=== PATIENT | female | born 1945 | race Caucasian/White ===

== ENCOUNTER 2016-07-03 19:41 | Emergency (ER) | payer MEDICARE, OTHER ==
[2016-07-03] MEDS ORDERED: LIDOCAINE/EPINEPHR/TETRACAINE 5 ML BOTTLE TOPICAL ONE (20:02)
--- NOTE | 2016-07-03 20:05 | ED ---
General Adult HPI - General Chief complaint: Skin/Abscess/Foreign Body Stated complaint: Eyelid lac/ pt on coumadin Time Seen by Provider: 07/03/16 19:52 Source: patient, RN notes reviewed Mode of arrival: ambulatory Limitations: no limitations - History of Present Illness Initial comments: Is a 70-year-old female who presents with bleeding to the left eyelid after scratching a scab on the eyelid. Patient states the bleeding has been going on for about one hour. Patient denies hitting her head. Patient denies any other sources of bleeding: Denies hematochezia, hematemesis, rectal bleeding, headache , epistaxis. Patient states she had a Coumadin level checked on 06/27/2016 and it was 1.3. Patient denies any visual changes. Patient denies any recent fever , chills, shortness breath, chest pain, abdominal pain, nausea/vomiting/diarrhea , back pain, numbness, tingling, hematuria, headache, or any other complaints. - Related Data Home Medications Medication Instructions Recorded Confirmed ALPRAZolam [Xanax] 0.5 mg PO QID 11/15/14 07/03/16 Aspirin 81 mg PO DAILY 11/15/14 07/03/16 Estrogens, Conjugated [Premarin] 0.9 mg PO DAILY 11/15/14 07/03/16 Fluticasone/Salmeterol [Advair 1 puff INHALATION RT-BID 11/15/14 07/03/16 500-50 Diskus] Hydrocodone/Acetaminophen [[place] 1 tab PO TID 11/15/14 07/03/16 10-325] Latanoprost Ophth [Xalatan 0.005%] 1 drops BOTH EYES HS 11/15/14 07/03/16 Montelukast [Singulair] 10 mg PO HS 11/15/14 07/03/16 Omeprazole [PriLOSEC] 20 mg PO AC-BRKFST 11/15/14 07/03/16 Quinapril HCl [Accupril] 5 mg PO DAILY 11/15/14 07/03/16 buPROPion XL [Wellbutrin XL] 150 mg PO DAILY 11/15/14 07/03/16 lamoTRIgine [LaMICtal] 200 mg PO BID 11/15/14 07/03/16 Butalb/Acetaminophen/Caffeine 1 tab PO QID PRN 11/16/14 07/03/16 [Fioricet 50-325-40] Lovastatin [Mevacor] 20 mg PO HS 11/16/14 07/03/16 Vilazodone Hydrochloride [Viibryd] 40 mg PO DAILY 11/16/14 07/03/16 buPROPion HCL [Wellbutrin XL] 300 mg PO DAILY 11/16/14 07/03/16 Metoprolol Tartrate [Lopressor] 25 mg PO BID 10/01/15 07/03/16 Verapamil [Isoptin] 40 mg PO DAILY 10/01/15 07/03/16 Warfarin [Coumadin] 5 mg PO TUSA 10/01/15 07/03/16 Warfarin [Coumadin] 7.5 mg PO SUMOWETHFR 10/01/15 07/03/16 Previous Rx's Medication Instructions Recorded Levothyroxine Sodium [Synthroid] 137 mcg PO DAILY@0630 #30 tab 11/22/14 Lidocaine Viscous [Xylocaine 5 ml PO QID #100 ml 02/11/16 Viscous 2%] Allergies Allergy/AdvReac Type Severity Reaction Status Date / Time No Known Allergies Allergy Verified 01/11/16 15:19 Review of Systems ROS Statement: Those systems with pertinent positive or pertinent negative responses have been documented in the HPI. ROS Other: All systems not noted in ROS Statement are negative. Past Medical History Past Medical History: Atrial Fibrillation, Asthma, COPD, GERD/Reflux, Hypertension, Mitral Valve Prolapse (MVP), Osteoarthritis (OA), Pneumonia, Rheumatoid Arthritis (RA), Thyroid Disorder Additional Past Medical History / Comment(s): Bipolar disorder, anxiety depressive disorder History of Any Multi-Drug Resistant Organisms: None Reported Past Surgical History: Adenoidectomy, Hysterectomy, Tonsillectomy Past Anesthesia/Blood Transfusion Reactions: No Reported Reaction Past Psychological History: No Psychological Hx Reported, Anxiety, Depression Smoking Status: Former smoker Past Alcohol Use History: None Reported Past Drug Use History: None Reported - Past Family History Mother Family Medical History: Vascular Disorder Father Family Medical History: CVA/TIA Brother(s) Family Medical History: Thyroid Disorder General Exam - General Exam Comments Initial Comments: General: The patient is awake and alert, in no distress, and does not appear acutely ill. Eye: There is an approximately 2 mm abrasion to the lateral aspect of the left upper eyelid. There is some oozing of blood from this area. Pupils are equal, round and reactive to light, extra-ocular movements are intact. No nystagmus. There is normal conjunctiva bilaterally. No signs of icterus. Ears: TMs pink and pearly with intact cone light bilaterally. Normal external ear canals. Nose: Nasal turbinates pink and moist. No epistaxis. Mouth and throat: There are moist mucous membranes and no oral lesions. Neck: The neck is supple, there is no tenderness or JVD. Cardiovascular: There is a irregularly irregular rhythm consistent with patient 's chronic A. fib. No murmur, rub or gallop is appreciated. Respiratory: Lungs are clear to auscultation, respirations are non-labored, breath sounds are equal. No wheezes, stridor, rales, or rhonchi. Gastrointestinal: Soft, non-distended, non-tender abdomen without masses or organomegaly noted. There is no rebound or guarding present. Bowel sounds are unremarkable. Musculoskeletal: Normal ROM, no tenderness. Strength 5/5. Sensation intact. Radial Pulses equal bilaterally 2+. Neurological: A&O x 3. CN II-XII intact, There are no obvious motor or sensory deficits. Coordination appears grossly intact. Speech is normal. Skin: There is an approximately 2 mm abrasion to the lateral aspect of the left upper eyelid with some oozing of blood from this area. Skin is warm and dry and no rashes or lesions are noted. Psychiatric: Cooperative, appropriate mood & affect, normal judgment. Limitations: no limitations Course Vital Signs 07/03/16 07/03/16 19:51 20:55 Temperature 97.6 F 97.7 F Pulse Rate 84 17 L Respiratory 17 82 H Rate Blood Pressure 146/91 140/88 O2 Sat by Pulse 96 97 Oximetry Medical Decision Making - Medical Decision Making This is a 70-year-old female presents with bleeding from the left upper eyelid after scratching a scab today. Patient states the bleeding has been going on for about one hour. On physical exam: there is an approximately 2 mm abrasion to the lateral aspect of the left upper eyelid. There is some oozing of blood to this area. Pupils are equal, round and reactive to light, extra-ocular movements are intact. No nystagmus. There is normal conjunctiva bilaterally. No signs of icterus. Wound was cleansed with normal saline. Wound is very superficial and no foreign body is noted. LET was applied to the left upper eyelid and compression was held to the left upper eyelid. After approximately 15 minutes with LET solution applied to the abrasion the bleeding was stopped. PT/INR PTT were checked and patient's INR is 2.6. I discussed results with patient. I discussed steady pressure to the area for 20-30 minutes with a cold wet washcloth if the area starts to bleed again. At time of discharge patient had no active bleeding. Discussed that patient should follow up with PCP in one to 2 days or return to the [facility] for any worsening symptoms or for any further concerns. Patient was receptive to this plan and patient will be discharged home. - Lab Data Lab Results 07/03/16 Range/Units 20:00 PT 25.0 H (9.0-12.0) sec INR 2.6 (<1.1) APTT 29.3 (22.0-30.0) sec Disposition Clinical Impression: Abrasion, Bleeding on Coumadin Disposition: HOME SELF-CARE Condition: Good Instructions: Abrasion (ED) Additional Instructions: If bleeding reoccurs please apply steady pressure to the area for at least 30 minutes. Please use medication as discussed. Please follow-up with family doctor in the next 2 days of symptoms have not improved. Please return to emergency room if the symptoms increase or worsen or for any other concerns. Referrals: Raudel Garza MD [Primary Care Provider] - 1-2 days Time of Disposition: 20:45
[2016-07-03 20:18] LABS: INR 2.6 (<1.1); Partial Thromboplastin Time 29.3 sec (22.0-30.0)
[2016-07-03 20:56] VITALS: BP 140/88; PULSE 17; RESP 82; TEMP 97.7
== END 2016-07-03 20:55 | disposition home or self-care (01) ==
LOC: EC 19:41
DX: S00.212A Abrasion of left eyelid and periocular area, initial encounter (principal); X58.XXXA Exposure to other specified factors, initial encounter; K21.9 Gastro-esophageal reflux disease without esophagitis; I34.1 Nonrheumatic mitral (valve) prolapse; E07.9 Disorder of thyroid, unspecified; J45.909 Unspecified asthma, uncomplicated; J44.9 Chronic obstructive pulmonary disease, unspecified; I48.91 Unspecified atrial fibrillation; F41.8 Other specified anxiety disorders; M19.90 Unspecified osteoarthritis, unspecified site; Z79.899 Other long term (current) drug therapy; Z79.82 Long term (current) use of aspirin; Z79.51 Long term (current) use of inhaled steroids; Z79.891 Long term (current) use of opiate analgesic; Z79.01 Long term (current) use of anticoagulants
CPT/HCPCS: 36415; 85610; 85730; 99283

== ENCOUNTER 2016-07-09 22:51 | Emergency (ER) | payer MEDICARE, OTHER ==
[2016-07-10] MEDS ORDERED: GLUCAGON 1 MG/ML VIAL IVP STA (00:12)
[2016-07-10] MEDS ORDERED: DIAZEPAM 5 MG TAB PO STA (00:13)
[2016-07-10] MEDS ORDERED: SODIUM CHLORIDE 0.9% 1,000 ML IV SCH (00:15)
--- NOTE | 2016-07-10 00:18 | ED ---
ENT HPI - General Chief complaint: ENT Stated complaint: ENT/Dizziness Time Seen by Provider: 07/10/16 00:00 Source: patient, EMS Mode of arrival: EMS - History of Present Illness Initial comments: She took her Singulair around 9:30 PM last night, she feels it is stuck in the in the throat she has no trouble breathing, after that she was able to drink about 2.5 glasses of water trying to flush it down water went down but she has a feeling that there is something stuck in the right side of the throat she is not drooling and is no distress but she is quite anxious and no difficulty breathing at all. He denies any headaches no chest pain or shortness of breath no abdominal pain no frequency urgency dysuria - Related Data Home Medications Medication Instructions Recorded Confirmed ALPRAZolam [Xanax] 0.5 mg PO QID 11/15/14 07/03/16 Aspirin 81 mg PO DAILY 11/15/14 07/03/16 Estrogens, Conjugated [Premarin] 0.9 mg PO DAILY 11/15/14 07/03/16 Fluticasone/Salmeterol [Advair 1 puff INHALATION RT-BID 11/15/14 07/03/16 500-50 Diskus] Hydrocodone/Acetaminophen [[place] 1 tab PO TID 11/15/14 07/03/16 10-325] Latanoprost Ophth [Xalatan 0.005%] 1 drops BOTH EYES HS 11/15/14 07/03/16 Montelukast [Singulair] 10 mg PO HS 11/15/14 07/03/16 Omeprazole [PriLOSEC] 20 mg PO AC-BRKFST 11/15/14 07/03/16 Quinapril HCl [Accupril] 5 mg PO DAILY 11/15/14 07/03/16 buPROPion XL [Wellbutrin XL] 150 mg PO DAILY 11/15/14 07/03/16 lamoTRIgine [LaMICtal] 200 mg PO BID 11/15/14 07/03/16 Butalb/Acetaminophen/Caffeine 1 tab PO QID PRN 11/16/14 07/03/16 [Fioricet 50-325-40] Lovastatin [Mevacor] 20 mg PO HS 11/16/14 07/03/16 Vilazodone Hydrochloride [Viibryd] 40 mg PO DAILY 11/16/14 07/03/16 buPROPion HCL [Wellbutrin XL] 300 mg PO DAILY 11/16/14 07/03/16 Metoprolol Tartrate [Lopressor] 25 mg PO BID 10/01/15 07/03/16 Verapamil [Isoptin] 40 mg PO DAILY 10/01/15 07/03/16 Warfarin [Coumadin] 5 mg PO TUSA 10/01/15 07/03/16 Warfarin [Coumadin] 7.5 mg PO SUMOWETHFR 10/01/15 07/03/16 Previous Rx's Medication Instructions Recorded Levothyroxine Sodium [Synthroid] 137 mcg PO DAILY@0630 #30 tab 11/22/14 Lidocaine Viscous [Xylocaine 5 ml PO QID #100 ml 02/11/16 Viscous 2%] Allergies Allergy/AdvReac Type Severity Reaction Status Date / Time No Known Allergies Allergy Verified 07/09/16 23:16 Review of Systems ROS Statement: Those systems with pertinent positive or pertinent negative responses have been documented in the HPI. ROS Other: All systems not noted in ROS Statement are negative. Past Medical History Past Medical History: Atrial Fibrillation, Asthma, COPD, GERD/Reflux, Hypertension, Mitral Valve Prolapse (MVP), Osteoarthritis (OA), Pneumonia, Rheumatoid Arthritis (RA), Thyroid Disorder Additional Past Medical History / Comment(s): Bipolar disorder, anxiety depressive disorder History of Any Multi-Drug Resistant Organisms: None Reported Past Surgical History: Adenoidectomy, Hysterectomy, Tonsillectomy Past Anesthesia/Blood Transfusion Reactions: No Reported Reaction Past Psychological History: No Psychological Hx Reported, Anxiety, Bipolar, Depression Smoking Status: Former smoker Past Alcohol Use History: None Reported Past Drug Use History: None Reported - Past Family History Mother Family Medical History: Vascular Disorder Father Family Medical History: CVA/TIA Brother(s) Family Medical History: Thyroid Disorder General Exam - General Exam Comments Initial Comments: General: The patient is awake and alert, in no distress, and does not appear acutely ill. He is anxious Skin: Skin is warm and dry and no rashes or lesions are noted. Eye: Pupils are equal, round and reactive to light, extra-ocular movements are intact; there is normal conjunctiva bilaterally. Ears, nose, mouth and throat: There are moist mucous membranes and no oral lesions. No foreign object noticed in the oropharynx Neck: The neck is supple, there is no tenderness or JVD. Cardiovascular: There is a regular rate and rhythm. No murmur, rub or gallop is appreciated. Respiratory: To auscultation bilateral, no wheezing no rhonchi no distress respiratory baldwin noticed Gastrointestinal: Soft, non-distended, non-tender abdomen without masses or organomegaly noted. There is no rebound or guarding present. Bowel sounds are unremarkable. Back: There is no tenderness to palpation in the midline. There is no obvious deformity. Musculoskeletal: Normal ROM, no tenderness, There is no pedal edema. There is no calf tenderness or swelling. No cords were appreciated. Neurological: CN II-XII intact, Cranial nerves III through XII are intact. There are no obvious motor or sensory deficits. Coordination appears grossly intact. Speech is normal. Psychiatric: Cooperative, appropriate mood & affect, normal judgment. Course Vital Signs 07/09/16 07/10/16 07/10/16 23:08 00:37 01:46 Temperature 98 F 98.1 F 97.3 F L Pulse Rate 87 91 83 Respiratory 18 16 16 Rate Blood Pressure 174/112 168/87 131/67 O2 Sat by Pulse 95 96 95 Oximetry 07/10/16 02:42 Temperature 97.4 F L Pulse Rate 63 Respiratory 16 Rate Blood Pressure 128/63 O2 Sat by Pulse 98 Oximetry An x-ray was reviewed, it's negative and around 2:30 she felt that she passed the Pain she wants home and recommend that she goes for a EGD home per her convenience in the near future normal recommend Dr. Cano/Brayan for the Disposition Clinical Impression: Foreign body in esophagus Disposition: HOME SELF-CARE Instructions: Soft Tissue Foreign Body (ED) Referrals: Raudel Garza MD [Primary Care Provider] - 1-2 days Gordy Rivera MD [STAFF PHYSICIAN] - 1-2 days
[2016-07-10 00:38] VITALS: RESP 16
--- NOTE | 2016-07-10 01:09 | XR ---
EXAMINATION TYPE: XR soft tissue neck DATE OF EXAM: 07/10/2016 1:04 AM COMPARISON: NONE HISTORY: Pill stuck in the throat TECHNIQUE: 2 views FINDINGS: Epiglottis is normal. Subglottic trachea appears normal. There is no sign of radiopaque for eign body. There is moderate spondylosis in the lower cervical spine at C5-6 C6-7. IMPRESSION: No acute abnormality of the cervical soft tissues. No sign of a foreign body.
[2016-07-10 02:44] VITALS: BP 128/63; PULSE 63; TEMP 97.4
== END 2016-07-10 02:56 | disposition home or self-care (01) ==
LOC: EC 22:51
DX: T18.108A Unspecified foreign body in esophagus causing other injury, initial encounter (principal); X58.XXXA Exposure to other specified factors, initial encounter; J44.9 Chronic obstructive pulmonary disease, unspecified; J45.909 Unspecified asthma, uncomplicated; M19.90 Unspecified osteoarthritis, unspecified site; K21.9 Gastro-esophageal reflux disease without esophagitis; I48.91 Unspecified atrial fibrillation; I34.1 Nonrheumatic mitral (valve) prolapse; E07.9 Disorder of thyroid, unspecified; I10 Essential (primary) hypertension; M06.9 Rheumatoid arthritis, unspecified; F31.9 Bipolar disorder, unspecified; F41.9 Anxiety disorder, unspecified; Z79.82 Long term (current) use of aspirin; Z79.01 Long term (current) use of anticoagulants; Z79.51 Long term (current) use of inhaled steroids; Z79.899 Other long term (current) drug therapy; Z87.01 Personal history of pneumonia (recurrent); Z87.891 Personal history of nicotine dependence
CPT/HCPCS: 99283; 96374; 96361 ×2; 70360; J1610

== ENCOUNTER 2016-10-05 21:33 | Emergency (ER) | payer MEDICARE, OTHER ==
[2016-10-05] MEDS ORDERED: METOCLOPRAMIDE 5 MG/ML 2 ML VIAL IVP STA (22:53)
[2016-10-05] MEDS ORDERED: diphenhydrAMINE 50 MG/ML 1 ML VIAL IVP STA (22:53)
[2016-10-05] MEDS ORDERED: GLUCAGON 1 MG/ML VIAL IVP STA (22:54)
--- NOTE | 2016-10-05 22:59 | ED ---
ENT HPI - General Chief complaint: ENT Stated complaint: Pill stuck in throat Time Seen by Provider: 10/05/16 22:34 Source: patient, RN notes reviewed Mode of arrival: ambulatory Limitations: no limitations - History of Present Illness Initial comments: Patient is a 71-year-old female presents to the emergency room for evaluation of foreign body sensation in throat. Patient states that she had a migraine earlier today and went to take her Fioricet by mouth and it got stuck in her throat on the right side. Patient states she's had this sensation before. Patient states she has tried drinking water, tea and bread and the pill will not go down her throat. Patient denies trouble swallowing. Patient denies pain in her throat. Patient denies chest pain or shortness of breath. Patient denies headache or dizziness. - Related Data Home Medications Medication Instructions Recorded Confirmed ALPRAZolam [Xanax] 0.5 mg PO QID 11/15/14 07/03/16 Aspirin 81 mg PO DAILY 11/15/14 07/03/16 Estrogens, Conjugated [Premarin] 0.9 mg PO DAILY 11/15/14 07/03/16 Fluticasone/Salmeterol [Advair 1 puff INHALATION RT-BID 11/15/14 07/03/16 500-50 Diskus] Hydrocodone/Acetaminophen [[place] 1 tab PO TID 11/15/14 07/03/16 10-325] Latanoprost Ophth [Xalatan 0.005%] 1 drops BOTH EYES HS 11/15/14 07/03/16 Montelukast [Singulair] 10 mg PO HS 11/15/14 07/03/16 Omeprazole [PriLOSEC] 20 mg PO AC-BRKFST 11/15/14 07/03/16 Quinapril HCl [Accupril] 5 mg PO DAILY 11/15/14 07/03/16 buPROPion XL [Wellbutrin XL] 150 mg PO DAILY 11/15/14 07/03/16 lamoTRIgine [LaMICtal] 200 mg PO BID 11/15/14 07/03/16 Butalb/Acetaminophen/Caffeine 1 tab PO QID PRN 11/16/14 07/03/16 [Fioricet 50-325-40] Lovastatin [Mevacor] 20 mg PO HS 11/16/14 07/03/16 Vilazodone Hydrochloride [Viibryd] 40 mg PO DAILY 11/16/14 07/03/16 buPROPion HCL [Wellbutrin XL] 300 mg PO DAILY 11/16/14 07/03/16 Metoprolol Tartrate [Lopressor] 25 mg PO BID 10/01/15 07/03/16 Verapamil [Isoptin] 40 mg PO DAILY 10/01/15 07/03/16 Warfarin [Coumadin] 5 mg PO TUSA 10/01/15 07/03/16 Warfarin [Coumadin] 7.5 mg PO SUMOWETHFR 10/01/15 07/03/16 Previous Rx's Medication Instructions Recorded Levothyroxine Sodium [Synthroid] 137 mcg PO DAILY@0630 #30 tab 11/22/14 Lidocaine Viscous [Xylocaine 5 ml PO QID #100 ml 02/11/16 Viscous 2%] Allergies Allergy/AdvReac Type Severity Reaction Status Date / Time No Known Allergies Allergy Verified 10/05/16 21:55 Review of Systems ROS Statement: Those systems with pertinent positive or pertinent negative responses have been documented in the HPI. ROS Other: All systems not noted in ROS Statement are negative. Past Medical History Past Medical History: Atrial Fibrillation, Asthma, COPD, GERD/Reflux, Hypertension, Mitral Valve Prolapse (MVP), Osteoarthritis (OA), Pneumonia, Rheumatoid Arthritis (RA), Thyroid Disorder Additional Past Medical History / Comment(s): Bipolar disorder, anxiety depressive disorder History of Any Multi-Drug Resistant Organisms: None Reported Past Surgical History: Adenoidectomy, Hysterectomy, Tonsillectomy Past Anesthesia/Blood Transfusion Reactions: No Reported Reaction Past Psychological History: No Psychological Hx Reported, Anxiety, Bipolar, Depression Smoking Status: Former smoker Past Alcohol Use History: None Reported Past Drug Use History: None Reported - Past Family History Mother Family Medical History: Vascular Disorder Father Family Medical History: CVA/TIA Brother(s) Family Medical History: Thyroid Disorder General Exam - General Exam Comments Initial Comments: Sitting in exam room in no acute distress. Limitations: no limitations General appearance: alert, in no apparent distress Head exam: Present: atraumatic, normocephalic, normal inspection Eye exam: Present: normal appearance ENT exam: Present: normal exam, normal oropharynx (No foreign bodies noted) Neck exam: Present: normal inspection Respiratory exam: Present: normal lung sounds bilaterally. Absent: respiratory distress Cardiovascular Exam: Present: regular rate, normal rhythm, normal heart sounds Extremities exam: Present: normal inspection Back exam: Present: normal inspection Neurological exam: Present: alert, oriented X3, CN II-XII intact, normal gait Psychiatric exam: Present: normal affect, normal mood Skin exam: Present: warm, dry, intact, normal color. Absent: rash Course Vital Signs 10/05/16 10/06/16 21:51 00:56 Temperature 97.7 F 97.3 F L Pulse Rate 76 68 Respiratory 20 18 Rate Blood Pressure 139/87 151/83 O2 Sat by Pulse 96 99 Oximetry Medical Decision Making - Medical Decision Making Patient is a 71-year-old female presents to the emergency room for evaluation of foreign body sensation in throat. Soft tissue x-ray shows no findings. Patient states having slight relief after medications. Discussed with patient the sensation could be from the pill scratching the side of her throat. Advised patient to follow-up with her primary care provider for reevaluation on Friday. Advised patient to return for worsening symptoms or difficulty swallowing. Patient able to swallow liquids. Patient is in no distress. Patient can be discharged. Case discussed with Dr. Donohue. - Radiology Data Radiology results: report reviewed, image reviewed Disposition Clinical Impression: Globus pharyngeus Disposition: HOME SELF-CARE Condition: Good Instructions: Esophageal Foreign Body (ED) Additional Instructions: Please follow up with primary care provider in 1-2 days. If any new symptom arises or symptoms worsen, return to ER as soon as possible. Referrals: Raudel Garza MD [Primary Care Provider] - 1-2 days Time of Disposition: 00:23
--- NOTE | 2016-10-05 23:02 | XR ---
EXAMINATION TYPE: XR soft tissue neck DATE OF EXAM: 10/05/2016 10:57 PM COMPARISON: Soft tissue neck x-ray July 10, 2016. HISTORY: Choking injury with pain. TECHNIQUE: 2 views of soft tissue neck are obtained. FINDINGS: There is no suspicious prevertebral soft tissue swelling on lateral view. Nasopharyngeal an d oropharyngeal airway are patent. Region of epiglottis and vallecula appears within normal limits. N o suspicious narrowing of subglottic airway is seen. There is persistent grade 1 retrolisthesis of C5 on C6. There is persistent moderate to severe spurri ng and disc space narrowing C5-C6 level and moderate to severe spurring with moderate disc space narr owing C6-C7 level. IMPRESSION: Airway patency maintained.
[2016-10-05] MEDS ORDERED: LIDOCAINE VISCOUS 2% 15 ML CUP MUCOUS MEM ONE (23:41)
[2016-10-06] MEDS ORDERED: LORazepam 2 MG/ML SYRINGE IV STA (00:26)
[2016-10-06 00:58] VITALS: BP 151/83; PULSE 68; RESP 18; TEMP 97.3
== END 2016-10-06 00:56 | disposition home or self-care (01) ==
LOC: EC 21:33
DX: F45.8 Other somatoform disorders (principal); J45.909 Unspecified asthma, uncomplicated; J44.9 Chronic obstructive pulmonary disease, unspecified; K21.9 Gastro-esophageal reflux disease without esophagitis; I10 Essential (primary) hypertension; M19.90 Unspecified osteoarthritis, unspecified site; M06.9 Rheumatoid arthritis, unspecified; I48.91 Unspecified atrial fibrillation; E07.9 Disorder of thyroid, unspecified; F31.9 Bipolar disorder, unspecified; F41.9 Anxiety disorder, unspecified; F32.9 Major depressive disorder, single episode, unspecified; Z87.891 Personal history of nicotine dependence; Z87.01 Personal history of pneumonia (recurrent); Z79.51 Long term (current) use of inhaled steroids; Z79.899 Other long term (current) drug therapy; Z79.01 Long term (current) use of anticoagulants; Z79.82 Long term (current) use of aspirin; Z90.89 Acquired absence of other organs
CPT/HCPCS: 70360; 99283; 96374; 96375 ×3; J2060; J1200; J1610; J2765

== ENCOUNTER 2016-12-09 03:29 | Emergency (ER) | payer MEDICARE, OTHER ==
[2016-12-09] MEDS ORDERED: DIAZEPAM 5 MG/ML 2 ML SYRINGE IM ONE (03:33)
[2016-12-09 03:34] VITALS: BP 154/91; PULSE 93; RESP 16; TEMP 97.9
--- NOTE | 2016-12-09 03:37 | ED ---
General Adult HPI - General Stated complaint: possible pill in throat Time Seen by Provider: 12/09/16 03:30 Source: RN notes reviewed - History of Present Illness Initial comments: This is a 71-year-old female presents to the emergency room stating that she swallowed a Lamictal pill hours ago she feels as though still might be stuck in her throat. Patient states she is able to swallow liquids and food without problem. Patient states she just feels a sensation in the right side of her throat that feels like the pill. Patient states it has happened multiple times in the past. Patient states she is also very anxious. Patient denies any difficulty breathing or shortness of breath. Patient denies any chest pain or palpitations. Patient denies any fever or chills. Patient denies any abdominal pain. - Related Data Home Medications Medication Instructions Recorded Confirmed ALPRAZolam [Xanax] 0.5 mg PO QID 11/15/14 07/03/16 Aspirin 81 mg PO DAILY 11/15/14 07/03/16 Estrogens, Conjugated [Premarin] 0.9 mg PO DAILY 11/15/14 07/03/16 Fluticasone/Salmeterol [Advair 1 puff INHALATION RT-BID 11/15/14 07/03/16 500-50 Diskus] Hydrocodone/Acetaminophen [[place] 1 tab PO TID 11/15/14 07/03/16 10-325] Latanoprost Ophth [Xalatan 0.005%] 1 drops BOTH EYES HS 11/15/14 07/03/16 Montelukast [Singulair] 10 mg PO HS 11/15/14 07/03/16 Omeprazole [PriLOSEC] 20 mg PO AC-BRKFST 11/15/14 07/03/16 Quinapril HCl [Accupril] 5 mg PO DAILY 11/15/14 07/03/16 buPROPion XL [Wellbutrin XL] 150 mg PO DAILY 11/15/14 07/03/16 lamoTRIgine [LaMICtal] 200 mg PO BID 11/15/14 07/03/16 Butalb/Acetaminophen/Caffeine 1 tab PO QID PRN 11/16/14 07/03/16 [Fioricet 50-325-40] Lovastatin [Mevacor] 20 mg PO HS 11/16/14 07/03/16 Vilazodone HCl [Viibryd] 40 mg PO DAILY 11/16/14 07/03/16 buPROPion HCL [Wellbutrin XL] 300 mg PO DAILY 11/16/14 07/03/16 Metoprolol Tartrate [Lopressor] 25 mg PO BID 10/01/15 07/03/16 Verapamil [Isoptin] 40 mg PO DAILY 10/01/15 07/03/16 Warfarin [Coumadin] 5 mg PO TUSA 10/01/15 07/03/16 Warfarin [Coumadin] 7.5 mg PO SUMOWETHFR 10/01/15 07/03/16 Previous Rx's Medication Instructions Recorded Levothyroxine Sodium [Synthroid] 137 mcg PO DAILY@0630 #30 tab 11/22/14 Lidocaine Viscous [Xylocaine 5 ml PO QID #100 ml 02/11/16 Viscous 2%] Allergies Allergy/AdvReac Type Severity Reaction Status Date / Time No Known Allergies Allergy Verified 12/09/16 03:31 Review of Systems ROS Statement: Those systems with pertinent positive or pertinent negative responses have been documented in the HPI. ROS Other: All systems not noted in ROS Statement are negative. Past Medical History Past Medical History: Atrial Fibrillation, Asthma, COPD, GERD/Reflux, Hypertension, Mitral Valve Prolapse (MVP), Osteoarthritis (OA), Pneumonia, Rheumatoid Arthritis (RA), Thyroid Disorder Additional Past Medical History / Comment(s): Bipolar disorder, anxiety depressive disorder History of Any Multi-Drug Resistant Organisms: None Reported Past Surgical History: Adenoidectomy, Hysterectomy, Tonsillectomy Past Anesthesia/Blood Transfusion Reactions: No Reported Reaction Past Psychological History: No Psychological Hx Reported, Anxiety, Bipolar, Depression Smoking Status: Former smoker Past Alcohol Use History: None Reported Past Drug Use History: None Reported - Past Family History Mother Family Medical History: Vascular Disorder Father Family Medical History: CVA/TIA Brother(s) Family Medical History: Thyroid Disorder General Exam - General Exam Comments Initial Comments: GENERAL: Patient is well-developed and well-nourished. Patient is nontoxic and well- hydrated and is in no acute distress. ENT: Neck is soft and supple. No significant lymphadenopathy is noted. Oropharynx is clear. Moist mucous membranes. Neck has full range of motion without eliciting any pain. EYES: The sclera were anicteric and conjunctiva were pink and moist. Extraocular movements were intact and pupils were equal round and reactive to light. Eyelids were unremarkable. PULMONARY: Unlabored respirations. Good breath sounds bilaterally. No audible rales rhonchi or wheezing was noted. CARDIOVASCULAR: There is a regular rate and rhythm without any murmurs gallops or rubs. ABDOMEN: Soft and nontender with normal bowel sounds. No palpable organomegaly was noted. There is no palpable pulsatile mass. SKIN: Skin is clear with no lesions or rashes and otherwise unremarkable. NEUROLOGIC: Patient is alert and oriented x3. Cranial nerves II through XII are grossly intact. Motor and sensory are also intact. Normal speech, volume and content. Symmetrical smile. MUSCULOSKELETAL: Normal extremities with adequate strength and full range of motion. LYMPHATICS: No significant lymphadenopathy is noted PSYCHIATRIC: Patient is moderately anxious Medical Decision Making - Medical Decision Making Patient has no difficulty swallowing. I looked on the patient's throat was unable to see any pill. Disposition Clinical Impression: Globus hystericus, Anxiety Disposition: HOME SELF-CARE Condition: Good Instructions: Esophageal Foreign Body (ED) Referrals: Raudel Garza MD [Primary Care Provider] - 1-2 days Time of Disposition: 03:37
== END 2016-12-09 03:49 | disposition home or self-care (01) ==
LOC: EC 03:29
DX: F45.8 Other somatoform disorders (principal); F41.9 Anxiety disorder, unspecified; I48.91 Unspecified atrial fibrillation; J44.9 Chronic obstructive pulmonary disease, unspecified; K21.9 Gastro-esophageal reflux disease without esophagitis; I10 Essential (primary) hypertension; M19.90 Unspecified osteoarthritis, unspecified site; M06.9 Rheumatoid arthritis, unspecified; E07.9 Disorder of thyroid, unspecified; F31.9 Bipolar disorder, unspecified; Z87.891 Personal history of nicotine dependence; Z79.82 Long term (current) use of aspirin; Z79.51 Long term (current) use of inhaled steroids; Z79.3 Long term (current) use of hormonal contraceptives; Z79.01 Long term (current) use of anticoagulants; Z79.899 Other long term (current) drug therapy; Z98.890 Other specified postprocedural states
CPT/HCPCS: 99283; 96372; J3360

== ENCOUNTER 2017-09-08 19:36 | Emergency (ER) | payer MEDICARE, OTHER ==
[2017-09-08] MEDS ORDERED: HYDROcodone/APAP 10-325MG 1 EACH TAB PO ONE (21:20)
[2017-09-08 21:38] VITALS: TEMP 98.5
--- NOTE | 2017-09-08 21:43 | XR ---
EXAMINATION TYPE: XR chest 2V DATE OF EXAM: 09/08/2017 COMPARISON: NONE HISTORY: Pain TECHNIQUE: Frontal and lateral views of the chest are obtained. FINDINGS: The heart is enlarged. There is no heart failure. Costophrenic angles are clear. Thoracic aorta is atheromatous. Bony thorax is intact. IMPRESSION: Cardiomegaly. Minimal scarring or subsegmental atelectasis in the left midlung. No trujillo e compared to old exam.
--- NOTE | 2017-09-08 21:44 | XR ---
EXAMINATION TYPE: XR ribs RT DATE OF EXAM: 09/08/2017 COMPARISON: NONE HISTORY: Pain TECHNIQUE: 4 views FINDINGS: There is evidence of nondisplaced fractures of the anterior right 8 7/6 ribs. There is no p leural effusion or pneumothorax. There is osteopenia. IMPRESSION: Multiple nondisplaced anterior right rib fractures.
--- NOTE | 2017-09-08 22:33 | ED ---
Fall HPI - General Chief Complaint: Fall Stated Complaint: fall/ rib pain Time Seen by Provider: 09/08/17 21:01 Source: patient Mode of arrival: ambulatory - History of Present Illness Initial Comments: 72 years old female fell yesterday in the bathroom she landed on the edge of the tub she is complaining about pain in the right rib cage it hurts to touch it hurts to move it hurts to take a deep breath. No head injury no neck injury no loss of consciousness review of system is unremarkable otherwise him a no fever no chills no cough no sputum associated symptoms history of atrial fibrillation she is on aliquis him a no head injury no loss of consciousness no neck injury - Related Data Home Medications Medication Instructions Recorded Confirmed Hydrocodone/Acetaminophen [[place] 1 tab PO BID PRN 11/15/14 09/08/17 10-325] Latanoprost Ophth [Xalatan 0.005%] 1 drops BOTH EYES HS 11/15/14 09/08/17 Montelukast [Singulair] 10 mg PO HS 11/15/14 09/08/17 Omeprazole [PriLOSEC] 20 mg PO AC-BRKFST 11/15/14 09/08/17 Quinapril HCl [Accupril] 5 mg PO DAILY 11/15/14 09/08/17 buPROPion XL [Wellbutrin XL] 300 mg PO BID 11/15/14 09/08/17 lamoTRIgine [LaMICtal] 200 mg PO BID 11/15/14 09/08/17 Lovastatin [Mevacor] 20 mg PO HS 11/16/14 09/08/17 Apixaban [Eliquis] 5 mg PO BID 05/26/17 09/08/17 Levothyroxine Sodium [Synthroid] 75 mcg PO DAILY 05/26/17 09/08/17 Metoprolol Succinate (ER) [Toprol 100 mg PO DAILY 05/26/17 09/08/17 Xl] ALPRAZolam [Xanax] 0.25 mg PO Q12H 09/08/17 09/08/17 Meclizine HCl 12.5 mg PO BID 09/08/17 09/08/17 Vilazodone HCl [Viibryd] 40 mg PO DAILY 09/08/17 09/08/17 Previous Rx's Medication Instructions Recorded HYDROmorphone [Dilaudid] 1 mg PO Q8HR PRN #12 tab 09/08/17 Allergies Allergy/AdvReac Type Severity Reaction Status Date / Time No Known Allergies Allergy Verified 09/08/17 21:18 Review of Systems ROS Statement: Those systems with pertinent positive or pertinent negative responses have been documented in the HPI. ROS Other: All systems not noted in ROS Statement are negative. Past Medical History Past Medical History: Atrial Fibrillation, Asthma, COPD, GERD/Reflux, Hypertension, Mitral Valve Prolapse (MVP), Osteoarthritis (OA), Pneumonia, Rheumatoid Arthritis (RA), Thyroid Disorder Additional Past Medical History / Comment(s): Bipolar disorder, anxiety depressive disorder, lumbar ddd,"bulging discs", chronic back/neck pain, diverticultis, migraines, glaucoma History of Any Multi-Drug Resistant Organisms: None Reported Past Surgical History: Adenoidectomy, Hysterectomy, Tonsillectomy Past Anesthesia/Blood Transfusion Reactions: No Reported Reaction Past Psychological History: Anxiety, Bipolar, Depression Smoking Status: Former smoker Past Alcohol Use History: None Reported Past Drug Use History: None Reported - Past Family History Mother Family Medical History: Vascular Disorder Father Family Medical History: CVA/TIA Brother(s) Family Medical History: Thyroid Disorder General Exam - General Exam Comments Initial Comments: General: The patient is awake and alert, in mild distress, and does not appear acutely ill. Skin: Skin is warm and dry and no rashes or lesions are noted. Eye: Pupils are equal, round and reactive to light, extra-ocular movements are intact; there is normal conjunctiva bilaterally. Ears, nose, mouth and throat: There are moist mucous membranes and no oral lesions. Neck: The neck is supple, there is no tenderness or JVD. Cardiovascular: There is A. fib, tender to palpate over the chest wall over the 6,7,8 rib area Respiratory: To auscultation bilateral, no wheezing no rhonchi no distress respiratory baldwin noticed Gastrointestinal: Soft, non-distended, non-tender abdomen without masses or organomegaly noted. There is no rebound or guarding present. Bowel sounds are unremarkable. Back: There is no tenderness to palpation in the midline. There is no obvious deformity. Musculoskeletal: Normal ROM, no tenderness, There is no pedal edema. There is no calf tenderness or swelling. No cords were appreciated. Neurological: CN II-XII intact, Cranial nerves III through XII are intact. There are no obvious motor or sensory deficits. Coordination appears grossly intact. Speech is normal. Psychiatric: Cooperative, appropriate mood & affect, normal judgment. Limitations: no limitations Course Vital Signs 09/08/17 09/08/17 20:18 21:33 Temperature 98.1 F 98.5 F Pulse Rate 74 75 Respiratory 18 95 H Rate Blood Pressure 145/77 151/88 O2 Sat by Pulse 96 96 Oximetry Chest x-ray was reviewed, it rules out any pneumothorax or hemothorax and does confirm multiple rib fractures 678 Disposition Clinical Impression: Multiple rib fractures Disposition: HOME SELF-CARE Condition: Good Instructions: Fall Prevention for Older Adults (ED) Prescriptions: HYDROmorphone [Dilaudid] 1 mg PO Q8HR PRN #12 tab PRN Reason: Pain Referrals: Raudel Garza MD [Primary Care Provider] - 1-2 days
[2017-09-08 22:45] VITALS: RESP 18
[2017-09-08 22:51] VITALS: BP 165/83; PULSE 78
== END 2017-09-08 22:51 | disposition home or self-care (01) ==
LOC: EC 19:36
DX: S22.41XA Multiple fractures of ribs, right side, initial encounter for closed fracture (principal); K21.9 Gastro-esophageal reflux disease without esophagitis; I48.91 Unspecified atrial fibrillation; I10 Essential (primary) hypertension; F31.9 Bipolar disorder, unspecified; H40.9 Unspecified glaucoma; F41.9 Anxiety disorder, unspecified; J44.9 Chronic obstructive pulmonary disease, unspecified; E07.9 Disorder of thyroid, unspecified; Z87.891 Personal history of nicotine dependence; Z79.01 Long term (current) use of anticoagulants; Z79.899 Other long term (current) drug therapy; Z87.01 Personal history of pneumonia (recurrent); W18.2XXA Fall in (into) shower or empty bathtub, initial encounter; Y92.002 Bathroom of unspecified non-institutional (private) residence as the place of occurrence of the external cause
CPT/HCPCS: 71046; 99283

== ENCOUNTER → 2018-05-05 | Outpatient (CLI) | payer MEDICARE, OTHER ==
--- NOTE | 2018-05-06 08:06 | MM ---
Reason for exam: clinical finding. Last mammogram was performed 2 years and 9 months ago. History: Patient is postmenopausal. Family history of premenopausal breast cancer in maternal cousin at age 38 and breast cancer in maternal aunt at age 62. Benign left US cyst aspiration of the left breast, December 02, 2005. Benign cyst aspiration of the left breast, November 12, 2001. Excisional biopsy of the left breast. Benign excisional biopsy of the left breast. Taking estrogen for 15 years 7 months beginning at age 50. Taking progesterone for 15 years 7 months beginning at age 50. Indicated problem(s): pain in both breasts. Physical Findings: Nurse did not find any significant physical abnormalities on exam. MG 3D Diag Mammo W/Cad AMPARO Bilateral CC and MLO view(s) were taken. Prior study comparison: August 09, 2015, bilateral MG 3d screening mammo w/cad. January 24, 2015, right breast MG diagnostic mammo RT w CAD. The breast tissue is heterogeneously dense. This may lower the sensitivity of mammography. Finding: There is a probably typically benign equal density (isodense), lobulated mass in the anterior position of the left breast. New finding since August 09, 2015. These results were verbally communicated with the patient and result sheet given to the patient on 05/05/18. ASSESSMENT: Incomplete: need additional imaging evaluation, BI-RAD 0 RECOMMENDATION: Ultrasound of the left breast.
--- NOTE | 2018-05-06 08:07 | USB ---
Reason for exam: additional evaluation requested from abnormal screening. History: Patient is postmenopausal. Family history of premenopausal breast cancer in maternal cousin at age 38 and breast cancer in maternal aunt at age 62. Benign left US cyst aspiration of the left breast, December 02, 2005. Benign cyst aspiration of the left breast, November 12, 2001. Excisional biopsy of the left breast. Benign excisional biopsy of the left breast. Taking estrogen for 15 years 7 months beginning at age 50. Taking progesterone for 15 years 7 months beginning at age 50. US Breast Limited LT Left limited breast ultrasound including focal area of concern, retroareolar and axilla demonstrates a 0.8 x 0.7 x 1.0cm hypoechoic lesion at 5 o'clock. These results were verbally communicated with the patient and result sheet given to the patient on 05/05/18. ASSESSMENT: Suspicious, BI-RAD 4 RECOMMENDATION: Ultrasound core biopsy of the left breast. Called Dr. Garza with mammographic findings and has scheduled an appointment for the patient for 05/12/18 at 3:[address] Clay. PRELIMINARY REPORT CALLED AND FAXED TO DR. CLAY ON 05/06/18.
== END | disposition home or self-care (01) ==
LOC: RADMAMWWP 13:39
PROVIDERS: ATTEND Family Medicine
DX: N64.4 Mastodynia (principal); R92.8 Other abnormal and inconclusive findings on diagnostic imaging of breast
CPT/HCPCS: 77066; 76642; G0279; 77062

== ENCOUNTER → 2018-05-27 | Day surgery (SDC) | payer MEDICARE, OTHER ==
[2018-05-27 13:54] VITALS: RESP 15; TEMP 98; BMI 25.2
--- NOTE | 2018-05-27 14:49 | USB ---
EXAMINATION TYPE: US biopsy breast VAD LT, MG diagnostic mammo LT wo CAD DATE OF EXAM: 05/27/2018 CLINICAL HISTORY: R92.8 Abnormal mammogram. TECHNIQUE: Ultrasound guided core biopsy of left 5:00 breast. COMPARISON: NONE FINDINGS: The procedure of ultrasound guided core biopsy was explained to the patient. Benefits, alternatives, and risks were discussed. An informed consent was then obtained. The patient was placed in supine positioning for imaging and for the procedure. The overlying skin was prepped and draped in usual sterile fashion. Lidocaine buffered with bicarbonate was used as anesthetic into the skin and subcutaneous tissue up to area of concern in the left 5:00 breast. A yifan was made with surgical scalpel. Under ultrasound guidance, a 12-gauge vacuum assisted biopsy gun device was used to obtain 4 core samples. Following this, a biopsy clip was left in lesion. Clip placement mammogram demonstrates appropriate deployment of clip marker. The patient tolerated the procedure well without any immediate complication. The patient was kept in the radiology department for short stay after the procedure and then discharged home in stable condition. IMPRESSION: Successful, uncomplicated ultrasound guided core biopsy of area of concern in the left 5:00 breast, full pathology results to follow. 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 Recommendation Surgical consult of the left breast. GRISELDA
[2018-05-27 15:19] VITALS: BP 130/68; PULSE 80
== END ==
LOC: RADUSWWP 13:11
PROVIDERS: ATTEND Surgery
DX: D24.2 Benign neoplasm of left breast (principal); N60.42 Mammary duct ectasia of left breast; R92.8 Other abnormal and inconclusive findings on diagnostic imaging of breast
CPT/HCPCS: 88305; 77065; 19083; A4648; J2001

== ENCOUNTER 2018-06-28 21:37 | Inpatient (IN) | payer MEDICARE, OTHER ==
--- NOTE | 2018-06-28 22:30 | ED ---
Abdominal Pain HPI - General Chief Complaint: Abdominal Pain Stated Complaint: ABD PAIN Time Seen by Provider: 06/28/18 21:42 Source: patient, EMS Mode of arrival: EMS Limitations: no limitations - History of Present Illness Initial Comments: Patient is a 72-year-old female with history of diverticulitis who presents to the emergency department today for evaluation of nearly 1 week of abdominal pain. Patient reports her pain began on [place]. Pain was initially left lower quadrant but is now diffuse throughout her abdomen. Pain is associated with nausea and decreased appetite. Patient also reports she's had no bowel movement for approximately 4 days duration. Patient reports her most recent bout of diverticulitis was approximately 8 months ago at which time she had abdominal pain and profuse diarrhea. Patient reports she believes that this bout of diverticulitis was likely precipitated by eating corn on [place]. Patient reports she intermittently has foul-smelling urine but no dysuria, hematuria or urinary frequency. She denies any fevers, chills, chest pain or shortness of breath. - Related Data Home Medications Medication Instructions Recorded Confirmed Hydrocodone/Acetaminophen [[place] 1 tab PO BID PRN 11/15/14 06/28/18 10-325] Latanoprost Ophth [Xalatan 0.005%] 1 drops BOTH EYES HS 11/15/14 06/28/18 Montelukast [Singulair] 10 mg PO HS 11/15/14 06/28/18 Lovastatin [Mevacor] 20 mg PO HS 11/16/14 06/28/18 Apixaban [Eliquis] 5 mg PO BID 05/26/17 06/28/18 Meclizine HCl 12.5 mg PO DAILY PRN 09/08/17 06/28/18 Vilazodone HCl [Viibryd] 40 mg PO DAILY 09/08/17 06/28/18 Ergocalciferol (Vitamin D2) 50,000 unit PO SA 05/15/18 06/28/18 [Vitamin D2] Estrogens, Conjugated [Premarin] 0.3 mg PO DAILY 05/15/18 06/28/18 ALPRAZolam [Xanax] 0.25 mg PO Q12HR 06/28/18 06/28/18 Albuterol Sulfate [Proair Hfa] 2 puff INHALATION RT-Q8H 06/28/18 06/28/18 Butalb/Acetaminophen/Caffeine 1 cap PO QID 06/28/18 06/28/18 [Fioricet 50-300-40 mg Capsule] Levothyroxine Sodium [Synthroid] 125 mcg PO DAILY 06/28/18 06/28/18 Lisinopril [Prinivil] 5 mg PO DAILY 06/28/18 06/28/18 Metoprolol Tartrate [Lopressor] 50 mg PO BID 06/28/18 06/28/18 buPROPion HCL [Wellbutrin XL] 300 mg PO DAILY 06/28/18 06/28/18 Allergies Allergy/AdvReac Type Severity Reaction Status Date / Time No Known Allergies Allergy Verified 06/28/18 22:13 Review of Systems ROS Statement: Those systems with pertinent positive or pertinent negative responses have been documented in the HPI. ROS Other: All systems not noted in ROS Statement are negative. Past Medical History Past Medical History: Atrial Fibrillation, Asthma, COPD, GERD/Reflux, Hypertension, Mitral Valve Prolapse (MVP), Osteoarthritis (OA), Pneumonia, Rheumatoid Arthritis (RA), Thyroid Disorder Additional Past Medical History / Comment(s): anxiety depressive disorder, lumbar ddd,"bulging discs", chronic back/neck pain, diverticultis, migraines, glaucoma History of Any Multi-Drug Resistant Organisms: None Reported Past Surgical History: Adenoidectomy, Hysterectomy, Tonsillectomy Past Anesthesia/Blood Transfusion Reactions: No Reported Reaction Past Psychological History: Anxiety, Bipolar, Depression Smoking Status: Current every day smoker Past Alcohol Use History: None Reported Past Drug Use History: None Reported - Past Family History Mother Family Medical History: Vascular Disorder Father Family Medical History: CVA/TIA Brother(s) Family Medical History: Thyroid Disorder General Exam - General Exam Comments Initial Comments: Physical Exam GENERAL: Patient is well-developed and well-nourished. Patient is nontoxic and well- hydrated and is in no distress. HENT: Normocephalic, Atraumatic. EYES: PERRL, EOMI PULMONARY: Unlabored respirations. No audible rales rhonchi or wheezing was noted. CARDIOVASCULAR: There is a regular rate and rhythm without any murmurs gallops or rubs. ABDOMEN: Soft and nontender with normal bowel sounds. SKIN: Skin is clear with no lesions or rashes and otherwise unremarkable. : Deferred NEUROLOGIC: Patient is alert and oriented x3. Moving all extremities spontaneously MUSCULOSKELETAL: Normal extremities with adequate strength and full range of motion. No lower extremity swelling or edema. No calf tenderness. PSYCHIATRIC: Normal psychiatric evaluation. Limitations: no limitations Limitations: no limitations Course Vital Signs 06/28/18 06/28/18 06/29/18 21:46 23:27 00:56 Temperature 98.2 F Pulse Rate 72 68 106 H Respiratory 18 18 18 Rate Blood Pressure 164/86 134/89 147/80 O2 Sat by Pulse 98 100 100 Oximetry 06/29/18 02:32 Temperature 98.7 F Pulse Rate 69 Respiratory 18 Rate Blood Pressure 137/77 O2 Sat by Pulse 97 Oximetry Medical Decision Making - Medical Decision Making She was seen and evaluated, history is obtained from the patient review of medical record Labs and imaging were ordered Labs revealed mild leukocytosis Computed tomography scan confirms diverticulitis without abscess or perforation. Options were discussed with the patient including discharge home with oral antibiotics and pain medication versus admission to the hospital, considering the patient's advanced age I do feel she would benefit from admission patient is agreeable to this. Patient care was discussed with her primary care physician Dr. Garza who accepts the admission for uncomplicated diverticulitis and an elderly female. - Lab Data Result diagrams: 06/28/18 22:40 06/28/18 23:15 Lab Results 06/28/18 06/28/18 06/28/18 Range/Units 22:22 22:40 23:15 WBC 11.6 H (3.8-10.6) k/uL RBC 4.60 (3.80-5.40) m/uL Hgb 14.7 (11.4-16.0) gm/dL Hct 45.3 (34.0-46.0) % MCV 98.3 (80.0-100.0) fL MCH 32.0 (25.0-35.0) pg MCHC 32.5 (31.0-37.0) g/dL RDW 12.8 (11.5-15.5) % Plt Count 180 (150-450) k/uL Neutrophils % 76 % Lymphocytes % 12 % Monocytes % 9 % Eosinophils % 2 % Basophils % 0 % Neutrophils # 8.7 H (1.3-7.7) k/uL Lymphocytes # 1.4 (1.0-4.8) k/uL Monocytes # 1.0 (0-1.0) k/uL Eosinophils # 0.2 (0-0.7) k/uL Basophils # 0.0 (0-0.2) k/uL Sodium 138 (137-145) mmol/L Potassium 4.4 (3.5-5.1) mmol/L Chloride 104 (98-107) mmol/L Carbon Dioxide 27 (22-30) mmol/L Anion Gap 7 mmol/L BUN 21 H (7-17) mg/dL Creatinine 0.82 (0.52-1.04) mg/dL Est GFR (CKD-EPI)AfAm 83 (>60 ml/min/1.73 sqM) Est GFR (CKD-EPI)NonAf 72 (>60 ml/min/1.73 sqM) Glucose 99 (74-99) mg/dL Calcium 10.0 (8.4-10.2) mg/dL Total Bilirubin 0.6 (0.2-1.3) mg/dL AST 20 (14-36) U/L ALT 19 (9-52) U/L Alkaline Phosphatase 111 (38-126) U/L Total Protein 6.8 (6.3-8.2) g/dL Albumin 3.7 (3.5-5.0) g/dL Amylase 48 (30-110) U/L Lipase 94 (23-300) U/L Urine Color Yellow Urine Appearance Cloudy H (Clear) Urine pH 6.5 (5.0-8.0) Ur Specific [place] 1.020 (1.001-1.035) Urine Protein Trace H (Negative) Urine Glucose (UA) Negative (Negative) Urine Ketones 1+ H (Negative) Urine Blood Negative (Negative) Urine Nitrite Negative (Negative) Urine Bilirubin Negative (Negative) Urine Urobilinogen 2.0 (<2.0) mg/dL Ur Leukocyte Esterase Negative (Negative) Urine RBC 4 (0-5) /hpf Urine WBC 1 (0-5) /hpf Ur Squamous Epith Cells 12 H (0-4) /hpf Amorphous Sediment Rare H (None) /hpf Urine Bacteria Rare H (None) /hpf Urine Mucus Occasional H (None) /hpf Disposition Clinical Impression: Diverticulitis Disposition: ADMITTED IP TO THIS HOSP Referrals: Raudel Garza MD [Primary Care Provider] - 1-2 days
[2018-06-28 22:47] LABS: Amorphous Sediment,Urine Rare /hpf; Appearance,Urine Cloudy (Clear); Bacteria,Urine Rare /hpf; Bilirubin,Urine Negative (Negative); Blood,Urine Negative (Negative); Color,Urine Yellow; Glucose,Urine (UA) Negative (Negative); Ketones,Urine 1+ (Negative); Leukocyte Esterase,Urine Negative (Negative); Mucus,Urine Occasional /hpf; Nitrite,Urine Negative (Negative); PH, Urine 6.5 (5.0-8.0); Protein,Urine Trace (Negative); RBC,Urine 4 /hpf (0-5); Squamous Epithelial Cell,Urine 12 /hpf (0-4); WBC,Urine 1 /hpf (0-5)
[2018-06-28 23:00] LABS: Basophils % (A) 0 %; Eosinophils # (A) 0.2 k/uL (0-0.7); Eosinophils % (A) 2 %; HCT 45.3 % (34.0-46.0); HGB 14.7 gm/dL (11.4-16.0); Lymphocytes # (A) 1.4 k/uL (1.0-4.8); Lymphocytes % (A) 12 %; MCHC 32.5 g/dL (31.0-37.0); MCV 98.3 fL (80.0-100.0); Mean Platelet Volume 7.9; Monocytes % (A) 9 %; Neutrophils # (A) 8.7 k/uL (1.3-7.7); Neutrophils % (A) 76 %; Platelet Count 180 k/uL (150-450); RDW 12.8 % (11.5-15.5); WBC 11.6 k/uL (3.8-10.6)
[2018-06-28] MEDS ORDERED: MORPHINE SULFATE 4 MG/ML SYRINGE IVP STA (23:19)
[2018-06-28 23:52] LABS: Albumin 3.7 g/dL (3.5-5.0); Potassium 4.4 mmol/L (3.5-5.1); Total Bilirubin 0.6 mg/dL (0.2-1.3); Total Protein 6.8 g/dL (6.3-8.2)
--- NOTE | 2018-06-29 01:46 | CT ---
EXAMINATION TYPE: CT abdomen pelvis w con DATE OF EXAM: 06/29/2018 COMPARISON: 07/22/2014 HISTORY: Abdominal pain CT DLP: 489.8 mGycm Automated exposure control for dose reduction was used. TECHNIQUE: Helical acquisition of images was performed from the lung bases through the pelvis. CONTRAST: Performed without Oral Contrast and with IV Contrast, patient injected with 100 mL of Isovue 300. FINDINGS: Heart is enlarged. Lung bases are clear of consolidation. There is no pleural effusion. There is no p ericardial effusion. Liver spleen pancreas gallbladder appear within normal limits. Gallbladder is top normal in size. Bile ducts are not dilated. There is probably small hiatal hernia. There is no adrenal mass. The kidn eys have normal size and contour. There is no hydronephrosis. There is normal contrast opacification of the kidneys. There is no retroperitoneal adenopathy. Ureters are not dilated. There is some fluid in the pelvis. There is wall thickening and mild fat stranding around the sigmoid colon. There are sigmoid diverticula. Bladder distends smoothly. There is no inguinal hernia. There is no evidence of free air. Appendix is not seen. There is no sign of appendicitis. There is no evide nce of free air. There is no evidence of bowel obstruction. Lumbar vertebra have disc space narrowing with spur formation. There is no compression fracture. Bony pelvis is intact. IMPRESSION: CARDIOMEGALY. INFLAMMATORY CHANGES IN THE PELVIS WITH FLUID AND FAT STRANDING CONSISTENT WITH DIVERTICULITIS OR COL ITIS. THIS IS A CHANGE COMPARED TO OLD EXAM. NO ABSCESS SEEN.
[2018-06-29] MEDS ORDERED: NALOXONE 0.4 MG/ML 1 ML VIAL IV PRN (02:01)
[2018-06-29] MEDS ORDERED: ONDANSETRON 4 MG/2 ML VIAL IVP PRN (02:01)
[2018-06-29] MEDS ORDERED: metroNIDAZOLE-NS PMX 500 MG in SALINE 1 100ML.BAG IVPB ONE (02:30)
[2018-06-29] MEDS: MORPHINE SULFATE 4 MG/ML SYRINGE IV PRN ×3 (02:36→11:45)
[2018-06-29] MEDS: SODIUM CHLORIDE 0.9% 1,000 ML IV SCH ×2 (02:37→18:10)
[2018-06-29] MEDS ORDERED: ALBUTEROL NEBULIZED 2.5 MG/3 ML INHALATION SCH (08:00)
[2018-06-29] MEDS: ALBUTEROL NEBULIZED 2.5 MG/3 ML INHALATION SCH ×3 (08:04→20:29)
[2018-06-29] MEDS: LEVOTHYROXINE 125 MCG TAB PO SCH (08:27)
[2018-06-29] MEDS: ALPRAZolam 0.25 MG TAB PO SCH ×2 (10:22→20:04)
[2018-06-29] MEDS: APIXABAN 5 MG TAB PO SCH ×2 (10:22→20:04)
[2018-06-29] MEDS: METOPROLOL TARTRATE 50 MG TAB PO SCH ×2 (10:22→20:04)
[2018-06-29] MEDS: buPROPion XL 300 MG TAB.ER.24H PO SCH (10:22)
[2018-06-29] MEDS: LISINOPRIL 5 MG TAB PO SCH (10:22)
[2018-06-29 13:42] VITALS: BMI 24.7
--- NOTE | 2018-06-29 16:20 | P.GSCN ---
History of Present Illness Consult date: 06/29/18 History of present illness: CHIEF COMPLAINT: Diverticulitis HISTORY OF PRESENT ILLNESS: The patient is a 72-year-old female with known history of diverticulitis. She reports eating corn on [place] now 1 week ago where she was in bed with moderate to severe abdominal pain of the left lower quadrant for almost one week. She does a strong family history of diverticulitis in her brother. No reports of colon cancer or polyps to her knowledge. Last colonoscopy was in 2007 now 10 years ago. She had a CT of the abdomen and pelvis confirming colitis of the sigmoid colon. As result she has been admitted. Since admission, her abdominal pain has improved. PAST MEDICAL HISTORY: Please see list PAST SURGICAL HISTORY: Please see list MEDICATIONS: Please see list ALLERGIES: Denies. SOCIAL HISTORY: No illicit drug use or recent tobacco use FAMILY HISTORY: Pertinent for colitis including diverticular disease in her brother. REVIEW OF ORGAN SYSTEMS: CONSTITUTIONAL: No reports of fevers or chills. HEENT: Denies any troubles with the vision or hearing. ENDOCRINE: Has hypothyroidism. No diabetes. RESPIRATORY: No recent pneumonias. Has asthma including COPD CARDIOVASCULAR: History of atrial fibrillation. Has mitral valve prolapse. GI: History of diverticulitis. Last colonoscopy 2007, 10 years ago. MUSCULOSKELETAL: Has occasional joint pain including back pain. Has rheumatoid arthritis NEURO: No seizure disorders. Has migraines. No recent stroke. PSYCH: No suicidal ideation. Has depression. HEMATOLOGIC: No personal or family history of DVTs or pulmonary emboli. She is on chronic blood thinners. SKIN: No recent DVTs. She is on blood thinners. PHYSICAL EXAM: VITAL SIGNS: Reviewed GENERAL: Well-developed pleasant male in no acute distress. HEENT: No scleral icterus. Extraocular movements grossly intact. Moist buccal mucosa. NECK: Supple without lymphadenopathy. CHEST: Unlabored respirations. Equal bilateral excursions. CARDIOVASCULAR: Irregular rate and rhythm. Distal 2+ pulses. ABDOMEN: Soft, nondistended. No peritonitis. Minimal left lower quadrant pain. MUSCULOSKELETAL: No clubbing, cyanosis, or edema. NEURO : No focal or lateralizing signs. Cranial nerves II-12 within normal limits. PSYCH: Alert and oriented to person, place and time. SKIN: Well perfused. Good skin turgor. ASSESSMENT: 1. Sigmoid diverticulitis PLAN: 1. She is responding to IV antibiotics. No surgical intervention at this time. 2. She will need outpatient colonoscopy as she is 10 years from the last colonoscopy. 3. Low residue diet in the interim. Recommend discharge on liquid diet. 4. Also recommend dietary education regarding diverticulosis and diverticulitis Past Medical History Past Medical History: Atrial Fibrillation, Asthma, COPD, GERD/Reflux, Hypertension, Mitral Valve Prolapse (MVP), Osteoarthritis (OA), Pneumonia, Rheumatoid Arthritis (RA), Thyroid Disorder Additional Past Medical History / Comment(s): depressive disorder, lumbar ddd, "bulging discs", chronic back/neck pain, diverticultis, migraines, glaucoma History of Any Multi-Drug Resistant Organisms: None Reported Past Surgical History: Adenoidectomy, Hysterectomy, Tonsillectomy Past Anesthesia/Blood Transfusion Reactions: No Reported Reaction Past Psychological History: Depression Additional Psychological History / Comment(s): . Smoking Status: Former smoker Past Alcohol Use History: None Reported Additional Past Alcohol Use History / Comment(s): started smoking at age 17 and quit smoking cigarettes 2006. started smoking the e-cig until 2014. Past Drug Use History: None Reported - Past Family History Mother Family Medical History: Vascular Disorder Father Family Medical History: CVA/TIA Brother(s) Family Medical History: Thyroid Disorder Medications and Allergies Home Medications Medication Instructions Recorded Confirmed Type Hydrocodone/Acetaminophen [[place] 1 tab PO BID PRN 11/15/14 06/28/18 History 10-325] Latanoprost Ophth [Xalatan 0.005%] 1 drops BOTH EYES HS 11/15/14 06/28/18 History Montelukast [Singulair] 10 mg PO HS 11/15/14 06/28/18 History Lovastatin [Mevacor] 20 mg PO HS 11/16/14 06/28/18 History Apixaban [Eliquis] 5 mg PO BID 05/26/17 06/28/18 History Meclizine HCl 12.5 mg PO DAILY PRN 09/08/17 06/28/18 History Vilazodone HCl [Viibryd] 40 mg PO DAILY 09/08/17 06/28/18 History Ergocalciferol (Vitamin D2) 50,000 unit PO SA 05/15/18 06/28/18 History [Vitamin D2] Estrogens, Conjugated [Premarin] 0.3 mg PO DAILY 05/15/18 06/28/18 History ALPRAZolam [Xanax] 0.25 mg PO Q12HR 06/28/18 06/28/18 History Albuterol Sulfate [Proair Hfa] 2 puff INHALATION RT-Q8H 06/28/18 06/28/18 History Butalb/Acetaminophen/Caffeine 1 cap PO QID 06/28/18 06/28/18 History [Fioricet 50-300-40 mg Capsule] Levothyroxine Sodium [Synthroid] 125 mcg PO DAILY 06/28/18 06/28/18 History Lisinopril [Prinivil] 5 mg PO DAILY 06/28/18 06/28/18 History Metoprolol Tartrate [Lopressor] 50 mg PO BID 06/28/18 06/28/18 History buPROPion HCL [Wellbutrin XL] 300 mg PO DAILY 06/28/18 06/28/18 History Allergies Allergy/AdvReac Type Severity Reaction Status Date / Time No Known Allergies Allergy Verified 06/28/18 22:13 Surgical - Exam Vital Signs Temp Pulse Resp BP Pulse Ox 98.2 F 72 18 164/86 98 06/28/18 21:46 06/28/18 21:46 06/28/18 21:46 06/28/18 21:46 06/28/18 21:46 Results - Labs 06/28/18 22:40 06/28/18 23:15 Abnormal Lab Results - Last 24 Hours (Table) 06/28/18 06/28/18 06/28/18 Range/Units 22:22 22:40 23:15 WBC 11.6 H (3.8-10.6) k/uL Neutrophils # 8.7 H (1.3-7.7) k/uL BUN 21 H (7-17) mg/dL Urine Appearance Cloudy H (Clear) Urine Protein Trace H (Negative) Urine Ketones 1+ H (Negative) Ur Squamous Epith Cells 12 H (0-4) /hpf Amorphous Sediment Rare H (None) /hpf Urine Bacteria Rare H (None) /hpf Urine Mucus Occasional H (None) /hpf Diabetes panel 06/28/18 Range/Units 23:15 Sodium 138 (137-145) mmol/L Potassium 4.4 (3.5-5.1) mmol/L Chloride 104 (98-107) mmol/L Carbon Dioxide 27 (22-30) mmol/L BUN 21 H (7-17) mg/dL Creatinine 0.82 (0.52-1.04) mg/dL Glucose 99 (74-99) mg/dL Calcium 10.0 (8.4-10.2) mg/dL AST 20 (14-36) U/L ALT 19 (9-52) U/L Alkaline Phosphatase 111 (38-126) U/L Total Protein 6.8 (6.3-8.2) g/dL Albumin 3.7 (3.5-5.0) g/dL Calcium panel 06/28/18 Range/Units 23:15 Calcium 10.0 (8.4-10.2) mg/dL Albumin 3.7 (3.5-5.0) g/dL Pituitary panel 06/28/18 Range/Units 23:15 Sodium 138 (137-145) mmol/L Potassium 4.4 (3.5-5.1) mmol/L Chloride 104 (98-107) mmol/L Carbon Dioxide 27 (22-30) mmol/L BUN 21 H (7-17) mg/dL Creatinine 0.82 (0.52-1.04) mg/dL Glucose 99 (74-99) mg/dL Calcium 10.0 (8.4-10.2) mg/dL Adrenal panel 06/28/18 Range/Units 23:15 Sodium 138 (137-145) mmol/L Potassium 4.4 (3.5-5.1) mmol/L Chloride 104 (98-107) mmol/L Carbon Dioxide 27 (22-30) mmol/L BUN 21 H (7-17) mg/dL Creatinine 0.82 (0.52-1.04) mg/dL Glucose 99 (74-99) mg/dL Calcium 10.0 (8.4-10.2) mg/dL Total Bilirubin 0.6 (0.2-1.3) mg/dL AST 20 (14-36) U/L ALT 19 (9-52) U/L Alkaline Phosphatase 111 (38-126) U/L Total Protein 6.8 (6.3-8.2) g/dL Albumin 3.7 (3.5-5.0) g/dL - Imaging CT scan - abdomen: report reviewed (No perforation or free air. Inflammation of the sigmoid colon noted with diverticulosis), image reviewed CT scan - pelvis: report reviewed, image reviewed Assessment and Plan (1) Left lower quadrant pain Current Visit: Yes Status: Acute Code(s): R10.32 - LEFT LOWER QUADRANT PAIN SNOMED Code(s): 982726173 (2) Sigmoid diverticulitis Current Visit: Yes Status: Acute Code(s): K57.32 - DVTRCLI OF LG INT W/O PERFORATION OR ABSCESS W/O BLEEDING SNOMED Code(s): 483249649 (3) Diverticulitis Current Visit: Yes Status: Acute Code(s): K57.92 - DVTRCLI OF INTEST, PART UNSP, W/O PERF OR ABSCESS W/O BLEED SNOMED Code(s): 672878706 (4) COPD (chronic obstructive pulmonary disease) Current Visit: No Status: Acute Code(s): J44.9 - CHRONIC OBSTRUCTIVE PULMONARY DISEASE, UNSPECIFIED SNOMED Code(s): 96732416
[2018-06-29] MEDS ORDERED: BUTALB/APAP/CAFF 50-325-40MG TAB PO PRN ×2 (16:42→16:43)
--- NOTE | 2018-06-29 17:16 | HP ---
HISTORY AND PHYSICAL CHIEF COMPLAINT: A 72-year-old white female, history of diverticulitis, presents to the emergency room with 1 week of abdominal pain. The pain began [place] in the left lower quadrant. Mild diffuse down in her lower abdomen. No bowel movement for 4 days duration. History of diverticulitis 8 months ago. States she had which caused this. Denies any dysuria, frequency, urgency, hesitancy, fevers or chills. MEDICATIONS: Latanoprost, [place], singular, Mevacor, Eliquis, meclizine, Viibryd, vitamin D, Premarin, Xanax, ProAir HFA, Fioricet p.r.n., Synthroid, Prinivil, Lopressor, Wellbutrin XL. ALLERGIES: Negative. REVIEW OF SYSTEMS: Fourteen point review of systems negative except for HPI. FAMILY HISTORY: Mother with vascular disorder. Father with CVA/TIA. Brother with thyroid disorder. PHYSICAL EXAM: Thin cachectic. Cardiovascular S1-S2. LUNGS: Clear. GI: Tenderness to palpation inferior umbilicus down to the pelvic area, diffuse across abdomen, increased bowel sounds. Mild guarding. No rebound. Negative Bird's sounds. Psych: Fair mood and affect. NEUROLOGIC: Alert and orient times three. Temp 98, pulse is 69 to 102, blood pressure 140s to 160/80 to 89. Labs reviewed. Urine is negative. ASSESSMENT: 1. Acute abdominal pain, diverticulitis. 2. History of hypertension. 3. Hypothyroidism. 4. Dementia. 5. Prior cerebrovascular accident. 6. Paroxysmal atrial fibrillation. Continue current treatment. Follow up in next 24-48 hours. MMODL / IJN: [id number] /
[2018-06-29 17:43] LABS: T4, Free (Free Thyroxine) 2.65 ng/dL (0.78-2.19)
[2018-06-29] MEDS: HYDROcodone/APAP 10-325MG 1 EACH TAB PO PRN (20:04)
[2018-06-29] MEDS ORDERED: LATANOPROST 0.005% OPHTH DROPS 2.5 ML BTL BOTH EYES SCH (21:00)
[2018-06-29] MEDS ORDERED: MONTELUKAST 10 MG TAB PO SCH (21:00)
[2018-06-29] MEDS ORDERED: ATORVASTATIN 10 MG TAB PO SCH (21:00)
[2018-06-30] MEDS: SODIUM CHLORIDE 0.9% 1,000 ML IV SCH (01:54)
[2018-06-30] MEDS: LEVOTHYROXINE 125 MCG TAB PO SCH (06:07)
[2018-06-30] MEDS: LISINOPRIL 5 MG TAB PO SCH (08:28)
[2018-06-30] MEDS: ALPRAZolam 0.25 MG TAB PO SCH (08:28)
[2018-06-30] MEDS: APIXABAN 5 MG TAB PO SCH (08:28)
[2018-06-30] MEDS: METOPROLOL TARTRATE 50 MG TAB PO SCH (08:28)
[2018-06-30] MEDS: buPROPion XL 300 MG TAB.ER.24H PO SCH (08:35)
[2018-06-30] MEDS: ALBUTEROL NEBULIZED 2.5 MG/3 ML INHALATION SCH ×2 (08:49→15:51)
[2018-06-30] MEDS: HYDROcodone/APAP 10-325MG 1 EACH TAB PO PRN (09:40)
[2018-06-30] MEDS ORDERED: ESTROGENS, CONJUGATED 0.3 MG TAB PO SCH (09:45)
[2018-06-30 10:22] LABS: Basophils % (A) 0 %; Eosinophils # (A) 0.2 k/uL (0-0.7); Eosinophils % (A) 2 %; HCT 38.6 % (34.0-46.0); HGB 12.4 gm/dL (11.4-16.0); Lymphocytes # (A) 1.9 k/uL (1.0-4.8); Lymphocytes % (A) 25 %; MCHC 32.2 g/dL (31.0-37.0); MCV 99.5 fL (80.0-100.0); Mean Platelet Volume 8.7; Monocytes # (A) 0.6 k/uL (0-1.0); Monocytes % (A) 8 %; Neutrophils # (A) 4.8 k/uL (1.3-7.7); Neutrophils % (A) 63 %; Platelet Count 149 k/uL (150-450); RBC 3.88 m/uL (3.80-5.40); RDW 12.8 % (11.5-15.5); WBC 7.6 k/uL (3.8-10.6)
[2018-06-30 10:49] LABS: ALT 17 U/L (9-52); AST 18 U/L (14-36); Albumin 3.2 g/dL (3.5-5.0); Alkaline Phosphatase 85 U/L (38-126); Anion Gap 7 mmol/L; Blood Urea Nitrogen 13 mg/dL (7-17); Calcium 9.6 mg/dL (8.4-10.2); Carbon Dioxide 26 mmol/L (22-30); Chloride 105 mmol/L (98-107); Glucose 91 mg/dL (74-99); Potassium 4.2 mmol/L (3.5-5.1); Sodium 138 mmol/L (137-145); Total Bilirubin 0.5 mg/dL (0.2-1.3); Total Protein 6.1 g/dL (6.3-8.2)
--- NOTE | 2018-06-30 12:05 | P.PN ---
Subjective Progress Note Date: 06/30/18 CHIEF COMPLAINT: Diverticulitis HISTORY OF PRESENT ILLNESS: The patient is a 72-year-old female admitted for diverticulitis. Since admission, her abdominal pain has moderately improved. She is tolerating soft diet. No fevers or chills. PHYSICAL EXAM: VITAL SIGNS: Reviewed GENERAL: Well-developed pleasant male in no acute distress. HEENT: No scleral icterus. Extraocular movements grossly intact. Moist buccal mucosa. NECK: Supple without lymphadenopathy. CHEST: Unlabored respirations. Equal bilateral excursions. CARDIOVASCULAR: Irregular rate and rhythm. Distal 2+ pulses. ABDOMEN: Soft, nondistended. No peritonitis. Minimal left lower quadrant pain. MUSCULOSKELETAL: No clubbing, cyanosis, or edema. NEURO : No focal or lateralizing signs. Cranial nerves II-12 within normal limits. PSYCH: Alert and oriented to person, place and time. SKIN: Well perfused. Good skin turgor. ASSESSMENT: 1. Sigmoid diverticulitis PLAN: 1. Her WBC is normal and she is tolerating diet. 2. May dischrage home from a surgical standpoint 3. Follow-up as outpatient as she will need a colonoscopy 4. Low fiber diet for another 5 days advised. Objective - Vital Signs Vital signs: Vital Signs Temp 98.3 F 06/30/18 05:00 Pulse 84 06/30/18 09:05 Resp 16 06/30/18 05:00 BP 126/64 06/30/18 05:00 Pulse Ox 97 06/30/18 05:00 Intake & Output 06/29/18 06/30/18 06/30/18 18:59 06:59 18:59 Intake Total 1730 Balance 1730 Weight 61.235 kg Intake: Intake, IV Titration 650 Amount Sodium Chloride 0.9% 1, 600 000 ml @ 75 mls/hr IV . [id number] VICTOR MANUEL Rx#:[id number] cefTRIAXone 1,000 mg In 50 Sodium Chloride 0.9% 50 ml @ 100 mls/hr IVPB Q24H VICTOR MANUEL Rx#:[id number] Oral 1080 Other: Voiding Method Toilet Toilet Toilet # Voids 0 1 - Labs CBC & Chem 7: 06/30/18 09:15 06/30/18 09:15 Labs: Abnormal Lab Results - Last 24 Hours (Table) 06/28/18 06/30/18 06/30/18 Range/Units 23:15 09:15 09:15 Plt Count 149 L (150-450) k/uL Total Protein 6.1 L (6.3-8.2) g/dL Albumin 3.2 L (3.5-5.0) g/dL TSH <0.015 L (0.465-4.680) mIU/L Free T4 2.65 H (0.78-2.19) ng/dL Microbiology - Last 24 Hours (Table) 06/28/18 22:40 Blood Culture - Preliminary Blood No Growth after 24 hours Assessment and Plan (1) Left lower quadrant pain Current Visit: Yes Status: Acute Code(s): R10.32 - LEFT LOWER QUADRANT PAIN SNOMED Code(s): 451528039 (2) Sigmoid diverticulitis Current Visit: Yes Status: Acute Code(s): K57.32 - DVTRCLI OF LG INT W/O PERFORATION OR ABSCESS W/O BLEEDING SNOMED Code(s): 092738515 (3) Diverticulitis Current Visit: Yes Status: Acute Code(s): K57.92 - DVTRCLI OF INTEST, PART UNSP, W/O PERF OR ABSCESS W/O BLEED SNOMED Code(s): 201593416 (4) COPD (chronic obstructive pulmonary disease) Current Visit: No Status: Acute Code(s): J44.9 - CHRONIC OBSTRUCTIVE PULMONARY DISEASE, UNSPECIFIED SNOMED Code(s): 93978402
[2018-06-30 13:35] VITALS: BP 130/77; PULSE 91; RESP 20; TEMP 97.9
== END 2018-06-30 17:00 | disposition home or self-care (01) | DRG 392 ==
LOC: EC 21:37 → 4SSUR 06-29 02:01 → 3NMEDONC 06-29 12:02
PROVIDERS: ADMIT Family Medicine; ATTEND Family Medicine
DX: K57.32 Diverticulitis of large intestine without perforation or abscess without bleeding (principal); R64 Cachexia; I48.0 Paroxysmal atrial fibrillation; F03.90 Unspecified dementia, unspecified severity, without behavioral disturbance, psychotic disturbance, mood disturbance, and anxiety; E03.9 Hypothyroidism, unspecified; G43.909 Migraine, unspecified, not intractable, without status migrainosus; F31.9 Bipolar disorder, unspecified; J44.9 Chronic obstructive pulmonary disease, unspecified; I34.1 Nonrheumatic mitral (valve) prolapse; M06.9 Rheumatoid arthritis, unspecified; I10 Essential (primary) hypertension; F41.9 Anxiety disorder, unspecified; M19.90 Unspecified osteoarthritis, unspecified site; K21.9 Gastro-esophageal reflux disease without esophagitis; M51.36 Other intervertebral disc degeneration, lumbar region; M54.2 Cervicalgia; F17.290 Nicotine dependence, other tobacco product, uncomplicated; H40.9 Unspecified glaucoma; Z68.24 Body mass index [BMI] 24.0-24.9, adult; Z79.01 Long term (current) use of anticoagulants; Z79.890 Hormone replacement therapy; Z79.899 Other long term (current) drug therapy; Z90.710 Acquired absence of both cervix and uterus; Z87.01 Personal history of pneumonia (recurrent); Z86.73 Personal history of transient ischemic attack (TIA), and cerebral infarction without residual deficits; Z82.49 Family history of ischemic heart disease and other diseases of the circulatory system; Z82.3 Family history of stroke; Z83.49 Family history of other endocrine, nutritional and metabolic diseases
CPT/HCPCS: 36415; 74177; 80053; 81001; 82150; 83690; 84439; 84443; 85025; 87040; 94640; 96365; 96366; 96367; 96375; 96376; 99285

== ENCOUNTER 2018-10-14 23:22 | Emergency (ER) | payer MEDICARE, OTHER ==
[2018-10-14 23:47] VITALS: BP 137/74; PULSE 86; RESP 18; TEMP 98.2
--- NOTE | 2018-10-15 00:05 | ED ---
ENT HPI - General Chief complaint: ENT Stated complaint: Dental Pain Time Seen by Provider: 10/14/18 23:51 Source: patient, RN notes reviewed Mode of arrival: ambulatory Limitations: no limitations - History of Present Illness Initial comments: 73-year-old female sent emergency Department concerns of possible infection or abnormal parents after tooth extraction. Patient states she had a tooth extracted and right upper posterior aspect today at [facility]. Patient states that she had some pain earlier though she took [place] prior arrival with his toe. Patient states the bleeding stopped earlier today she feels they may be infected already. - Related Data Home Medications Medication Instructions Recorded Confirmed Hydrocodone/Acetaminophen [[place] 1 tab PO BID PRN 11/15/14 06/28/18 10-325] Latanoprost Ophth [Xalatan 0.005%] 1 drops BOTH EYES HS 11/15/14 06/28/18 Montelukast [Singulair] 10 mg PO HS 11/15/14 06/28/18 Lovastatin [Mevacor] 20 mg PO HS 11/16/14 06/28/18 Apixaban [Eliquis] 5 mg PO BID 05/26/17 06/28/18 Meclizine HCl 12.5 mg PO DAILY PRN 09/08/17 06/28/18 Vilazodone HCl [Viibryd] 40 mg PO DAILY 09/08/17 06/28/18 Ergocalciferol (Vitamin D2) 50,000 unit PO SA 05/15/18 06/28/18 [Vitamin D2] Estrogens, Conjugated [Premarin] 0.3 mg PO DAILY 05/15/18 06/28/18 ALPRAZolam [Xanax] 0.25 mg PO Q12HR 06/28/18 06/28/18 Albuterol Sulfate [Proair Hfa] 2 puff INHALATION RT-Q8H 06/28/18 06/28/18 Butalb/Acetaminophen/Caffeine 1 cap PO QID 06/28/18 06/28/18 [Fioricet 50-300-40 mg Capsule] Levothyroxine Sodium [Synthroid] 125 mcg PO DAILY 06/28/18 06/28/18 Lisinopril [Prinivil] 5 mg PO DAILY 06/28/18 06/28/18 Metoprolol Tartrate [Lopressor] 50 mg PO BID 06/28/18 06/28/18 buPROPion HCL [Wellbutrin XL] 300 mg PO DAILY 06/28/18 06/28/18 Allergies Allergy/AdvReac Type Severity Reaction Status Date / Time No Known Allergies Allergy Verified 10/14/18 23:47 Review of Systems ROS Statement: Those systems with pertinent positive or pertinent negative responses have been documented in the HPI. ROS Other: All systems not noted in ROS Statement are negative. Past Medical History Past Medical History: Atrial Fibrillation, Asthma, COPD, GERD/Reflux, Hypertension, Mitral Valve Prolapse (MVP), Osteoarthritis (OA), Pneumonia, Rheumatoid Arthritis (RA), Thyroid Disorder Additional Past Medical History / Comment(s): depressive disorder, lumbar ddd,"bulging discs", chronic back/neck pain, diverticultis, migraines, glaucoma History of Any Multi-Drug Resistant Organisms: None Reported Past Surgical History: Adenoidectomy, Hysterectomy, Tonsillectomy Past Anesthesia/Blood Transfusion Reactions: No Reported Reaction Past Psychological History: Depression Smoking Status: Former smoker Past Alcohol Use History: None Reported Past Drug Use History: None Reported - Past Family History Mother Family Medical History: Vascular Disorder Father Family Medical History: CVA/TIA Brother(s) Family Medical History: Thyroid Disorder General Exam Limitations: no limitations General appearance: alert, in no apparent distress Head exam: Present: atraumatic, normocephalic, normal inspection Eye exam: Present: normal appearance, PERRL, EOMI. Absent: scleral icterus, conjunctival injection, periorbital swelling ENT exam: Present: mucous membranes moist. Absent: normal exam, normal oropharynx (Right upper gumline there is mild swelling, no active bleeding there are sutures in place over recent dental extraction.) Neck exam: Present: normal inspection. Absent: tenderness, meningismus, lymphadenopathy Respiratory exam: Present: normal lung sounds bilaterally. Absent: respiratory distress, wheezes, rales, rhonchi, stridor Cardiovascular Exam: Present: regular rate, normal rhythm, normal heart sounds. Absent: systolic murmur, diastolic murmur, rubs, gallop, clicks Course Vital Signs 10/14/18 23:44 Temperature 98.2 F Pulse Rate 86 Respiratory 18 Rate Blood Pressure 137/74 O2 Sat by Pulse 95 Oximetry Medical Decision Making - Medical Decision Making 73-year-old female presented for recheck abdominal extraction. There is no active bleeding, site shows evidence of clotted blood, mild swelling no active bleeding no other concerns for infection. Disposition Clinical Impression: History of tooth extraction, S/P tooth extraction Disposition: HOME SELF-CARE Condition: Stable Instructions (If sedation given, give patient instructions): Tooth Extraction (DC) Additional Instructions: Please return to the Emergency Department if symptoms worsen or any other concerns. Is patient prescribed a controlled substance at d/c from ED?: No Referrals: Raudel Garza MD [Primary Care Provider] - 1-2 days Time of Disposition: 00:05
== END 2018-10-15 00:08 | disposition home or self-care (01) ==
LOC: EC 23:22
DX: K08.409 Partial loss of teeth, unspecified cause, unspecified class (principal); I48.91 Unspecified atrial fibrillation; J44.9 Chronic obstructive pulmonary disease, unspecified; K21.9 Gastro-esophageal reflux disease without esophagitis; I10 Essential (primary) hypertension; E07.9 Disorder of thyroid, unspecified; H40.9 Unspecified glaucoma; F32.9 Major depressive disorder, single episode, unspecified; Z87.891 Personal history of nicotine dependence; Z87.19 Personal history of other diseases of the digestive system; Z90.710 Acquired absence of both cervix and uterus; Z86.79 Personal history of other diseases of the circulatory system; Z79.01 Long term (current) use of anticoagulants; Z79.890 Hormone replacement therapy; Z79.899 Other long term (current) drug therapy
CPT/HCPCS: 99282

== ENCOUNTER 2019-02-19 20:47 | Inpatient (IN) | payer MEDICARE, OTHER ==
--- NOTE | 2019-02-19 21:46 | XR ---
EXAMINATION TYPE: XR femur RT DATE OF EXAM: 02/19/2019 COMPARISON: NONE HISTORY: Hip pain TECHNIQUE: 5 views FINDINGS: There is impacted subcapital fracture right femur. There is no dislocation. Acetabulum is i ntact. Knee joint is intact. IMPRESSION: Acute impacted subcapital fracture right femur.
--- NOTE | 2019-02-19 21:47 | XR ---
EXAMINATION TYPE: XR pelvis AP view DATE OF EXAM: 02/19/2019 COMPARISON: NONE HISTORY: Hip pain TECHNIQUE: Single view FINDINGS: Pelvic ring is intact. There is acute subcapital fracture right femur with impaction. There is no dislocation. Sacroiliac joints are intact. IMPRESSION: Acute subcapital fracture right femur.
--- NOTE | 2019-02-19 21:48 | XR ---
EXAMINATION TYPE: XR chest 1V DATE OF EXAM: 02/19/2019 COMPARISON: 09/08/2017 HISTORY: Fall. Hip fracture TECHNIQUE: Single frontal view of the chest is obtained. FINDINGS: Heart is slightly enlarged. There is no heart failure. Lungs are clear of consolidation. T here is no pleural effusion. IMPRESSION: Mild cardiomegaly. No active cardiopulmonary disease. No change.
--- NOTE | 2019-02-19 21:57 | ED ---
Lower Extremity Injury HPI - General Chief Complaint: Extremity Injury, Lower Stated Complaint: Groin Pain Time Seen by Provider: 02/19/19 21:12 Source: patient, EMS, RN notes reviewed Mode of arrival: EMS Limitations: physical limitation - History of Present Illness Initial Comments: This a 73-year-old female presents emergency Department with chief complaint of trip and fall. Patient states she missed a step and fell onto concrete surface. Denies any head injury denies any neck, chest or back pain. Patient complains of right groin and hip pain. She does take Eliquis. This was a witnessed fall and they also stated that she did not strike her head. Patient denies any complaints of abdominal pain no prior hip fractures. Patient was given pain meds by EMS she does not require any other meds at this time. - Related Data Home Medications Medication Instructions Recorded Confirmed Hydrocodone/Acetaminophen [[place] 1 tab PO BID PRN 11/15/14 02/19/19 10-325] Latanoprost Ophth [Xalatan 0.005%] 1 drop BOTH EYES HS 11/15/14 02/19/19 Montelukast [Singulair] 10 mg PO HS 11/15/14 02/19/19 Lovastatin [Mevacor] 20 mg PO HS 11/16/14 02/19/19 Apixaban [Eliquis] 5 mg PO BID 05/26/17 02/19/19 Meclizine HCl 12.5 mg PO Q8H PRN 09/08/17 02/19/19 Vilazodone HCl [Viibryd] 40 mg PO DAILY 09/08/17 02/19/19 Ergocalciferol (Vitamin D2) 50,000 unit PO SA 05/15/18 02/19/19 [Vitamin D2] Estrogens, Conjugated [Premarin] 0.3 mg PO DAILY 05/15/18 02/19/19 Albuterol Sulfate [Proair Hfa] 2 puff INHALATION RT-QID PRN 06/28/18 02/19/19 Lisinopril [Prinivil] 5 mg PO DAILY 06/28/18 02/19/19 Butalb/APAP/Caff 50-325-40Mg 1 tab PO QID PRN 02/19/19 02/19/19 [Fioricet 50-325-40] Levothyroxine Sodium [Synthroid] 112 mcg PO DAILY 02/19/19 02/19/19 buPROPion XL [Wellbutrin Xl] 150 mg PO HS 02/19/19 02/19/19 lamoTRIgine [LaMICtal] 100 mg PO BID 02/19/19 02/19/19 Allergies Allergy/AdvReac Type Severity Reaction Status Date / Time No Known Allergies Allergy Verified 02/19/19 21:33 Review of Systems ROS Statement: Those systems with pertinent positive or pertinent negative responses have been documented in the HPI. ROS Other: All systems not noted in ROS Statement are negative. Past Medical History Past Medical History: Atrial Fibrillation, Asthma, COPD, GERD/Reflux, Hypertension, Mitral Valve Prolapse (MVP), Osteoarthritis (OA), Pneumonia, Rheumatoid Arthritis (RA), Thyroid Disorder Additional Past Medical History / Comment(s): depressive disorder, lumbar ddd,"bulging discs", chronic back/neck pain, diverticultis, migraines, glaucoma History of Any Multi-Drug Resistant Organisms: None Reported Past Surgical History: Adenoidectomy, Hysterectomy, Tonsillectomy Past Anesthesia/Blood Transfusion Reactions: No Reported Reaction Past Psychological History: Depression Smoking Status: Former smoker Past Alcohol Use History: None Reported Past Drug Use History: None Reported - Past Family History Mother Family Medical History: Vascular Disorder Father Family Medical History: CVA/TIA Brother(s) Family Medical History: Thyroid Disorder General Exam Limitations: physical limitation General appearance: alert, in no apparent distress Head exam: Present: atraumatic, normocephalic, normal inspection Eye exam: Present: normal appearance, PERRL, EOMI. Absent: scleral icterus, conjunctival injection, periorbital swelling ENT exam: Present: normal exam, mucous membranes moist Neck exam: Present: normal inspection, full ROM. Absent: tenderness, menin gismus, lymphadenopathy Respiratory exam: Present: normal lung sounds bilaterally. Absent: respiratory distress, wheezes, rales, rhonchi, stridor Cardiovascular Exam: Present: regular rate, normal rhythm, normal heart sounds. Absent: systolic murmur, diastolic murmur, rubs, gallop, clicks GI/Abdominal exam: Present: soft, normal bowel sounds. Absent: distended, tenderness, guarding, rebound, rigid Extremities exam: Present: other (Right hip there is pain with range of motion and very limited range of motion neurovascular intact there is mild mid femur tenderness there is no obvious shortening or rotation) Back exam: Present: full ROM. Absent: tenderness Neurological exam: Present: alert, oriented X3, CN II-XII intact, reflexes normal. Absent: motor sensory deficit Skin exam: Present: warm, dry, intact, normal color. Absent: rash Course Vital Signs 02/19/19 20:51 Temperature 98.3 F Pulse Rate 56 L Respiratory 18 Rate Blood Pressure 156/96 O2 Sat by Pulse 98 Oximetry Medical Decision Making - Medical Decision Making 73-year-old female presented for a fall, right hip pain. Patient has so Fracture. Patient will be admitted for surgical clearance and surgery. Disposition Clinical Impression: Fall, Closed right hip fracture Disposition: ADMITTED IP TO THIS HOSP Condition: Fair Referrals: Raudel Garza MD [Primary Care Provider] - 1-2 days
[2019-02-19] MEDS ORDERED: HYDROcodone/APAP 5-325MG 1 EACH TAB PO PRN (21:58)
[2019-02-19] MEDS ORDERED: ONDANSETRON 4 MG/2 ML VIAL IVP PRN (21:58)
[2019-02-19] MEDS ORDERED: NALOXONE 0.4 MG/ML 1 ML VIAL IV PRN (21:58)
[2019-02-19] MEDS ORDERED: oxyCODONE-APAP 5-325MG 1 EACH TAB PO PRN (21:58)
[2019-02-19] MEDS ORDERED: MORPHINE SULFATE 4 MG/ML SYRINGE IVP STA (22:04)
[2019-02-19 22:56] LABS: Basophils % (A) 0 %; Eosinophils % (A) 0 %; HCT 38.5 % (34.0-46.0); HGB 12.6 gm/dL (11.4-16.0); Lymphocytes # (A) 0.9 k/uL (1.0-4.8); Lymphocytes % (A) 10 %; MCH 31.9 pg (25.0-35.0); MCHC 32.9 g/dL (31.0-37.0); MCV 97.2 fL (80.0-100.0); Mean Platelet Volume 9.1; Monocytes # (A) 0.5 k/uL (0-1.0); Monocytes % (A) 6 %; Neutrophils # (A) 7.3 k/uL (1.3-7.7); Neutrophils % (A) 82 %; Platelet Count 138 k/uL (150-450); RBC 3.96 m/uL (3.80-5.40); RDW 14.2 % (11.5-15.5); WBC 8.9 k/uL (3.8-10.6)
[2019-02-19 22:57] LABS: Appearance,Urine Clear (Clear); Bilirubin,Urine Negative (Negative); Blood,Urine Negative (Negative); Color,Urine Yellow; Glucose,Urine (UA) Negative (Negative); Ketones,Urine 1+ (Negative); Leukocyte Esterase,Urine Negative (Negative); Nitrite,Urine Negative (Negative); PH, Urine 6.5 (5.0-8.0); Protein,Urine Negative (Negative); Specific Gravity,Urine 1.018 (1.001-1.035); Urobilinogen,Urine <2.0 mg/dL (<2.0)
--- NOTE | 2019-02-19 22:59 | CT ---
EXAM: CT Right Lower Extremity Without Intravenous Contrast, Hip CLINICAL HISTORY: ITS.REASON CT Reason: Pain TECHNIQUE: Axial computed tomography images of the right hip without intravenous contrast. CTDI is 11.87 mGy and DLP is 444.3 mGy-cm. This CT exam was performed using one or more of the following dose reduction techniques: automated exposure control, adjustment of the mA and/or kV according to patient size, and/or use of iterative reconstruction technique. COMPARISON: No relevant prior studies available. FINDINGS: Bones/joints: There is a subcapital fracture of the right femoral neck. Mild impaction. No dislocation. Soft tissues: Mild subcutaneous contusion to the right upper lateral thigh/buttock. Fecal retention. IMPRESSION: Subcapital right femoral neck fracture.
[2019-02-19 23:05] LABS: Partial Thromboplastin Time 24.8 sec (22.0-30.0)
[2019-02-19 23:07] LABS: Albumin 3.8 g/dL (3.5-5.0); Calcium 9.5 mg/dL (8.4-10.2); Potassium 4.5 mmol/L (3.5-5.1); Total Bilirubin 0.9 mg/dL (0.2-1.3); Total Protein 6.7 g/dL (6.3-8.2)
[2019-02-20] MEDS: HYDROmorphone 1 MG/ML 1 ML SYRINGE IVP PRN ×3 (01:48→08:56)
--- NOTE | 2019-02-20 10:04 | P.HPOR ---
History of Present Illness H&P Date: 02/20/19 The patient is a very pleasant 73-year-old female with multiple medical problems including COPD, atrial fibrillation, history of prior fragility fractures, and currently taking Eliquis who presents with an isolated injury to her right hip. According to the patient yesterday she was coming down a set of stairs when she missed the last step and fell onto her right side. She was immediately painful but was actually able to get up and ambulate several steps on her own and with assistance. She was brought to the emergency department where x-rays showed a valgus impacted femoral neck fracture on the right. She was admitted under my care. This morning she is complaining of isolated pain in her right hip and groin. She again relates that she was able to walk after her injury. She denies pre-existing hip pain. She lives alone and is a community ambulator without assistance at baseline. Past Medical History Past Medical History: Atrial Fibrillation, Asthma, COPD, GERD/Reflux, Hypertension, Mitral Valve Prolapse (MVP), Osteoarthritis (OA), Pneumonia, Rheumatoid Arthritis (RA), Thyroid Disorder Additional Past Medical History / Comment(s): depressive disorder, lumbar ddd,"bulging discs", chronic back/neck pain, diverticultis, migraines, glaucoma History of Any Multi-Drug Resistant Organisms: None Reported Past Surgical History: Adenoidectomy, Hysterectomy, Tonsillectomy Past Anesthesia/Blood Transfusion Reactions: No Reported Reaction Past Psychological History: Depression Additional Psychological History / Comment(s): . Smoking Status: Former smoker Past Alcohol Use History: None Reported Additional Past Alcohol Use History / Comment(s): started smoking at age 17 and quit smoking cigarettes 2006. started smoking the e-cig until 2014. Past Drug Use History: None Reported - Past Family History Mother Family Medical History: Vascular Disorder Father Family Medical History: CVA/TIA Brother(s) Family Medical History: Thyroid Disorder Medications and Allergies Home Medications Medication Instructions Recorded Confirmed Type Hydrocodone/Acetaminophen [[place] 1 tab PO BID PRN 11/15/14 02/19/19 History 10-325] Latanoprost Ophth [Xalatan 0.005%] 1 drop BOTH EYES HS 11/15/14 02/19/19 History Montelukast [Singulair] 10 mg PO HS 11/15/14 02/19/19 History Lovastatin [Mevacor] 20 mg PO HS 11/16/14 02/19/19 History Apixaban [Eliquis] 5 mg PO BID 05/26/17 02/19/19 History Meclizine HCl 12.5 mg PO Q8H PRN 09/08/17 02/19/19 History Vilazodone HCl [Viibryd] 40 mg PO DAILY 09/08/17 02/19/19 History Ergocalciferol (Vitamin D2) 50,000 unit PO SA 05/15/18 02/19/19 History [Vitamin D2] Estrogens, Conjugated [Premarin] 0.3 mg PO DAILY 05/15/18 02/19/19 History Albuterol Sulfate [Proair Hfa] 2 puff INHALATION RT-QID PRN 06/28/18 02/19/19 History Lisinopril [Prinivil] 5 mg PO DAILY 06/28/18 02/19/19 History Butalb/APAP/Caff 50-325-40Mg 1 tab PO QID PRN 02/19/19 02/19/19 History [Fioricet 50-325-40] Levothyroxine Sodium [Synthroid] 112 mcg PO DAILY 02/19/19 02/19/19 History buPROPion XL [Wellbutrin Xl] 150 mg PO HS 02/19/19 02/19/19 History lamoTRIgine [LaMICtal] 100 mg PO BID 02/19/19 02/19/19 History Allergies Allergy/AdvReac Type Severity Reaction Status Date / Time No Known Allergies Allergy Verified 02/19/19 21:33 Physical Examination On exam the patient is resting comfortably in her bed and is alert and easily able to answer questions. Her head is normocephalic and atraumatic. She demonstrates nonlabored breathing with symmetric chest expansion. She has no cervical or thoracic spine tenderness. Her abdomen is soft and nonobese. She has no obvious deformities of the upper or left lower extremities. A focused examination of the right lower extremity was conducted. On inspection there is minimal deformity of the right leg. There is ecchymosis and a small hematoma over the lateral aspect of the greater trochanter. She has point tenderness directly over the greater trochanter and pain with any attempts of range of motion of the hip. The thigh and calf are soft. She is nontender over the knee, calf, ankle, or foot. Motor and sensory function are intact. Results X-rays of the hip and pelvis as well as a computed tomography scan of the right hip were reviewed. The patient has a valgus impacted femoral neck fracture with minimal displacement seen on the computed tomography scan. - Labs Labs: Abnormal Lab Results - Last 24 Hours (Table) 02/19/19 02/19/19 02/19/19 Range/Units 21:05 21:05 22:13 Plt Count 138 L (150-450) k/uL Lymphocytes # 0.9 L (1.0-4.8) k/uL Sodium 136 L (137-145) mmol/L BUN 18 H (7-17) mg/dL Urine Ketones 1+ H (Negative) H & H 02/19/19 Range/Units 21:05 Hgb 12.6 (11.4-16.0) gm/dL Hct 38.5 (34.0-46.0) % Coagulation 02/19/19 Range/Units 21:05 INR 1.0 (<1.2) Result Diagrams: 02/19/19 21:05 02/19/19 21:05 Assessment and Plan (1) Closed right hip fracture Current Visit: Yes Status: Acute Code(s): S72.001A - FRACTURE OF UNSP PART OF NECK OF RIGHT FEMUR, INIT SNOMED Code(s): 018142746 Plan: The patient's x-rays show a valgus impacted femoral neck fracture and the computed tomography scan shows minimal displacement. The patient states that she was able to walk after her injury both on her own and then with assistance. I had a long discussion with the patient on treatment options including in situ screw fixation versus arthroplasty. We discussed the potential risks and complications of both as well as the limitations, recovery, and weightbearing restrictions following surgery. Given the fact the patient was able to ambulate independently following her fall and that there is no displacement on the computed tomography scan my recommendation would be to perform in situ screw fixation. We discussed the risks of this including collapse and avascular necrosis and that she may ultimately require arthroplasty. We also discussed the patient's relatively young age. After our discussion on both treatment options the patient agrees and would like to go forward with in situ screw fixation acknowledging the risk for collapse and displacement ultimately requiring arthroplasty. Due to the fact that she is on Eliquis internal medicine has recommended waiting until tomorrow for surgery. In the interim she is to remain strictly nonweightbearing on the right side and is on complete bedrest. We will plan on surgery tomorrow morning. Time with Patient: Greater than 30
[2019-02-20] MEDS ORDERED: MECLIZINE 12.5 MG TAB PO PRN (10:05)
[2019-02-20] MEDS ORDERED: ALBUTEROL NEBULIZED 2.5 MG/3 ML INHALATION PRN (10:05)
[2019-02-20] MEDS: NON-FORMULARY DRUG (Vilazodone Hcl [Viibryd] 40 MG) PO SCH (11:27)
[2019-02-20] MEDS: LEVOTHYROXINE 112 MCG TAB PO SCH (11:32)
[2019-02-20] MEDS: LISINOPRIL 5 MG TAB PO SCH (11:34)
[2019-02-20] MEDS: lamoTRIgine 100 MG TAB PO SCH ×2 (11:34→20:08)
[2019-02-20] MEDS: HYDROcodone/APAP 10-325MG 1 EACH TAB PO PRN (15:29)
[2019-02-20] MEDS: LATANOPROST 0.005% OPHTH DROPS 2.5 ML BTL BOTH EYES SCH (20:07)
[2019-02-20] MEDS: HEPARIN SODIUM,PORCINE 5,000 UNIT/ML 1 ML VIAL SQ SCH (20:07)
[2019-02-20] MEDS: ATORVASTATIN 10 MG TAB PO SCH (20:08)
[2019-02-20] MEDS: buPROPion XL 150 MG TAB.ER.24H PO SCH (20:08)
[2019-02-20] MEDS: MONTELUKAST 10 MG TAB PO SCH (20:08)
--- NOTE | 2019-02-20 21:10 | CONS ---
CONSULTATION 73-year-old white female admitted to the hospital due to right hip fracture. Apparently, she fell at home. Unsure how she fell, but she is unable to move her right leg. She says she might have missed a step. Brought to emergency room showed a valgus impacted femoral neck fracture on the right side and was admitted for surgery. She is on Eliquis less than 24 hours ago. We told surgery to hold off on surgery until at least tomorrow. PAST MEDICAL HISTORY: Atrial fibrillation, asthma, COPD, GERD, hypertension, mitral valve prolapse, osteoarthritis, rheumatoid arthritis, hypothyroidism, depression, lumbar disc disease and hypothyroidism. PAST SURGICAL HISTORY: Appendectomy, hysterectomy, adenoidectomy, tonsillectomy. SOCIAL HISTORY: She quit smoking, uses E-cigarettes for the last 3 years. PAST FAMILY MEDICAL HISTORY: Mother with some kind of vascular disorder. Father CVA/TIA. Brother with hypothyroidism. HOME MEDICINES: [place] b.i.d., Xalatan eye drops daily, Singulair 10 mg daily, Mevacor 20 daily, Eliquis 5 mg b.i.d., meclizine 12.5 q.8 hours, Viibryd 40 mg daily, Vitamin D 74515 units once a week, Estrogen 0.3 mg daily. Albuterol updraft q.i.d. LABS: Reviewed. X-ray and CT scans reviewed. PHYSICAL EXAM: Vital signs reviewed. NEUROLOGIC: Alert and oriented x3. Cranial nerves are intact. LUNGS: Clear. Cardiovascular irregular rhythm. Pulse is around 80 to 90. Integument shows ecchymosis, hematoma on the lateral aspect of the right greater trochanter. Minimal movement of the leg causes severe pain. Labs were reviewed. Hemoglobin 12.6. ASSESSMENT AND PLAN: 1. Closed right hip fracture secondary to fall. 2. Multiple medical conditions. 3. Eliquis will be withheld. 4. For atrial fibrillation, she will get subcu heparin until surgery is over and then go back on Eliquis after surgery. 5. Continue her home medications at this point. She is on IV Dilaudid and oral [place] for pain. Thank you for this consultation Dr. Stallings. Will follow along with you. MMODL / IJN: [id number] /
[2019-02-21] MEDS: HYDROmorphone 1 MG/ML 1 ML SYRINGE IVP PRN ×4 (02:03→22:59)
[2019-02-21] MEDS: LEVOTHYROXINE 112 MCG TAB PO SCH (05:44)
[2019-02-21] MEDS: NON-FORMULARY DRUG (Vilazodone Hcl [Viibryd] 40 MG) PO SCH (07:50)
[2019-02-21] MEDS: HEPARIN SODIUM,PORCINE 5,000 UNIT/ML 1 ML VIAL SQ SCH ×2 (07:50→19:56)
[2019-02-21] MEDS ORDERED: fentaNYL (PF) 50 MCG/ML 2 ML AMP ONE (08:03)
[2019-02-21] MEDS ORDERED: PROPOFOL 10 MG/ML 20 ML VIAL IV ONE (08:03)
[2019-02-21] MEDS ORDERED: SUCCINYLCHOLINE CHLORIDE 100 MG/5 ML SYR IV ONE (08:03)
[2019-02-21] MEDS ORDERED: MIDAZOLAM 2 MG/2 ML VIAL ONE (08:03)
[2019-02-21] MEDS ORDERED: PHENYLEPHRINE-0.9% NACL SYG 1 MG/10 ML SYRINGE ONE (08:03)
[2019-02-21] MEDS ORDERED: LACTATED RINGERS 1,000 ML IV ONE ×2 (08:05→09:26)
[2019-02-21] MEDS ORDERED: ceFAZolin 1,000 MG in SODIUM CHLORIDE 0.9% 1,000 ML IRRIGATION ONE (08:45)
[2019-02-21] MEDS ORDERED: BUPIVACAINE (PF) 0.5% 30 ML VIAL SQ ONE (09:29)
--- NOTE | 2019-02-21 09:32 | P.OP ---
Date of Procedure: 02/21/19 Preoperative Diagnosis: 1. Right valgus impacted femoral neck fracture, stable 2. COPD 3. Atrial fibrillation Postoperative Diagnosis: Same Procedure(s) Performed: In situ screw fixation of right valgus impacted femoral neck fracture Anesthesia: [place] Surgeon: Jeremias Stallings Acid Condenser #1: Ja Uribe Estimated Blood Loss (ml): 10 IV fluids (ml): 1,000 Pathology: none sent Condition: stable Disposition: PACU Indications for Procedure: The patient is a very pleasant 73-year-old female with several medical problems including COPD and atrial fibrillation who sustained a low-energy fall this past Friday night. She missed a step and fell onto her right side. Immediately following her fall she was able to get up and ambulate first on her own and then with assistance. She was brought to the emergency department where x-rays and a computed tomography scan showed an impacted and minimally displaced femoral neck fracture. I met with the patient to discuss treatment options. Due to the fact that there is minimal to no displacement on her computed tomography scan, the fracture appeared impacted, and she was able to ambulate following her fall I recommended in situ screw fixation. We discussed the potential risks and complications of this including but not limited to risk of anesthesia, superficial infection, deep infection, delayed wound healing, nonunion of the fracture site, malunion of the fracture site, collapse of the femoral head, avascular necrosis, intraoperative fracture, postoperative fracture, postoperative subtrochanteric femur fracture, DVT, PE, other medical complications, risk of needing further surgery including arthroplasty, and possibly loss of life or limb. The patient acknowledges that while these are the most common complications other less common complications are possible. She provided her consent to go forward with surgery. Description of Procedure: The patient's then verified preoperative holding and the correct right leg was marked my initials. All of her questions were answered. She was brought back to the operating room. A general anesthetic and preoperative antibiotics were given while she was still on the gurney. She was then transferred onto the fracture table. A perineal post was placed. The right leg was secured to the boot and the left leg was flexed at the hip and knee and secured to a well leg neri. The torso was moved to the left and secured with foam and tape. A timeout was performed identifying the correct patient, operative extremity, and procedure. Fluoroscopy came in to verify that the fracture was still impacted and not displaced. The hip was brought through range of motion and appeared stable. The right leg was then prepped and draped in the standard sterile fashion. A 3 cm incision was then marked out starting at the lesser trochanter and extending proximally. Skin incision was made with a scalpel through the superficial layers and electrocautery was used to split the IT band. A guidepin was then placed centered on the lateral aspect of the distal femur just above the lesser trochanter. It was driven into the inferior head and its position was verified using fluoroscopy. 2 superior pins were then placed. They were measured and 5 mm was subtracted and appropriately length partially cannulated screws were then placed starting with the inferior screw and then proceeding to the superior screws. The screws had excellent purchase. The guide pins were removed and final fluoroscopic images were taken. The threads appeared to THE fracture site that did not violate the femoral head. An AP and lateral view was obtained and saved. Fluoroscopy then went live to verify that the screws were completely within the femoral head and did not violate the joint surface. The wound was then thoroughly irrigated and closed with layers using 0 Vicryl for the IT band, 2-0 Vicryl for the superficial subcu, and adamaris for the skin. Local anesthetic was injected around the incision. A sterile dressing consisting of Adaptic, 4 x 4, and medium Tegaderm was applied. The patient was then carefully taken out of the fracture table, transferred to a gurney, and brought to recovery having tolerated the procedure well. Ja Uribe PA-C was required as a skilled neurosurgical physician assistant for patient positioning, surgical retraction, placement of hardware, closure of wound, and application of dressing. Plan: The patient is to be toe-touch weightbearing on the right leg for 6 weeks. She'll receive 2 doses of postoperative antibiotics. Appreciate internal medicine's assistance with perioperative medical management. I will defer to internal medicine regarding DVT prophylaxis as she is already on Eliquis for atrial fibrillation. Anticipate discharge to rehab or subacute nursing facility.
[2019-02-21] MEDS ORDERED: HYDROcodone/APAP 5-325MG 1 EACH TAB PO PRN (09:42)
--- NOTE | 2019-02-21 09:42 | FL ---
EXAMINATION TYPE: FL guidance operating room, XR Hip Complete RT DATE OF EXAM: 02/21/2019 CLINICAL HISTORY: Right hip fracture. TECHNIQUE: Fluoroscopy. Interoperative complete views right hip. COMPARISON: CT right hip 2 days ago. FINDINGS: Fluoroscopic guidance was provided during open reduction internal fixation procedure perfo rmed by Dr. Stallings. A total of 1.49 minutes of fluoroscopic time was utilized during the procedure and 4 spot intraoperative images are acquired. Intraoperative images obtained show placement of 3 large intertrochanteric screws through subcapital fracture right proximal femur. Alignment is satisfactory on the intraoperative images obtained. IMPRESSION: As Above.
[2019-02-21] MEDS ORDERED: HYDROmorphone 1 MG/ML 1 ML SYRINGE IVP ONE ×4 (09:50→10:07)
[2019-02-21] MEDS: lamoTRIgine 100 MG TAB PO SCH ×2 (11:48→19:54)
[2019-02-21] MEDS: LACTATED RINGERS 1,000 ML IV SCH (11:48)
[2019-02-21] MEDS: LISINOPRIL 5 MG TAB PO SCH (11:48)
[2019-02-21 11:59] LABS: Basophils % (A) 0 %; Eosinophils # (A) 0.2 k/uL (0-0.7); Eosinophils % (A) 3 %; HCT 37.3 % (34.0-46.0); HGB 12.3 gm/dL (11.4-16.0); Lymphocytes % (A) 15 %; MCV 97.1 fL (80.0-100.0); Mean Platelet Volume 8.6; Monocytes # (A) 0.4 k/uL (0-1.0); Monocytes % (A) 6 %; Neutrophils # (A) 4.6 k/uL (1.3-7.7); Neutrophils % (A) 74 %; Platelet Count 118 k/uL (150-450); RBC 3.85 m/uL (3.80-5.40); WBC 6.3 k/uL (3.8-10.6)
[2019-02-21] MEDS: CHOLECALCIFEROL 1,000 UNIT TAB PO SCH (12:40)
[2019-02-21] MEDS: HYDROcodone/APAP 10-325MG 1 EACH TAB PO PRN (15:03)
[2019-02-21] MEDS: CALCIUM CARBONATE 500 MG CHEWABLE PO SCH ×2 (15:03→19:53)
[2019-02-21] MEDS: buPROPion XL 150 MG TAB.ER.24H PO SCH (19:53)
[2019-02-21] MEDS: MONTELUKAST 10 MG TAB PO SCH (19:55)
[2019-02-21] MEDS: ATORVASTATIN 10 MG TAB PO SCH (19:55)
[2019-02-21] MEDS: SENNOSIDES-DOCUSATE SODIUM 1 EACH TAB PO SCH (19:55)
[2019-02-21] MEDS: LATANOPROST 0.005% OPHTH DROPS 2.5 ML BTL BOTH EYES SCH (19:56)
--- NOTE | 2019-02-22 00:12 | PN ---
PROGRESS NOTE DATE OF SERVICE: February 21, 2019. She does not have any shortness of breath or chest pain. She has had a right hip fracture. On physical examination: Blood pressure is 108/73, respiratory rate of 18, pulse rate of 70, temperature 97.4, O2 saturation on room air is 92%. HEENT is unremarkable. Chest is clear. Cardiovascular system is S1, S2. Abdomen is soft. There is no edema. There is surgical evidence of recent right hip surgery. IMPRESSION: At this time is: 1. Right hip fracture. 2. Chronic obstructive pulmonary disease. 3. Atrial fibrillation. 4. Asthma. 5. Mitral valve prolapse. 6. Rheumatoid arthritis. Continue bronchodilators, encourage incentive spirometry. Continue heparin subcu until she is stable in the postsurgical period at which time she may switch back to Eliquis. Continue montelukast and antihypertensive medications. The prognosis is fair. MMODL / IJN: [id number] /
[2019-02-22] MEDS: LEVOTHYROXINE 112 MCG TAB PO SCH (05:41)
[2019-02-22] MEDS: HYDROmorphone 1 MG/ML 1 ML SYRINGE IVP PRN ×5 (06:56→21:33)
[2019-02-22] MEDS: LACTATED RINGERS 1,000 ML IV SCH (08:30)
[2019-02-22] MEDS: lamoTRIgine 100 MG TAB PO SCH ×2 (08:33→21:30)
[2019-02-22] MEDS: APIXABAN 5 MG TAB PO SCH ×2 (08:33→21:30)
[2019-02-22] MEDS: CALCIUM CARBONATE 500 MG CHEWABLE PO SCH ×3 (08:33→21:31)
[2019-02-22] MEDS: NON-FORMULARY DRUG (Vilazodone Hcl [Viibryd] 40 MG) PO SCH (08:33)
[2019-02-22] MEDS: LISINOPRIL 5 MG TAB PO SCH (08:33)
[2019-02-22] MEDS: METOPROLOL TARTRATE 50 MG TAB PO SCH (09:57)
[2019-02-22] MEDS: CHOLECALCIFEROL 1,000 UNIT TAB PO SCH (12:32)
--- NOTE | 2019-02-22 12:38 | CDI ---
Documentation Clarification Form Date: 02/22/2019 12:28:00 PM From: Rachel Pringle RN, CCDS Admit Date: 02/19/2019 10:39:00 PM Patient Name: Swathi Floyd Visit Number: [id number] ATTENTION: The Clinical Documentation Specialists (CDI) and [facility] Coding Staff appreciate your assistance in clarifying documentation. Please respond to the clarification below the line at the bottom and electronically sign. The CDI & [facility] Coding staff will review the response and follow-up if needed. Please note: Queries are made part of the Legal Health Record. If you have any questions, please contact the author of this message via ITS. Dr. Raudel Garza Atrial Fibrillation is documented in the PMH in the H&P, Consults, and progress notes. History/Risk Factors: Atrial Fibrillation, Asthma, COPD, GERD, HTN, MVP, Pneumonia, RA Clinical Indicators: EKG/telemetry: Atrial Fib Treatment: Po Lopressor 100 mg PO QD Po Eliquis In your professional opinion, can you please clarify the type of Atrial Fibrillation, if known? Chronic/Permanent Paroxysmal Persistent Other, please specify Unable to determine (Last Revision: September 2017) MTDD
--- NOTE | 2019-02-22 14:42 | P.PN ---
Subjective Progress Note Date: 02/22/19 This patient is a 72 year old female with a past medical history of atrial fibrillation currently on Eliquis, COPD, GERD, and asthma Who presented to [facility] ER on 02/19/19 after sustaining a ground-level fall. X-rays in the emergency department revealed a right valgus impacted femoral neck fracture. She was admitted under the care of Dr. Stallings for surgical intervention and treatment. Patient underwent a right in situ screw fixation of right valgus impacted femoral neck fracture on 02/21/[address] Stallings. Today is post-operative day #1. Patient states she has been requiring IV diluadid every 3 hours for adequate pain control. Patient states her hip becomes painful with any movement. She has not yet been up with physical therapy yet this morning. She has not had a bowel movement post-operatively, she denies abdominal pain. She denies any new complaints today. Patient denies chest pain, shortness of breath, nausea, vomiting, fevers, chills, numbness or tingling of the right lower extremity. Vital signs stable. Objective - Vital Signs Vital signs: Vital Signs Temp 98.8 F 02/22/19 04:40 Pulse 110 H 02/22/19 08:44 Resp 20 02/22/19 08:44 BP 147/78 02/22/19 04:40 Pulse Ox 95 02/22/19 04:40 Intake & Output 02/21/19 02/22/19 02/22/19 18:59 06:59 18:59 Intake Total 1401 400 200 Output Total 310 700 Balance 1091 -300 200 Intake: IV 1101 Oral 300 400 200 Output: Urine 300 700 Estimated Blood Loss 10 Other: Voiding Method Diaper Diaper - Exam On examination, the patient is lying in bed in no apparent distress. She is alert and oriented 3. Her breathing appears non-labored. On inspection of the right hip, there is a surgical dressing in place which appears clean, dry, intact. There is no drainage through dressing. Ecchymosis of the posterior hip. Motor and sensory function are intact of the right lower extremity. Patient has full range of motion of the right ankle and foot. The right lower extremity is warm and well perfused, dorsalis pedis pulse palpable. Soft and nontender bilaterally. Lower extremity compression cuffs in place. - Labs CBC & Chem 7: 02/21/19 11:15 02/19/19 21:05 Assessment and Plan Assessment: Right valgus impacted femoral neck fracture status-post in situ screw fixation on 02/21/19. Postoperative day #1. Plan: - Toe-touch weight bearing on the upper extremity. Up with assistance, up with a walker. - Physical therapy for gait and balance training. - 2 doses of postoperative antibiotics complete. - Continue pain management. Decrease use of IV Dilaudid as tolerated. - DVT prophylaxis per internal medicine. - Anticipate discharge to rehab facility within next 1-2 days, pending medical clearance. Patient discussed with Dr. Stallings.
[2019-02-22] MEDS ORDERED: IPRATROPIUM-ALBUTEROL 3 ML NEB INHALATION PRN (17:29)
--- NOTE | 2019-02-22 17:34 | P.PN ---
Subjective Progress Note Date: 02/22/19 Principal diagnosis: This is a 73-year-old female admitted with right hip fracture status post fall, status post in situ screw fixation for right valgus impacted femoral neck fractu re ,chronic atrial fibrillation and multiple other medical issues. Receiving Dilaudid for pain, states controlled at rest. Evaluated by physical therapy with subacute rehab recommended at discharge. Vital signs stable, maintaining O2 sats in the 90s on room air. Passing flatus, no bowel movement. Afebrile, normal WBC. Consuming approximately 75% of meals except declined breakfast this morning. Denies nausea or vomiting. No diarrhea. Denies abdominal pain. Denies lightheadedness dizziness or focal deficits. Denies chest pain, palpitations or shortness of breath. Objective - Vital Signs Vital signs: Vital Signs Temp 98.8 F 02/22/19 04:40 Pulse 110 H 02/22/19 08:44 Resp 20 02/22/19 08:44 BP 147/78 02/22/19 04:40 Pulse Ox 95 02/22/19 04:40 Intake & Output 02/21/19 02/22/19 02/22/19 18:59 06:59 18:59 Intake Total 1401 400 Output Total 310 700 Balance 1091 -300 Intake: IV 1101 Oral 300 400 Output: Urine 300 700 Estimated Blood Loss 10 Other: Voiding Method Diaper Diaper - Exam PHYSICAL EXAM: VITAL SIGNS: As above GENERAL: Sitting up in bed, no acute distress HEENT: Conjunctivae normal. eyes normal. Oral mucosa moist NECK: No JVD. No thyroid enlargement. No LNs CARDIOVASCULAR: S1, S2 regular. Systolic murmur RESPIRATION: Breath sounds diminished in the bases. No rhonchi or crackles. No b ronchial breathing. ABDOMEN: Soft, nontender . No guarding. no masses palpable.Bowel sounds heard. LEGS: Right hip ecchymosis, dressing clean dry and intact, positive DP pulse. PSYCHIATRY: Alert and oriented X3, mood and affect normal. NERVOUS SYSTEM: Cranial N 2-12 grossly normal. Moves all 4 limbs. Diffuse weakness No focal deficits. Strength and sensation grossly intact. - Labs CBC & Chem 7: 02/21/19 11:15 02/19/19 21:05 Labs: Abnormal Lab Results - Last 24 Hours (Table) 02/21/19 Range/Units 11:15 Plt Count 118 L (150-450) k/uL Assessment and Plan Assessment: Status post fall, right hip fracture. -Chronic atrial fibrillation, possibly paroxysmal -COPD, stable -Gastroesophageal reflux disease -Hypertension -Mitral valve prolapse -Osteoarthritis -Rheumatoid arthritis -Hypothyroidism -Depression -Former nicotine dependence Plan: Continue on current medication regime ,monitoring and symptomatic treatment. Anticoagulated on Eliquis. Pain management as per surgery. Aggressive pulmonary toileting with incentive spirometer reinforced. Scheduled and prn nebulized bronchodilators as well as LABA added to med regime. PT/OT. Discharge planning in progress for subacute rehab as per orthopedic surgery. Further recommendations to follow. The impression and plan of care has been dictated as directed. : I performed a history and examination of this patient, discussed the same with the dictator. I agree with the dictator's note ,documented as a scribe. Any additional findings or plans will be noted.
[2019-02-22] MEDS: MONTELUKAST 10 MG TAB PO SCH (21:30)
[2019-02-22] MEDS: ATORVASTATIN 10 MG TAB PO SCH (21:30)
[2019-02-22] MEDS: buPROPion XL 150 MG TAB.ER.24H PO SCH (21:31)
[2019-02-22] MEDS: SENNOSIDES-DOCUSATE SODIUM 1 EACH TAB PO SCH (21:31)
[2019-02-22] MEDS: SYMBICORT 160-4.5 MCG INHALER INHALATION SCH (21:43)
[2019-02-22] MEDS: IPRATROPIUM-ALBUTEROL 3 ML NEB INHALATION SCH (21:43)
[2019-02-22] MEDS: LATANOPROST 0.005% OPHTH DROPS 2.5 ML BTL BOTH EYES SCH (22:45)
[2019-02-23] MEDS: HYDROmorphone 1 MG/ML 1 ML SYRINGE IVP PRN (05:23)
[2019-02-23] MEDS: LEVOTHYROXINE 112 MCG TAB PO SCH (06:21)
[2019-02-23] MEDS: SYMBICORT 160-4.5 MCG INHALER INHALATION SCH (07:38)
[2019-02-23] MEDS: IPRATROPIUM-ALBUTEROL 3 ML NEB INHALATION SCH ×3 (07:38→15:51)
[2019-02-23] MEDS: METOPROLOL TARTRATE 50 MG TAB PO SCH (08:28)
[2019-02-23] MEDS: LISINOPRIL 5 MG TAB PO SCH (08:28)
[2019-02-23] MEDS: APIXABAN 5 MG TAB PO SCH (08:28)
[2019-02-23] MEDS: CALCIUM CARBONATE 500 MG CHEWABLE PO SCH ×3 (08:28→15:19)
[2019-02-23] MEDS: CHOLECALCIFEROL 1,000 UNIT TAB PO SCH (08:28)
[2019-02-23] MEDS: lamoTRIgine 100 MG TAB PO SCH (08:28)
[2019-02-23] MEDS: NON-FORMULARY DRUG (Vilazodone Hcl [Viibryd] 40 MG) PO SCH (08:29)
[2019-02-23] MEDS: HYDROcodone/APAP 10-325MG 1 EACH TAB PO PRN (09:31)
[2019-02-23 11:21] LABS: Basophils % (A) 1 %; Eosinophils # (A) 0.2 k/uL (0-0.7); Eosinophils % (A) 3 %; HCT 38.4 % (34.0-46.0); HGB 12.6 gm/dL (11.4-16.0); Lymphocytes # (A) 1.2 k/uL (1.0-4.8); Lymphocytes % (A) 17 %; MCH 31.9 pg (25.0-35.0); MCHC 32.9 g/dL (31.0-37.0); MCV 97.2 fL (80.0-100.0); Mean Platelet Volume 8.2; Monocytes # (A) 0.6 k/uL (0-1.0); Monocytes % (A) 9 %; Neutrophils # (A) 4.7 k/uL (1.3-7.7); Neutrophils % (A) 68 %; Platelet Count 157 k/uL (150-450); RBC 3.95 m/uL (3.80-5.40); RDW 12.8 % (11.5-15.5); WBC 6.9 k/uL (3.8-10.6)
[2019-02-23 13:20] VITALS: BP 144/90; PULSE 80; RESP 16; TEMP 97.5
--- NOTE | 2019-02-23 15:46 | P.PN ---
Subjective Progress Note Date: 02/23/19 Principal diagnosis: This is a 73-year-old female admitted with right hip fracture status post fall, status post in situ screw fixation for right valgus impacted femoral neck fractu re ,chronic atrial fibrillation and multiple other medical issues. Receiving Dilaudid for pain, states controlled at rest. Evaluated by physical therapy with subacute rehab recommended at discharge. Vital signs stable, maintaining O2 sats in the 90s on room air. Passing flatus, no bowel movement. Afebrile, normal WBC. Consuming approximately 75% of meals except declined breakfast this morning. Denies nausea or vomiting. No diarrhea. Denies abdominal pain. Denies lightheadedness dizziness or focal deficits. Denies chest pain, palpitations or shortness of breath. 02/23/19 no overnight events. Vital signs stable. Pain better controlled. Afebrile, normal WBC. Good diet intake with no nausea, no diarrhea, denies abdominal pain. Denies bowel movement, passing flatus. Denies chest pain, palpitations or shortness of breath. Anticoagulated on Eliquis. Objective - Vital Signs Vital signs: Vital Signs Temp 97.8 F 02/23/19 05:45 Pulse 88 02/23/19 11:25 Resp 20 02/23/19 05:45 BP 151/80 02/23/19 05:45 Pulse Ox 92 L 02/23/19 07:42 Intake & Output 02/22/19 02/23/19 02/23/19 18:59 06:59 18:59 Intake Total 740 500 Output Total 850 500 Balance -110 0 Intake: Oral 740 500 Output: Urine 850 500 Other: Voiding Method Diaper Bedside Commode # Voids 5 - Exam PHYSICAL EXAM: VITAL SIGNS: As above GENERAL: Sitting up in bed, no acute distress HEENT: Conjunctivae normal. eyes normal. Oral mucosa moist NECK: No JVD. No thyroid enlargement. No LNs CARDIOVASCULAR: S1, S2 regular. Systolic murmur RESPIRATION: Breath sounds diminished in the bases. No rhonchi or crackles. ABDOMEN: Soft, nontender . No guarding. no masses palpable.Bowel sounds heard. LEGS: Right hip ecchymosis, dressing clean dry and intact, positive DP pulse. PSYCHIATRY: Alert and oriented X3, mood and affect normal. NERVOUS SYSTEM: Cranial N 2-12 grossly normal. Moves all 4 limbs. Diffuse weakness No focal deficits. Strength and sensation grossly intact. - Labs CBC & Chem 7: 02/23/19 10:42 02/19/19 21:05 Assessment and Plan Assessment: -Status post fall, right hip fracture. -Chronic atrial fibrillation, possibly paroxysmal -COPD, stable -Gastroesophageal reflux disease -Hypertension -Mitral valve prolapse -Osteoarthritis -Rheumatoid arthritis -Hypothyroidism -Depression -Former nicotine dependence Plan: Continue on current medication regime ,monitoring and symptomatic treatment. Discharge planning in progress by orthopedic surgery for subacute rehab today. Pain management as per surgery. Anticoagulation with Eliquis. Co ntinue with aggressive pulmonary toileting with incentive spirometer. Follow with PCP in 1 week after discharge from subacute rehab. The impression and plan of care has been dictated as directed. : I performed a history and examination of this patient, discussed the same with the dictator. I agree with the dictator's note ,documented as a scribe. Any additional findings or plans will be noted.
--- NOTE | 2019-02-23 15:48 | P.DS ---
Providers Date of admission: 02/19/19 22:39 Expected date of discharge: 02/23/19 Attending physician: Jeremias Stallings Consults: 02/19/19 21:58 Consult Physician Stat Consulting Provider: Raudel Garza Reason/Comments: Medical management, surgical clearance Do you want consulting provider notified?: Yes Primary care physician: [facility] Course: This is an 73-year-old female who presented on 02/19/19 after falling and sustaining injury to the right hip. On exam and x-ray in the emergency department she was found to have a right valgus impacted femoral neck fracture. The pt is admitted under the care of Dr. Stallings for surgical intervention and care. Patient underwent a right in situ screw fixation of the right valgus impacted femoral neck fracture on 02/21/19. The procedure is performed without complication or sequelae. The patient is doing well postoperatively. Vital signs are stable on postop day #3. There are no new complaints or concerns. Today's postoperative day #2. The patient is examined bedside with Dr. Stallings. Patient states her pain is currently well-controlled on oral pain medication. She was up with physical therapy yesterday. She has not yet had a bowel movement post-operatively, she denies abdominal pain. She has been passing gas. She denies any additional complaints today. She states she would like to be discharged to [facility] today. She denies chest pain, shortness of breath, nausea, vomiting, numbness or tingling of the right lower extremity. Vital signs stable. On examination, the patient is lying in bed in no apparent distress. She is alert and orientated x3. On inspection of the right hip, there is a clean, dry, intact surgical dressing in place. No drainage through dressing. Ecchymosis of posterior hip. Motor and sensory function intact of right lower extremity. Patient has full ROM of the right ankle and foot. The right lower extremity is warm and well-perfused. Calves are soft and nontender to palpation bilaterally. The patient is discharged to inpatient rehab pending medical clearance today. Please refer to the med rec for accurate list of medications. Patient Condition at Discharge: Fair Plan - Discharge Summary New Discharge Prescriptions: No Action Montelukast [Singulair] 10 mg PO HS Latanoprost Ophth [Xalatan 0.005%] 1 drop BOTH EYES HS Hydrocodone/Acetaminophen [[place] 10-325] 1 tab PO BID PRN PRN Reason: Pain Lovastatin [Mevacor] 20 mg PO HS Apixaban [Eliquis] 5 mg PO BID Vilazodone HCl [Viibryd] 40 mg PO DAILY Meclizine HCl 12.5 mg PO Q8H PRN PRN Reason: Vertigo Estrogens, Conjugated [Premarin] 0.3 mg PO DAILY Ergocalciferol (Vitamin D2) [Vitamin D2] 50,000 unit PO SA Lisinopril [Prinivil] 5 mg PO DAILY Albuterol Sulfate [Proair Hfa] 2 puff INHALATION RT-QID PRN PRN Reason: Shortness Of Breath lamoTRIgine [LaMICtal] 100 mg PO BID Butalb/APAP/Caff 50-325-40Mg [Fioricet 50-325-40] 1 tab PO QID PRN PRN Reason: Shortness Of Breath buPROPion XL [Wellbutrin Xl] 150 mg PO HS Levothyroxine Sodium [Synthroid] 112 mcg PO DAILY Metoprolol Tartrate [Lopressor] 100 mg PO DAILY Estrogens, Conjugated [Premarin] 0.3 mg PO DAILY Discharge Medication List Hydrocodone/Acetaminophen [[place] 10-325] 1 tab PO BID PRN 11/15/14 [History] Latanoprost Ophth [Xalatan 0.005%] 1 drop BOTH EYES HS 11/15/14 [History] Montelukast [Singulair] 10 mg PO HS 11/15/14 [History] Lovastatin [Mevacor] 20 mg PO HS 11/16/14 [History] Apixaban [Eliquis] 5 mg PO BID 05/26/17 [History] Meclizine HCl 12.5 mg PO Q8H PRN 09/08/17 [History] Vilazodone HCl [Viibryd] 40 mg PO DAILY 09/08/17 [History] Ergocalciferol (Vitamin D2) [Vitamin D2] 50,000 unit PO SA 05/15/18 [History] Estrogens, Conjugated [Premarin] 0.3 mg PO DAILY 05/15/18 [History] Albuterol Sulfate [Proair Hfa] 2 puff INHALATION RT-QID PRN 06/28/18 [History] Lisinopril [Prinivil] 5 mg PO DAILY 06/28/18 [History] Butalb/APAP/Caff 50-325-40Mg [Fioricet 50-325-40] 1 tab PO QID PRN 02/19/19 [History] Levothyroxine Sodium [Synthroid] 112 mcg PO DAILY 02/19/19 [History] buPROPion XL [Wellbutrin Xl] 150 mg PO HS 02/19/19 [History] lamoTRIgine [LaMICtal] 100 mg PO BID 02/19/19 [History] Estrogens, Conjugated [Premarin] 0.3 mg PO DAILY 02/22/19 [History] Metoprolol Tartrate [Lopressor] 100 mg PO DAILY 02/22/19 [History] Follow up Appointment(s)/Referral(s): [facility]Care [NON-STAFF] - 1-2 Days Raudel Garza MD [Primary Care Provider] - 02/25/19 11:15 am Jeremias Stallings MD [Medical Doctor] - 2 Weeks Activity/Diet/Wound Care/Special Instructions: -Toe-touch weightbearing on your operative leg. You may remove your surgical dressing 2 days after your surgery. After removing your dressing, you can shower and get the incisions wet. After showering, pat dry with a clean towel and keep incision covered with gauze or a bandage. Do not soak incision - no baths, hot tubs, or swimming. -Use crutches or a walker to ambulate after surgery. -Elevate and ice operative leg to help reduce swelling and control pain. -Take pain medications as prescribed. Take Colace as a stool softener. Anticoagulation per the internal medicine team. -Follow-up appointment with Dr. Stallings in the office in 2 weeks. -Call the office with any questions or concerns, Discharge Disposition: TRANSFER TO SNF/ECF
== END 2019-02-23 17:09 | DRG 482 ==
LOC: EC 20:47 → 4MS4W 22:39
PROVIDERS: ADMIT Orthopaedic Surgery; ATTEND Orthopaedic Surgery
PROC: 0QH604Z Insertion of Internal Fixation Device into Right Upper Femur, Open Approach (ICD-10-PCS; principal; 2019-02-21 07:15)
DX: S72.011A Unspecified intracapsular fracture of right femur, initial encounter for closed fracture (principal); W10.9XXA Fall (on) (from) unspecified stairs and steps, initial encounter; Y92.009 Unspecified place in unspecified non-institutional (private) residence as the place of occurrence of the external cause; E03.9 Hypothyroidism, unspecified; F32.9 Major depressive disorder, single episode, unspecified; H40.9 Unspecified glaucoma; I10 Essential (primary) hypertension; I34.1 Nonrheumatic mitral (valve) prolapse; I48.2 Chronic atrial fibrillation; J44.9 Chronic obstructive pulmonary disease, unspecified; K21.9 Gastro-esophageal reflux disease without esophagitis; M06.9 Rheumatoid arthritis, unspecified; M19.90 Unspecified osteoarthritis, unspecified site; Z79.01 Long term (current) use of anticoagulants; Z79.890 Hormone replacement therapy; Z79.899 Other long term (current) drug therapy; F17.290 Nicotine dependence, other tobacco product, uncomplicated; Z90.710 Acquired absence of both cervix and uterus; Z87.01 Personal history of pneumonia (recurrent); Z82.3 Family history of stroke; Z82.49 Family history of ischemic heart disease and other diseases of the circulatory system; M51.36 Other intervertebral disc degeneration, lumbar region
CPT/HCPCS: 36415; 71045; 72170; 73502; 80053; 81003; 82306; 85025; 85610; 85730; 86850; 86900; 86901; 93005; 94640; 94760; 96374; 99285

== ENCOUNTER 2019-10-27 10:31 | Emergency (ER) | payer MEDICARE, OTHER ==
[2019-10-27 10:42] VITALS: BP 164/84; PULSE 82; TEMP 98.2
--- NOTE | 2019-10-27 10:57 | ED ---
Psych HPI - General Chief Complaint: Psychiatric Symptoms Stated Complaint: lightheaded/mental health Time Seen by Provider: 10/27/19 10:31 Source: patient, EMS, RN notes reviewed, old records reviewed Mode of arrival: EMS - History of Present Illness Initial Comments: This is a 74-year-old female who was brought in by EMS after complaining that he believes some he was trying to poison her. She states that she was smelling some motor coming from she believes the upstairs apartment where she lives. She believes someone was trying to poison her. She complains some nausea and dizziness she did go outside and did call EMS. She complains some sweats difficulty breathing. This is resolved at this time. She was noted per paramedics to have a heart rate of 110 does have a history of A. fib. No complaints or modifying factors this time. Patient denies any drugs or alcohol. No suicidal thoughts or ideation MD Complaint: other - Related Data Home Medications Medication Instructions Recorded Confirmed Hydrocodone/Acetaminophen [[place] 1 tab PO TID PRN 11/15/14 10/27/19 10-325] Latanoprost Ophth [Xalatan 0.005%] 1 drop BOTH EYES HS 11/15/14 10/27/19 Montelukast [Singulair] 10 mg PO HS 11/15/14 10/27/19 Lovastatin [Mevacor] 20 mg PO HS 11/16/14 10/27/19 Apixaban [Eliquis] 5 mg PO BID 05/26/17 10/27/19 Meclizine HCl 12.5 mg PO Q8H PRN 09/08/17 10/27/19 Vilazodone HCl [Viibryd] 40 mg PO DAILY 09/08/17 10/27/19 Ergocalciferol (Vitamin D2) 50,000 unit PO Q7D 05/15/18 10/27/19 [Vitamin D2] Lisinopril [Prinivil] 5 mg PO DAILY 06/28/18 10/27/19 buPROPion XL [Wellbutrin XL] 150 mg PO HS 02/19/19 10/27/19 lamoTRIgine [LaMICtal] 100 mg PO BID 02/19/19 10/27/19 Estrogens, Conjugated [Premarin] 0.3 mg PO DAILY 02/22/19 10/27/19 Metoprolol Tartrate [Lopressor] 100 mg PO DAILY 02/22/19 10/27/19 Levothyroxine Sodium [Synthroid] 88 mcg PO DAILY 10/27/19 10/27/19 Loperamide [Imodium] 2 mg PO TID PRN 10/27/19 10/27/19 Allergies Allergy/AdvReac Type Severity Reaction Status Date / Time No Known Allergies Allergy Verified 10/27/19 13:00 Review of Systems ROS Statement: Those systems with pertinent positive or pertinent negative responses have been documented in the HPI. ROS Other: All systems not noted in ROS Statement are negative. Past Medical History Past Medical History: Atrial Fibrillation, Asthma, COPD, GERD/Reflux, Hypertension, Mitral Valve Prolapse (MVP), Osteoarthritis (OA), Pneumonia, Rheumatoid Arthritis (RA), Thyroid Disorder Additional Past Medical History / Comment(s): depressive disorder, lumbar ddd,"bulging discs", chronic back/neck pain, diverticultis, migraines, glaucoma History of Any Multi-Drug Resistant Organisms: None Reported Past Surgical History: Adenoidectomy, Hysterectomy, Tonsillectomy Past Anesthesia/Blood Transfusion Reactions: No Reported Reaction Past Psychological History: Depression Smoking Status: Former smoker Past Alcohol Use History: None Reported Past Drug Use History: None Reported - Past Family History Mother Family Medical History: Vascular Disorder Father Family Medical History: CVA/TIA Brother(s) Family Medical History: Thyroid Disorder General Exam - General Exam Comments Initial Comments: This is a well-developed asthenic appearing female who is awake alert oriented 3 General appearance: alert, in no apparent distress Head exam: Present: atraumatic, normocephalic, normal inspection Eye exam: Present: normal appearance, PERRL, EOMI. Absent: scleral icterus, conjunctival injection, periorbital swelling ENT exam: Present: mucous membranes dry Neck exam: Present: normal inspection. Absent: tenderness, meningismus, lymphadenopathy Respiratory exam: Present: normal lung sounds bilaterally. Absent: respiratory distress, wheezes, rales, rhonchi, stridor Cardiovascular Exam: Present: regular rate, normal rhythm, normal heart sounds. Absent: systolic murmur, diastolic murmur, rubs, gallop, clicks GI/Abdominal exam: Present: soft, normal bowel sounds. Absent: distended, tenderness, guarding, rebound, rigid Extremities exam: Present: normal inspection, full ROM, normal capillary refill. Absent: tenderness, pedal edema, joint swelling, calf tenderness Back exam: Present: normal inspection Neurological exam: Present: alert, oriented X3, CN II-XII intact Psychiatric exam: Present: other (She does demonstrate some paranoid features) Skin exam: Present: warm, dry, intact, normal color. Absent: rash Course Vital Signs 10/27/19 10:38 Temperature 98.2 F Pulse Rate 82 Respiratory 16 Rate Blood Pressure 164/84 O2 Sat by Pulse 97 Oximetry Medical Decision Making - Medical Decision Making The patient rested comfortably in emergency department throughout the day. She was evaluated by psychiatric service she'll be discharged home on palpation follow-up will be performed. Patient family are in agreement with that. Patient does have some evidence of mild dehydration. Apparently family does believe that the patient does have some validity to her claims. - Lab Data Result diagrams: 10/27/19 10:47 10/27/19 10:47 Lab Results 10/27/19 10/27/19 10/27/19 Range/Units 10:47 10:47 10:47 WBC 5.4 (3.8-10.6) k/uL RBC 3.86 (3.80-5.40) m/uL Hgb 13.0 (11.4-16.0) gm/dL Hct 39.7 (34.0-46.0) % MCV 102.8 H (80.0-100.0) fL MCH 33.7 (25.0-35.0) pg MCHC 32.7 (31.0-37.0) g/dL RDW 13.7 (11.5-15.5) % Plt Count 186 (150-450) k/uL Neutrophils % 56 % Lymphocytes % 29 % Monocytes % 8 % Eosinophils % 3 % Basophils % 1 % Neutrophils # 3.0 (1.3-7.7) k/uL Lymphocytes # 1.6 (1.0-4.8) k/uL Monocytes # 0.5 (0-1.0) k/uL Eosinophils # 0.2 (0-0.7) k/uL Basophils # 0.0 (0-0.2) k/uL Macrocytosis Slight Sodium 137 (137-145) mmol/L Potassium 4.3 (3.5-5.1) mmol/L Chloride 102 (98-107) mmol/L Carbon Dioxide 28 (22-30) mmol/L Anion Gap 7 mmol/L BUN 18 H (7-17) mg/dL Creatinine 1.22 H (0.52-1.04) mg/dL Est GFR (CKD-EPI)AfAm 51 (>60 ml/min/1.73 sqM) Est GFR (CKD-EPI)NonAf 44 (>60 ml/min/1.73 sqM) Glucose 107 H (74-99) mg/dL Calcium 9.7 (8.4-10.2) mg/dL Magnesium 2.1 (1.6-2.3) mg/dL Total Bilirubin 0.7 (0.2-1.3) mg/dL AST 27 (14-36) U/L ALT 12 (4-34) U/L Alkaline Phosphatase 95 (38-126) U/L Creatine Kinase 40 (30-135) U/L Total Protein 7.1 (6.3-8.2) g/dL Albumin 4.2 (3.5-5.0) g/dL Urine Color Yellow Urine Appearance Cloudy H (Clear) Urine pH 7.0 (5.0-8.0) Ur Specific [place] 1.017 (1.001-1.035) Urine Protein 1+ H (Negative) Urine Glucose (UA) Negative (Negative) Urine Ketones Negative (Negative) Urine Blood Negative (Negative) Urine Nitrite Negative (Negative) Urine Bilirubin Negative (Negative) Urine Urobilinogen <2.0 (<2.0) mg/dL Ur Leukocyte Esterase Negative (Negative) Urine RBC 2 (0-5) /hpf Urine WBC 3 (0-5) /hpf Ur Squamous Epith Cells 4 (0-4) /hpf Urine Bacteria Rare H (None) /hpf Hyaline Casts 98 H (0-2) /lpf Urine Mucus Few H (None) /hpf Urine Opiates Screen Detected H (NotDetected) Ur Oxycodone Screen Not Detected (NotDetected) Urine Methadone Screen Not Detected (NotDetected) Ur Propoxyphene Screen Not Detected (NotDetected) Ur Barbiturates Screen Not Detected (NotDetected) U Tricyclic Antidepress Not Detected (NotDetected) Ur Phencyclidine Scrn Not Detected (NotDetected) Ur Amphetamines Screen Not Detected (NotDetected) U Methamphetamines Scrn Not Detected (NotDetected) U Benzodiazepines Scrn Not Detected (NotDetected) Urine Cocaine Screen Not Detected (NotDetected) U Marijuana (THC) Screen Not Detected (NotDetected) Disposition Clinical Impression: Dehydration, Paranoia Disposition: HOME SELF-CARE Condition: Good Instructions (If sedation given, give patient instructions): Dehydration (ED), Paranoid Personality Disorder (ED) Is patient prescribed a controlled substance at d/c from ED?: No Referrals: Raudel Garza MD [Primary Care Provider] - 1-2 days
[2019-10-27 10:59] LABS: Basophils % (A) 1 %; Eosinophils # (A) 0.2 k/uL (0-0.7); Eosinophils % (A) 3 %; HCT 39.7 % (34.0-46.0); Lymphocytes # (A) 1.6 k/uL (1.0-4.8); Lymphocytes % (A) 29 %; MCH 33.7 pg (25.0-35.0); MCHC 32.7 g/dL (31.0-37.0); MCV 102.8 fL (80.0-100.0); Macrocytosis Slight; Mean Platelet Volume 8.6; Monocytes # (A) 0.5 k/uL (0-1.0); Monocytes % (A) 8 %; Neutrophils % (A) 56 %; Platelet Count 186 k/uL (150-450); RBC 3.86 m/uL (3.80-5.40); RDW 13.7 % (11.5-15.5); WBC 5.4 k/uL (3.8-10.6)
[2019-10-27 11:06] LABS: Albumin 4.2 g/dL (3.5-5.0); Calcium 9.7 mg/dL (8.4-10.2); Magnesium 2.1 mg/dL (1.6-2.3); Potassium 4.3 mmol/L (3.5-5.1); Total Bilirubin 0.7 mg/dL (0.2-1.3); Total Protein 7.1 g/dL (6.3-8.2)
[2019-10-27 11:22] LABS: Appearance,Urine Cloudy (Clear); Bacteria,Urine Rare /hpf; Bilirubin,Urine Negative (Negative); Blood,Urine Negative (Negative); Color,Urine Yellow; Glucose,Urine (UA) Negative (Negative); Hyaline Casts,Urine 98 /lpf (0-2); Ketones,Urine Negative (Negative); Leukocyte Esterase,Urine Negative (Negative); Mucus,Urine Few /hpf; Nitrite,Urine Negative (Negative); Protein,Urine 1+ (Negative); RBC,Urine 2 /hpf (0-5); Specific Gravity,Urine 1.017 (1.001-1.035); Squamous Epithelial Cell,Urine 4 /hpf (0-4); Urobilinogen,Urine <2.0 mg/dL (<2.0); WBC,Urine 3 /hpf (0-5)
[2019-10-27 11:33] LABS: Amphetamine Screen,Urine Not Detected (NotDetected); Barbiturate Screen,Urine Not Detected (NotDetected); Benzodiazepines Screen,Urine Not Detected (NotDetected); Cocaine Screen,Urine Not Detected (NotDetected); Methadone Screen, Urine Not Detected (NotDetected); Opiate Screen,Urine Detected (NotDetected); Oxycodone Screen, Urine Not Detected (NotDetected); Phencyclidine Screen,Urine Not Detected (NotDetected); Tricyclic Antidepressant,Urine Not Detected (NotDetected); Urn Cannabinoid Scrn Not Detected (NotDetected)
[2019-10-27] MEDS ORDERED: ATORVASTATIN 20 MG TAB PO STA (15:11)
[2019-10-27] MEDS ORDERED: METOPROLOL TARTRATE 50 MG TAB PO SCH (15:15)
[2019-10-27] MEDS ORDERED: LISINOPRIL 5 MG TAB PO SCH (15:15)
[2019-10-27] MEDS ORDERED: HYDROcodone/APAP 10-325MG 1 EACH TAB PO PRN (16:00)
[2019-10-27 16:12] VITALS: RESP 18
[2019-10-27] MEDS ORDERED: APIXABAN 5 MG TAB PO SCH (21:00)
[2019-10-27] MEDS ORDERED: lamoTRIgine 100 MG TAB PO SCH (21:00)
[2019-10-27] MEDS ORDERED: buPROPion XL 300 MG TAB.ER.24H PO SCH (21:00)
[2019-10-27] MEDS ORDERED: MONTELUKAST 10 MG TAB PO SCH (21:00)
[2019-10-28] MEDS ORDERED: LEVOTHYROXINE 88 MCG TAB PO SCH (06:30)
== END 2019-10-27 16:11 | disposition home or self-care (01) ==
LOC: EC 10:31
DX: E86.0 Dehydration (principal); F22 Delusional disorders; I48.91 Unspecified atrial fibrillation; J44.9 Chronic obstructive pulmonary disease, unspecified; I10 Essential (primary) hypertension; F32.9 Major depressive disorder, single episode, unspecified; M06.9 Rheumatoid arthritis, unspecified; Z79.01 Long term (current) use of anticoagulants; Z79.890 Hormone replacement therapy; Z79.899 Other long term (current) drug therapy; Z87.891 Personal history of nicotine dependence
CPT/HCPCS: 36415; 80053; 80306; 81001; 82075; 82550; 83735; 85025; 99285

== ENCOUNTER 2019-12-28 09:49 | Emergency (ER) | payer MEDICARE, OTHER ==
[2019-12-28 10:02] VITALS: TEMP 97.8
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
[2019-12-28 10:53] LABS: Basophils % (A) 1 %; Eosinophils # (A) 0.2 k/uL (0-0.7); Eosinophils % (A) 5 %; HCT 35.6 % (34.0-46.0); HGB 11.3 gm/dL (11.4-16.0); Lymphocytes # (A) 1.2 k/uL (1.0-4.8); Lymphocytes % (A) 29 %; MCH 32.7 pg (25.0-35.0); MCHC 31.7 g/dL (31.0-37.0); MCV 103.1 fL (80.0-100.0); Macrocytosis Slight; Mean Platelet Volume 8.1; Monocytes # (A) 0.3 k/uL (0-1.0); Monocytes % (A) 8 %; Neutrophils # (A) 2.3 k/uL (1.3-7.7); Neutrophils % (A) 54 %; Platelet Count 161 k/uL (150-450); RBC 3.45 m/uL (3.80-5.40); RDW 13.3 % (11.5-15.5); WBC 4.2 k/uL (3.8-10.6)
[2019-12-28 11:03] LABS: Calcium 9.7 mg/dL (8.4-10.2); Magnesium 2.1 mg/dL (1.6-2.3); Potassium 4.8 mmol/L (3.5-5.1)
[2019-12-28 11:21] VITALS: RESP 20
--- NOTE | 2019-12-28 11:23 | CT ---
EXAMINATION TYPE: CT brain wo con DATE OF EXAM: 12/28/2019 COMPARISON: 05/26/2017 HISTORY: Head pain/leg swelling CT DLP: 1009.[address] of the brain was performed. The ventricles, basal cisterns and sulci overlying the cerebral convexities demonstrate mild enlargem ent. There is no evidence for intracranial hemorrhage or sulcal effacement. There is decreased attenuation about the periventricular white matter and deep white matter of both c erebral hemispheres, compatible with chronic small vessel ischemia. Differential diagnosis does inclu de demyelination. No mass effects are seen.No midline shift. Osseous calvarium is intact. If symptoms persist consider MRI. IMPRESSION: 1. Age related atrophic and chronic small vessel ischemic change without acute intracranial process s een at this time.
[2019-12-28 11:57] LABS: Partial Thromboplastin Time 26.5 sec (22.0-30.0); Prothrombin Time 10.7 sec (9.0-12.0)
--- NOTE | 2019-12-28 11:58 | US ---
EXAMINATION TYPE: US venous doppler duplex LE RT DATE OF EXAM: 12/28/2019 10:30 AM COMPARISON: NONE CLINICAL HISTORY: lower leg swelling. Pain and swelling SIDE PERFORMED: Right TECHNIQUE: The lower extremity deep venous system is examined utilizing real time linear array sonog marck with graded compression, doppler sonography and color-flow sonography. VESSELS IMAGED: External Iliac Vein (EIV) Common Femoral Vein Deep Femoral Vein Greater Saphenous Vein * Femoral Vein Popliteal Vein Small Saphenous Vein * Proximal Calf Veins (* superficial vessels) Right Leg: Negative for DVT IMPRESSION: No evidence for DVT.
[2019-12-28] MEDS ORDERED: FUROSEMIDE 10 MG/ML 4 ML VIAL IV STA (12:10)
--- NOTE | 2019-12-28 12:28 | XR ---
EXAMINATION TYPE: XR chest 1V portable DATE OF EXAM: 12/28/2019 Comparison: 02/19/2019 Clinical History: 74-year-old female shortness of breath, dyspnea Findings: Heart mildly enlarged. Mild diffuse interstitial prominence. Hyperinflation. No consolidation or pleu ral effusion. Impression: Hyperinflation. Suspect underlying COPD. There is also cardiomegaly and mild interstitial prominence. Correlate to exclude mild pulmonary vascular congestion.
[2019-12-28] MEDS ORDERED: FUROSEMIDE 40 MG TAB PO STA (12:34)
[2019-12-28 12:48] VITALS: BP 143/85; PULSE 63
== END 2019-12-28 12:51 | disposition home or self-care (01) ==
LOC: EC 09:49
DX: R06.00 Dyspnea, unspecified (principal); M79.89 Other specified soft tissue disorders; I10 Essential (primary) hypertension; E07.9 Disorder of thyroid, unspecified; H40.9 Unspecified glaucoma; J44.9 Chronic obstructive pulmonary disease, unspecified; I48.91 Unspecified atrial fibrillation; I51.7 Cardiomegaly; R79.89 Other specified abnormal findings of blood chemistry; F32.9 Major depressive disorder, single episode, unspecified; Z79.890 Hormone replacement therapy; Z79.01 Long term (current) use of anticoagulants; Z79.899 Other long term (current) drug therapy; Z87.891 Personal history of nicotine dependence
CPT/HCPCS: 36415; 70450; 71045; 80048; 83605; 83735; 83880; 84484; 85025; 85610; 85730; 86850; 86900; 86901; 93005; 99285

== ENCOUNTER 2019-12-29 04:14 | Observation (INO) | payer MEDICARE, OTHER ==
--- NOTE | 2019-12-29 04:26 | ED ---
Chest Pain HPI - General Chief Complaint: Chest Pain Stated Complaint: Heart palpitations Time Seen by Provider: 12/29/19 04:22 Source: patient, EMS Mode of arrival: EMS Limitations: language barrier - Related Data Home Medications Medication Instructions Recorded Confirmed Hydrocodone/Acetaminophen [[place] 1 tab PO TID PRN 11/15/14 10/27/19 10-325] Latanoprost Ophth [Xalatan 0.005%] 1 drop BOTH EYES HS 11/15/14 10/27/19 Montelukast [Singulair] 10 mg PO HS 11/15/14 10/27/19 Lovastatin [Mevacor] 20 mg PO HS 11/16/14 10/27/19 Apixaban [Eliquis] 5 mg PO BID 05/26/17 10/27/19 Meclizine HCl 12.5 mg PO Q8H PRN 09/08/17 10/27/19 Vilazodone HCl [Viibryd] 40 mg PO DAILY 09/08/17 10/27/19 Ergocalciferol (Vitamin D2) 50,000 unit PO Q7D 05/15/18 10/27/19 [Vitamin D2] Lisinopril [Prinivil] 5 mg PO DAILY 06/28/18 10/27/19 buPROPion XL [Wellbutrin XL] 150 mg PO HS 02/19/19 10/27/19 lamoTRIgine [LaMICtal] 100 mg PO BID 02/19/19 10/27/19 Estrogens, Conjugated [Premarin] 0.3 mg PO DAILY 02/22/19 10/27/19 Metoprolol Tartrate [Lopressor] 100 mg PO DAILY 02/22/19 10/27/19 Levothyroxine Sodium [Synthroid] 88 mcg PO DAILY 10/27/19 10/27/19 Loperamide [Imodium] 2 mg PO TID PRN 10/27/19 10/27/19 Previous Rx's Medication Instructions Recorded Furosemide [Lasix] 20 mg PO DAILY 3 Days #3 tablet 12/28/19 Allergies Allergy/AdvReac Type Severity Reaction Status Date / Time No Known Allergies Allergy Verified 12/28/19 10:01 Review of Systems ROS Statement: Those systems with pertinent positive or pertinent negative responses have been documented in the HPI. ROS Other: All systems not noted in ROS Statement are negative. EKG Findings - EKG Comments: EKG Findings:: EKG shows A. fib rate of 66 QRS 86 QTc 434 Past Medical History Past Medical History: Atrial Fibrillation, Asthma, COPD, GERD/Reflux, Hypertension, Mitral Valve Prolapse (MVP), Osteoarthritis (OA), Pneumonia, Rheumatoid Arthritis (RA), Thyroid Disorder Additional Past Medical History / Comment(s): depressive disorder, lumbar ddd,"bulging discs", chronic back/neck pain, diverticultis, migraines, glaucoma History of Any Multi-Drug Resistant Organisms: None Reported Past Surgical History: Adenoidectomy, Hysterectomy, Tonsillectomy Past Anesthesia/Blood Transfusion Reactions: No Reported Reaction Past Psychological History: Depression Smoking Status: Former smoker Past Alcohol Use History: None Reported Past Drug Use History: None Reported - Past Family History Mother Family Medical History: Vascular Disorder Father Family Medical History: CVA/TIA Brother(s) Family Medical History: Thyroid Disorder General Exam Limitations: language barrier Course Vital Signs 12/29/19 12/29/19 04:17 04:20 Temperature 97.9 F Pulse Rate 67 Pulse Rate [ 68 Surgical Attendant ] Respiratory 16 Rate Blood Pressure 130/78 O2 Sat by Pulse 97 Oximetry Disposition Clinical Impression: Chest pain, COPD (chronic obstructive pulmonary disease), Atrial flutter, Afib, Atrial fibrillation with RVR Disposition: ADMITTED IP TO THIS HOSP Condition: Fair Is patient prescribed a controlled substance at d/c from ED?: No Referrals: Raudel Garza MD [Primary Care Provider] - 1-2 days
--- NOTE | 2019-12-29 05:08 | XR ---
EXAMINATION TYPE: XR chest 2V DATE OF EXAM: 12/29/2019 COMPARISON: 12/28/2019 HISTORY: Chest pain TECHNIQUE: FINDINGS: There is no heart failure nor confluent pneumonic infiltrate. Costophrenic angles are clear . Thoracic aorta is atheromatous. Bony thorax is intact. IMPRESSION: No active cardiopulmonary disease. Borderline cardiomegaly. Pulmonary vascularity is impr vashti compared to exam yesterday.
[2019-12-29 05:33] LABS: Albumin 3.6 g/dL (3.5-5.0); Calcium 9.5 mg/dL (8.4-10.2); Magnesium 2.1 mg/dL (1.6-2.3); Total Bilirubin 0.3 mg/dL (0.2-1.3); Total Protein 6.6 g/dL (6.3-8.2)
[2019-12-29 05:34] LABS: Basophils % (A) 1 %; Eosinophils # (A) 0.2 k/uL (0-0.7); Eosinophils % (A) 5 %; HCT 35.3 % (34.0-46.0); HGB 11.7 gm/dL (11.4-16.0); Lymphocytes # (A) 1.4 k/uL (1.0-4.8); Lymphocytes % (A) 41 %; MCH 34.1 pg (25.0-35.0); MCHC 33.1 g/dL (31.0-37.0); MCV 103.2 fL (80.0-100.0); Macrocytosis Slight; Mean Platelet Volume 7.9; Monocytes # (A) 0.4 k/uL (0-1.0); Monocytes % (A) 11 %; Neutrophils # (A) 1.3 k/uL (1.3-7.7); Neutrophils % (A) 38 %; Platelet Count 180 k/uL (150-450); RBC 3.42 m/uL (3.80-5.40); RDW 13.4 % (11.5-15.5); WBC 3.4 k/uL (3.8-10.6)
[2019-12-29] MEDS ORDERED: KETOROLAC 30 MG/ML 1 ML VIAL IVP STA (05:36)
[2019-12-29] MEDS ORDERED: IPRATROPIUM-ALBUTEROL 3 ML NEB INHALATION STA (05:36)
[2019-12-29] MEDS ORDERED: DEXAMETHASONE SOD PHOSPHATE 10 MG/ML 1 ML VIAL IV STA (05:36)
[2019-12-29 05:37] LABS: D-Dimer <0.17 mg/L FEU (<0.60); Partial Thromboplastin Time 23.7 sec (22.0-30.0); Prothrombin Time 10.2 sec (9.0-12.0)
[2019-12-29] MEDS ORDERED: NITROGLYCERIN SL TABS 0.4 MG TAB SUBLINGUAL PRN (05:46)
[2019-12-29] MEDS: methylPREDNISolone SOD SUCCI 125 MG/2 ML VIAL IV SCH ×4 (06:09→23:58)
[2019-12-29] MEDS ORDERED: MECLIZINE 12.5 MG TAB PO PRN (06:53)
[2019-12-29] MEDS ORDERED: FUROSEMIDE 20 MG TAB PO SCH (09:00)
[2019-12-29] MEDS ORDERED: METOPROLOL TARTRATE 50 MG TAB PO SCH (09:00)
[2019-12-29] MEDS: VILAZODONE HCL 40 MG PO SCH (09:01)
[2019-12-29] MEDS: LISINOPRIL 5 MG TAB PO SCH (09:08)
[2019-12-29] MEDS: APIXABAN 5 MG TAB PO SCH ×2 (09:08→21:21)
[2019-12-29] MEDS: LEVOTHYROXINE 88 MCG TAB PO SCH (09:08)
[2019-12-29] MEDS: METOPROLOL TARTRATE 25 MG TAB PO SCH ×2 (09:09→21:21)
[2019-12-29] MEDS: lamoTRIgine 100 MG TAB PO SCH ×2 (09:09→21:21)
[2019-12-29] MEDS: HYDROcodone/APAP 10-325MG 1 EACH TAB PO PRN ×2 (09:09→17:13)
[2019-12-29] MEDS ORDERED: FUROSEMIDE 40 MG TAB PO SCH (10:00)
[2019-12-29] MEDS ORDERED: FUROSEMIDE 20 MG TAB PO ONE (10:15)
--- NOTE | 2019-12-29 10:17 | P.CRDCN ---
History of Present Illness History of present illness: HISTORY OF PRESENTING ILLNESS This is a pleasant 74-year-old female past medical history significant for atrial fibrillation, COPD, hypertension, gastroesophageal reflux disease, h ypothyroidism and former nicotine dependence. She denies prior history of coronary artery disease. She used to follow in the office with Dr. Healy however has not followed in the previous 5 years. We have been asked to see in consultation for chest pain. She presented to the hospital with symptoms of shortness of breath, lower extremity edema, palpitations and intermittent episodes of chest discomfort. She states her shortness of breath is worse at night and when she is talking on the phone. It is not related at all to activity or exertion. It has been going on for the previous one month. She states for the previous 3-4 days her lower extremities have been swelling. She has been taking all of her medications as prescribed however she has been eating more potato chips. There is some concern regarding a possible meth lab in the apartment upstairs from her and she is concerned that this is affecting her breathing. Her chest discomfort is very vague. She is unable to verbalize how it feels just that it is there. It is not related to activity or exertion. It is not related to breathing. She also feels intermittent palpitations at times. She seems to be somewhat of a poor historian. DIAGNOSTICS EKG reveals atrial fibrillation heart rate of 66 with poor R-wave progression. Chest xray negative for an acute cardiopulmonary process with borderline cardiomegaly. No heart failure or infiltrate. Laboratory reviewed, WBC 3.4, hemoglobin 11.7, platelets 180, d-dimer less than 0.17, sodium 137, potassium 4.0, creatinine 1.01, magnesium 2.1, cardiac enzymes negative 2 and NT proBNP 3380. Current cardiac medications include Eliquis 5 mg twice a day, lisinopril 5 mg daily, lovastatin 20 mg at bedtime and Lopressor 100 mg daily. Most recent echocardiogram obtained in 2017 revealed preserved LV systolic function with ejection fraction 50-55%, mildly dilated left atrium, mild mitral regurgitation, moderate tricuspid regurgitation and mild pulmonary hypertension with an RVSP of 45 mmHg. REVIEW OF SYSTEMS At the time of my exam: CONSTITUTIONAL: Denies fever or chills. CARDIOVASCULAR: Complains of PND, palpitations and shortness of breath. Denies chest pain or orthopnea. RESPIRATORY: Denies cough. GASTROINTESTINAL: Denies abdominal pain, diarrhea, constipation, nausea or vomiting. MUSCULOSKELETAL: Denies myalgias. NEUROLOGIC: Denies numbness, tingling or weakness. ENDOCRINE: Denies fatigue, weight change, polydipsia or polyurina. GENITOURINARY: Denies burning, hematuria or urgency with micturation. HEMATOLOGIC: Denies history of anemia or bleeding. PHYSICAL EXAMINATION Blood pressure 136/68 heart rate 59 afebrile and maintaining oxygen saturation on room air. CONSTITUTIONAL: No apparent distress. HEENT: Head is normocephalic. Pupils are equal, round. Sclerae anicteric. Mucous membranes of the mouth are moist. No JVD. No carotid bruit. CHEST EXAMINATION: Lungs are clear to auscultation. No chest wall tenderness is noted on palpation or with deep breathing. HEART EXAMINATION: Irregular rate and rhythm. S1, S2 heard. Systolic ejection murmur at the left sternal border, no gallops or rub. ABDOMEN: Soft, nontender. Positive bowel sounds. EXTREMITIES: 2+ peripheral pulses, trace non-pitting bilateral lower extremity edema around the ankles and no calf tenderness. NEUROLOGIC EXAMINATION: Patient is awake, alert and oriented x3. ASSESSMENT Shortness of breath, PND and palpitations. Chronic persistent atrial fibrillation on usp anti-coagulation with controlled ventricular rates Pulmonary hypertension COPD Hypertension Hypothyroidism Former nicotine dependence PLAN Clinically at this time she appears quite comfortable with no evidence to suggest significant fluid overload. Initiate on PO lasix 40 mg daily. Obtain 2D echocardiogram and doppler study to assess cardiac structure and function. Continue to obtain serial cardiac enzymes to rule out an acute event. Further recommendations to follow based on clinical course. Thank you kindly for this consultation. Nurse Practitioner note has been reviewed, I agree with a documented findings and plan of care. Patient was seen and examined. Past Medical History Past Medical History: Atrial Fibrillation, Asthma, COPD, GERD/Reflux, Hypertension, Mitral Valve Prolapse (MVP), Osteoarthritis (OA), Pneumonia, Rheumatoid Arthritis (RA), Thyroid Disorder Additional Past Medical History / Comment(s): depressive disorder, lumbar ddd,"bulging discs", chronic back/neck pain, diverticultis, migraines, glaucoma History of Any Multi-Drug Resistant Organisms: None Reported Past Surgical History: Adenoidectomy, Hysterectomy, Tonsillectomy Past Anesthesia/Blood Transfusion Reactions: No Reported Reaction Past Psychological History: Depression Smoking Status: Former smoker Past Alcohol Use History: None Reported Past Drug Use History: None Reported - Past Family History Mother Family Medical History: Vascular Disorder Father Family Medical History: CVA/TIA Brother(s) Family Medical History: Thyroid Disorder Medications and Allergies Home Medications Medication Instructions Recorded Confirmed Type Hydrocodone/Acetaminophen [[place] 1 tab PO TID PRN 11/15/14 12/29/19 History 10-325] Latanoprost Ophth [Xalatan 0.005%] 1 drop BOTH EYES HS 11/15/14 12/29/19 History Montelukast [Singulair] 10 mg PO HS 11/15/14 12/29/19 History Lovastatin [Mevacor] 20 mg PO HS 11/16/14 12/29/19 History Apixaban [Eliquis] 5 mg PO BID 05/26/17 12/29/19 History Meclizine HCl 12.5 mg PO Q8H PRN 09/08/17 12/29/19 History Vilazodone HCl [Viibryd] 40 mg PO DAILY 09/08/17 12/29/19 History Ergocalciferol (Vitamin D2) 50,000 unit PO SA 05/15/18 12/29/19 History [Vitamin D2] Lisinopril [Prinivil] 5 mg PO DAILY 06/28/18 12/29/19 History buPROPion XL [Wellbutrin XL] 150 mg PO QAM 02/19/19 12/29/19 History lamoTRIgine [LaMICtal] 100 mg PO BID 02/19/19 12/29/19 History Estrogens, Conjugated [Premarin] 0.3 mg PO DAILY 02/22/19 12/29/19 History Metoprolol Tartrate [Lopressor] 100 mg PO DAILY 02/22/19 12/29/19 History Levothyroxine Sodium [Synthroid] 88 mcg PO DAILY 10/27/19 12/29/19 History Loperamide [Imodium] 2 mg PO TID PRN 10/27/19 12/29/19 History Albuterol Sulfate [Ventolin HFA] 2 puff INHALATION RT-QID PRN 12/29/19 12/29/19 History Allergies Allergy/AdvReac Type Severity Reaction Status Date / Time No Known Allergies Allergy Verified 07/01/20 07:56 Physical Exam Vitals: Vital Signs Temp Pulse Pulse Resp BP BP Pulse Ox 12/29/19 06:57 97.3 F L 16 136/68 94 L 12/29/19 05:57 59 L 12/29/19 05:53 56 L 12/29/19 04:20 68 12/29/19 04:17 97.9 F 67 16 130/78 97 Intake and Output 12/28/19 12/29/19 12/29/19 22:59 06:59 14:59 Other: Weight 45.359 kg Results 12/29/19 05:11 12/29/19 05:11 Cardiac Enzymes 12/29/19 12/29/19 Range/Units 05:11 05:11 AST 25 (14-36) U/L Troponin I <0.012 (0.000-0.034) ng/mL Coagulation 12/29/19 Range/Units 05:11 PT 10.2 (9.0-12.0) sec APTT 23.7 (22.0-30.0) sec CBC 12/29/19 Range/Units 05:11 WBC 3.4 L (3.8-10.6) k/uL RBC 3.42 L (3.80-5.40) m/uL Hgb 11.7 (11.4-16.0) gm/dL Hct 35.3 (34.0-46.0) % Plt Count 180 (150-450) k/uL Comprehensive Metabolic Panel 12/29/19 Range/Units 05:11 Sodium 137 (137-145) mmol/L Potassium 4.0 (3.5-5.1) mmol/L Chloride 102 (98-107) mmol/L Carbon Dioxide 31 H (22-30) mmol/L BUN 22 H (7-17) mg/dL Creatinine 1.01 (0.52-1.04) mg/dL Glucose 85 (74-99) mg/dL Calcium 9.5 (8.4-10.2) mg/dL AST 25 (14-36) U/L ALT 11 (4-34) U/L Alkaline Phosphatase 95 (38-126) U/L Total Protein 6.6 (6.3-8.2) g/dL Albumin 3.6 (3.5-5.0) g/dL Current Medications Generic Name Dose Route Start Last Admin Trade Name Freq PRN Reason Stop Dose Admin Hydrocodone Bitart/Acetaminophen 1 each 12/29/19 06:53 [place] 10 PO TID PRN Pain Albuterol/Ipratropium 3 ml 12/29/19 05:46 Duoneb 0.5 Mg-3 Mg/3 Ml Soln INHALATION RT-Q4H PRN Shortness Of Breath Or Wheezing Apixaban 5 mg 12/29/19 09:00 Eliquis PO BID [facility] Atorvastatin Calcium 10 mg 12/29/19 21:00 Lipitor PO HS [facility] Bupropion HCl 150 mg 12/29/19 21:00 Wellbutrin Xl PO HS [facility] Ergocalciferol 50,000 unit 01/02/20 12:00 Vitamin D2 PO Q7D [facility] Estrogens Conjugated 0.3 mg 12/29/19 09:00 Premarin PO DAILY [facility] Furosemide 20 mg 12/29/19 09:00 Lasix PO DAILY [facility] Lamotrigine 100 mg 12/29/19 09:00 Lamictal PO BID [facility] Latanoprost 1 drops 12/29/19 21:00 Xalatan 0.005% BOTH EYES HS [facility] Levothyroxine Sodium 88 mcg 12/29/19 07:30 Synthroid PO 0630 [facility] Lisinopril 5 mg 12/29/19 09:00 Zestril PO DAILY [facility] Meclizine HCl 12.5 mg 12/29/19 06:53 Antivert PO Q8H PRN Vertigo Methylprednisolone Sodium Succinate 60 mg 12/29/19 06:00 12/29/19 06:09 Solu-Medrol IV Not Given Q6HR [facility] Metoprolol Tartrate 25 mg 12/29/19 09:00 Lopressor PO BID [facility] Montelukast Sodium 10 mg 12/29/19 21:00 Singulair PO HS [facility] Morphine Sulfate 4 mg 12/29/19 05:46 Morphine Sulfate (Inj) IV Q4HR PRN Chest Pain Nitroglycerin 0.4 mg 12/29/19 05:46 Nitrostat SUBLINGUAL Q5M PRN Chest Pain Patient's Own Med ( 40 mg 12/29/19 09:00 Vilazodone Hcl [ PO Viibryd] 40 Mg) DAILY [facility] Intake and Output 12/28/19 12/29/19 12/29/19 22:59 06:59 14:59 Other: Weight 45.359 kg 12/29/19 05:11 12/29/19 05:11
[2019-12-29] MEDS: ESTROGENS, CONJUGATED 0.3 MG TAB PO SCH (10:19)
[2019-12-29 11:47] VITALS: BMI 18.3
[2019-12-29] MEDS: IPRATROPIUM-ALBUTEROL 3 ML NEB INHALATION PRN ×2 (11:56→21:16)
[2019-12-29] MEDS: MORPHINE SULFATE 4 MG/ML SYRINGE IV PRN ×2 (13:23→21:34)
--- NOTE | 2019-12-29 13:57 | ECHOF ---
Referral Reason:chf MEASUREMENTS -------- HEIGHT: 157.5 cm WEIGHT: 45.4 kg BP: 130/78 RVIDd: 3.6 cm (< 3.3) IVSd: 1.3 cm (0.6 - 1.1) LVIDd: 4.4 cm (3.9 - 5.3) LVPWd: 1.2 cm (0.6 - 1.1) IVSs: 1.6 cm LVIDs: 2.6 cm LVPWs: 1.7 cm LA Diam: 3.8 cm (2.7 - 3.8) LAESV Index (A-L): 44.56 ml/m Ao Diam: 3.5 cm (2.0 - 3.7) AV Cusp: 2.0 cm (1.5 - 2.6) MV EXCURSION: 23.080 mm (> 18.000) MV EF SLOPE: 183 mm/s (70 - 150) EPSS: 0.7 cm AR PHT: 511 ms RAP: 15.00 mmHg RVSP: 47.78 mmHg FINDINGS -------- This was a technically adequate study. The left ventricular size is normal. There is mild concentric left ventricular hypertrophy. Overa ll left ventricular systolic function is mild-moderately impaired with, an EF between 40 - 45 %. The right ventricle is mildly enlarged. LA is severely dilated >40 ml/m2 The right atrium is mildly enlarged. Interatrial and interventricular septum intact. There is mild aortic valve sclerosis. There is mild aortic regurgitation. Moderate mitral regurgitation is present. Moderate tricuspid regurgitation present. There is moderate pulmonary hypertension. The right won tricular systolic pressure, as measured by Doppler, is 47.78mmHg. Trace/mild (physiologic) pulmonic regurgitation. The aortic root size is normal. The inferior vena cava is dilated with poor inspiratory collapse which is consistent with estimated r ight atrial pressure of 15 mmHg. There is no pericardial effusion. CONCLUSIONS -------- 1. This was a technically adequate study. 2. The left ventricular size is normal. 3. There is mild concentric left ventricular hypertrophy. 4. Overall left ventricular systolic function is mild-moderately impaired with, an EF between 40 - 45 %. 5. The right ventricle is mildly enlarged. 6. LA is severely dilated >40 ml/m2 7. The right atrium is mildly enlarged. 8. Interatrial and interventricular septum intact. 9. There is mild aortic valve sclerosis. 10. There is mild aortic regurgitation. 11. Moderate mitral regurgitation is present. 12. Moderate tricuspid regurgitation present. 13. There is moderate pulmonary hypertension. 14. The right ventricular systolic pressure, as measured by Doppler, is 47.78mmHg. 15. Trace/mild (physiologic) pulmonic regurgitation. 16. The aortic root size is normal. 17. The inferior vena cava is dilated with poor inspiratory collapse which is consistent with estimat ed right atrial pressure of 15 mmHg. 18. There is no pericardial effusion. SUPER[employer]OR [employer]: Rhonda Parker RDCS
[2019-12-29] MEDS ORDERED: buPROPion XL 150 MG TAB.ER.24H PO SCH (21:00)
[2019-12-29] MEDS ORDERED: LATANOPROST 0.005% OPHTH DROPS 2.5 ML BTL BOTH EYES SCH (21:00)
[2019-12-29] MEDS ORDERED: ATORVASTATIN 10 MG TAB PO SCH (21:00)
[2019-12-29] MEDS ORDERED: MONTELUKAST 10 MG TAB PO SCH (21:00)
[2019-12-29 23:46] LABS: Glucose,Whole Blood 188 mg/dL (75-99)
[2019-12-30 04:17] LABS: Cholesterol 138 mg/dL (<200); HDL Cholesterol 78 mg/dL (40-60); LDL Cholesterol,Calculated 39 mg/dL (0-99); Triglycerides 104 mg/dL (<150)
[2019-12-30] MEDS: HYDROcodone/APAP 10-325MG 1 EACH TAB PO PRN (04:39)
[2019-12-30] MEDS: IPRATROPIUM-ALBUTEROL 3 ML NEB INHALATION PRN ×2 (05:36→11:57)
[2019-12-30 06:20] LABS: Glucose,Whole Blood 128 mg/dL (75-99)
[2019-12-30] MEDS: LEVOTHYROXINE 88 MCG TAB PO SCH (06:54)
[2019-12-30] MEDS: methylPREDNISolone SOD SUCCI 125 MG/2 ML VIAL IV SCH ×2 (06:54→12:19)
[2019-12-30] MEDS: INSULIN ASPART (NovoLOG) 100 UNIT/ML VIAL SQ SCH ×2 (07:54→13:10)
[2019-12-30 08:40] VITALS: TEMP 98.1
[2019-12-30] MEDS: lamoTRIgine 100 MG TAB PO SCH (08:44)
[2019-12-30] MEDS: METOPROLOL TARTRATE 25 MG TAB PO SCH (08:44)
[2019-12-30] MEDS: APIXABAN 5 MG TAB PO SCH (08:44)
[2019-12-30] MEDS: ESTROGENS, CONJUGATED 0.3 MG TAB PO SCH (08:44)
[2019-12-30] MEDS: LISINOPRIL 5 MG TAB PO SCH (08:44)
[2019-12-30] MEDS ORDERED: ASPIRIN 325 MG TAB PO SCH (09:00)
[2019-12-30] MEDS ORDERED: FUROSEMIDE 40 MG TAB PO SCH (09:00)
--- NOTE | 2019-12-30 09:15 | CT ---
EXAMINATION TYPE: CT chest wo con DATE OF EXAM: 12/30/2019 COMPARISON: 11/15/2014 HISTORY: Patient poor historian. CT DLP: 215.[address] of the chest was performed with lung and mediastinal window settings submitted. The la ck of contrast limits evaluation of the vascular, mediastinal and parenchymal structures including th e upper abdomen. LUNGS: Lingular parenchymal scarring is unchanged. Mild upper lobe emphysematous change. The lungs ar e otherwise clear and free of infiltrate. No atelectasis. No pulmonary nodule or mass is detected. No pleural effusion. No CT evidence of interstitial lung disease. MEDIASTINUM/KVNG: Thoracic aorta is of normal caliber with limited evaluation given lack of contrast . Global cardiomegaly noted. No evidence for mediastinal mass. No lymph nodes greater than 1cm. UPPER ABDOMEN: No significant abnormality is seen. OTHER: No significant other abnormality. IMPRESSION: 1. Chronic parenchymal scarring in the region of the lingula. Hyperinflation compatible with COPD wi th scattered emphysematous change. 2. Cardiomegaly.
--- NOTE | 2019-12-30 11:42 | P.PN ---
Subjective HISTORY OF PRESENTING ILLNESS This is a pleasant 74-year-old female past medical history significant for atrial fibrillation, COPD, hypertension, gastroesophageal reflux disease, hypothyroidism and former nicotine dependence. She denies prior history of coronary artery disease. She used to follow in the office with Dr. Healy however has not followed in the previous 5 years. She is seen and examined laying flat resting comfortably in bed in no acute distress. She denies chest pain, shortness of breath, dizziness or palpitations. Echocardiogram obtained reveals impaired LV systolic function with ejection fraction 40-45%, severely dilated left atrium, moderate mitral regurgitation, moderate tricuspid regurgitation and moderate pulmonary hypertension with an RVSP of 47 mmHg. Laboratory data reviewed, cardiac enzymes negative 3. Blood pressure 116/66 heart rate 75 afebrile maintaining oxygen saturation on room air. Telemetry tracings reveal persistent atrial fibrillation. Currently maintained on Eliquis 5 mg twice a day, atorvastatin 10 mg at bedtime, Lasix 40 mg by mouth daily, lisinopril 5 mg daily and metoprolol 25 mg twice a day. PHYSICAL EXAMINATION CONSTITUTIONAL: No apparent distress. HEENT: Head is normocephalic. Pupils are equal, round. Sclerae anicteric. Mucous membranes of the mouth are moist. No JVD. No carotid bruit. CHEST EXAMINATION: Lungs are clear to auscultation. No chest wall tenderness is noted on palpation or with deep breathing. HEART EXAMINATION: Irregular rate and rhythm. S1, S2 heard. Systolic ejection murmur at the left sternal border, no gallops or rub. EXTREMITIES: 2+ peripheral pulses, trace non-pitting bilateral lower extremity edema around the ankles and no calf tenderness. ASSESSMENT Shortness of breath, PND and palpitations. Chronic persistent atrial fibrillation on group home anti-coagulation with controlled ventricular rates Pulmonary hypertension COPD Hypertension Hypothyroidism Former nicotine dependence PLAN Initiate Aldactone 25 mg daily secondary to cardiomyopathy. Lengthy discussion with the patient regarding further cardiac testing to include cardiac catheterization. At this time she would prefer a conservative medical approach. We will continue with beta marie, ALEX inhibitor and diuretics at this time. Increase activity and assess for symptoms of angina. If she remains asymptomatic she may be discharged home to follow-up with Dr. Garcias in the office in one to 2 weeks for further evaluation of cardiomyopathy. Nurse Practitioner note has been reviewed, I agree with a documented findings and plan of care. Patient was seen and examined. Objective - Vital Signs Vital signs: Vital Signs Temp 98.1 F 12/30/19 08:00 Pulse 75 12/30/19 08:00 Resp 12 12/30/19 04:30 BP 116/66 12/30/19 08:00 Pulse Ox 94 L 12/30/19 08:00 Intake & Output 12/29/19 12/30/19 12/30/19 18:59 06:59 18:59 Intake Total 545 590 Balance 545 590 Weight 45.359 kg Intake: Oral 545 590 Other: Voiding Method Toilet Toilet Toilet # Voids 1 - Labs CBC & Chem 7: 12/29/19 05:11 12/29/19 05:11 Labs: Abnormal Lab Results - Last 24 Hours (Table) 12/29/19 12/29/19 12/30/19 Range/Units 05:11 23:42 06:19 POC Glucose (mg/dL) 188 H 128 H (75-99) mg/dL HDL Cholesterol 78 H (40-60) mg/dL
[2019-12-30] MEDS ORDERED: SPIRONOLACTONE 25 MG TAB PO SCH (11:45)
[2019-12-30] MEDS: VILAZODONE HCL 40 MG PO SCH (12:15)
[2019-12-30] MEDS: MORPHINE SULFATE 4 MG/ML SYRINGE IV PRN (12:19)
--- NOTE | 2019-12-30 12:52 | P.DS ---
Providers Date of admission: 12/29/19 05:46 Expected date of discharge: 12/30/19 Attending physician: Raudel Garza Consults: 12/29/19 05:46 Consult Physician Urgent Consulting Provider: Paulino Sylvester Consult Reason/Comments: cp Do you want consulting provider notified?: Yes Primary care physician: Raudel Garza [facility] Course: Final Diagnoses: Chest pain Cardiomyopathy, worsening EF down to 40-45%, possibly related to A. fib, patient declined cardiac catheterization. Paroxysmal nocturnal dyspnea COPD Chronic persistent atrial fibrillation, controlled ventricular rate Moderate mitral regurgitation Moderate tricuspid regurgitation Moderate pulmonary hypertension Hypertension Former nicotine dependence Hypothyroidism Hospital course:This is a 74-year-old female admitted with multiple medical issues including chest pain, shortness of breath more night accompanied by cough, occasional palpitations and multiple other medical issues. Echo reported mild to moderate impaired LV function, EF 40-45%, moderate mitral regurgitation, moderate tricuspid regurgitation, moderate pulmonary hypertension Chest CT reported unchanged chronic parenchymal while scarring of the region the lingula, hyperinflation compatible with COPD. scattered emphysematous change. No evidence of interstitial lung disease, no pulmonary nodule or mass detected. Evaluated by cardiology, regarding cardiac catheterization. Patient declined at this time, requesting conservative treatment. Cleared by cardiology for discharge. Patient is being discharged home today in a stable condition with guarded prognosis. The impression and plan of care has been dictated as directed. : I performed a history and examination of this patient, discussed the same with the dictator. I agree with the dictator's note ,documented as a scribe. Any additional findings or plans will be noted. Patient Condition at Discharge: Stable Plan - Discharge Summary Discharge Rx Participant: No New Discharge Prescriptions: New Spironolactone [Aldactone] 25 mg PO DAILY #90 tab Furosemide [Lasix] 40 mg PO DAILY #90 tab Metoprolol Tartrate [Lopressor] 25 mg PO BID #180 tab predniSONE 10 mg PO DIRECTED #30 tab Continue Montelukast [Singulair] 10 mg PO HS Latanoprost Ophth [Xalatan 0.005%] 1 drop BOTH EYES HS Hydrocodone/Acetaminophen [[place] 10-325] 1 tab PO TID PRN PRN Reason: Pain Lovastatin [Mevacor] 20 mg PO HS Apixaban [Eliquis] 5 mg PO BID Vilazodone HCl [Viibryd] 40 mg PO [facility]ILY [facility] PO Q8H PRN PRN Reason: Vertigo Ergocalciferol (Vitamin D2) [Vitamin D2] 50,000 unit PO SA Lisinopril [Prinivil] 5 mg PO DAILY lamoTRIgine [LaMICtal] 100 mg PO BID buPROPion XL [Wellbutrin XL] 150 mg PO QAM Estrogens, Conjugated [Premarin] 0.3 mg PO DAILY Levothyroxine Sodium [Synthroid] 88 mcg PO DAILY Loperamide [Imodium] 2 mg PO TID PRN PRN Reason: Diarrhea Albuterol Sulfate [Ventolin HFA] 2 puff INHALATION RT-QID PRN PRN Reason: Shortness Of Breath Discontinued Metoprolol Tartrate [Lopressor] 100 mg PO DAILY Discharge Medication List Hydrocodone/Acetaminophen [[place] 10-325] 1 tab PO TID PRN 11/15/14 [History] Latanoprost Ophth [Xalatan 0.005%] 1 drop BOTH EYES HS 11/15/14 [History] Montelukast [Singulair] 10 mg PO HS 11/15/14 [History] Lovastatin [Mevacor] 20 mg PO HS 11/16/14 [History] Apixaban [Eliquis] 5 mg PO BID 05/26/17 [History] Meclizine HCl 12.5 mg PO Q8H PRN 09/08/17 [History] Vilazodone HCl [Viibryd] 40 mg PO DAILY 09/08/17 [History] Ergocalciferol (Vitamin D2) [Vitamin D2] 50,000 unit PO SA 05/15/18 [History] Lisinopril [Prinivil] 5 mg PO DAILY 06/28/18 [History] buPROPion XL [Wellbutrin XL] 150 mg PO QAM 02/19/19 [History] lamoTRIgine [LaMICtal] 100 mg PO BID 02/19/19 [History] Estrogens, Conjugated [Premarin] 0.3 mg PO DAILY 02/22/19 [History] Levothyroxine Sodium [Synthroid] 88 mcg PO DAILY 10/27/19 [History] Loperamide [Imodium] 2 mg PO TID PRN 10/27/19 [History] Albuterol Sulfate [Ventolin HFA] 2 puff INHALATION RT-QID PRN 12/29/19 [History] Furosemide [Lasix] 40 mg PO DAILY #90 tab 12/30/19 [Rx] Metoprolol Tartrate [Lopressor] 25 mg PO BID #180 tab 12/30/19 [Rx] Spironolactone [Aldactone] 25 mg PO DAILY #90 tab 12/30/19 [Rx] predniSONE 10 mg PO DIRECTED #30 tab 12/30/19 [Rx] Follow up Appointment(s)/Referral(s): Marques Garcias MD [STAFF PHYSICIAN] - 2 Weeks Raudel Garza MD [Primary Care Provider] - 1 Week
[2019-12-30 13:30] VITALS: BP 120/63; PULSE 74; RESP 18
[2020-01-02] MEDS ORDERED: ERGOCALCIFEROL 50,000 UNIT CAP PO SCH (12:00)
== END 2019-12-30 15:54 | disposition home or self-care (01) ==
LOC: EC 04:14 → 1SOBS 05:46
PROVIDERS: ADMIT Family Medicine; ATTEND Family Medicine
DX: R07.89 Other chest pain (principal); I42.9 Cardiomyopathy, unspecified; J44.9 Chronic obstructive pulmonary disease, unspecified; I48.19 Other persistent atrial fibrillation; I08.1 Rheumatic disorders of both mitral and tricuspid valves; I11.9 Hypertensive heart disease without heart failure; I27.20 Pulmonary hypertension, unspecified; E03.9 Hypothyroidism, unspecified; Z20.828 Contact with and (suspected) exposure to other viral communicable diseases; K21.9 Gastro-esophageal reflux disease without esophagitis; M06.9 Rheumatoid arthritis, unspecified; M19.90 Unspecified osteoarthritis, unspecified site; M51.36 Other intervertebral disc degeneration, lumbar region; H40.9 Unspecified glaucoma; G89.29 Other chronic pain; M54.2 Cervicalgia; M54.9 Dorsalgia, unspecified; K57.90 Diverticulosis of intestine, part unspecified, without perforation or abscess without bleeding; G43.909 Migraine, unspecified, not intractable, without status migrainosus; F32.9 Major depressive disorder, single episode, unspecified; Z79.01 Long term (current) use of anticoagulants; Z79.890 Hormone replacement therapy; Z79.899 Other long term (current) drug therapy; Z79.891 Long term (current) use of opiate analgesic; Z90.710 Acquired absence of both cervix and uterus; Z87.891 Personal history of nicotine dependence; Z87.01 Personal history of pneumonia (recurrent); Z83.49 Family history of other endocrine, nutritional and metabolic diseases; Z82.49 Family history of ischemic heart disease and other diseases of the circulatory system; Z82.3 Family history of stroke
CPT/HCPCS: 96375 ×2; 96376 ×2; 96374; 99285; 36415; 94640 ×4; 93005; 93306; 85379; 83880; 80061; 80053; 84443; 83690; 83735; 84484; 85025; 85610; 85730; 71046; 71250; G0378 ×2; U0003; J2270 ×2; J1100; J2930 ×2; J1885

== ENCOUNTER 2020-02-26 04:55 | Emergency (ER) | payer MEDICARE, OTHER ==
--- NOTE | 2020-02-26 05:01 | ED ---
Psych HPI <Morro Gallardo - Last Filed: 02/26/20 11:15> - General Source: RN notes reviewed, old records reviewed Limitations: altered mental status - History of Present Illness MD Complaint: altered mental status -: unknown Associated Psychiatric Symptoms: auditory hallucinations, visual hallucinations, delusions Quality: getting worse Improves With: none Worsens With: none Associated Symptoms: confusion Treatments Prior to Arrival: placed on mental health hold <Kalen Brooks - Last Filed: 02/26/20 23:21> - General Stated Complaint: Mental Health Time Seen by Provider: 02/26/20 04:57 - History of Present Illness Initial Comments: This is a 74-year-old female DF she presents today for evaluation regards to altered mental status. Patient going to some increased stress in life difficulty dealing with roommates living situation currently. May have had some delusions or hallucinations no drugs or alcohol use, no history of similar complaint. Patient denies homicidal or suicidal thoughts (Kalen Brooks) - Related Data Home Medications Medication Instructions Recorded Confirmed Hydrocodone/Acetaminophen [[place] 1 tab PO TID PRN 11/15/14 12/29/19 10-325] Latanoprost Ophth [Xalatan 0.005%] 1 drop BOTH EYES HS 11/15/14 12/29/19 Montelukast [Singulair] 10 mg PO HS 11/15/14 12/29/19 Lovastatin [Mevacor] 20 mg PO HS 11/16/14 12/29/19 Apixaban [Eliquis] 5 mg PO BID 05/26/17 12/29/19 Meclizine HCl 12.5 mg PO Q8H PRN 09/08/17 12/29/19 Vilazodone HCl [Viibryd] 40 mg PO DAILY 09/08/17 12/29/19 Ergocalciferol (Vitamin D2) 50,000 unit PO SA 05/15/18 12/29/19 [Vitamin D2] lisinopriL [Prinivil] 5 mg PO DAILY 06/28/18 12/29/19 buPROPion XL [Wellbutrin XL] 150 mg PO QAM 02/19/19 12/29/19 lamoTRIgine [LaMICtal] 100 mg PO BID 02/19/19 12/29/19 Estrogens, Conjugated [Premarin] 0.3 mg PO DAILY 02/22/19 12/29/19 Levothyroxine Sodium [Synthroid] 88 mcg PO DAILY 10/27/19 12/29/19 Loperamide [Imodium] 2 mg PO TID PRN 10/27/19 12/29/19 Albuterol Sulfate [Ventolin HFA] 2 puff INHALATION RT-QID PRN 12/29/19 12/29/19 Previous Rx's Medication Instructions Recorded Furosemide [Lasix] 40 mg PO DAILY #90 tab 12/30/19 Metoprolol Tartrate [Lopressor] 25 mg PO BID #180 tab 12/30/19 Spironolactone [Aldactone] 25 mg PO DAILY #90 tab 12/30/19 predniSONE 10 mg PO DIRECTED #30 tab 12/30/19 Allergies Allergy/AdvReac Type Severity Reaction Status Date / Time No Known Allergies Allergy Verified 12/29/19 07:56 Review of Systems ROS Other: All systems not noted in ROS Statement are negative. <Morro Gallardo - Last Filed: 02/26/20 11:15> ROS Other: All systems not noted in ROS Statement are negative. <Kalen Brooks - Last Filed: 02/26/20 23:21> ROS Statement: Those systems with pertinent positive or pertinent negative responses have been documented in the HPI. Past Medical History Past Medical History: Atrial Fibrillation, Asthma, COPD, GERD/Reflux, Hypertension, Mitral Valve Prolapse (MVP), Osteoarthritis (OA), Pneumonia, Rheumatoid Arthritis (RA), Thyroid Disorder Additional Past Medical History / Comment(s): depressive disorder, lumbar ddd,"bulging discs", chronic back/neck pain, diverticultis, migraines, glaucoma History of Any Multi-Drug Resistant Organisms: None Reported Past Surgical History: Adenoidectomy, Hysterectomy, Tonsillectomy Past Anesthesia/Blood Transfusion Reactions: No Reported Reaction Past Psychological History: Depression Past Alcohol Use History: None Reported Past Drug Use History: None Reported - Past Family History Mother Family Medical History: Vascular Disorder Father Family Medical History: CVA/TIA Brother(s) Family Medical History: Thyroid Disorder <Kalen Brooks - Last Filed: 02/26/20 23:21> General Exam General appearance: alert, in no apparent distress Head exam: Present: atraumatic, normocephalic, normal inspection Eye exam: Present: normal appearance, PERRL, EOMI. Absent: scleral icterus, conjunctival injection, periorbital swelling ENT exam: Present: normal exam, mucous membranes moist Neck exam: Present: normal inspection. Absent: tenderness, meningismus, lymphadenopathy Respiratory exam: Present: normal lung sounds bilaterally. Absent: respiratory distress, wheezes, rales, rhonchi, stridor Cardiovascular Exam: Present: regular rate, normal rhythm, normal heart sounds. Absent: systolic murmur, diastolic murmur, rubs, gallop, clicks GI/Abdominal exam: Present: soft, normal bowel sounds. Absent: distended, tenderness, guarding, rebound, rigid Extremities exam: Present: normal inspection, full ROM, normal capillary refill. Absent: tenderness, pedal edema, joint swelling, calf tenderness Back exam: Present: normal inspection Neurological exam: Present: alert, oriented X3, CN II-XII intact Psychiatric exam: Present: normal affect, normal mood Skin exam: Present: warm, dry, intact, normal color. Absent: rash <Kalen Brooks - Last Filed: 02/26/20 23:21> Course <Kalen Brooks - Last Filed: 02/26/20 23:21> Vital Signs 02/26/20 02/26/20 02/26/20 04:57 07:42 11:22 Temperature 98 F Pulse Rate 74 89 71 Respiratory 16 16 18 Rate Blood Pressure 146/94 123/89 113/79 O2 Sat by Pulse 96 99 98 Oximetry - Reevaluation(s) Reevaluation #1: Patient made medically clear for psychiatric evaluation Seen and evaluated by psychiatry (Kalen Brooks) Medical Decision Making - Lab Data Result diagrams: 02/26/20 05:08 02/26/20 05:08 <Morro Gallardo - Last Filed: 02/26/20 11:15> - Lab Data Result diagrams: 02/26/20 05:08 02/26/20 05:08 <Kalen Brooks - Last Filed: 02/26/20 23:21> - Medical Decision Making The patient was endorsed to me at our shift change pending EPS evaluation and safety plan. This has not been accomplished. (Morro Gallardo) 74 female DF for psychiatric evaluation patient is safe for discharge home (Kalen Brooks) - Lab Data Lab Results 02/26/20 02/26/20 02/26/20 Range/Units 05:08 05:08 05:08 WBC 6.0 (3.8-10.6) k/uL RBC 3.83 (3.80-5.40) m/uL Hgb 12.5 (11.4-16.0) gm/dL Hct 39.2 (34.0-46.0) % MCV 102.3 H (80.0-100.0) fL MCH 32.8 (25.0-35.0) pg MCHC 32.0 (31.0-37.0) g/dL RDW 12.4 (11.5-15.5) % Plt Count 189 (150-450) k/uL Neutrophils % 51 % Lymphocytes % 34 % Monocytes % 8 % Eosinophils % 4 % Basophils % 1 % Neutrophils # 3.0 (1.3-7.7) k/uL Lymphocytes # 2.0 (1.0-4.8) k/uL Monocytes # 0.5 (0-1.0) k/uL Eosinophils # 0.2 (0-0.7) k/uL Basophils # 0.0 (0-0.2) k/uL Sodium 137 (137-145) mmol/L Potassium 5.3 H (3.5-5.1) mmol/L Chloride 106 (98-107) mmol/L Carbon Dioxide 27 (22-30) mmol/L Anion Gap 4 mmol/L BUN 60 H (7-17) mg/dL Creatinine 1.90 H (0.52-1.04) mg/dL Est GFR (CKD-EPI)AfAm 30 (>60 ml/min/1.73 sqM) Est GFR (CKD-EPI)NonAf 26 (>60 ml/min/1.73 sqM) Glucose 97 (74-99) mg/dL Calcium 9.3 (8.4-10.2) mg/dL Urine Color Yellow Urine Appearance Cloudy H (Clear) Urine pH 5.5 (5.0-8.0) Ur Specific [place] 1.019 (1.001-1.035) Urine Protein Trace H (Negative) Urine Glucose (UA) Negative (Negative) Urine Ketones Negative (Negative) Urine Blood Negative (Negative) Urine Nitrite Negative (Negative) Urine Bilirubin Negative (Negative) Urine Urobilinogen <2.0 (<2.0) mg/dL Ur Leukocyte Esterase Negative (Negative) Urine RBC 1 (0-5) /hpf Urine WBC 2 (0-5) /hpf Ur Squamous Epith Cells 15 H (0-4) /hpf Hyaline Casts 37 H (0-2) /lpf Urine Mucus Rare H (None) /hpf Salicylates <1.0 mg/dL Urine Opiates Screen Detected H (NotDetected) Ur Oxycodone Screen Not Detected (NotDetected) Urine Methadone Screen Not Detected (NotDetected) Ur Propoxyphene Screen Not Detected (NotDetected) Acetaminophen <10.0 ug/mL Ur Barbiturates Screen Not Detected (NotDetected) U Tricyclic Antidepress Not Detected (NotDetected) Ur Phencyclidine Scrn Not Detected (NotDetected) Ur Amphetamines Screen Not Detected (NotDetected) U Methamphetamines Scrn Not Detected (NotDetected) U Benzodiazepines Scrn Not Detected (NotDetected) Urine Cocaine Screen Not Detected (NotDetected) U Marijuana (THC) Screen Not Detected (NotDetected) Serum Alcohol <10 mg/dL Disposition Is patient prescribed a controlled substance at d/c from ED?: No <Morro Gallardo - Last Filed: 02/26/20 11:15> Is patient prescribed a controlled substance at d/c from ED?: No <Kalen Brooks - Last Filed: 02/26/20 23:21> Clinical Impression: Adjustment reaction of adult life Disposition: HOME SELF-CARE Condition: Good Instructions (If sedation given, give patient instructions): Mood Disorders (ED) Referrals: Raudel Garza MD [Primary Care Provider] - 1-2 days
[2020-02-26 05:02] VITALS: TEMP 98
[2020-02-26 05:19] LABS: Basophils % (A) 1 %; Eosinophils # (A) 0.2 k/uL (0-0.7); Eosinophils % (A) 4 %; HCT 39.2 % (34.0-46.0); HGB 12.5 gm/dL (11.4-16.0); Lymphocytes % (A) 34 %; MCH 32.8 pg (25.0-35.0); MCV 102.3 fL (80.0-100.0); Mean Platelet Volume 8.2; Monocytes # (A) 0.5 k/uL (0-1.0); Monocytes % (A) 8 %; Neutrophils % (A) 51 %; Platelet Count 189 k/uL (150-450); RBC 3.83 m/uL (3.80-5.40); RDW 12.4 % (11.5-15.5)
[2020-02-26 05:24] LABS: Appearance,Urine Cloudy (Clear); Bilirubin,Urine Negative (Negative); Blood,Urine Negative (Negative); Color,Urine Yellow; Glucose,Urine (UA) Negative (Negative); Hyaline Casts,Urine 37 /lpf (0-2); Ketones,Urine Negative (Negative); Leukocyte Esterase,Urine Negative (Negative); Mucus,Urine Rare /hpf; Nitrite,Urine Negative (Negative); PH, Urine 5.5 (5.0-8.0); Protein,Urine Trace (Negative); RBC,Urine 1 /hpf (0-5); Specific Gravity,Urine 1.019 (1.001-1.035); Squamous Epithelial Cell,Urine 15 /hpf (0-4); Urobilinogen,Urine <2.0 mg/dL (<2.0); WBC,Urine 2 /hpf (0-5)
[2020-02-26 05:31] LABS: Acetaminophen <10.0 ug/mL; African American GFR (CKD) 30 (>60 ml/min/1.73 sqM); Alcohol <10 mg/dL; Anion Gap 4 mmol/L; Blood Urea Nitrogen 60 mg/dL (7-17); Calcium 9.3 mg/dL (8.4-10.2); Carbon Dioxide 27 mmol/L (22-30); Chloride 106 mmol/L (98-107); Glucose 97 mg/dL (74-99); Non-African American GFR(CKD) 26 (>60 ml/min/1.73 sqM); Potassium 5.3 mmol/L (3.5-5.1); Salicylate <1.0 mg/dL; Sodium 137 mmol/L (137-145)
[2020-02-26 05:32] LABS: Amphetamine Screen,Urine Not Detected (NotDetected); Barbiturate Screen,Urine Not Detected (NotDetected); Benzodiazepines Screen,Urine Not Detected (NotDetected); Cocaine Screen,Urine Not Detected (NotDetected); Methadone Screen, Urine Not Detected (NotDetected); Opiate Screen,Urine Detected (NotDetected); Oxycodone Screen, Urine Not Detected (NotDetected); Phencyclidine Screen,Urine Not Detected (NotDetected); Tricyclic Antidepressant,Urine Not Detected (NotDetected); Urn Cannabinoid Scrn Not Detected (NotDetected)
[2020-02-26 11:24] VITALS: BP 113/79; PULSE 71; RESP 18
== END 2020-02-26 11:22 | disposition home or self-care (01) ==
LOC: EC 04:55
DX: F43.20 Adjustment disorder, unspecified (principal); J44.9 Chronic obstructive pulmonary disease, unspecified; I10 Essential (primary) hypertension; H40.9 Unspecified glaucoma; F32.9 Major depressive disorder, single episode, unspecified; M06.9 Rheumatoid arthritis, unspecified; Z79.01 Long term (current) use of anticoagulants; Z79.899 Other long term (current) drug therapy; Z79.890 Hormone replacement therapy
CPT/HCPCS: 36415; 80048; 85025; 81001; 80306; 83520; 99285; G0480 ×2; 80320; 80329

== ENCOUNTER 2020-02-26 23:39 | Observation (INO) | payer MEDICARE, OTHER ==
[2020-02-26] MEDS ORDERED: SODIUM CHLORIDE 0.9% 1,000 ML IV STA (23:53)
[2020-02-26] MEDS ORDERED: SODIUM CHLORIDE 0.9% 500 ML 500 ML IV STA (23:53)
--- NOTE | 2020-02-27 00:10 | ED ---
Arrhythmia/Palpitations HPI - General Chief Complaint: Arrhythmia/Palpitations Stated Complaint: Heart racing Time Seen by Provider: 02/26/20 23:51 Source: patient, RN notes reviewed, old records reviewed Mode of arrival: ambulatory Limitations: no limitations, altered mental status - History of Present Illness Initial Comments: This is a 74-year-old female DF for evaluation she comes to ER today for evaluation of palpitations and arrhythmia with history of atrial fibrillation very anxious nervous negative delusional symptoms, sooner ER earlier in the day for psychiatric illness and paranoia. Patient was discharged home. States she got home and strange things continued to happen. This made her very anxious, left-sided palpitations uneasiness restlessness and some shortness of breath. MD Complaint: rapid heart beat, "heart racing", palpitations -: hour(s) Context: occurred during rest Arrhythmia History: atrial fibrillation Associated Symptoms: denies other symptoms - Related Data Home Medications Medication Instructions Recorded Confirmed Hydrocodone/Acetaminophen [[place] 1 tab PO TID PRN 11/15/14 12/29/19 10-325] Latanoprost Ophth [Xalatan 0.005%] 1 drop BOTH EYES HS 11/15/14 12/29/19 Montelukast [Singulair] 10 mg PO HS 11/15/14 12/29/19 Lovastatin [Mevacor] 20 mg PO HS 11/16/14 12/29/19 Apixaban [Eliquis] 5 mg PO BID 05/26/17 12/29/19 Meclizine HCl 12.5 mg PO Q8H PRN 09/08/17 12/29/19 Vilazodone HCl [Viibryd] 40 mg PO DAILY 09/08/17 12/29/19 Ergocalciferol (Vitamin D2) 50,000 unit PO SA 05/15/18 12/29/19 [Vitamin D2] lisinopriL [Prinivil] 5 mg PO DAILY 06/28/18 12/29/19 buPROPion XL [Wellbutrin XL] 150 mg PO QAM 02/19/19 12/29/19 lamoTRIgine [LaMICtal] 100 mg PO BID 02/19/19 12/29/19 Estrogens, Conjugated [Premarin] 0.3 mg PO DAILY 02/22/19 12/29/19 Levothyroxine Sodium [Synthroid] 88 mcg PO DAILY 10/27/19 12/29/19 Loperamide [Imodium] 2 mg PO TID PRN 10/27/19 12/29/19 Albuterol Sulfate [Ventolin HFA] 2 puff INHALATION RT-QID PRN 12/29/19 12/29/19 Previous Rx's Medication Instructions Recorded Furosemide [Lasix] 40 mg PO DAILY #90 tab 12/30/19 Metoprolol Tartrate [Lopressor] 25 mg PO BID #180 tab 12/30/19 Spironolactone [Aldactone] 25 mg PO DAILY #90 tab 12/30/19 predniSONE 10 mg PO DIRECTED #30 tab 12/30/19 Allergies Allergy/AdvReac Type Severity Reaction Status Date / Time No Known Allergies Allergy Verified 02/26/20 23:46 Review of Systems ROS Statement: Those systems with pertinent positive or pertinent negative responses have been documented in the HPI. ROS Other: All systems not noted in ROS Statement are negative. Past Medical History Past Medical History: Atrial Fibrillation, Asthma, COPD, GERD/Reflux, Hyper tension, Mitral Valve Prolapse (MVP), Osteoarthritis (OA), Pneumonia, Rheumatoid Arthritis (RA), Thyroid Disorder Additional Past Medical History / Comment(s): depressive disorder, lumbar ddd,"bulging discs", chronic back/neck pain, diverticultis, migraines, glaucoma, History of Any Multi-Drug Resistant Organisms: None Reported Past Surgical History: Adenoidectomy, Hysterectomy, Tonsillectomy Additional Past Surgical History / Comment(s): right hip, Past Anesthesia/Blood Transfusion Reactions: No Reported Reaction Past Psychological History: Depression Smoking Status: Former smoker, Never smoker Past Alcohol Use History: None Reported Past Drug Use History: None Reported - Past Family History Mother Family Medical History: Vascular Disorder Father Family Medical History: CVA/TIA Brother(s) Family Medical History: Thyroid Disorder General Exam Limitations: no limitations General appearance: alert, in no apparent distress, anxious Head exam: Present: atraumatic, normocephalic, normal inspection Eye exam: Present: normal appearance, PERRL, EOMI. Absent: scleral icterus, conjunctival injection, periorbital swelling ENT exam: Present: normal exam, mucous membranes moist Neck exam: Present: normal inspection. Absent: tenderness, meningismus, lymphadenopathy Respiratory exam: Present: normal lung sounds bilaterally. Absent: respiratory distress, wheezes, rales, rhonchi, stridor Cardiovascular Exam: Present: regular rate, normal rhythm, normal heart sounds. Absent: systolic murmur, diastolic murmur, rubs, gallop, clicks GI/Abdominal exam: Present: soft, normal bowel sounds. Absent: distended, tenderness, guarding, rebound, rigid Extremities exam: Present: normal inspection, full ROM, normal capillary refill. Absent: tenderness, pedal edema, joint swelling, calf tenderness Back exam: Present: normal inspection Neurological exam: Present: alert, oriented X3, CN II-XII intact Psychiatric exam: Present: normal affect, normal mood Skin exam: Present: warm, dry, intact, normal color. Absent: rash Course Vital Signs 02/26/20 23:43 Temperature 97.6 F Pulse Rate 98 Respiratory 16 Rate Blood Pressure 140/83 O2 Sat by Pulse 99 Oximetry - Reevaluation(s) Reevaluation #1: 02/27/20 01:39 Medical record is reviewed 02/27/20 01:39 ER visit from earlier today is reviewed Reevaluation #2: 02/27/20 01:39 Patient informed of findings, questions answered - Consultations Consultation #1: Spoke with Dr. Garza will admit the patient, we'll obtain psychiatric evaluation EKG Findings - EKG Comments: EKG Findings:: EKG shows A. fib 68 QRS 88 QTc 429 Medical Decision Making - Medical Decision Making 74 female DEL with history of a fibrillation coming a palpitations left-sided chest pain shortness of breath and anxiety. Patient will be admitted for further evaluation management - Lab Data Result diagrams: 02/27/20 00:51 02/27/20 00:51 Lab Results 02/27/20 02/27/20 02/27/20 Range/Units 00:51 00:51 00:51 WBC 5.5 (3.8-10.6) k/uL RBC 3.86 (3.80-5.40) m/uL Hgb 12.6 (11.4-16.0) gm/dL Hct 39.2 (34.0-46.0) % MCV 101.4 H (80.0-100.0) fL MCH 32.6 (25.0-35.0) pg MCHC 32.1 (31.0-37.0) g/dL RDW 12.5 (11.5-15.5) % Plt Count 182 (150-450) k/uL Neutrophils % 58 % Lymphocytes % 28 % Monocytes % 7 % Eosinophils % 3 % Basophils % 1 % Neutrophils # 3.2 (1.3-7.7) k/uL Lymphocytes # 1.5 (1.0-4.8) k/uL Monocytes # 0.4 (0-1.0) k/uL Eosinophils # 0.2 (0-0.7) k/uL Basophils # 0.1 (0-0.2) k/uL PT 9.9 (9.0-12.0) sec INR 0.9 (<1.2) APTT 23.5 (22.0-30.0) sec Sodium (137-145) mmol/L Potassium (3.5-5.1) mmol/L Chloride (98-107) mmol/L Carbon Dioxide (22-30) mmol/L Anion Gap mmol/L BUN (7-17) mg/dL Creatinine (0.52-1.04) mg/dL Est GFR (CKD-EPI)AfAm (>60 ml/min/1.73 sqM) Est GFR (CKD-EPI)NonAf (>60 ml/min/1.73 sqM) Glucose (74-99) mg/dL Plasma Lactic Acid Robert (0.7-2.0) mmol/L Calcium (8.4-10.2) mg/dL Phosphorus (2.5-4.5) mg/dL Magnesium (1.6-2.3) mg/dL Total Bilirubin (0.2-1.3) mg/dL AST (14-36) U/L ALT (4-34) U/L Alkaline Phosphatase (38-126) U/L Creatine Kinase (30-135) U/L Troponin I (0.000-0.034) ng/mL Total Protein (6.3-8.2) g/dL Albumin (3.5-5.0) g/dL Urine Color Colorless Urine Appearance Clear (Clear) Urine pH 6.5 (5.0-8.0) Ur Specific [place] 1.005 (1.001-1.035) Urine Protein Negative (Negative) Urine Glucose (UA) Negative (Negative) Urine Ketones Negative (Negative) Urine Blood Negative (Negative) Urine Nitrite Negative (Negative) Urine Bilirubin Negative (Negative) Urine Urobilinogen <2.0 (<2.0) mg/dL Ur Leukocyte Esterase Negative (Negative) 02/27/20 02/27/20 02/27/20 Range/Units 00:51 00:51 00:51 WBC (3.8-10.6) k/uL RBC (3.80-5.40) m/uL Hgb (11.4-16.0) gm/dL Hct (34.0-46.0) % MCV (80.0-100.0) fL MCH (25.0-35.0) pg MCHC (31.0-37.0) g/dL RDW (11.5-15.5) % Plt Count (150-450) k/uL Neutrophils % % Lymphocytes % % Monocytes % % Eosinophils % % Basophils % % Neutrophils # (1.3-7.7) k/uL Lymphocytes # (1.0-4.8) k/uL Monocytes # (0-1.0) k/uL Eosinophils # (0-0.7) k/uL Basophils # (0-0.2) k/uL PT (9.0-12.0) sec INR (<1.2) APTT (22.0-30.0) sec Sodium 138 (137-145) mmol/L Potassium 4.6 (3.5-5.1) mmol/L Chloride 102 (98-107) mmol/L Carbon Dioxide 28 (22-30) mmol/L Anion Gap 8 mmol/L BUN 41 H (7-17) mg/dL Creatinine 1.52 H (0.52-1.04) mg/dL Est GFR (CKD-EPI)AfAm 39 (>60 ml/min/1.73 sqM) Est GFR (CKD-EPI)NonAf 34 (>60 ml/min/1.73 sqM) Glucose 93 (74-99) mg/dL Plasma Lactic Acid Robert 0.9 (0.7-2.0) mmol/L Calcium 9.7 (8.4-10.2) mg/dL Phosphorus 3.4 (2.5-4.5) mg/dL Magnesium 2.1 (1.6-2.3) mg/dL Total Bilirubin 0.4 (0.2-1.3) mg/dL AST 25 (14-36) U/L ALT 11 (4-34) U/L Alkaline Phosphatase 76 (38-126) U/L Creatine Kinase 44 (30-135) U/L Troponin I <0.012 (0.000-0.034) ng/mL Total Protein 6.8 (6.3-8.2) g/dL Albumin 4.0 (3.5-5.0) g/dL Urine Color Urine Appearance (Clear) Urine pH (5.0-8.0) Ur Specific [place] (1.001-1.035) Urine Protein (Negative) Urine Glucose (UA) (Negative) Urine Ketones (Negative) Urine Blood (Negative) Urine Nitrite (Negative) Urine Bilirubin (Negative) Urine Urobilinogen (<2.0) mg/dL Ur Leukocyte Esterase (Negative) Disposition Clinical Impression: Dizziness, Afib, Adjustment reaction of adult life, Dehydration, Weakness Disposition: ADMITTED IP TO THIS [facility] Condition: Good Is patient prescribed a controlled substance at d/c from ED?: No Referrals: Raudel Garza MD [Primary Care Provider] - 1-2 days
[2020-02-27 01:02] LABS: Basophils # (A) 0.1 k/uL (0-0.2); Basophils % (A) 1 %; Eosinophils # (A) 0.2 k/uL (0-0.7); Eosinophils % (A) 3 %; HCT 39.2 % (34.0-46.0); HGB 12.6 gm/dL (11.4-16.0); Lymphocytes # (A) 1.5 k/uL (1.0-4.8); Lymphocytes % (A) 28 %; MCH 32.6 pg (25.0-35.0); MCHC 32.1 g/dL (31.0-37.0); MCV 101.4 fL (80.0-100.0); Mean Platelet Volume 8.5; Monocytes # (A) 0.4 k/uL (0-1.0); Monocytes % (A) 7 %; Neutrophils # (A) 3.2 k/uL (1.3-7.7); Neutrophils % (A) 58 %; Platelet Count 182 k/uL (150-450); RBC 3.86 m/uL (3.80-5.40); RDW 12.5 % (11.5-15.5); WBC 5.5 k/uL (3.8-10.6)
[2020-02-27 01:13] LABS: INR 0.9 (<1.2); Partial Thromboplastin Time 23.5 sec (22.0-30.0); Prothrombin Time 9.9 sec (9.0-12.0)
[2020-02-27 01:14] LABS: Calcium 9.7 mg/dL (8.4-10.2); Magnesium 2.1 mg/dL (1.6-2.3); Phosphorus 3.4 mg/dL (2.5-4.5); Potassium 4.6 mmol/L (3.5-5.1); Total Bilirubin 0.4 mg/dL (0.2-1.3); Total Protein 6.8 g/dL (6.3-8.2)
[2020-02-27 01:27] LABS: Appearance,Urine Clear (Clear); Bilirubin,Urine Negative (Negative); Blood,Urine Negative (Negative); Color,Urine Colorless; Glucose,Urine (UA) Negative (Negative); Ketones,Urine Negative (Negative); Leukocyte Esterase,Urine Negative (Negative); Nitrite,Urine Negative (Negative); PH, Urine 6.5 (5.0-8.0); Protein,Urine Negative (Negative); Specific Gravity,Urine 1.005 (1.001-1.035); Urobilinogen,Urine <2.0 mg/dL (<2.0)
[2020-02-27] MEDS ORDERED: BUTALB/APAP/CAFF 50-325-40MG TAB PO PRN (13:06)
[2020-02-27] MEDS ORDERED: MECLIZINE 12.5 MG TAB PO PRN (13:06)
[2020-02-27] MEDS ORDERED: SUMAtriptan succinate 25 MG TAB PO PRN (13:06)
[2020-02-27] MEDS ORDERED: LOPERAMIDE 2 MG CAP PO PRN (13:06)
[2020-02-27 13:38] VITALS: BMI 19.5
[2020-02-27] MEDS: HYDROcodone/APAP 10-325MG 1 EACH TAB PO PRN ×2 (15:09→21:46)
[2020-02-27] MEDS: ALBUTEROL NEBULIZED 2.5 MG/3 ML INHALATION PRN ×2 (15:29→21:29)
--- NOTE | 2020-02-27 16:14 | P.CN ---
Psychiatric Consult - . Consult date: 02/27/20 Consult:: Reason for consultation: Delusions Identifying data: Patient is a 74-year-old female who currently lives by herself, has a psychiatric history of depression as per her report. The patient was seen while she was at medical floor. Chief complaint and history of present illness: The patient was admitted to hospital because of arrhythmia. As per nursing staff, the patient has been delusional that she was talking about seeing agirl and people taping her and recording her. Patient presents to nursing with paranoid ideation. Patient reports has history of depression but never been diagnosed with bipolar disorder and she has been connected with outpatient psychiatrist who lifted and he recently. Patient was talking about seeing a girl at her backyard but she is not quite sure if she is real or not. She denies feeling followed by others, taped, or recorded. She presents with some paranoid thoughts about her landlord that he put cameras around her building and she is not quite sure what is the purpose of this. Patient was very superficial and evasive in her history but she denies any severe depression, hopeless, or suicidal ideation. She denies any current or previous manic symptoms including times of elevated mood, grandiosity, absence need to sleep due to unusual increase in activities, or impulsive behavior. She denies any auditory hallucinations, and she denies any paranoid ideation or delusions. She denies any history of self-injurious behavior or suicidal attempts. Past psychiatric history: Denies any previous psychiatric hospitalizations, and reports one time tried to kill herself when she was 17-year-old. She is connected with outpatient psychiatrist who lifted area recently and she is currently maintained on medication Lamictal 100 mg twice daily, Wellbutrin XL 150 mg daily, and Viibryd 40 mg daily. Substance use history: Quit smoking and drinking alcohol years ago. Denies any use of marijuana or other illicit drugs. Family history of psychiatric illness: Denies any family history of mental illness, suicide, or addiction. Brief social history: The patient currently lives by herself, she reports increase of her grandson. Denies any history of childhood abuse, and reports normal development. Mental status examination; Appearance: The patient appears stated age, adequately groomed and dressed, no specific features. Gait/posture: The patient was laying in bed Attitude and behavior: engaged, cooperative, fair eye contact. Motor activity: Normal psychomotor activity Speech: Normal rate, tone. Mood: Anxious Affect: Constricted Thought form: goal-directed, linear, coherent. Thought content: Non-delusional, denies suicidal thoughts, denies homicidal thoughts, denies intentions or plans. Perception: Denies any auditory hallucinations but reported some visual halluc inations Attention: No impairment. Orientation: Patient patient was fully oriented to time place person and situation. Insight: Patient has fair insight about his psychiatric disorder. Judgment: Patient has fair judgment about his psychiatric treatment. Assessment: Unspecified psychosis. Major depressive disorder recurrent, moderate by history. Recommendations: Addressed and ensured patient's safety, patient is not actively suicidal, does not have any active plan or intent of suicide. Psychiatry team will continue follow-up with the patient. Please contact psychiatric team before discharging the patient. Medication management: Continue home psychiatric medications including Lamictal 100 mg twice a day for mood stabilization, Wellbutrin XL 150 mg for depression, and Viibryd 40 mg daily. Refer to outpatient psychiatric treatment including medication management and counseling after discharge. Discussed the treatment plan with the requesting physician/service. Brief supportive psychotherapy was provided to the patient. Thank you for permitting me to assist in this patient's treatment. Please call psychiatry department if you have any question or need further help with this case. 02/27/20 16:05
[2020-02-27] MEDS: METOPROLOL TARTRATE 25 MG TAB PO SCH (20:53)
[2020-02-27] MEDS: lamoTRIgine 100 MG TAB PO SCH (20:53)
[2020-02-27] MEDS: APIXABAN 5 MG TAB PO SCH (20:53)
[2020-02-27] MEDS ORDERED: ATORVASTATIN 10 MG TAB PO SCH (21:00)
[2020-02-27] MEDS ORDERED: MONTELUKAST 10 MG TAB PO SCH (21:00)
[2020-02-27] MEDS ORDERED: LATANOPROST 0.005% OPHTH DROPS 2.5 ML BTL BOTH EYES SCH (21:00)
--- NOTE | 2020-02-28 02:58 | HP ---
HISTORY AND PHYSICAL She came in with palpitations and arrhythmias, heart racing, history of atrial fibrillation, very anxious, nervous, delusional symptoms. She appears weak. She has possible paranoia. She is very anxious, left-sided palpitation, , restlessness, and some shortness of breath, history of atrial fibrillation. HOME MEDICINES: 1. [place] 10/325. 2. Xalatan. 3. Singulair 10 mg daily. 4. Mevacor 20 daily. 5. Eliquis 5 mg b.i.d. 6. Meclizine 12.5 q.8 hours. 7. Viibryd 40 mg daily. 8. Vitamin D2, 50,000 units weekly. 9. Prinivil 5 mg daily. 10.Wellbutrin XL 150 daily. 11.Lamictal 100 mg b.i.d. 12.Premarin 0.3 mg daily. 13.Synthroid 88 mcg daily. 14.Imodium 2 mg t.i.d. 15.Albuterol, Ventolin HFA 2 puffs q.i.d. ALLERGIES: No known drug allergies. REVIEW OF SYSTEMS: Fourteen-point review of systems weakness, fatigue, tired, very lethargic, sleepy, otherwise negative. PAST MEDICAL HISTORY: Atrial fibrillation, asthma, COPD, GERD, hypertension, mitral valve prolapse, osteoarthritis, pneumonia, rheumatoid arthritis, hypothyroidism, migraines, glaucoma, diverticulitis, degenerative disc disease, cervical lumbar, depression. SURGERIES: Adenoidectomy, tonsillectomy, hysterectomy. PAST PSYCH HISTORY: Depression. SOCIAL HISTORY: Never smoked. No alcohol or drugs. FAMILY MEDICAL HISTORY: Mother with vascular disorder. Father had CVA, TIA. Brother with hypothyroidism. PHYSICAL EXAMINATION: Vital signs stable. Afebrile. CARDIOVASCULAR: S1, S2. LUNGS: Clear. GI: Soft. HEMATOLOGY: Negative Homans. PSYCH: Fair mood and affect. NEUROLOGIC: Alert and orient x3. OPHTHALMOLOGICAL: Pupils equal, round, reactive to light and accommodation. NEUROLOGIC: Cranial nerves are intact. PSYCH: Fair mood and affect. She looks weak and disheveled. VITAL SIGNS: Temp 97.6, pulse 90 to 98, respiratory 16 to 18, blood pressure 140/83, O2 of 99% on room air. ASSESSMENT: 1. Atrial fibrillation with rapid ventricular response. 2. Chronic obstructive pulmonary disease exacerbation. 3. Altered mental status. 4. Dehydration. 5. Left-sided chest pain. Await for Cardiology recommendations. 6. Psych consult for severe depression and weakness. Please see further orders. MMODL / IJN: [id number] /
[2020-02-28] MEDS ORDERED: LEVOTHYROXINE 88 MCG TAB PO SCH (06:30)
[2020-02-28] MEDS: HYDROcodone/APAP 10-325MG 1 EACH TAB PO PRN ×2 (06:42→13:18)
[2020-02-28 07:43] VITALS: BP 113/67; PULSE 71; RESP 16; TEMP 98.3
[2020-02-28] MEDS: APIXABAN 5 MG TAB PO SCH (07:43)
[2020-02-28] MEDS: lamoTRIgine 100 MG TAB PO SCH (07:44)
[2020-02-28] MEDS: METOPROLOL TARTRATE 25 MG TAB PO SCH (07:44)
[2020-02-28] MEDS ORDERED: LORATADINE 10 MG TAB PO SCH (09:00)
[2020-02-28] MEDS ORDERED: buPROPion XL 150 MG TAB.ER.24H PO SCH (09:00)
[2020-02-28] MEDS ORDERED: FUROSEMIDE 40 MG TAB PO SCH (09:00)
[2020-02-28] MEDS ORDERED: ESTROGENS, CONJUGATED 0.3 MG TAB PO SCH (09:00)
[2020-02-28] MEDS ORDERED: SPIRONOLACTONE 25 MG TAB PO SCH (09:00)
[2020-02-28] MEDS ORDERED: lisinopriL 5 MG TAB PO SCH (09:00)
--- NOTE | 2020-02-28 11:54 | P.CRDCN ---
<Shannon Domingo - Last Filed: 02/28/20 11:40> History of Present Illness History of present illness: HISTORY OF PRESENTING ILLNESS This is a pleasant 74-year-old female past medical history significant for chronic persistent atrial fibrillation on long-term anticoagulation, COPD, hypothyroidism, former nicotine dependence quit 4 years ago, chronic systolic heart failure, dyslipidemia and hypertension. She does not follow regularly with a mud jack nozzleman since 2017, she was supposed to see Dr. Garcias last month but states she didn't have transportation. We have been asked to see in consultation for afib. She was brought to the hospital for hallucinations. She states she called the police because she heard and saw a group of women on her front lawn being loud and causing a disturbance. She also is complaining of feeling increasingly weak and tired with some intermittent dizziness and palpitatins. She denies chest pain, shortness of breath or orthopnea. Most recent echocardiogram obtained in December 2019 revealed impaired LV systolic function with ejection fraction 40-45%, mildly enlarged right ventricle, severely dilated left atrium, moderate mitral regurgitation and moderate tricuspid regurgitation. DIAGNOSTICS EKG reveals atrial fibrillation with poor R-wave progression heart rate of 68. Telemetry tracings unremarkable for significant wilfredo/tachy arrhythmia. Laboratory reviewed, CBC unremarkable, sodium 138, potassium 4.6, creatinine 1.52, cardiac enzymes negative 2 and TSH 3.03. Current cardiac medications include Eliquis 5 mg twice a day, Lasix 40 mg daily, lovastatin 20 mg at bedtime, Lopressor 25 mg twice a day, Aldactone 25 mg daily and lisinopril 5 mg daily. REVIEW OF SYSTEMS At the time of my exam: CONSTITUTIONAL: Denies fever or chills. CARDIOVASCULAR: Denies chest pain, shortness of breath, orthopnea, PND or palpitations. RESPIRATORY: Denies cough. GASTROINTESTINAL: Denies abdominal pain, diarrhea, constipation, nausea or vomiting. MUSCULOSKELETAL: Denies myalgias. NEUROLOGIC: Denies numbness, tingling or weakness. ENDOCRINE: Denies fatigue, weight change, polydipsia or polyurina. GENITOURINARY: Denies burning, hematuria or urgency with micturation. HEMATOLOGIC: Denies history of anemia or bleeding. PHYSICAL EXAMINATION Blood pressure 113/67 heart rate 71 afebrile and maintaining oxygen saturation on room air. CONSTITUTIONAL: No apparent distress. HEENT: Head is normocephalic. Pupils are equal, round. Sclerae anicteric. Mucous membranes of the mouth are moist. No JVD. No carotid bruit. CHEST EXAMINATION: Lungs are clear to auscultation. No chest wall tenderness is noted on palpation or with deep breathing. HEART EXAMINATION: Regular rate and rhythm. S1, S2 heard. Systolic ejection murmur at the left sternal border, no gallops or rub. ABDOMEN: Soft, nontender. Positive bowel sounds. EXTREMITIES: 2+ peripheral pulses, no lower extremity edema and no calf tenderness. NEUROLOGIC EXAMINATION: Patient is awake, alert and oriented x3. ASSESSMENT Chronic persistent atrial fibrillation on long-term anticoagulation Hallucinations Acute kidney injury Increased weakness and fatigue Chronic systolic heart failure, clinically euvolemic COPD Hypertension Dyslipidemia PLAN An acute coronary event has been ruled out. Given her renal function and weight of 48 kg recommend decreasing Eliquis to 2.5 mg twice a day. Continue to follow her kidney function as an outpatient and increase the dose back to 5 mg twice a day for kidney function improves. Discussed the case with case management and they have recommended counseling aging for transportation to and from physician appointments. Follow-up appointment with Dr. Garcias in the office in one to 2 weeks. At that time we will consider further outpatient event monitoring is warranted. Thank you kindly for this consultation. Nurse Practitioner note has been reviewed, I agree with a documented findings and plan of care. Patient was seen and examined. Past Medical History Past Medical History: Atrial Fibrillation, Asthma, COPD, GERD/Reflux, Hypertensi on, Mitral Valve Prolapse (MVP), Osteoarthritis (OA), Pneumonia, Rheumatoid Arthritis (RA), Thyroid Disorder Additional Past Medical History / Comment(s): depressive disorder, lumbar ddd,"bulging discs", chronic back/neck pain, diverticultis, migraines, glaucoma, History of Any Multi-Drug Resistant Organisms: None Reported Past Surgical History: Adenoidectomy, Hysterectomy, Tonsillectomy Additional Past Surgical History / Comment(s): right hip, Past Anesthesia/Blood Transfusion Reactions: No Reported Reaction Past Psychological History: Depression Additional Psychological History / Comment(s): . Smoking Status: Former smoker Past Alcohol Use History: None Reported Additional Past Alcohol Use History / Comment(s): started smoking at age 17 and quit smoking cigarettes 2006. started smoking the e-cig until 2014. Past Drug Use History: None Reported - Past Family History Mother Family Medical History: Vascular Disorder Father Family Medical History: CVA/TIA Brother(s) Family Medical History: Thyroid Disorder Medications and Allergies Home Medications Medication Instructions Recorded Confirmed Type Hydrocodone/Acetaminophen [[place] 1 tab PO TID PRN 11/15/14 02/27/20 History 10-325] Latanoprost Ophth [Xalatan 0.005%] 1 drop BOTH EYES HS 11/15/14 02/27/20 History Montelukast [Singulair] 10 mg PO HS 11/15/14 02/27/20 History Lovastatin [Mevacor] 20 mg PO HS 11/16/14 02/27/20 History Apixaban [Eliquis] 5 mg PO BID 05/26/17 02/27/20 History Meclizine HCl 12.5 mg PO Q8H PRN 09/08/17 02/27/20 History Vilazodone HCl [Viibryd] 40 mg PO DAILY 09/08/17 02/27/20 History Ergocalciferol (Vitamin D2) 50,000 unit PO SA 05/15/18 02/27/20 History [Vitamin D2] lisinopriL [Prinivil] 5 mg PO DAILY 06/28/18 02/27/20 History buPROPion XL [Wellbutrin XL] 150 mg PO QAM 02/19/19 02/27/20 History lamoTRIgine [LaMICtal] 100 mg PO BID 02/19/19 02/27/20 History Estrogens, Conjugated [Premarin] 0.3 mg PO DAILY 02/22/19 02/27/20 History Levothyroxine Sodium [Synthroid] 88 mcg PO DAILY 10/27/19 02/27/20 History Loperamide [Imodium] 2 mg PO TID PRN 10/27/19 02/27/20 History Albuterol Sulfate [Ventolin HFA] 2 puff INHALATION RT-QID PRN 12/29/19 02/27/20 History Furosemide [Lasix] 40 mg PO DAILY #90 tab 12/30/19 02/27/20 Rx Metoprolol Tartrate [Lopressor] 25 mg PO BID #180 tab 12/30/19 02/27/20 Rx Spironolactone [Aldactone] 25 mg PO DAILY #90 tab 12/30/19 02/27/20 Rx Butalb/APAP/Caff 50-325-40Mg 1 tab PO DAILY PRN 02/27/20 02/27/20 History [Fioricet 50-325-40] Loratadine [Claritin] 10 mg PO DAILY 02/27/20 02/27/20 History SUMAtriptan succinate [Imitrex] 25 mg PO DAILY PRN 02/27/20 02/27/20 History Allergies Allergy/AdvReac Type Severity Reaction Status Date / Time No Known Allergies Allergy Verified 02/27/20 09:27 Physical Exam Vitals: Vital Signs Temp Pulse Pulse Resp BP Pulse Ox 02/28/20 09:00 71 16 02/28/20 07:40 98.3 F 71 16 113/67 99 02/28/20 05:00 97.8 F 70 15 113/69 97 02/27/20 21:41 76 02/27/20 21:30 76 02/27/20 20:30 97.8 F 86 16 106/64 97 02/27/20 15:31 80 02/27/20 15:00 97.6 F 81 16 107/69 99 Intake and Output 02/27/20 02/28/20 02/28/20 22:59 06:59 14:59 Other: Voiding Method Toilet Toilet Toilet # Voids 1 1 1 Results 02/27/20 00:51 02/27/20 00:51 Cardiac Enzymes 02/28/20 Range/Units 09:44 Troponin I <0.012 (0.000-0.034) ng/mL Current Medications Generic Name Dose Route Start Last Admin Trade Name Freq PRN Reason Stop Dose Admin Acetaminophen/Butalbital/Caffeine 1 each 02/27/20 13:06 Fioricet 50-325-40 PO DAILY PRN Migraine Headache Hydrocodone Bitart/Acetaminophen 1 each 02/27/20 13:06 02/28/20 06:42 [place] 10 PO 1 each TID PRN Administration Pain Albuterol Sulfate 2.5 mg 02/27/20 13:06 02/27/20 21:29 Ventolin Nebulized INHALATION 2.5 mg RT-QID PRN Administration Shortness Of Breath Apixaban 2.5 mg 02/28/20 21:00 Eliquis PO BID [facility] Atorvastatin Calcium 10 mg 02/27/20 21:00 02/27/20 20:53 Lipitor PO 10 mg HS [facility] Administration Bupropion HCl 150 mg 02/28/20 09:00 02/28/20 07:44 Wellbutrin Xl PO 150 mg QAM [facility] Administration Ergocalciferol 50,000 unit 03/04/20 09:00 Vitamin D2 PO SA [facility] Estrogens Conjugated 0.3 mg 02/28/20 09:00 02/28/20 07:44 Premarin PO 0.3 mg DAILY [facility] Administration Furosemide 40 mg 02/28/20 09:00 02/28/20 07:43 Lasix PO 40 mg DAILY [facility] Administration Lamotrigine 100 mg 02/27/20 21:00 02/28/20 07:44 Lamictal PO 100 mg BID [facility] Administration Latanoprost 1 drops 02/27/20 21:00 02/27/20 20:54 Xalatan 0.005% BOTH EYES 1 drops HS [facility] Administration Levothyroxine Sodium 88 mcg 02/28/20 06:30 02/28/20 06:42 Synthroid PO 88 mcg DAILY@0630 [facility] Administration Lisinopril 5 mg 02/28/20 09:00 02/28/20 07:43 Zestril PO 5 mg DAILY [facility] Administration Loperamide HCl 2 mg 02/27/20 13:06 Imodium PO TID PRN Diarrhea Loratadine 10 mg 02/28/20 09:00 02/28/20 07:44 Claritin PO 10 mg DAILY [facility] Administration Meclizine HCl 12.5 mg 02/27/20 13:06 Antivert PO Q8H PRN Vertigo Metoprolol Tartrate 25 mg 02/27/20 21:00 02/28/20 07:44 Lopressor PO 25 mg BID [facility] Administration Montelukast Sodium 10 mg 02/27/20 21:00 02/27/20 20:53 Singulair PO 10 mg HS [facility] Administration Vilazodone Hcl [ 40 mg 02/28/20 09:00 02/28/20 07:47 Viibryd] 40 Mg PO Not Given DAILY [facility] Spironolactone 25 mg 02/28/20 09:00 02/28/20 07:43 Aldactone PO 25 mg DAILY [facility] Administration Sumatriptan Succinate 25 mg 02/27/20 13:06 Imitrex PO DAILY PRN Migraine Headache Intake and Output 02/27/20 02/28/20 02/28/20 22:59 06:59 14:59 Other: Voiding Method Toilet Toilet Toilet # Voids 1 1 1 02/27/20 00:51 02/27/20 00:51 <Jimi Isidro - Last Filed: 02/28/20 12:24> Physical Exam Vitals: Vital Signs Temp Pulse Pulse Resp BP Pulse Ox 02/28/20 09:00 71 16 02/28/20 07:40 98.3 F 71 16 113/67 99 02/28/20 05:00 97.8 F 70 15 113/69 97 02/27/20 21:41 76 02/27/20 21:30 76 02/27/20 20:30 97.8 F 86 16 106/64 97 02/27/20 15:31 80 02/27/20 15:00 97.6 F 81 16 107/69 99 Intake and Output 02/27/20 02/28/20 02/28/20 22:59 06:59 14:59 Other: Voiding Method Toilet Toilet Toilet # Voids 1 1 1 Results 02/27/20 00:51 02/27/20 00:51 Cardiac Enzymes 02/28/20 Range/Units 09:44 Troponin I <0.012 (0.000-0.034) ng/mL Current Medications Generic Name Dose Route Start Last Admin Trade Name Freq PRN Reason Stop Dose Admin Acetaminophen/Butalbital/Caffeine 1 each 02/27/20 13:06 Fioricet 50-325-40 PO DAILY PRN Migraine Headache Hydrocodone Bitart/Acetaminophen 1 each 02/27/20 13:06 02/28/20 06:42 [place] 10 PO 1 each TID PRN Administration Pain Albuterol Sulfate 2.5 mg 02/27/20 13:06 02/27/20 21:29 Ventolin Nebulized INHALATION 2.5 mg RT-QID PRN Administration Shortness Of Breath Apixaban 2.5 mg 02/28/20 21:00 Eliquis PO BID [facility] Atorvastatin Calcium 10 mg 02/27/20 21:00 02/27/20 20:53 Lipitor PO 10 mg HS [facility] Administration Bupropion HCl 150 mg 02/28/20 09:00 02/28/20 07:44 Wellbutrin Xl PO 150 mg QAM [facility] Administration Ergocalciferol 50,000 unit 03/04/20 09:00 Vitamin D2 PO SA [facility] Estrogens Conjugated 0.3 mg 02/28/20 09:00 02/28/20 07:44 Premarin PO 0.3 mg DAILY [facility] Administration Furosemide 40 mg 02/28/20 09:00 02/28/20 07:43 Lasix PO 40 mg DAILY [facility] Administration Lamotrigine 100 mg 02/27/20 21:00 02/28/20 07:44 Lamictal PO 100 mg BID [facility] Administration Latanoprost 1 drops 02/27/20 21:00 02/27/20 20:54 Xalatan 0.005% BOTH EYES 1 drops HS [facility] Administration Levothyroxine Sodium 88 mcg 02/28/20 06:30 02/28/20 06:42 Synthroid PO 88 mcg DAILY@0630 [facility] Administration Lisinopril 5 mg 02/28/20 09:00 02/28/20 07:43 Zestril PO 5 mg DAILY [facility] Administration Loperamide HCl 2 mg 02/27/20 13:06 Imodium PO TID PRN Diarrhea Loratadine 10 mg 02/28/20 09:00 02/28/20 07:44 Claritin PO 10 mg DAILY [facility] Administration Meclizine HCl 12.5 mg 02/27/20 13:06 Antivert PO Q8H PRN Vertigo Metoprolol Tartrate 25 mg 02/27/20 21:00 02/28/20 07:44 Lopressor PO 25 mg BID [facility] Administration Montelukast Sodium 10 mg 02/27/20 21:00 02/27/20 20:53 Singulair PO 10 mg HS [facility] Administration Vilazodone Hcl [ 40 mg 02/28/20 09:00 02/28/20 07:47 Viibryd] 40 Mg PO Not Given DAILY [facility] Spironolactone 25 mg 02/28/20 09:00 02/28/20 07:43 Aldactone PO 25 mg DAILY [facility] Administration Sumatriptan Succinate 25 mg 02/27/20 13:06 Imitrex PO DAILY PRN Migraine Headache Intake and Output 02/27/20 02/28/20 02/28/20 22:59 06:59 14:59 Other: Voiding Method Toilet Toilet Toilet # Voids 1 1 1 02/27/20 00:51 02/27/20 00:51
--- NOTE | 2020-02-28 13:14 | P.PN ---
Progress Note - Text Progress Note Date: 02/28/20 Psychiatric follow up note: I reviewed medical records and did interview patient Patient was sitting in bed eating her lunch ,very pleasant and cooperative Interval history: Patient stated that she has been on Vibryd ,Wellbutrin and Lamictal for couple of years but 6-7 weeks ago her outpatient psychiatrist added Abilify 2 mg as augmentation ,patient started to experience :confusion ,hands tremors and "Shaky feeling "over last couple of days",Abilify was recently d/c She denies any current suicidal or homicidal ideation , she denies any hallucination or delusional thinking ,denies any idea or reference Mental status exam: Patient was wearing street clothing,l cooperative ,speech is spontaneous and coherent ,stated mood "anxious"",affect is constricted denies any hallucination ,denies delusional thinking or idea of reference ,denies any suicidal or homicidal ideation, , insight and judgment are good ASSESSMENT: Major depression ,recurrent Anxiety disorder unspecified Plan :patient is not suicidal ,does not meet inpatient criteria ,has some grief reaction as her oupatient psychiatrist left practice ,please refer to outpatient counseling and for now continue current psychotropic meds
--- NOTE | 2020-02-28 13:23 | P.DS ---
Providers Date of admission: 02/27/20 01:29 Expected date of discharge: 02/28/20 Attending physician: Raudel Garza Consults: 02/27/20 01:29 Consult Physician Routine Consulting Provider: Jill Vargas Consult Reason/Comments: delusion Do you want consulting provider notified?: Already Contacted 02/27/20 21:50 Consult Physician Routine Consulting Provider: Marques Garcias Consult Reason/Comments: afib Do you want consulting provider notified?: Yes Primary care physician: [facility] Course: Final Diagnosis: Acute chest pain, coronary event ruled out as per cardiology Chronic persistent atrial fibrillation Acute renal failure Acute metabolic encephalopathy, Hallucinations, unspecified psychosis as per psychiatry Major depressive disorder, recurrent Anxiety disorder unspecified Increased generalized weakness with fatigue, secondary to all the above, improved Chronic systolic heart failure COPD, stable Dyslipidemia Hypertension Hospital course: This a 74-year-old female admitted with acute chest pain, atrial fibrillation, hallucinations, depression and multiple other medical issues. Evaluated by both psychiatry and cardiology. Eliquis dose decreased secondary to her renal function as per cardiology. Potential event monitor to be discussed at follow-up with cardiology. Psychiatry recommending patient to continue follow with mental health outpatient. Significant clinical improvement. Patient has been cleared by all consults for discharge. Patient is being discharged home in a stable condition with guarded prognosis. The impression and plan of care has been dictated as directed. : I performed a history and examination of this patient, discussed the same with the dictator. I agree with the dictator's note ,documented as a scribe. Any additional findings or plans will be noted. Patient Condition at Discharge: Stable Plan - Discharge Summary New Discharge Prescriptions: New Apixaban [Eliquis] 2.5 mg PO BID #60 tablet Continue Montelukast [Singulair] 10 mg PO HS Latanoprost Ophth [Xalatan 0.005%] 1 drop BOTH EYES HS Hydrocodone/Acetaminophen [[place] 10-325] 1 tab PO TID PRN PRN Reason: Pain Lovastatin [Mevacor] 20 mg PO HS Vilazodone HCl [Viibryd] 40 mg PO DAILY Meclizine HCl 12.5 mg PO Q8H PRN PRN Reason: Vertigo Ergocalciferol (Vitamin D2) [Vitamin D2] 50,000 unit PO SA lisinopriL [Prinivil] 5 mg PO DAILY lamoTRIgine [LaMICtal] 100 mg PO BID buPROPion XL [Wellbutrin XL] 150 mg PO QAM Estrogens, Conjugated [Premarin] 0.3 mg PO DAILY Levothyroxine Sodium [Synthroid] 88 mcg PO DAILY Loperamide [Imodium] 2 mg PO TID PRN PRN Reason: Diarrhea Albuterol Sulfate [Ventolin HFA] 2 puff INHALATION RT-QID PRN PRN Reason: Shortness Of Breath Spironolactone [Aldactone] 25 mg PO DAILY #90 tab Furosemide [Lasix] 40 mg PO DAILY #90 tab Metoprolol Tartrate [Lopressor] 25 mg PO BID #180 tab SUMAtriptan succinate [Imitrex] 25 mg PO DAILY PRN PRN Reason: Migraine Headache Butalb/APAP/Caff 50-325-40Mg [Fioricet 50-325-40] 1 tab PO DAILY PRN PRN Reason: Migraine Headache Loratadine [Claritin] 10 mg PO DAILY Discontinued Apixaban [Eliquis] 5 mg PO BID Discharge Medication List Hydrocodone/Acetaminophen [[place] 10-325] 1 tab PO TID PRN 11/15/14 [History] Latanoprost Ophth [Xalatan 0.005%] 1 drop BOTH EYES HS 11/15/14 [History] Montelukast [Singulair] 10 mg PO HS 11/15/14 [History] Lovastatin [Mevacor] 20 mg PO HS 11/16/14 [History] Meclizine HCl 12.5 mg PO Q8H PRN 09/08/17 [History] Vilazodone HCl [Viibryd] 40 mg PO DAILY 09/08/17 [History] Ergocalciferol (Vitamin D2) [Vitamin D2] 50,000 unit PO SA 05/15/18 [History] lisinopriL [Prinivil] 5 mg PO DAILY 06/28/18 [History] buPROPion XL [Wellbutrin XL] 150 mg PO QAM 02/19/19 [History] lamoTRIgine [LaMICtal] 100 mg PO BID 02/19/19 [History] Estrogens, Conjugated [Premarin] 0.3 mg PO DAILY 02/22/19 [History] Levothyroxine Sodium [Synthroid] 88 mcg PO DAILY 10/27/19 [History] Loperamide [Imodium] 2 mg PO TID PRN 10/27/19 [History] Albuterol Sulfate [Ventolin HFA] 2 puff INHALATION RT-QID PRN 12/29/19 [History] Furosemide [Lasix] 40 mg PO DAILY #90 tab 12/30/19 [Rx] Metoprolol Tartrate [Lopressor] 25 mg PO BID #180 tab 12/30/19 [Rx] Spironolactone [Aldactone] 25 mg PO DAILY #90 tab 12/30/19 [Rx] Butalb/APAP/Caff 50-325-40Mg [Fioricet 50-325-40] 1 tab PO DAILY PRN 02/27/20 [History] Loratadine [Claritin] 10 mg PO DAILY 02/27/20 [History] SUMAtriptan succinate [Imitrex] 25 mg PO DAILY PRN 02/27/20 [History] Apixaban [Eliquis] 2.5 mg PO BID #60 tablet 02/28/20 [Rx] Follow up Appointment(s)/Referral(s): [facility] [NON-STAFF] - 1 Week Marques Garcias MD [STAFF PHYSICIAN] - 2 Weeks Raudel Garza MD [Primary Care Provider] - [address] BEATRIZ Psychiatry [Other] - 1 Week Ambulatory/Diagnostic Orders: Complete Blood Count w/diff [LAB.AMB] Time Frame: 3 Days, Location: None Selected
[2020-02-28] MEDS ORDERED: APIXABAN 2.5 MG TABLET PO SCH (21:00)
[2020-03-04] MEDS ORDERED: ERGOCALCIFEROL 50,000 UNIT CAP PO SCH (09:00)
== END 2020-02-28 15:43 ==
LOC: EC 23:39 → 3NCARDOBS 02-27 01:29
PROVIDERS: ADMIT Family Medicine; ATTEND Family Medicine
DX: I48.19 Other persistent atrial fibrillation (principal); G93.41 Metabolic encephalopathy; E86.0 Dehydration; J44.1 Chronic obstructive pulmonary disease with (acute) exacerbation; F22 Delusional disorders; R53.1 Weakness; I08.1 Rheumatic disorders of both mitral and tricuspid valves; I11.0 Hypertensive heart disease with heart failure; I50.22 Chronic systolic (congestive) heart failure; E78.5 Hyperlipidemia, unspecified; K21.9 Gastro-esophageal reflux disease without esophagitis; F33.9 Major depressive disorder, recurrent, unspecified; F43.22 Adjustment disorder with anxiety; N17.9 Acute kidney failure, unspecified; Z87.891 Personal history of nicotine dependence; M19.90 Unspecified osteoarthritis, unspecified site; Z87.01 Personal history of pneumonia (recurrent); M06.9 Rheumatoid arthritis, unspecified; E03.9 Hypothyroidism, unspecified; G43.909 Migraine, unspecified, not intractable, without status migrainosus; H40.9 Unspecified glaucoma; Z87.19 Personal history of other diseases of the digestive system; M51.36 Other intervertebral disc degeneration, lumbar region; M50.30 Other cervical disc degeneration, unspecified cervical region; Z90.710 Acquired absence of both cervix and uterus; Z98.890 Other specified postprocedural states; Z82.49 Family history of ischemic heart disease and other diseases of the circulatory system; Z82.3 Family history of stroke; Z83.49 Family history of other endocrine, nutritional and metabolic diseases; Z79.890 Hormone replacement therapy; Z79.899 Other long term (current) drug therapy; Z79.01 Long term (current) use of anticoagulants
CPT/HCPCS: 99285; 36415; 94640 ×2; 93005; 80053; 82550; 83605; 83735; 84100; 84443; 84484 ×2; 85025; 85610; 85730; 81003; G0378 ×2

== ENCOUNTER → 2020-04-10 | Outpatient (CLI) | payer MEDICARE, OTHER ==
--- NOTE | 2020-04-10 19:16 | BD ---
EXAMINATION TYPE: Axial Bone Density DATE OF EXAM: 04/10/2020 COMPARISON: NONE CLINICAL HISTORY: Post menopausal screening Height: 62 IN Weight: 111 LBS FRAX RISK QUESTIONS: History of Fracture in Adulthood: YES RT HIP AGE 73 Secondary Osteoporosis: 3. Menopause before 45: PARTIAL HYST AGE 31 RISK FACTORS HISTORY OF: Hip Fracture (Right): YES When: AGE 73 Surgery to Hip(right): YES AGE 73 Family History of Osteoporosis: YES Active: YES Postmenopausal woman: TOTAL HYST AGE 31 Take estrogen and/or progesterone medications: YES How lon+ YEARS Lost more than 2 inches in height since high school: YES 3" MEDICATIONS: Thyroid Medications: YES Which medication: Levothyroxine How Lon + YEARS Additional Medications: VIT D, PREMARIN, LEVOTHYROXINE, BLOOD PRESSURE MEDS, CHOLESTEROL MEDS, PAIN M EDS, HEART MEDS, COPD MEDS, ANTI DEPRESSANT EXAM MEASUREMENTS: Bone mineral densitometry was performed using the [employer] System. Bone mineral density as measured about the Lumbar spine is: ----- L1-L4(G/cm2): 1.070 T Score Values are as follows: ----- L2: -0.5 ----- L3: -0.2 ----- L4: -1.6 ----- L1-L4: -0.9 Bone mineral density has: Decreased -6.1% since study of: 03/20/2012 Bone mineral density about the L hip (g/cm2): 0.678 T Score values are as follows: -----L Neck: -2.6 -----L Total: -2.6 Bone mineral density has: Decreased -14.4% since study of: 03/20/2012 IMPRESSION: Osteoporosis (T Score less than -2.5). There is increased fracture risk and therapy is usually indicated based on age. Re-Screen 1-2 years. NOTE: T-SCORE=SD OF THE YOUNG ADULT MEAN.
--- NOTE | 2020-04-11 14:13 | MM ---
Reason for exam: screening (asymptomatic). Last mammogram was performed 1 year and 10 months ago. History: Patient is postmenopausal and has history of high-risk lesion on a previous biopsy at age 72. Family history of premenopausal breast cancer in maternal cousin at age 38 and breast cancer in maternal aunt at age 62. High risk US biopsy breast VAD LT of the left breast, May 27, 2018. Benign left US cyst aspiration of the left breast, December 02, 2005. Benign cyst aspiration of the left breast, November 12, 2001. Excisional biopsy of the left breast. Benign excisional biopsy of the left breast. Taking estrogen for 15 years 7 months beginning at age 50. Taking progesterone for 15 years 7 months beginning at age 50. Physical Findings: A clinical breast exam by your physician is recommended on an annual basis and results should be correlated with mammographic findings. MG 3D Screening Mammo W/Cad Bilateral CC and MLO view(s) were taken. Prior study comparison: May 27, 2018, left breast MG diagnostic mammo LT wo CAD. May 05, 2018, bilateral MG 3d diag mammo w/cad AMPARO. The breast tissue is heterogeneously dense. This may lower the sensitivity of mammography. Stable benign calcifications. There is no discrete abnormality. No significant changes when compared with prior studies. ASSESSMENT: Benign, BI-RAD 2 RECOMMENDATION: Routine screening mammogram of both breasts in 1 year.
== END | disposition home or self-care (01) ==
LOC: RADMAMWWP 13:27
PROVIDERS: ATTEND Family Medicine
DX: Z12.31 Encounter for screening mammogram for malignant neoplasm of breast (principal); M81.0 Age-related osteoporosis without current pathological fracture; Z78.0 Asymptomatic menopausal state
CPT/HCPCS: 77063; 77067; 77080

== ENCOUNTER → 2020-06-12 | Outpatient (CLI) | payer MEDICARE, OTHER ==
--- NOTE | 2020-06-12 10:01 | CT ---
"EXAMINATION TYPE: CT neck chest without con DATE OF EXAM: 06/12/2020 COMPARISON: Prior chest CT December 30, [address] September 15, 2013 HISTORY: chronic chest and throat congestion, difficulty breathing CT DLP: 1151 mGycm. Automated Exposure Control for Dose Reduction was Utilized. TECHNIQUE: CT scan of the neck and thorax are performed without IV contrast. FINDINGS: Neck: Neck evaluation suboptimal due to lack of IV contrast which limits evaluation for mucosal lesio ns and subcentimeter adenopathy. Airway: Artifact from dental cavitary fillings noted. Airway grossly patent otherwise. Thyroid gland remains poorly visualized may be atrophic. Parotid/submandibular glands: No gross abnormality seen. Carotid/Vascular Structures: No significant calcified plaque at carotid bulb level. Osseous Structures: More prominent grade 1 retrolisthesis C5 on C6 with stable subtle grade 1 retroli sthesis of C6 on C7 . Severe disc space narrowing C5-C6 level with posterior spur causing significant spinal canal effacement and likely some mass effect on ventral surface cord sagittal image 57 not si gnificantly changed from 2014 study. Iogmvgjx-tk-duzuac disc space narrowing C6-C7 level redemonstrat ed. Other: No definitive new greater than 1 cm neck adenopathy. Chest: LUNGS: Mild to moderate underlying emphysematous change remains present. New lobulated 3.8 x 3.8 cm m ass axial image 28 x 6.2 cm craniocaudal dimension coronal image 46 worrisome for neoplasm in the sup erior medial aspect right lower lobe. There are smaller adjacent suspicious satellite nodules. There is mass effect on the right middle lobe bronchus and significant narrowing of the right lower lobe br onchus pass the bronchus intermedius. Lesion and/or obstructive atelectasis fills the right azygoesop hageal recess axial image 33. There is mild to moderate bibasilar linear scarring and/or atelectasis. Nonspecific patchy reticulati on and groundglass opacity anterior aspect right upper lobe axial image 17 and coronal image 27 over roughly 2.6 cm segment, possible early infiltrate. No pleural effusion or pneumothorax seen bilateral ly. MEDIASTINUM: Lack of IV contrast is noted to limit evaluation for mediastinal and especially hilar ad enopathy. There are no definitive greater than 1 cm hilar or mediastinal lymph nodes. No significan t pericardial effusion is seen. Persistent cardiomegaly. Persistent moderate coronary artery calcific ation and/or stents. Correlate clinically. Enlarged bilateral pulmonary arteries consistent with unde rlying pulmonary hypertension is redemonstrated. OTHER: Persistent heterogeneously dense fibroglandular tissue throughout bilateral breasts with left- sided calcifications. Underlying scoliosis in the spine greatest at lumbar levels. Multilevel spurrin g. No new adrenal masses. IMPRESSION: New superior central right lower lobe mass strongly suspicious for neoplasm. Pulmonology referral for Bronchoscopy evaluation and PET/CT follow-up advised. A Yellow level critical message alert has been initiated for Raudel Garza MD via the Normal 36 0 | Critical Results System on 06/12/2020 9:59 AM. This message alert has been sent to Raudel Garza MD via the preferences provided by the clinician for the receipt of Radiology Critical Findings. Md ssage ID [id number]."
== END | disposition home or self-care (01) ==
LOC: RADCTMAIN 06:30
PROVIDERS: ATTEND Family Medicine
DX: R91.8 Other nonspecific abnormal finding of lung field (principal); J44.9 Chronic obstructive pulmonary disease, unspecified
CPT/HCPCS: 70490; 71250

== ENCOUNTER → 2020-06-17 | Outpatient (CLI) | payer MEDICARE, OTHER ==
--- NOTE | 2020-06-21 16:54 | PE ---
Nuclear medicine PET/CT HISTORY: C 34.81, lung carcinoma, initial Patient received 11.4 mCi F-18 FDG intravenously and delayed scanning was performed from the skull ba se to the mid thighs. Localization and attenuation correction CT scan was performed. Correlation to CT 06/12/2020 Chest and neck: There is no supraclavicular or cervical adenopathy. No mediastinal, axillary adenopat hy. Mass is present at the right lower lobe with associated hypermetabolic uptake, SUV 2.4. In the ri ght upper lobe posteriorly at the apex there is a small focus of uptake, asymmetric soft tissue, axia l image #[id number], SUV 2.7. The abnormal density in the subpleural right upper lobe does not show any ass ociated uptake. There are coronary artery calcifications. There are emphysematous changes within the lungs. ABDOMEN: There is no adrenal mass, no retroperitoneal adenopathy or liver mass. No suspicious uptake. Uptake along the bowel is likely physiologic. Osseous structures: Degenerative changes are present in the lumbar spine, there is facet arthropathy and spinal curvature. Postop changes noted to the right hip. IMPRESSION: Hypermetabolic uptake corresponds to patient's known lung mass. Difficult to exclude some pleural seeding the posterior right upper lobe.
== END | disposition home or self-care (01) ==
LOC: RADPETMAIN 08:38
PROVIDERS: ATTEND Family Medicine
DX: C34.81 Malignant neoplasm of overlapping sites of right bronchus and lung (principal); R91.8 Other nonspecific abnormal finding of lung field
CPT/HCPCS: 78815; A9552

== ENCOUNTER 2020-06-21 11:00 | Day surgery (SDC) | payer MEDICARE, OTHER ==
[~2020-06-21 11:00] MED LIST: ALBUTEROL NEB (CONC) 2.5 MG/0.5 ML INHALATION ONE; DEXAMETHASONE SOD PHOSPHATE 4 MG/ML 1 ML VIAL IV ONE; HYDROmorphone 0.5 MG/0.5 ML SYRINGE IVP PRN; LACTATED RINGERS 1,000 ML IV SCH; LIDOCAINE 1% (10MG/ML) FOR IV START INTRADERMA PRN; LIDOCAINE 2% (PF) 20 MG/ML 5 ML VIAL INHALATION ONE; LIDOCAINE VISCOUS 300 MG/15 ML CUP MUCOUS MEM ONE; MIDAZOLAM 2 MG/2 ML VIAL IV PRN; ONDANSETRON 4 MG/2 ML VIAL IVP ONE; SODIUM CHLORIDE 0.9% 1,000 ML IV SCH
[2020-06-21] MEDS: ATROPINE SULFATE 0.4 MG/ML 1 ML VIAL IM ONE ×2 (12:10→12:15)
[2020-06-21] MEDS ORDERED: MIDAZOLAM 2 MG/2 ML VIAL IV ONE (12:53)
--- NOTE | 2020-06-21 13:17 | CT ---
EXAMINATION TYPE: CT Chest wo con Veran Protocol DATE OF EXAM: 06/21/2020 COMPARISON: PET/CT 06/17/2020 HISTORY: prebronch veran procedure, lung nodule CT DLP: 491 mGycm Automated exposure control for dose reduction was used. Helical imaging obtained through the chest fo r procedure planning purposes FINDINGS: Abnormal density in the right lower lobe is again seen, there is some areas of calcification present, minimal pleural fluid is present. There are emphysematous changes present within the lungs. Some kevin undglass opacity present in the subpleural location in the right upper lobe is indeterminate. Suspect some scarring in the left upper lobe, lingula region. There are coronary artery calcifications prese nt. Left atrial enlargement is present, heart is borderline enlarged. Prominence of the pulmonary art willard could be indicative of pulmonary artery hypertension. IMPRESSION: CT OBTAINED FOR PROCEDURE PLANNING PURPOSES. Additional findings above.
[2020-06-21] MEDS ORDERED: fentaNYL (PF) 50 MCG/ML 2 ML AMP ONE (14:06)
[2020-06-21] MEDS ORDERED: GLYCOPYRROLATE 0.2 MG/ML 2 ML VIAL ONE (14:06)
[2020-06-21] MEDS ORDERED: PROPOFOL 10 MG/ML 20 ML VIAL IV ONE (14:06)
[2020-06-21] MEDS ORDERED: NEOSTIGMINE 1 MG/ML 10 ML VIAL ONE (14:06)
[2020-06-21] MEDS ORDERED: SUCCINYLCHOLINE CHLORIDE 100 MG/5 ML SYR IV ONE (14:06)
[2020-06-21] MEDS ORDERED: KETAMINE 10 MG/ML 20 ML VIAL ONE (14:06)
[2020-06-21] MEDS ORDERED: ROCURONIUM 10 MG/ML (10 ML VIAL) IV ONE (14:06)
[2020-06-21] MEDS ORDERED: MIDAZOLAM 2 MG/2 ML VIAL ONE (14:06)
[2020-06-21] MEDS ORDERED: LIDOCAINE 1% INJ 10MG/ML (20 ML MDV) ONE (14:06)
[2020-06-21 15:10] VITALS: RESP 16; TEMP 96.8
--- NOTE | 2020-06-21 15:41 | XR ---
EXAMINATION TYPE: XR chest 1V portable DATE OF EXAM: 06/21/2020 COMPARISON: Prior chest x-ray 12/29/2019, CT 06/21/2020 HISTORY: Post bronchoscopy TECHNIQUE: Single frontal view of the chest is obtained. FINDINGS: Abnormal density at the right lung base is noted. There is no evident pneumothorax or siza ble effusion. Prominence of the right hilar region is noted. Heart is stable. IMPRESSION: No evident complication status post bronchoscopy
[2020-06-21 16:01] VITALS: BP 148/86; PULSE 74
--- NOTE | 2020-06-21 16:48 | PCN ---
PROCEDURE NOTE PULMONARY/CRITICAL CARE PROCEDURE NOTE: PROCEDURE: Navigational bronchoscopy. PREOPERATIVE DIAGNOSIS: Rule out lung cancer, right lower lobe. POSTOPERATIVE DIAGNOSIS: Rule out lung cancer, right lower lobe. OPERATORS: Dr. Weber, Dr. Mancera and Mark Crook. PROCEDURE DESCRIPTION: The patient's procedure was done in room #1 Endoscopy. There was informed consent and universal timeout. The procedure included navigational bronchoscopy, endobronchial and transbronchial biopsies, right lower lobe, needle biopsies, right lower lobe, and brushes and washes, right lower lobe. After the patient was adequately sedated and being fully anesthetized by the anesthesiologist, who provided general anesthesia, the bronchoscope was inserted through the bronchoscope adapter connected to the endotracheal tube. There was an obvious lesion noted in the entrance to the right lower lobe. There was nothing noted abnormally in the right middle lobe or in the right upper lobe. Likewise, left side was normal. Next, under direct visualization and using the Veran navigational scope, we did transbronchial needle aspirations of the lesion in the right lower lobe and followed that by doing transbronchial and endobronchial biopsies of the lesion in the right lower lobe. Subsequent to that we did brushes under direct visualization and washes of the right lower lobe lesion. Pictures were taken. The patient tolerated the procedure well. There was minimal bleeding. The samples will be sent to the laboratory for analysis. There was no immediate complication. The patient will be recovered. MMODL / IJN: [id number] /
== END 2020-06-21 16:20 | disposition home or self-care (01) ==
LOC: ORWHC2ENDO 11:00
PROVIDERS: ATTEND Internal Medicine Critical Care Medicine
DX: C34.31 Malignant neoplasm of lower lobe, right bronchus or lung (principal); J44.9 Chronic obstructive pulmonary disease, unspecified; I48.20 Chronic atrial fibrillation, unspecified; G47.33 Obstructive sleep apnea (adult) (pediatric); H40.9 Unspecified glaucoma; E03.9 Hypothyroidism, unspecified; M10.9 Gout, unspecified; F32.9 Major depressive disorder, single episode, unspecified; M19.90 Unspecified osteoarthritis, unspecified site; K21.9 Gastro-esophageal reflux disease without esophagitis; F17.200 Nicotine dependence, unspecified, uncomplicated; K02.9 Dental caries, unspecified; I10 Essential (primary) hypertension; E78.5 Hyperlipidemia, unspecified; I34.1 Nonrheumatic mitral (valve) prolapse; Z79.01 Long term (current) use of anticoagulants; Z79.899 Other long term (current) drug therapy; Z79.891 Long term (current) use of opiate analgesic; Z79.890 Hormone replacement therapy; Z98.890 Other specified postprocedural states; Z90.710 Acquired absence of both cervix and uterus; Z90.89 Acquired absence of other organs
CPT/HCPCS: 88104; 88108; 88305; 88173; 71045; 71250; 31628; 31625; 31623; 31627; J2250; J0461; J1100; J2710; J2405; J2001; J3010; J0330; J2704; 31624; 31629

== ENCOUNTER 2020-07-13 07:30 | Inpatient (IN) | payer MEDICARE, OTHER ==
[2020-07-27] MEDS ORDERED: DEXAMETHASONE SOD PHOSPHATE 4 MG/ML 1 ML VIAL IV ONE (06:03)
[2020-07-27] MEDS ORDERED: ONDANSETRON 4 MG/2 ML VIAL IVP ONE (06:03)
[2020-07-27] MEDS ORDERED: SCOPOLAMINE 1.5MG/72HR PATCH TRANSDERM ONE (06:03)
[2020-07-27] MEDS ORDERED: LIDOCAINE 1% (10MG/ML) FOR IV START INTRADERMA PRN (06:03)
[2020-07-27] MEDS ORDERED: LACTATED RINGERS 1,000 ML IV SCH (06:03)
[2020-07-27 06:49] LABS: Glucose,Whole Blood 78 mg/dL (75-99)
[2020-07-27] MEDS ORDERED: HYDROmorphone 0.5 MG/0.5 ML SYRINGE IVP PRN ×2 (07:00→13:51)
[2020-07-27] MEDS ORDERED: NEOSTIGMINE 1 MG/ML 10 ML VIAL ONE (07:33)
[2020-07-27] MEDS ORDERED: PHENYLEPHRINE 10 MG/ML VIAL ONE (07:33)
[2020-07-27] MEDS ORDERED: fentaNYL (PF) 50 MCG/ML 2 ML AMP ONE (07:33)
[2020-07-27] MEDS ORDERED: MIDAZOLAM 2 MG/2 ML VIAL ONE (07:33)
[2020-07-27] MEDS ORDERED: ROCURONIUM 10 MG/ML (10 ML VIAL) IV ONE (07:33)
[2020-07-27] MEDS ORDERED: GLYCOPYRROLATE 0.2 MG/ML 2 ML VIAL ONE (07:33)
[2020-07-27] MEDS ORDERED: PROPOFOL 10 MG/ML 20 ML VIAL IV ONE (07:33)
[2020-07-27] MEDS ORDERED: SUCCINYLCHOLINE CHLORIDE 100 MG/5 ML SYR IV ONE (07:33)
[2020-07-27] MEDS ORDERED: LIDOCAINE 1% INJ 10MG/ML (20 ML MDV) ONE (07:33)
[2020-07-27] MEDS ORDERED: LACTATED RINGERS 1,000 ML IV ONE (08:11)
[2020-07-27] MEDS ORDERED: MECLIZINE 12.5 MG TAB PO PRN (11:23)
[2020-07-27] MEDS ORDERED: LOPERAMIDE 2 MG CAP PO PRN (11:23)
[2020-07-27] MEDS ORDERED: fentaNYL (PF) 50 MCG/ML 2 ML AMP IVP ONE ×2 (11:42→11:56)
--- NOTE | 2020-07-27 11:45 | P.OP ---
Date of Procedure: 07/27/20 Preoperative Diagnosis: Non-small cell carcinoma involving the takeoff of the right lower lobe bronchus and distal bronchus intermedius Postoperative Diagnosis: Non-small cell lung cancer involving the right lower lobe orifice and extending into the proximal bronchus intermedius Procedure(s) Performed: Fiberoptic bronchoscopy, right thoracotomy, right lower and middle bilobectomy, mediastinal lymph node dissection, cryoablation of the intercostal nerves 3, 4, 5, 6 and 7. Implants: None Anesthesia: ELIZABETA Surgeon: Greg Worley Bean Picker #1: Chet Neves Estimated Blood Loss (ml): 20 IV fluids (ml): 500 Urine output (ml): 300 Pathology: other (Frozen section of bronchial margin returned negative for malignancy; permanent sections of right lower and middle lobectomy, lymph node stations R4, R 10, R8, level 7, R11, R12) Condition: stable Disposition: PACU Indications for Procedure: 75-year-old female presents with a central tumor in the orifice of the right lower lobe bronchus by bronchoscopy. Bronchoscopic biopsy was positive for non- small cell carcinoma. PET scan was negative for lymph node metastasis positive for uptake in the primary tumor. There was no evidence of distant metastasis. Patient was referred for lung resection by Dr. Weber. Was hoped to do a minimally invasive procedure but it was recognized that the centrality of the tumor and the involvement of the bronchus intermedius might require open thoracotomy. This was fully discussed with the patient preoperatively. Operative Findings: At fiberoptic bronchoscopy, tumor was noted in the orifice of the right lower lobe bronchus extending into the proximal bronchus intermedius. Due to this proximal extent of the tumor was felt that a minimally invasive approach was likely to fail and that we should proceed with a open thoracotomy. At thoracotomy there were no significant intrapleural adhesions. There were adhesions between the lobes. The fissures were partially complete. The tumor was approximately 3 cm in diameter and adherent to the bronchus intermedius in the region of the superior segment of the right lower lobe. There was fairly extensive anthracotic lymphadenopathy in both the mediastinum and in the hilum. There was fairly extensive inflammatory reaction around this lymphadenopathy making the dissection quite difficult. On removal of the bilobectomy specimen the proximal bronchial margin was shaved from the staple line and sent for frozen section. It returned negative for carcinoma. Description of Procedure: Patient was brought to the operating room, placed supine on the operating table, anesthetized and intubated with a double-lumen endotracheal tube. Tube was advanced into the left mainstem bronchus under bronchoscopic guidance. There were no endobronchial lesions noted on the left. Bronchoscopy through the right lumen of the double-lumen endotracheal tube revealed the tumor. It was extending fairly proximally and the bronchus intermedius to within less than a centimeter of the distal portion of the takeoff of the right upper lobe bronchus. Based on this it was felt there would be no way to do anything less than a bilobectomy and that a upper lobe sleeve might be required. In addition was felt that stapling the proximal bronchus intermedius would be quite challenging and was best approached with an open approach. The patient was turned in the left lateral decubitus position and appropriately positioned for thoracotomy. Right chest was sterilely prepped and draped. Posterior lateral thoracotomy incision was performed and the chest was entered in the fifth interspace. The lung was deflated and the chest was explored with the findings as noted above. Adhesions in the fissures were taken down with electrocautery. The inferior pulmonary ligament was taken down with electric cautery. Dissection was continued posteriorly and the R8 and level VII lymph nodes were resected. This dissection was quite challenging due to fairly dense fibrosis of the lymph node investing tissues. Then carried our dissection up onto the bronchus and identified the upper lobe bronchial takeoff. The interval between the upper lobe and the proximal bronchus intermedius was dissected. We now directed our attention anteriorly. The inferior pulmonary vein was encircled, ligated and divided with a Endo ASAF vascular stapler. Dissection was carried up onto the superior pulmonary vein. The middle lobe branch of the superior pulmonary vein was dissected out and ligated and divided with a Endo ASAF vascular stapler. Dissection was brought back posteriorly and we began tedious and careful dissection in the hilum. Posterior segmental artery and vein leading to the posterior segment of the right upper lobe were identified. We then were able to dissected around the proximal bronchus intermedius. This was ligated very proximally with a Endo ASAF medium thick stapler. We now continued our dissection onto the pulmonary artery and the pulmonary artery branches leading to the lower and middle lobes were identified. They were dissected out and doubly ligated with silk ties and divided. The fissure between the upper and lower lobe had been taken down using electrocautery. We now completed the fissure between the middle and upper lobe with 2 firings of Endo ASAF medium thick stapler. The bilobectomy specimen was now brought out on the field. The proximal margin of the staple bronchus intermedius we shaved off the staple line. This was sent to pathology for frozen section which returned negative. The bilobectomy specimen was placed on the back table. We examined the hilum and determined that all of the hilar lymph nodes and been resected. The R 10 lymph nodes were resected from the proximal mainstem bronchus. Dissection was then carried out in the paratracheal region and the R4 lymph nodes were resected. All lymph nodes were sent for permanent section. Cryoablation was performed on the intercostal nerves posteriorly at levels 3, 4, 5, 6 and 7 with the Endo ice cryoablation system. 28-Upper Sorbian chest tube was placed through separate stab incision and positioned posterior apically. The chest was irrigated with warm water and the lung inflated. No air leak was noted. Good hemostasis was noted. The chest tube was secured with 0 Ethibond suture and the ribs reapproximated with #1 Vicryl suture. Muscle layers were closed with 0 Vicryl in the subcutaneous tissue with 2-0 Vicryl. Subcuticular skin closure was performed with 3-0 Vicryl. Skin glue and dry sterile dressing were applied. Patient was turned supine and extubated and transferred to recovery room in stable condition. Bilobectomy specimen was examined on the back table and R 11 and are 12 lymph nodes were dissected out and sent as separate specimens.
[2020-07-27] MEDS: MORPHINE SULFATE 4 MG/ML SYRINGE IVP ONE ×2 (12:21→12:31)
[2020-07-27] MEDS ORDERED: ACETAMINOPHEN IV (For NPO) 1,000 MG/100 ML VIAL IVPB ONE (12:25)
--- NOTE | 2020-07-27 12:31 | XR ---
EXAMINATION TYPE: XR chest 1V portable DATE OF EXAM: 07/27/2020 Comparison: 06/21/2020 Clinical History: 75-year-old female post lobectomy. Findings: Apically directed right-sided chest tube. No sizable pneumothorax seen. Heart mildly enlarged. Some p atchy left basilar opacity is demonstrated. Some patchy right midlung opacity. Mild subcutaneous emph ysema along the right chest wall. Impression: 1. Right-sided chest tube. No appreciable pneumothorax. 2. Patchy opacity right midlung and left base could represent atelectasis. Follow-up to exclude early infiltrates.
[2020-07-27] MEDS ORDERED: MIDAZOLAM 2 MG/2 ML VIAL IVP ONE ×2 (12:40→13:00)
[2020-07-27 13:20] LABS: Glucose,Whole Blood 119 mg/dL (75-99)
[2020-07-27] MEDS ORDERED: HYDROcodone/APAP 10-325MG 1 EACH TAB PO PRN (13:36)
[2020-07-27] MEDS ORDERED: ONDANSETRON 4 MG/2 ML VIAL IVP PRN (13:36)
[2020-07-27] MEDS: DEXTROSE 5%-0.45% NACL 1,000 ML IV SCH (13:56)
[2020-07-27] MEDS ORDERED: NALOXONE 0.4 MG/ML 1 ML VIAL IV PRN (14:10)
--- NOTE | 2020-07-27 14:16 | P.CNPUL ---
History of Present Illness Consult date: 07/27/20 Requesting physician: Greg Worley Reason for consult: other (Status post bilobectomy, known history of COPD) Chief complaint: Status post bilobectomy, patient had squamous cell lung cancer. History of present illness: This is a 75-year-old female with known history of multiple medical problems including COPD, chronic atrial fibrillation,hypothyroidism, former nicotine dependence, quit 2 years ago, chronic systolic congestive heart failure, hypertension, dyslipidemia, patient was diagnosed recently by Dr. Weber as having squamous cell carcinoma involving the right middle lobe and right lower lobe. Patient had no evidence of metastatic disease based on the PET scan done on outpatient basis. She was referred to Dr. Worley, and today the patient underwent bilobectomy, her postoperative course has been uneventful, patient was extubated, she is now on 2 L nasal cannula, O2 saturations in the 90s. Patient is mostly complaining of pain at the surgical site. And at the side of the c hest tube insertion. Otherwise the patient has no shortness of breath, no cough, no wheezing. Considering the patient had bilobectomy and considering her underlying pulmonary history, we were asked to see her on consultation. Review of Systems CONSTITUTIONAL: Denies fever or chills. CARDIOVASCULAR: Denies chest pain, shortness of breath, orthopnea, PND or palpitations. RESPIRATORY: Denies cough. GASTROINTESTINAL: Denies abdominal pain, diarrhea, constipation, nausea or vomiting. MUSCULOSKELETAL: Denies myalgias. NEUROLOGIC: Denies numbness, tingling or weakness. ENDOCRINE: Denies fatigue, weight change, polydipsia or polyurina. GENITOURINARY: Denies burning, hematuria or urgency with micturation. HEMATOLOGIC: Denies history of anemia or bleeding. Psychiatric: No symptoms of active depression Past Medical History Past Medical History: Atrial Fibrillation, Asthma, COPD, Eye Disorder, GERD/Reflux, Hypertension, Mitral Valve Prolapse (MVP), Osteoarthritis (OA), Pneumonia, Rheumatoid Arthritis (RA), Thyroid Disorder Additional Past Medical History / Comment(s): lung CA, depressive disorder, lumbar ddd,"bulging discs", chronic back/neck pain, diverticulitis, migraines, macular degeneration ana eyes History of Any Multi-Drug Resistant Organisms: None Reported Past Surgical History: Adenoidectomy, Hysterectomy, Orthopedic Surgery, Tonsillectomy Additional Past Surgical History / Comment(s): ORIF right hip,bronchoscopy Past Anesthesia/Blood Transfusion Reactions: No Reported Reaction Additional Past Anesthesia/Blood Transfusion Reaction / Comment(s): no hx blood transfusion Past Psychological History: Depression Additional Psychological History / Comment(s): . Smoking Status: Former smoker Past Alcohol Use History: None Reported Additional Past Alcohol Use History / Comment(s): started smoking at age 17 and quit smoking cigarettes 2006. started smoking the e-cig until 2014-quit e cig 2016 approx Past Drug Use History: None Reported - Past Family History Mother Family Medical History: Vascular Disorder Father Family Medical History: CVA/TIA Brother(s) Family Medical History: Thyroid Disorder Medications and Allergies Home Medications Medication Instructions Recorded Confirmed Type Hydrocodone/Acetaminophen [[place] 1 tab PO TID PRN 11/15/14 07/24/20 History 10-325] Lovastatin [Mevacor] 20 mg PO HS 11/16/14 07/24/20 History Meclizine HCl 12.5 mg PO Q8H PRN 09/08/17 07/24/20 History Ergocalciferol (Vitamin D2) 50,000 unit PO SA 05/15/18 07/24/20 History [Vitamin D2] lisinopriL [Prinivil] 5 mg PO 1600 06/28/18 07/26/20 History buPROPion XL [Wellbutrin XL] 150 mg PO QAM 02/19/19 07/24/20 History lamoTRIgine [LaMICtal] 100 mg PO BID 02/19/19 07/24/20 History Estrogens, Conjugated [Premarin] 0.3 mg PO DAILY 02/22/19 07/24/20 History Levothyroxine Sodium [Synthroid] 88 mcg PO QAM 10/27/19 07/24/20 History Metoprolol Tartrate [Lopressor] 25 mg PO BID #180 tab 12/30/19 07/24/20 Rx Apixaban [Eliquis] 2.5 mg PO BID #60 tablet 02/28/20 07/24/20 Rx Vilazodone HCl [Viibryd] 40 mg PO 1600 06/20/20 07/24/20 History Budesonide/Glycopyr/Formoterol 1 puff INHALATION BID 07/24/20 07/24/20 History [Breztri Aerosphere Inhaler] Loperamide HCl [Loperamide] 2 mg PO DAILY PRN 07/24/20 07/24/20 History ARIPiprazole 2 mg PO QAM 07/26/20 07/26/20 History Allergies Allergy/AdvReac Type Severity Reaction Status Date / Time No Known Allergies Allergy Verified 07/24/20 15:52 Physical Exam Vitals: Vital Signs Temp Pulse Pulse Pulse Resp BP BP 07/27/20 14:00 70 17 07/27/20 13:45 64 16 130/79 07/27/20 13:30 97.9 F 67 19 134/72 07/27/20 13:19 79 22 07/27/20 13:00 74 20 07/27/20 12:45 70 18 07/27/20 12:30 62 20 07/27/20 12:15 61 22 07/27/20 12:00 64 14 07/27/20 11:45 64 20 07/27/20 11:29 96.9 F L 69 16 07/27/20 06:53 98.4 F 100 20 170/84 BP BP BP Pulse Ox 07/27/20 14:00 94 L 07/27/20 13:45 100 07/27/20 13:30 100 07/27/20 13:19 07/27/20 13:00 145/65 139/63 100 07/27/20 12:45 149/60 128/60 100 07/27/20 12:30 150/61 100 07/27/20 12:15 120/57 142/83 100 07/27/20 12:00 136/62 138/65 100 07/27/20 11:45 122/56 100 07/27/20 11:29 120/56 117/61 100 07/27/20 06:53 98 Intake and Output 07/26/20 07/27/20 07/27/20 22:59 06:59 14:59 Intake Total 700 800 Output Total 600 Balance 700 200 Intake: IV 700 800 Dextrose 5%-0.45% NaCl 1, 50 000 ml @ 50 mls/hr IV . Q20H [facility] Rx#:[id number] Output: Drainage 40 Right Lateral Chest 40 Urine 440 Estimated Blood Loss 120 Other: Weight 53 kg ABP, PAP, CO, CI - Last 8 Hours Arterial Blood Pressure 134/58 Arterial Blood Pressure 145/62 Arterial Blood Pressure 155/67 Physical Exam revealed a 75-year-old female in no form of respiratory distress, however seems to be experiencing significant amount of pain at the site of this chest tube insertion. Head: Atraumatic, normocephalic. HEENT:[Neck is supple.] [No neck masses.] [No thyromegaly.] [No JVD.] Chest: [Symmetrical chest expansion, diminished breath sound bilaterally, right- sided chest tube is noted. Cardiac Exam: [Normal S1 and S2, no S3 gallop, 2/6 systolic murmur at the left lower sternal border. Abdomen: [Soft, nontender, no megaly, no rebound, no guarding, normal bowel sounds.] Extremities: [No clubbing, no edema, no cyanosis.] Neurological Exam: [No focal neurologic deficit.] Alert and oriented 3. Psychiatric: Normal mood, affect and normal mental status examination. Skin: No rashes. Musculoskeletal: No deformities, no limitation in range of motion. Results - Laboratory Findings Abnormal lab findings: Abnormal Labs 07/27/20 13:19 POC Glucose (mg/dL) 119 H - Diagnostic Findings Chest x-ray: image reviewed (Right-sided chest tube is noted, no pneumothorax, no evidence of active disease) Assessment and Plan Assessment: Impression: Status post bilobectomy, postoperative day #0. Squamous cell carcinoma, diagnosed on 06/18/20. Chronic atrial fibrillation. Benign essential hypertension. History of mitral valve prolapse. History of rheumatoid arthritis. History of hypothyroidism. History of depression. History of glaucoma. Recommendation: Continue present supportive care measures. Incentive spirometry and early ambulation. Bronchodilators. Titrate oxygen down as tolerated maintaining O2 saturation above 90%. Pain control management. Discontinue unnecessary catheters and lines Resume home meds. GI prophylaxis. DVT prophylaxis. We'll continue to follow. Time with Patient: Greater than 30
[2020-07-27] MEDS ORDERED: HYDROmorphone PCA 10 MG/50 ML BAG IV PRN (14:30)
[2020-07-27] MEDS: lisinopriL 5 MG TAB PO SCH (16:53)
[2020-07-27] MEDS: HEPARIN SODIUM,PORCINE 5,000 UNIT/ML 1 ML VIAL SQ SCH ×2 (16:53→23:39)
[2020-07-27] MEDS: HYDROcodone/APAP 10-325MG 1 EACH TAB PO PRN ×2 (19:09→23:34)
[2020-07-27] MEDS: IPRATROPIUM-ALBUTEROL 3 ML NEB IH SCH ×2 (19:29→19:30)
[2020-07-27] MEDS: FORMOTEROL FUMARATE 20 MCG/2 ML NEBU INHALATION SCH (19:31)
[2020-07-27] MEDS: SENNOSIDES-DOCUSATE SODIUM 1 EACH TAB PO SCH (20:34)
[2020-07-27] MEDS: METOPROLOL TARTRATE 25 MG TAB PO SCH (20:51)
[2020-07-27] MEDS: lamoTRIgine 100 MG TAB PO SCH (20:51)
[2020-07-27] MEDS: ATORVASTATIN 10 MG TAB PO SCH (20:51)
[2020-07-28] MEDS: HYDROcodone/APAP 10-325MG 1 EACH TAB PO PRN ×2 (04:04→09:03)
[2020-07-28 04:24] LABS: Basophils % (A) 1 %; Eosinophils % (A) 0 %; HCT 34.4 % (34.0-46.0); HGB 11.1 gm/dL (11.4-16.0); Hypochromasia Slight; Lymphocytes # (A) 1.1 k/uL (1.0-4.8); Lymphocytes % (A) 13 %; MCH 32.6 pg (25.0-35.0); MCHC 32.2 g/dL (31.0-37.0); MCV 101.3 fL (80.0-100.0); Mean Platelet Volume 7.7; Monocytes # (A) 0.7 k/uL (0-1.0); Monocytes % (A) 8 %; Neutrophils # (A) 6.7 k/uL (1.3-7.7); Neutrophils % (A) 77 %; Platelet Count 195 k/uL (150-450); RDW 12.9 % (11.5-15.5); WBC 8.6 k/uL (3.8-10.6)
[2020-07-28 04:38] LABS: African American GFR (CKD) >90 (>60 ml/min/1.73 sqM); Anion Gap 4 mmol/L; Blood Urea Nitrogen 18 mg/dL (7-17); Calcium 8.6 mg/dL (8.4-10.2); Carbon Dioxide 27 mmol/L (22-30); Chloride 104 mmol/L (98-107); Glucose 110 mg/dL (74-99); Non-African American GFR(CKD) 85 (>60 ml/min/1.73 sqM); Potassium 4.6 mmol/L (3.5-5.1); Sodium 135 mmol/L (137-145)
[2020-07-28] MEDS: IPRATROPIUM-ALBUTEROL 3 ML NEB IH PRN (06:00)
[2020-07-28] MEDS: PANTOPRAZOLE 40 MG TABLET PO SCH (06:32)
[2020-07-28] MEDS: LEVOTHYROXINE 88 MCG TAB PO SCH (06:32)
[2020-07-28] MEDS: IPRATROPIUM-ALBUTEROL 3 ML NEB IH SCH ×4 (07:43→21:17)
[2020-07-28] MEDS: FORMOTEROL FUMARATE 20 MCG/2 ML NEBU INHALATION SCH ×3 (07:43→21:17)
[2020-07-28] MEDS: HEPARIN SODIUM,PORCINE 5,000 UNIT/ML 1 ML VIAL SQ SCH ×2 (09:01→16:31)
[2020-07-28] MEDS: KETOROLAC 15 MG/ML 1 ML VIAL IVP SCH ×3 (09:01→17:36)
[2020-07-28] MEDS: ASPIRIN 81 MG PO SCH (09:02)
[2020-07-28] MEDS: ARIPiprazole 2 MG TAB PO SCH (09:02)
[2020-07-28] MEDS: buPROPion XL 150 MG TAB.ER.24H PO SCH (09:02)
[2020-07-28] MEDS: METOPROLOL TARTRATE 25 MG TAB PO SCH ×2 (09:03→22:27)
[2020-07-28] MEDS: lamoTRIgine 100 MG TAB PO SCH ×2 (09:03→22:27)
[2020-07-28] MEDS: ESTROGENS, CONJUGATED 0.3 MG TAB PO SCH (09:03)
--- NOTE | 2020-07-28 09:14 | P.PN ---
Subjective Progress Note Date: 07/28/20 Principal diagnosis: Non-small cell lung cancer involving the right lower lobe orifice and extending into the proximal bronchus intermedius. Previous medical history of tobacco de pendence with cessation 5 years ago, COPD, hypertension, hyperlipidemia, chronic atrial fibrillation on Eliqu outpatient for anticoagulation, chronic systolic failure, hypothyroid, arthritis with chronic pain and narcotic dependence, depression. POD #1 fiberoptic bronchoscopy, right thoracotomy, right lower and middle bilobectomy, mediastinal lymph node dissection, cryoablation of the intercostal nerves 3, 4, 5, 6 and 7 The patient was assisted up to the recliner in the intensive care unit this morning. She does complain of pain at her surgical site mostly relieved with current medication regimen. Overnight she would cry out in pain and then drift right back to sleep per nursing. She does have Dilaudid [employer] as well as high- dose [place] which she takes at home. Right sided chest tube in place without any air leak present. Otherwise no new concerns. Objective - Vital Signs Vital signs: Vital Signs Temp 98.2 F 07/28/20 04:00 Pulse 92 07/28/20 07:00 Resp 12 07/28/20 07:00 BP 108/83 07/28/20 06:30 Pulse Ox 95 07/28/20 07:00 Intake & Output 07/27/20 07/28/20 07/28/20 18:59 06:59 18:59 Intake Total 1050 1020 50 Output Total 1065 700 25 Balance -15 320 25 Weight 60.1 kg Intake: IV 1050 650 50 Dextrose 5%-0.45% NaCl 1, 250 600 50 000 ml @ 50 mls/hr IV . Q20H [facility] Rx#:[id number] ceFAZolin 2 gm In Sodium 50 50 Chloride 0.9% 50 ml @ 100 mls/hr IVPB ONCE PRN Rx# :[id number] Oral 370 Output: Drainage 365 425 Right Lateral Chest 365 425 Urine 580 275 25 Estimated Blood Loss 120 Other: Voiding Method Indwelling Catheter Indwelling Catheter ABP, PAP, CO, CI - Last Documented Arterial Blood Pressure 113/54 - Constitutional General appearance: Present: cooperative, no acute distress, thin - Respiratory Details: Lungs sounds diminished bilaterally with expiratory wheezes present. Respirations even, nonlabored. Currently on 2 L nasal cannula with oxygen saturation 95%. Only able to achieve 500 mL on her incentive spirometry. Weak cough. Right-sided pleural chest tube present to continuous wall suction, 200 mL serous drainage overnight, 1000 mL since surgery, no air leak present. - Cardiovascular Details: S1, S2 present. Irregular rate and rhythm, atrial fibrillation on telemetry with heart rate in the 80s. Palpable peripheral pulses bilaterally. No edema present. No calf pain or tenderness noted. SCDs present. - Gastrointestinal Gastrointestinal Comment(s): Abdomen soft, nontender, nondistended. Hypoactive bowel sounds present 4 quadrants. Tolerating diet. - Genitourinary Genitourinary Comment(s): Muñoz present draining clear, yellow urine. - Integumentary Integumentary Comment(s): Skin is warm and dry with evidence of good perfusion. Right lateral wall thoracotomy incision well approximated and covered with dry intact dressing - Neurologic Neurologic: Present: CNII-XII intact - Musculoskeletal Musculoskeletal Comment(s): Patient walks hunched over which she states is normal for her Musculoskeletal: Present: strength equal bilaterally - Psychiatric Psychiatric: Present: A&O x's 3 - Allied health notes Allied health notes reviewed: nursing - Labs CBC & Chem 7: 07/28/20 04:00 07/28/20 04:00 Labs: Abnormal Lab Results - Last 24 Hours (Table) 07/27/20 07/28/20 07/28/20 Range/Units 13:19 04:00 04:00 RBC 3.40 L (3.80-5.40) m/uL Hgb 11.1 L (11.4-16.0) gm/dL MCV 101.3 H (80.0-100.0) fL Sodium 135 L (137-145) mmol/L BUN 18 H (7-17) mg/dL Glucose 110 H (74-99) mg/dL POC Glucose (mg/dL) 119 H (75-99) mg/dL - Imaging and Cardiology Chest x-ray: image reviewed Assessment and Plan Assessment: 1. Non-small cell lung cancer involving the right lower lobe orifice and extending into the proximal bronchus intermedius, status post fiberoptic bronchoscopy, right thoracotomy, right lower and middle bilobectomy with mediastinal lymph node dissection and cryoablation of intercostal nerves, surgical pathology pending 2. History of tobacco dependence with cessation 5 years ago 3. COPD 4. Hypertension 5. Hyperlipidemia, treated 6. Chronic atrial fibrillation on Eliquis outpatient for anticoagulation 7. Chronic systolic failure 8. Hypothyroid 9. Arthritis with chronic pain and narcotic dependence 10. Depression. Plan: 1. Will place right pleural chest tube to waterseal, monitor output 2. Daily chest x-rays 3. Pain control with current medication regimen. Dilaudid [employer]ATOR dose increased, Toradol added 4. Wean O2 as tolerated. Encourage incentive spirometry is 10 times every hour while awake. Bronchodilators per pulmonology 5. Low-dose aspirin added to patient's medication regimen. Will hold off on restarting Eliquis until chest tube is removed 6. Increase activity, ambulate as tolerated. PT/OT consulted 7. Discontinue arterial line, Muñoz catheter 8. If patient is eating may hep lock IV 9. Continue home medications 10. Pathology pending, await final results 11. May transfer out of ICU later today 12. More recommendations to follow Time with Patient: Greater than 30
--- NOTE | 2020-07-28 09:31 | CONS ---
CONSULTATION Status post bilobectomy for squamous cell lung cancer, bilobectomy, history of COPD, nicotine addiction, quit 2 years ago, systolic heart failure, hypertension, dyslipidemia. Has squamous cell lung cancer of the right middle lobe and right lower lobe with PET scan showed no metastases. She underwent bilobectomy. She is weaned off the vent. She is only at 2 L oxygen, sats are in the 90s. She is doing well. She is complaining of 10/10 pain on her on incisional area. Discussed with the nurse. Increase her [place] to q.4 hours if needed. REVIEW OF SYSTEMS: Fourteen-point review of systems negative except for mentioned in HPI. PAST MEDICAL HISTORY: Atrial fibrillation, systolic heart failure, GERD, COPD, asthma, mitral valve prolapse, osteoarthritis, rheumatoid arthritis, hypothyroidism, diverticulitis, migraines, macular degeneration, depression, lumbar disc disease, former smoker. No alcohol. FAMILY HISTORY: Mother with vascular disorder. Father with CVA, TIA. HOME MEDICATIONS: Prinivil 5 mg daily, vitamin D 50,000 units weekly, meclizine 12.5 q.8, Mevacor 20 at bedtime, [place] 10/325 t.i.d., Lamictal 100 mg b.i.d., Wellbutrin XL 150 q.a.m., Lopressor 25 b.i.d., Synthroid 88 mcg daily, estrogen 0.3 mg daily, aripiprazole 2 mg daily, loperamide 2 mg daily, Viibryd for 40 mg daily, Eliquis 2.5 b.i.d. ALLERGIES: No known drug allergies. PHYSICAL EXAMINATION: Temperature 97, pulse 60s to 70s, respiratory rate 18 to 20, blood pressure 120s to 130s over 60s. CARDIAC: S1, S2. INTEGUMENT: . CONSTITUTIONAL: Weak, fatigue, looks thin and cachectic. NEUROLOGIC: Cranial nerves intact. MUSCULOSKELETAL: She has 10/10 pain over the incision site. Chest x-ray, no pneumothorax. LUNGS: Appear to be clear. PSYCH: She appears fatigued, weak. NEUROLOGIC: Cranial nerves are intact. PSYCH: Fair mood and affect, anxious. ASSESSMENT: 1. Status post bilobectomy. 2. Chronic obstructive pulmonary disease. 3. Nicotine addiction. 4. Hypothyroidism. 5. Neuropathy. Resume her home medications. Wean off pain medications as tolerated. Continue to monitor oxygen progress. MMODL / IJN: [id number] /
[2020-07-28] MEDS: DEXTROSE 5%-0.45% NACL 1,000 ML IV SCH (09:46)
[2020-07-28] MEDS ORDERED: METOPROLOL TARTRATE 5 MG/5 ML VIAL IVP ONE (09:51)
[2020-07-28] MEDS: HALOPERIDOL LACTATE 5 MG/ML 1 ML VIAL IVP PRN ×2 (10:15→16:29)
[2020-07-28] MEDS: DEXMEDETOMIDINE/0.9% NACL(PMX) 400 MCG in EMPTY BAG 1 BAG IV SCH (10:16)
[2020-07-28] MEDS ORDERED: ALBUMIN HUMAN 5% 250 ML IVPB ONE (10:45)
[2020-07-28] MEDS ORDERED: ALBUMIN HUMAN 5% 250 ML in EMPTY BAG 1 BAG IVPB STA (10:48)
--- NOTE | 2020-07-28 10:57 | XR ---
EXAMINATION TYPE: XR chest 1V DATE OF EXAM: 07/28/2020 COMPARISON: 07/27/2020 HISTORY: Post lobectomy, chest tube TECHNIQUE: Single frontal view of the chest is obtained. FINDINGS: A chest tube remains in place, there is subcutaneous emphysema. Minimal apical pneumothora x present on the right. Patchy bibasilar density persists, the heart is enlarged. Aorta is dense. IMPRESSION: Postop findings, basilar atelectasis, difficult to exclude effusion and pneumonia, edema . Minimal right apical pneumothorax.
[2020-07-28] MEDS ORDERED: ALBUMIN HUMAN 5% 250 ML in EMPTY BAG 1 BAG IVPB ONE (11:09)
[2020-07-28] MEDS ORDERED: NOREPINEPHRINE 4 MG in SODIUM CHLORIDE 0.9% 250 ML IV SCH ×2 (11:45→18:45)
--- NOTE | 2020-07-28 13:34 | P.PN ---
Subjective Progress Note Date: 07/28/20 Principal diagnosis: Right lung cancer, status post bilobectomy postoperative day #1 This is a 75-year-old female with known history of multiple medical problems including COPD, chronic atrial fibrillation,hypothyroidism, former nicotine dependence, quit 2 years ago, chronic systolic congestive heart failure, hypertension, dyslipidemia, patient was diagnosed recently by Dr. Weber as having squamous cell carcinoma involving the right middle lobe and right lower lobe. Patient had no evidence of metastatic disease based on the PET scan done on outpatient basis. She was referred to Dr. Worley, and today the patient underwent bilobectomy, her postoperative course has been uneventful, patient was extubated, she is now on 2 L nasal cannula, O2 saturations in the 90s. Patient is mostly complaining of pain at the surgical site. And at the side of the chest tube insertion. Otherwise the patient has no shortness of breath, no cough, no wheezing. Considering the patient had bilobectomy and considering her underlying pulmonary history, we were asked to see her on consultation. Reevaluated today on 07/28/2020, patient is becoming more and more agitated, patient is getting to be paranoid, and refusing lots of medications. Trying to pull her IV out, keeps taking her oxygen off. Multiple staff members where calling the patient down and able to put her back in bed, in the meantime went ahead and recommended a dose of Haldol on the patient, and recommended that we start Precedex on this patient. Seems to be working so far. Patient does not seem to be in any respiratory distress. Her CBC is relatively normal left lites are normal renal profile is normal. Chest x-ray showed mostly postoperative findings and basilar atelectasis. Objective - Vital Signs Vital signs: Vital Signs Temp 98.1 F 07/28/20 12:00 Pulse 65 07/28/20 13:00 Resp 11 L 07/28/20 13:00 BP 101/69 07/28/20 13:00 Pulse Ox 99 07/28/20 13:00 Intake & Output 07/27/20 07/28/20 07/28/20 18:59 06:59 18:59 Intake Total 1050 1020 310.103 Output Total 1065 700 265 Balance -15 320 45.103 Weight 60.1 kg 60.1 kg Intake: IV 1050 650 300 Dextrose 5%-0.45% NaCl 1, 250 600 300 000 ml @ 50 mls/hr IV . Q20H [facility] Rx#:[id number] ceFAZolin 2 gm In Sodium 50 50 Chloride 0.9% 50 ml @ 100 mls/hr IVPB ONCE PRN Rx# :[id number] Intake, IV Titration 10.103 Amount Dexmedetomidine/0.9% NaCl 3.806 (Pmx) 400 mcg In Empty Bag 1 bag @ Titrate IV . Q0M [facility] Rx#:[id number] Norepinephrine 4 mg In 6.297 Sodium Chloride 0.9% 250 ml @ 0.05 MCG/KG/MIN 11. 449 mls/hr IV .[id number] [facility] Rx#:[id number] Oral 370 Output: Drainage 365 425 130 Right Lateral Chest 365 425 130 Urine 580 275 135 Estimated Blood Loss 120 Other: Voiding Method Indwelling Catheter Indwelling Catheter ABP, PAP, CO, CI - Last Documented Arterial Blood Pressure 124/60 - Exam Physical Exam revealed a 75-year-old female in no form of respiratory distress, extremely agitated and restless. But not in respiratory distress. Head: Atraumatic, normocephalic. HEENT:[Neck is supple.] [No neck masses.] [No thyromegaly.] [No JVD.] Chest: [Symmetrical chest expansion, diminished breath sound bilaterally, right- sided chest tube is noted. Cardiac Exam: [Normal S1 and S2, no S3 gallop, 2/6 systolic murmur at the left lower sternal border. Abdomen: [Soft, nontender, no megaly, no rebound, no guarding, normal bowel sounds.] Extremities: [No clubbing, no edema, no cyanosis.] Neurological Exam: Extreme agitation is noted, confused, restless, Psychiatric: Extremely agitated requiring significant number of people to calm her down and she received Haldol and placed on Precedex. Skin: No rashes. Musculoskeletal: No deformities, no limitation in range of motion. - Labs CBC & Chem 7: 07/28/20 04:00 07/28/20 04:00 Labs: Abnormal Lab Results - Last 24 Hours (Table) 07/28/20 07/28/20 Range/Units 04:00 04:00 RBC 3.40 L (3.80-5.40) m/uL Hgb 11.1 L (11.4-16.0) gm/dL MCV 101.3 H (80.0-100.0) fL Sodium 135 L (137-145) mmol/L BUN 18 H (7-17) mg/dL Glucose 110 H (74-99) mg/dL Assessment and Plan Assessment: Impression: Status post bilobectomy, postoperative day #1 Squamous cell carcinoma, diagnosed on 06/18/20. ICU psychosis and delirium requiring Haldol, and will start the patient on Pre cedex Chronic atrial fibrillation. Benign essential hypertension. History of mitral valve prolapse. History of rheumatoid arthritis. History of hypothyroidism. History of depression. History of glaucoma. Recommendation: Continue Precedex. Given 1 dose of Haldol 2 mg IV push 1 with significant improvement. Continue present supportive care measures. Incentive spirometry and early ambulation. Bronchodilators. Titrate oxygen down as tolerated maintaining O2 saturation above 90%. Pain control management. Discontinue unnecessary catheters and lines Resume home meds. GI prophylaxis. DVT prophylaxis. We'll continue to monitor the patient in the ICU. We'll continue to follow. Time with Patient: Less than 30
[2020-07-28] MEDS: lisinopriL 5 MG TAB PO SCH (15:59)
[2020-07-28] MEDS: SENNOSIDES-DOCUSATE SODIUM 1 EACH TAB PO SCH (22:20)
[2020-07-28] MEDS: ATORVASTATIN 10 MG TAB PO SCH (22:27)
--- NOTE | 2020-07-28 22:42 | PN ---
PROGRESS NOTE This is a 75-year-old white female. She had some trouble today with anxiety and possibly pulling out her lines. She has a history of hypothyroidism, chronic atrial fibrillation, nicotine addiction, status post bilobectomy. She is on 3 L oxygen. She was refusing all her medicines. She had paranoia. She was given 2 mg of Haldol. Precedex was given. She is sleeping comfortably currently at this time. Chest x-ray: Postoperative changes. Temperature 98.1, pulse 65, O2 99 on 3 L. Respiratory rate 12 to 16, blood pressure 101/69. Resting comfortably. Head is normocephalic, atraumatic. Cardiac: S1, S2. Neurologic: Resting comfortably. Psych is improved since Haldol and Precedex. Skin with no rashes. 1. Status post bilobectomy. 2. Squamous cell carcinoma. 3. ICU psychosis. 4. Delirium requiring Haldol. The patient is being given Precedex. 5. Chronic atrial fibrillation. 6. Hypertension. 7. Mitral valve prolapse. 8. Rheumatoid arthritis. 9. Hypothyroidism. 10.Depression. 11.Glaucoma. Haldol p.r.n. Precedex. Wean oxygen. chest tubes as needed. Resume home medications. Follow up. Prognosis guarded. MMODL / IJN: [id number] /
[2020-07-29] MEDS: KETOROLAC 15 MG/ML 1 ML VIAL IVP SCH ×5 (00:14→23:56)
[2020-07-29] MEDS: HEPARIN SODIUM,PORCINE 5,000 UNIT/ML 1 ML VIAL SQ SCH ×4 (00:16→23:56)
[2020-07-29] MEDS ORDERED: SODIUM CHLORIDE 0.9% 500 ML 500 ML IV ONE (00:34)
[2020-07-29] MEDS: DEXMEDETOMIDINE/0.9% NACL(PMX) 400 MCG in EMPTY BAG 1 BAG IV SCH (03:58)
[2020-07-29] MEDS: DEXTROSE 5%-0.45% NACL 1,000 ML IV SCH ×2 (03:58→23:58)
[2020-07-29] MEDS: LEVOTHYROXINE 88 MCG TAB PO SCH (06:19)
[2020-07-29] MEDS: PANTOPRAZOLE 40 MG TABLET PO SCH (06:19)
[2020-07-29] MEDS: ASPIRIN 81 MG PO SCH (08:03)
[2020-07-29] MEDS: ARIPiprazole 2 MG TAB PO SCH (08:03)
[2020-07-29] MEDS: buPROPion XL 150 MG TAB.ER.24H PO SCH (08:04)
[2020-07-29] MEDS: ERGOCALCIFEROL 1,250 MCG (50,000 IU) CAPSULE PO SCH (08:05)
[2020-07-29] MEDS: ESTROGENS, CONJUGATED 0.3 MG TAB PO SCH (08:05)
[2020-07-29] MEDS: lamoTRIgine 100 MG TAB PO SCH ×2 (08:05→21:21)
[2020-07-29] MEDS: METOPROLOL TARTRATE 25 MG TAB PO SCH ×2 (08:06→21:20)
[2020-07-29] MEDS: IPRATROPIUM-ALBUTEROL 3 ML NEB IH SCH ×4 (08:09→19:12)
[2020-07-29] MEDS: FORMOTEROL FUMARATE 20 MCG/2 ML NEBU INHALATION SCH ×2 (08:09→19:11)
--- NOTE | 2020-07-29 08:15 | XR ---
EXAMINATION TYPE: XR chest 1V portable DATE OF EXAM: 07/29/2020 COMPARISON: Chest x-ray 07/28/2020 HISTORY: Chest tube, postop TECHNIQUE: Single frontal view of the chest is obtained. FINDINGS: Right-sided chest tube remains in place, minimal right apical pneumothorax is present. The re may be some improvement in aeration at the left lung base. Persistent bibasilar density is noted. There are overlying cardiac leads. Cardiac mediastinal silhouette is stable. Aorta is dense. Patient is rotated. IMPRESSION: Essentially stable postoperative findings, basilar atelectasis, correlate to exclude pne [place]. Difficult to exclude small effusion.
[2020-07-29] MEDS: HYDROcodone/APAP 10-325MG 1 EACH TAB PO PRN ×3 (08:18→21:19)
[2020-07-29] MEDS: HALOPERIDOL LACTATE 5 MG/ML 1 ML VIAL IVP PRN ×2 (08:19→14:19)
--- NOTE | 2020-07-29 09:18 | P.PN ---
Subjective Progress Note Date: 07/29/20 Principal diagnosis: Non-small cell lung cancer involving the right lower lobe orifice and extending into the proximal bronchus intermedius. Previous medical history of tobacco de pendence with cessation 5 years ago, COPD, hypertension, hyperlipidemia, chronic atrial fibrillation on [facility] outpatient for anticoagulation, chronic systolic failure, hypothyroid, arthritis with chronic pain and narcotic dependence, depression. POD #2 fiberoptic bronchoscopy, right thoracotomy, right lower and middle bilobectomy, mediastinal lymph node dissection, cryoablation of the intercostal nerves 3, 4, 5, 6 and 7 The patient is currently sitting up in bed in the intensive care unit in no acute distress. Yesterday she became increasingly paranoid and agitated, was refusing medications, was trying to remove her oxygen, IVs, Muñoz catheter, chest tube. With assistance from security patient was helped back to bed, IV Haldol and Precedex were initiated and patient calmed down for a few hours, she did become agitated again last night and was given more Haldol. She will intermittently take medications although is very suspicious of anything being given to her. Her son was contacted yesterday, he states she has done this before and he is not surprised. She did have some hypotension yesterday requiring initiation of. Low dose levo, currently off and hemodynamically stable. She is a little more calm this morning, somewhat compliant with medication administration, although still very suspicious of every person and everything she is given. Right pleural chest tube remains in place, she does have a small intermittent air leak this morning with coughing. Objective - Vital Signs Vital signs: Vital Signs Temp 97.7 F 07/29/20 08:00 Pulse 88 07/29/20 08:19 Resp 8 L 07/29/20 08:00 BP 128/74 07/29/20 08:00 Pulse Ox 98 07/29/20 08:12 Intake & Output 07/28/20 07/29/20 07/29/20 18:59 06:59 18:59 Intake Total 652.717 640.647 164.740 Output Total 695 554 80 Balance -42.283 86.647 84.740 Weight 60.1 kg 57 kg Intake: IV 600 600 100 Dextrose 5%-0.45% NaCl 1, 600 600 100 000 ml @ 50 mls/hr IV . Q20H [facility] Rx#:[id number] Intake, IV Titration 52.717 40.647 64.740 Amount Dexmedetomidine/0.9% NaCl 11.119 40.647 21.077 (Pmx) 400 mcg In Empty Bag 1 bag @ Titrate IV . Q0M [facility] Rx#:[id number] Norepinephrine 4 mg In 41.598 Sodium Chloride 0.9% 250 ml @ 0.05 MCG/KG/MIN 11. 449 mls/hr IV .[id number] [facility] Rx#:[id number] Norepinephrine 4 mg In 43.663 Sodium Chloride 0.9% 250 ml @ 0.05 MCG/KG/MIN 11. 449 mls/hr IV .[id number] [facility] Rx#:[id number] Output: Chest Tube Drainage 210 30 Right Lateral Chest 210 30 Drainage 130 100 Right Lateral Chest 130 100 Urine 355 454 50 Other: Voiding Method Indwelling Catheter Indwelling Catheter ABP, PAP, CO, CI - Last Documented Arterial Blood Pressure 124/60 - Constitutional Constitutional Comment(s): Somewhat cooperative but suspicious General appearance: Present: no acute distress - Respiratory Details: Lungs sounds diminished bilaterally with expiratory wheezes present. Respirations even, nonlabored. Currently on 3 L nasal cannula with oxygen satur ation 100%. Refusing incentive spirometry this morning. Weak cough. Right- sided pleural chest tube present to waterseal, 100 mL serous drainage overnight, 600 mL in the last 24 hours, small intermittent air leak present with coughing. - Cardiovascular Details: S1, S2 present. Irregular rate and rhythm, atrial fibrillation on telemetry with heart rate in the 80s. Palpable peripheral pulses bilaterally. No edema present. No calf pain or tenderness noted. SCDs present. - Gastrointestinal Gastrointestinal Comment(s): Abdomen soft, nontender, nondistended. Hypoactive bowel sounds present 4 quadrants. Tolerating diet. - Genitourinary Genitourinary Comment(s): Muñoz present draining clear, yellow urine, output 30-60 mL/h overnight. - Integumentary Integumentary Comment(s): Skin is warm and dry with evidence of good perfusion. Right lateral wall thoracotomy incision well approximated and covered with dry intact dressing - Neurologic Neurologic: Present: CNII-XII intact - Musculoskeletal Musculoskeletal: Present: strength equal bilaterally - Psychiatric Psychiatric Comment(s): Oriented to person, states she is in [place] and its the end of the month but will provide no other details. Very suspicious of all activity, every person in her room, and all medications given - Allied health notes Allied health notes reviewed: nursing - Labs CBC & Chem 7: 07/28/20 04:00 07/28/20 04:00 - Imaging and Cardiology Chest x-ray: report reviewed, image reviewed Assessment and Plan Assessment: 1. Non-small cell lung cancer involving the right lower lobe orifice and extending into the proximal bronchus intermedius, status post fiberoptic bronchoscopy, right thoracotomy, right lower and middle bilobectomy with mediastinal lymph node dissection and cryoablation of intercostal nerves, surgical pathology pending 2. History of tobacco dependence with cessation 5 years ago 3. COPD 4. Hypertension 5. Hyperlipidemia, treated 6. Chronic atrial fibrillation on Eliquis outpatient for anticoagulation 7. Chronic systolic failure 8. Hypothyroid 9. Arthritis with chronic pain and narcotic dependence 10. Depression. 11. Paranoia and agitation Plan: 1. Keep right pleural chest tube to waterseal, monitor output and resolution of air leak 2. Daily chest x-rays 3. Pain control with current medication regimen. 4. Wean O2 as tolerated. Encourage incentive spirometry is 10 times every hour while awake. Bronchodilators per pulmonology 5. Low-dose aspirin added to patient's medication regimen. Will hold off on restarting Eliquis until chest tube is removed. Levo discontinued 6. Increase activity, ambulate as tolerated. PT/OT consulted 7. Discontinue Muñoz catheter 8. If patient is eating may hep lock IV 9. Continue home medications 10. Pathology pending, await final results 11. Reorient as necessary, Haldol when necessary, may continue Precedex if needed 12. Will keep in ICU for another 24 hours for safety reasons while chest tube present 13. More recommendations to follow Time with Patient: Greater than 30
--- NOTE | 2020-07-29 12:58 | P.PN ---
Subjective Progress Note Date: 07/29/20 Principal diagnosis: Right lung cancer, status post bilobectomy, postoperative day #2 This is a 75-year-old female with known history of multiple medical problems including COPD, chronic atrial fibrillation,hypothyroidism, former nicotine dependence, quit 2 years ago, chronic systolic congestive heart failure, hypertension, dyslipidemia, patient was diagnosed recently by Dr. Weber as having squamous cell carcinoma involving the right middle lobe and right lower lobe. Patient had no evidence of metastatic disease based on the PET scan done on outpatient basis. She was referred to Dr. Worley, and today the patient underwent bilobectomy, her postoperative course has been uneventful, patient was extubated, she is now on 2 L nasal cannula, O2 saturations in the 90s. Patient is mostly complaining of pain at the surgical site. And at the side of the chest tube insertion. Otherwise the patient has no shortness of breath, no cough, no wheezing. Considering the patient had bilobectomy and considering her underlying pulmonary history, we were asked to see her on consultation. Reevaluated today on 07/28/2020, patient is becoming more and more agitated, patient is getting to be paranoid, and refusing lots of medications. Trying to pull her IV out, keeps taking her oxygen off. Multiple staff members where calling the patient down and able to put her back in bed, in the meantime went ahead and recommended a dose of Haldol on the patient, and recommended that we start Precedex on this patient. Seems to be working so far. Patient does not seem to be in any respiratory distress. Her CBC is relatively normal left lites are normal renal profile is normal. Chest x-ray showed mostly postoperative findings and basilar atelectasis. The patient is seen today 07/29/2020 in follow-up in the intensive care unit. He is currently sitting up in bed. Awake and alert in no acute distress. She had been quite confused the past 24 hours. She was trialed off the Precedex but she gets quite agitated and paranoid. Chest x-ray reveals basilar atelectasis. Stable compared to previous. Right-sided chest tube remains in place. Still with a small intermittent air leak. She is maintaining good O2 saturations up to 100% on 4 L/m per nasal cannula. Objective - Vital Signs Vital signs: Vital Signs Temp 97.7 F 07/29/20 08:00 Pulse 75 01/30/21 11:00 Resp 22 07/29/20 11:00 BP 97/64 07/29/20 11:00 Pulse Ox 99 07/29/20 11:00 Intake & Output 07/28/20 07/29/20 07/29/20 18:59 06:59 18:59 Intake Total 652.717 640.647 314.740 Output Total 695 554 330 Balance -42.283 86.647 -15.260 Weight 60.1 kg 57 kg Intake: IV 600 600 250 Dextrose 5%-0.45% NaCl 1, 600 600 250 000 ml @ 50 mls/hr IV . Q20H [facility] Rx#:[id number] Intake, IV Titration 52.717 40.647 64.740 Amount Dexmedetomidine/0.9% NaCl 11.119 40.647 21.077 (Pmx) 400 mcg In Empty Bag 1 bag @ Titrate IV . Q0M [facility] Rx#:[id number] Norepinephrine 4 mg In 41.598 Sodium Chloride 0.9% 250 ml @ 0.05 MCG/KG/MIN 11. 449 mls/hr IV .[id number] [facility] Rx#:[id number] Norepinephrine 4 mg In 43.663 Sodium Chloride 0.9% 250 ml @ 0.05 MCG/KG/MIN 11. 449 mls/hr IV .[id number] [facility] Rx#:[id number] Output: Chest Tube Drainage 210 110 Right Lateral Chest 210 110 Drainage 130 100 Right Lateral Chest 130 100 Urine 355 454 220 Other: Voiding Method Indwelling Catheter Indwelling Catheter Indwelling Catheter ABP, PAP, CO, CI - Last Documented Arterial Blood Pressure 124/60 - Exam GENERAL EXAM: Alert, slightly agitated and paranoid 75-year-old female patient, on 4 L nasal cannula, comfortable in no apparent distress. HEAD: Normocephalic. EYES: Normal reaction of pupils, equal size. NOSE: Clear with pink turbinates. THROAT: No erythema or exudates. NECK: No masses, no JVD. CHEST: No chest wall deformity. Right-sided chest tube secured in place LUNGS: Equal air entry with bibasilar crackles. CVS: S1 and S2 normal with no audible murmur, regular rhythm. ABDOMEN: No hepatosplenomegaly, normal bowel sounds, no guarding or rigidity. SPINE: No scoliosis or deformity SKIN: No rashes CENTRAL NERVOUS SYSTEM: No focal deficits, tone is normal in all 4 extremities. EXTREMITIES: There is no peripheral edema. No clubbing, no cyanosis. Peripheral pulses are intact. - Labs CBC & Chem 7: 07/28/20 04:00 07/28/20 04:00 Assessment and Plan Assessment: 1 Status post bilobectomy, postoperative day #2 2 Squamous cell carcinoma, diagnosed on 06/18/20. 3 ICU psychosis and delirium requiring Haldol, and will start the patient on Precedex 4 Chronic atrial fibrillation. 5 Benign essential hypertension. 6 History of mitral valve prolapse. 7 History of rheumatoid arthritis. 8 History of hypothyroidism. 9 History of depression. 10 History of glaucoma. Plan: The patient was seen and evaluated by Dr. Julio Chest x-ray reviewed Chest tube remains with intermittent air leak Continue Haldol as needed Precedex as needed Titrate down the FiO2 as tolerated Incentive spirometer when cooperative Monitor in the ICU another 24 hours We will continue to follow I, the cosigning physician, performed a history & physical examination of the patient. Lungs sounds with bibasilar crackles. Maintaining good O2 saturations in the 90s on 4 L/m per nasal cannula. I discussed the assessment and plan of care with my nurse practitioner, Nallely Mancera. I attest to the above note as dictated by her.
--- NOTE | 2020-07-29 14:55 | PN ---
PROGRESS NOTE 75-year-old white female and not remains in ICU. She has been confused over the last 24 hours, but she has began Precedex as well as Haldol. She is given a trial with Precedex. She became very quite agitated and paranoid. Chest x-ray, bilateral atelectasis, right-sided chest tube remains in place. Oxygen is 94 on 4 L. Blood pressure is 97 to low 100s/64, respiratory 18 to 22, pulse 70 to 75, temp 97.7. She is awake. Kind of agitated. She is on 4 L nasal cannula. Head: Normocephalic, atraumatic. Neck is supple. Right-sided chest tube in place. Lungs equal air flow. Bilateral basilar crackles. Cardiovascular S1, S2. Abdomen is soft, nontender. Skin no rash, excoriation . Extremities: No peripheral edema. Sodium 135, potassium 4.6, BUN 18, creatinine 0.71, hemoglobin 11.1. IMPRESSION: 1. Status post bilobectomy day 2 squamous cell carcinoma. 2. Ex-smoker. 3. ICU psychosis. 4. Delirium. 5. Chronic atrial fibrillation. 6. Hypertension. 7. Mitral valve prolapse. 8. Rheumatoid arthritis. 9. Hypothyroidism. 10.Depression. 11.Glaucoma. 12.Some mild dementia with possible delirium from anesthesia. Precedex and Haldol as needed. Titrate oxygen. Continue to follow. Pull chest tube as tolerated. MMODL / IJN: [id number] /
[2020-07-29] MEDS: lisinopriL 5 MG TAB PO SCH (16:03)
[2020-07-29] MEDS ORDERED: DEXMEDETOMIDINE/0.9% NACL(PMX) 400 MCG in EMPTY BAG 1 BAG IV SCH (19:30)
[2020-07-29] MEDS: SENNOSIDES-DOCUSATE SODIUM 1 EACH TAB PO SCH (21:17)
[2020-07-29] MEDS: ATORVASTATIN 10 MG TAB PO SCH (21:20)
[2020-07-30] MEDS: HYDROcodone/APAP 10-325MG 1 EACH TAB PO PRN ×3 (06:01→16:46)
[2020-07-30] MEDS: LEVOTHYROXINE 88 MCG TAB PO SCH (06:02)
[2020-07-30] MEDS: PANTOPRAZOLE 40 MG TABLET PO SCH (06:02)
[2020-07-30] MEDS: KETOROLAC 15 MG/ML 1 ML VIAL IVP SCH (06:02)
[2020-07-30] MEDS: ALPRAZolam 0.25 MG TAB PO PRN ×3 (07:09→21:28)
[2020-07-30] MEDS: HALOPERIDOL LACTATE 5 MG/ML 1 ML VIAL IVP PRN ×4 (07:13→23:12)
[2020-07-30] MEDS: METOPROLOL TARTRATE 25 MG TAB PO SCH ×2 (07:20→21:25)
[2020-07-30] MEDS: FORMOTEROL FUMARATE 20 MCG/2 ML NEBU INHALATION SCH ×2 (07:26→20:14)
[2020-07-30] MEDS: IPRATROPIUM-ALBUTEROL 3 ML NEB IH SCH ×4 (07:27→20:14)
--- NOTE | 2020-07-30 08:39 | XR ---
EXAMINATION TYPE: XR chest 1V portable DATE OF EXAM: 07/30/2020 COMPARISON: Chest x-ray 07/29/2020 HISTORY: Chest tube TECHNIQUE: Single frontal view of the chest is obtained. FINDINGS: Right apical pneumothorax is again noted, right-sided chest tube is in place. No other sig nificant interval change. IMPRESSION: Postprocedural changes. Right apical pneumothorax.
[2020-07-30 08:50] LABS: Basophils % (A) 0 %; Eosinophils # (A) 0.1 k/uL (0-0.7); Eosinophils % (A) 1 %; HCT 31.9 % (34.0-46.0); HGB 9.7 gm/dL (11.4-16.0); Hypochromasia Moderate; Lymphocytes # (A) 0.4 k/uL (1.0-4.8); Lymphocytes % (A) 5 %; MCH 31.3 pg (25.0-35.0); MCHC 30.4 g/dL (31.0-37.0); MCV 102.7 fL (80.0-100.0); Macrocytosis Slight; Monocytes # (A) 0.4 k/uL (0-1.0); Monocytes % (A) 5 %; Neutrophils # (A) 7.1 k/uL (1.3-7.7); Neutrophils % (A) 87 %; Platelet Count 156 k/uL (150-450); RDW 12.6 % (11.5-15.5); WBC 8.2 k/uL (3.8-10.6)
[2020-07-30 09:00] LABS: ALT 8 U/L (4-34); AST 32 U/L (14-36); African American GFR (CKD) >90 (>60 ml/min/1.73 sqM); Albumin 2.6 g/dL (3.5-5.0); Alkaline Phosphatase 65 U/L (38-126); Anion Gap 7 mmol/L; Blood Urea Nitrogen 14 mg/dL (7-17); Calcium 8.9 mg/dL (8.4-10.2); Carbon Dioxide 21 mmol/L (22-30); Chloride 105 mmol/L (98-107); Glucose 122 mg/dL (74-99); Non-African American GFR(CKD) 87 (>60 ml/min/1.73 sqM); Potassium 4.1 mmol/L (3.5-5.1); Sodium 133 mmol/L (137-145); Total Bilirubin 0.6 mg/dL (0.2-1.3); Total Protein 5.2 g/dL (6.3-8.2)
[2020-07-30] MEDS ORDERED: SODIUM CHLORIDE 0.9% 500 ML 1,000 ML IV ONE (09:25)
--- NOTE | 2020-07-30 09:28 | P.PN ---
Subjective Progress Note Date: 07/30/20 Principal diagnosis: Non-small cell lung cancer involving the right lower lobe orifice and extending into the proximal bronchus intermedius. Previous medical history of tobacco de pendence with cessation 5 years ago, COPD, hypertension, hyperlipidemia, chronic atrial fibrillation on Eliqu outpatient for anticoagulation, chronic systolic failure, hypothyroid, arthritis with chronic pain and narcotic dependence, depression. POD #3 fiberoptic bronchoscopy, right thoracotomy, right lower and middle bilobectomy, mediastinal lymph node dissection, cryoablation of the intercostal nerves 3, 4, 5, 6 and 7 The patient's currently laying in bed in the intensive care unit in no acute distress. She was very anxious and a bit agitated this morning, tachycardic and hypertensive. She requested Xanax and was given Xanax as well as being maintained on Precedex. She did take her Lopressor early and is currently sleeping, normotensive with controlled heart rate. Right pleural chest tube continues to waterseal, no air leak present, positive tidaling and water seal chamber. Chest x-ray reviewed. No other new concerns. Objective - Vital Signs Vital signs: Vital Signs Temp 97.7 F 07/29/20 20:00 Pulse 138 H 07/30/20 07:00 Resp 44 H 07/30/20 07:00 BP 141/113 07/30/20 07:00 Pulse Ox 93 L 07/30/20 07:00 Intake & Output 07/29/20 07/30/20 07/30/20 18:59 06:59 18:59 Intake Total 664.740 640 50 Output Total 710 915 20 Balance -45.260 -275 30 Weight 55.6 kg Intake: IV 600 550 50 Dextrose 5%-0.45% NaCl 1, 600 550 50 000 ml @ 50 mls/hr IV . Q20H [facility] Rx#:[id number] Intake, IV Titration 64.740 Amount Dexmedetomidine/0.9% NaCl 21.077 (Pmx) 400 mcg In Empty Bag 1 bag @ Titrate IV . Q0M [facility] Rx#:[id number] Norepinephrine 4 mg In 43.663 Sodium Chloride 0.9% 250 ml @ 0.05 MCG/KG/MIN 11. 449 mls/hr IV .[id number] [facility] Rx#:[id number] Tube Feeding 90 Output: Chest Tube Drainage 330 Right Lateral Chest 330 Drainage 190 Right Lateral Chest 190 Urine 380 725 20 Other: Voiding Method Indwelling Catheter Indwelling Catheter ABP, PAP, CO, CI - Last Documented Arterial Blood Pressure 124/60 - Constitutional General appearance: Present: cooperative, no acute distress - Respiratory Details: Lungs sounds coarse bilaterally. Respirations even, nonlabored. Currently on 2 L nasal cannula with oxygen saturation 93%. Right pleural chest tube to lopez erseal, 150 mL of thin serous drainage overnight, 520 mL in the last 24 hours, no air leak present. - Cardiovascular Details: S1, S2 present. Irregular rate and rhythm, atrial fibrillation on telemetry. Palpable peripheral pulses bilaterally. No edema present. No calf pain or tenderness noted. SCDs present. - Gastrointestinal Gastrointestinal Comment(s): Abdomen soft, nontender, nondistended. Active bowel sounds present 4 quadrants. Tolerating water, refusing food. - Genitourinary Genitourinary Comment(s): Muñoz present draining clear, yellow urine, output 45-75 mL per hour overnight - Integumentary Integumentary Comment(s): Skin is warm and dry. Right thoracotomy incision well approximated without redness or drainage - Neurologic Neurologic: Present: CNII-XII intact - Musculoskeletal Musculoskeletal: Present: strength equal bilaterally - Psychiatric Psychiatric Comment(s): Oriented to person and place. Very anxious this morning, currently sleeping. - Allied health notes Allied health notes reviewed: nursing - Labs CBC & Chem 7: 07/30/20 08:11 07/30/20 08:11 Labs: Abnormal Lab Results - Last 24 Hours (Table) 07/30/20 07/30/20 Range/Units 08:11 08:11 RBC 3.10 L (3.80-5.40) m/uL Hgb 9.7 L (11.4-16.0) gm/dL Hct 31.9 L (34.0-46.0) % MCV 102.7 H (80.0-100.0) fL MCHC 30.4 L (31.0-37.0) g/dL Lymphocytes # 0.4 L (1.0-4.8) k/uL Sodium 133 L (137-145) mmol/L Carbon Dioxide 21 L (22-30) mmol/L Glucose 122 H (74-99) mg/dL Total Protein 5.2 L (6.3-8.2) g/dL Albumin 2.6 L (3.5-5.0) g/dL - Imaging and Cardiology Chest x-ray: report reviewed, image reviewed Assessment and Plan Assessment: 1. Non-small cell lung cancer involving the right lower lobe orifice and extending into the proximal bronchus intermedius, status post fiberoptic bronchoscopy, right thoracotomy, right lower and middle bilobectomy with mediastinal lymph node dissection and cryoablation of intercostal nerves, surgical pathology pending 2. History of tobacco dependence with cessation 5 years ago 3. COPD 4. Hypertension 5. Hyperlipidemia, treated 6. Chronic atrial fibrillation on Eliquis outpatient for anticoagulation 7. Chronic systolic failure 8. Hypothyroid 9. Arthritis with chronic pain and narcotic dependence 10. Depression. 11. Paranoia and agitation Plan: 1. Right pleural chest tube discontinued without incident 2. Daily chest x-rays 3. Pain control with current medication regimen. 4. Wean O2 as tolerated. Encourage incentive spirometry is 10 times every hour while awake. Bronchodilators per pulmonology 5. Low-dose aspirin added to patient's medication regimen. Will restart Eliquis this afternoon 6. Increase activity, ambulate as tolerated. PT/OT consulted 7. Discontinue Muñoz catheter, may bladder scan and straight cath for greater than 300 mL residual 8. If patient is eating may hep lock IV 9. Continue home medications 10. Pathology pending, await final results 11. Reorient as necessary, Haldol/Xanax when necessary, discontinue Precedex 12. Will place transfer orders for 3 S. this afternoon, patient may need health and safety director 13. More recommendations to follow Time with Patient: Greater than 30
[2020-07-30] MEDS: HEPARIN SODIUM,PORCINE 5,000 UNIT/ML 1 ML VIAL SQ SCH ×2 (09:29→16:45)
[2020-07-30] MEDS: lamoTRIgine 100 MG TAB PO SCH ×2 (10:15→21:34)
[2020-07-30] MEDS: ARIPiprazole 2 MG TAB PO SCH (12:08)
[2020-07-30] MEDS: ASPIRIN 81 MG PO SCH (12:09)
[2020-07-30] MEDS: buPROPion XL 150 MG TAB.ER.24H PO SCH (12:09)
[2020-07-30] MEDS: ESTROGENS, CONJUGATED 0.3 MG TAB PO SCH (12:09)
--- NOTE | 2020-07-30 13:06 | P.PN ---
Subjective Progress Note Date: 07/30/20 Principal diagnosis: Right lung cancer, status post bilobectomy postoperative day #3 This is a 75-year-old female with known history of multiple medical problems including COPD, chronic atrial fibrillation,hypothyroidism, former nicotine dependence, quit 2 years ago, chronic systolic congestive heart failure, hypertension, dyslipidemia, patient was diagnosed recently by Dr. Weber as having squamous cell carcinoma involving the right middle lobe and right lower lobe. Patient had no evidence of metastatic disease based on the PET scan done on outpatient basis. She was referred to Dr. Worley, and today the patient underwent bilobectomy, her postoperative course has been uneventful, patient was extubated, she is now on 2 L nasal cannula, O2 saturations in the 90s. Patient is mostly complaining of pain at the surgical site. And at the side of the chest tube insertion. Otherwise the patient has no shortness of breath, no cough, no wheezing. Considering the patient had bilobectomy and considering her underlying pulmonary history, we were asked to see her on consultation. Reevaluated today on 07/28/2020, patient is becoming more and more agitated, patient is getting to be paranoid, and refusing lots of medications. Trying to pull her IV out, keeps taking her oxygen off. Multiple staff members where calling the patient down and able to put her back in bed, in the meantime went ahead and recommended a dose of Haldol on the patient, and recommended that we start Precedex on this patient. Seems to be working so far. Patient does not seem to be in any respiratory distress. Her CBC is relatively normal left lites are normal renal profile is normal. Chest x-ray showed mostly postoperative findings and basilar atelectasis. The patient is seen today 07/29/2020 in follow-up in the intensive care unit. He is currently sitting up in bed. Awake and alert in no acute distress. She had been quite confused the past 24 hours. She was trialed off the Precedex but she gets quite agitated and paranoid. Chest x-ray reveals basilar atelectasis. Stable compared to previous. Right-sided chest tube remains in place. Still with a small intermittent air leak. She is maintaining good O2 saturations up to 100% on 4 L/m per nasal cannula. Reevaluated today on 07/30/2020, patient remains in the ICU, she is postoperative day #3. Patient is status post right sided thoracotomy right lower lobe and middle bilobectomy, mediastinal lymph node dissection. Patient remains intermittently anxious, tachycardic and hypertensive, placed on Xanax and on Precedex. Otherwise the patient gets extremely agitated and extremely restless requiring many people to calm her down. Chest x-ray today is showing good sized right-sided apical pneumothorax, chest tube remains in place, and apparently had no air leak, removed by the surgical PA earlier today. Objective - Vital Signs Vital signs: Vital Signs Temp 97.4 F L 07/30/20 08:00 Pulse 77 07/30/20 12:00 Resp 20 07/30/20 12:00 BP 119/79 07/30/20 12:00 Pulse Ox 96 07/30/20 12:00 Intake & Output 07/29/20 07/30/20 07/30/20 18:59 06:59 18:59 Intake Total 664.740 640 800 Output Total 710 915 240 Balance -45.260 -275 560 Weight 55.6 kg Intake: IV 600 550 800 Dextrose 5%-0.45% NaCl 1, 600 550 300 000 ml @ 50 mls/hr IV . Q20H [facility] Rx#:[id number] Sodium Chloride 0.9% 500 500 ml 1,000 ml @ 999 mls/hr IV .Q1H1M [facility] Rx#: [id number] Intake, IV Titration 64.740 Amount Dexmedetomidine/0.9% NaCl 21.077 (Pmx) 400 mcg In Empty Bag 1 bag @ Titrate IV . Q0M [facility] Rx#:[id number] Norepinephrine 4 mg In 43.663 Sodium Chloride 0.9% 250 ml @ 0.05 MCG/KG/MIN 11. 449 mls/hr IV .[id number] [facility] Rx#:[id number] Tube Feeding 90 Output: Chest Tube Drainage 330 Right Lateral Chest 330 Drainage 190 Right Lateral Chest 190 Urine 380 725 240 Other: Voiding Method Indwelling Catheter Indwelling Catheter Indwelling Catheter ABP, PAP, CO, CI - Last Documented Arterial Blood Pressure 124/60 - Exam Physical Exam revealed a 75-year-old female in no form of respiratory , calm, on Precedex. Head: Atraumatic, normocephalic. HEENT:[Neck is supple.] [No neck masses.] [No thyromegaly.] [No JVD.] Chest: [Symmetrical chest expansion, diminished breath sound bilaterally Cardiac Exam: [Normal S1 and S2, no S3 gallop, 2/6 systolic murmur at the left lower sternal border. Abdomen: [Soft, nontender, no megaly, no rebound, no guarding, normal bowel sounds.] Extremities: [No clubbing, no edema, no cyanosis.] Neurological Exam: Sedated, and sleepy. Psychiatric: Could not assess today. Skin: No rashes. Musculoskeletal: No deformities, no limitation in range of motion. - Labs CBC & Chem 7: 07/30/20 08:11 07/30/20 08:11 Labs: Abnormal Lab Results - Last 24 Hours (Table) 07/30/20 07/30/20 Range/Units 08:11 08:11 RBC 3.10 L (3.80-5.40) m/uL Hgb 9.7 L (11.4-16.0) gm/dL Hct 31.9 L (34.0-46.0) % MCV 102.7 H (80.0-100.0) fL MCHC 30.4 L (31.0-37.0) g/dL Lymphocytes # 0.4 L (1.0-4.8) k/uL Sodium 133 L (137-145) mmol/L Carbon Dioxide 21 L (22-30) mmol/L Glucose 122 H (74-99) mg/dL Total Protein 5.2 L (6.3-8.2) g/dL Albumin 2.6 L (3.5-5.0) g/dL Assessment and Plan Assessment: Impression: Status post bilobectomy, postoperative day #3 Squamous cell carcinoma, diagnosed on 06/18/20. ICU psychosis and delirium, remains on Precedex Chronic atrial fibrillation. Benign essential hypertension. History of mitral valve prolapse. History of rheumatoid arthritis. History of hypothyroidism. History of depression. History of glaucoma. Postoperative right sided apical pneumothorax, expected. Recommendation: Continue Precedex. Chest tube was removed earlier by surgery Continue present supportive care measures. Incentive spirometry and early ambulation. Bronchodilators. Titrate oxygen down as tolerated maintaining O2 saturation above 90%. Pain control management. GI prophylaxis. DVT prophylaxis. We'll continue to monitor the patient in the ICU. Would not recommend transfer at this point, as the patient is still requiring Precedex for sedation. We'll continue to follow. Time with Patient: Less than 30
--- NOTE | 2020-07-30 15:00 | PN ---
PROGRESS NOTE 75-year-old white female. Her hemoglobin is down to 9.7 for 11.1. She is demanding to go home. She is demanding her chest tube be pulled or be transferred to another hospital. She thought the nurses were trying to kill her yesterday. Tried to calm her down. Her albumin is low at 2.6, sodium 133, potassium 4.1. She is saturating 96% on 2 L, which is good. Blood pressure is up to 119/79, temperature 97.4, pulse 77-80. CARDIOVASCULAR: S1, S2. LUNGS: Clear. GI: Soft. She is status post bilobectomy right middle and right lower lobe. Mediastinal lymph node dissection. She has been maintained on Xanax, Precedex. Possibly take her chest tube out today. Vital signs as mentioned above. ASSESSMENT: 1. Non-small cell lung cancer, right lower lobe orifice down into the proximal bronchial intermedius, right thoracotomy, right lower and middle lobectomy, mediastinal node removal. 2. History of nicotine addiction. 3. Chronic obstructive pulmonary disease. 4. Hypertension. 5. Mild dementia. 6. Chronic atrial fibrillation. 7. Systolic heart failure. 8. Hypothyroidism. 9. Arthritis. 10.Depression. 11.Possibly some delirium from postop anesthesia on top of dementia with mild behavioral changes and bipolar. PLAN: 1. PT/OT. 2. Aspirin. 3. Chest tube has been removed. 4. Daily x-rays. 5. Continue home medications. 6. Get off the Muñoz catheter. 7. Transfer her to [address] [place] [address] this afternoon. 8. May need a safety and security manager. 9. Possibly discharge home tomorrow if she is doing better. MMODL / IJN: [id number] /
[2020-07-30] MEDS: lisinopriL 5 MG TAB PO SCH (16:46)
[2020-07-30] MEDS: APIXABAN 2.5 MG TABLET PO SCH (21:24)
[2020-07-30] MEDS: DEXTROSE 5%-0.45% NACL 1,000 ML IV SCH (21:34)
[2020-07-30] MEDS: SENNOSIDES-DOCUSATE SODIUM 1 EACH TAB PO SCH (21:35)
[2020-07-30] MEDS: ATORVASTATIN 10 MG TAB PO SCH (21:35)
[2020-07-30] MEDS: HYDROmorphone 0.5 MG/0.5 ML SYRINGE IVP PRN (22:39)
[2020-07-31] MEDS: IPRATROPIUM-ALBUTEROL 3 ML NEB IH PRN (03:01)
[2020-07-31] MEDS ORDERED: DILTIAZEM DRIP BOLUS FROM BAG 1 MG SOLN IV ONE ×2 (03:19→20:35)
[2020-07-31] MEDS ORDERED: DILTIAZEM 125 MG in SODIUM CHLORIDE 0.9% 100 ML IV SCH (03:30)
[2020-07-31 04:04] LABS: HCT 33.8 % (34.0-46.0); Hypochromasia Slight; MCH 32.7 pg (25.0-35.0); MCHC 32.5 g/dL (31.0-37.0); MCV 100.8 fL (80.0-100.0); Mean Platelet Volume 8.2; Platelet Count 245 k/uL (150-450); RBC 3.35 m/uL (3.80-5.40); RDW 12.7 % (11.5-15.5); WBC 12.8 k/uL (3.8-10.6)
[2020-07-31 04:22] LABS: African American GFR (CKD) >90 (>60 ml/min/1.73 sqM); Anion Gap 7 mmol/L; Blood Urea Nitrogen 14 mg/dL (7-17); Calcium 9.4 mg/dL (8.4-10.2); Carbon Dioxide 25 mmol/L (22-30); Chloride 103 mmol/L (98-107); Glucose 105 mg/dL (74-99); Non-African American GFR(CKD) 86 (>60 ml/min/1.73 sqM); Sodium 135 mmol/L (137-145)
[2020-07-31 04:57] LABS: ABG Base Excess -0.5 mmol/L; ABG HCO3 24 mmol/L (21-25); ABG Oxygen Saturation 90.2 % (94-97); ABG PCO2 36 mmHg (35-45); ABG PH 7.43 (7.35-7.45); ABG TCO2 25 mmol/L (19-24); Allen Test Performed? Yes
[2020-07-31 04:58] LABS: ABG PO2 53 mmHg (83-108)
[2020-07-31] MEDS: ALPRAZolam 0.25 MG TAB PO PRN (06:44)
[2020-07-31] MEDS: LEVOTHYROXINE 88 MCG TAB PO SCH (06:51)
[2020-07-31] MEDS: HYDROmorphone 0.5 MG/0.5 ML SYRINGE IVP PRN (07:26)
[2020-07-31] MEDS: HALOPERIDOL LACTATE 5 MG/ML 1 ML VIAL IVP PRN ×8 (07:27→23:58)
[2020-07-31] MEDS: FORMOTEROL FUMARATE 20 MCG/2 ML NEBU INHALATION SCH ×2 (07:42→19:39)
[2020-07-31] MEDS: IPRATROPIUM-ALBUTEROL 3 ML NEB IH SCH ×4 (07:42→19:39)
--- NOTE | 2020-07-31 08:47 | P.PN ---
Subjective Progress Note Date: 07/31/20 Principal diagnosis: Non-small cell lung cancer involving the right lower lobe orifice and extending into the proximal bronchus intermedius. Previous medical history of tobacco de pendence with cessation 5 years ago, COPD, hypertension, hyperlipidemia, chronic atrial fibrillation on [facility] outpatient for anticoagulation, chronic systolic failure, hypothyroid, arthritis with chronic pain and narcotic dependence, depression. POD #4 fiberoptic bronchoscopy, right thoracotomy, right lower and middle bilobectomy, mediastinal lymph node dissection, cryoablation of the intercostal nerves 3, 4, 5, 6 and 7 The patient's currently laying in bed in the intensive care unit in no acute distress. She was very anxious and a bit agitated again this morning, tachycardic and hypertensive. Dr. Garza was called last night due to A. fib with RVR, cardiology consult placed as well as patient started on IV Cardizem. She is primarily tachycardic and hypertensive when anxious and agitated, normotensive with controlled A. fib when calm. Right pleural chest tube was discontinued yesterday. Patient is not coughing appropriately and refuses to use incentive spirometer. Oxygen requirements increased last night. This morning chest x-ray was reviewed, patient appears to have right-sided mucous plug, reviewed films and discussed plan with Dr. Weber. Objective - Vital Signs Vital signs: Vital Signs Temp 98.2 F 07/31/20 08:00 Pulse 88 07/31/20 08:00 Resp 26 H 07/31/20 08:00 BP 140/84 07/31/20 08:00 Pulse Ox 100 07/31/20 08:00 Intake & Output 07/30/20 07/31/20 07/31/20 18:59 06:59 18:59 Intake Total 1100 800 50 Output Total 545 445 50 Balance 555 355 0 Weight 53.7 kg Intake: IV 1100 600 50 Dextrose 5%-0.45% NaCl 1, 600 600 50 000 ml @ 50 mls/hr IV . Q20H [facility] Rx#:[id number] Sodium Chloride 0.9% 500 500 ml 1,000 ml @ 999 mls/hr IV .Q1H1M [facility] Rx#: [id number] Oral 200 Output: Urine 545 445 50 Other: Voiding Method Indwelling Catheter Indwelling Catheter # Voids 1 1 ABP, PAP, CO, CI - Last Documented Arterial Blood Pressure 124/60 - Constitutional General appearance: Present: no acute distress - Respiratory Details: Lungs sounds coarse on the left side, diminished on the right side. Respirations even, nonlabored. Currently on 10 L high flow nasal cannula with oxygen saturation 95%. Poor effort with coughing. Refuses incentive spirometer. - Cardiovascular Details: S1, S2 present. Irregular rate and rhythm, atrial fibrillation on telemetry. Palpable peripheral pulses bilaterally. No edema present. No calf pain or tenderness noted. SCDs present. - Gastrointestinal Gastrointestinal Comment(s): Abdomen soft, nontender, nondistended. Active bowel sounds present 4 quadrants. Tolerating water, refusing food. - Genitourinary Genitourinary Comment(s): Muñoz discontinued last night, patient continues to void small amounts of urine - Integumentary Integumentary Comment(s): Skin is warm and dry. Right thoracotomy incision well approximated without redness or drainage - Neurologic Neurologic: Present: CNII-XII intact - Musculoskeletal Musculoskeletal: Present: strength equal bilaterally - Psychiatric Psychiatric Comment(s): Oriented to person and place. Very anxious this morning, she does have a good long-term memory as she knows how long Dr. Garza has been her primary care physician, but poor short-term memory - Allied health notes Allied health notes reviewed: nursing - Labs CBC & Chem 7: 07/31/20 03:37 07/31/20 03:37 Labs: Abnormal Lab Results - Last 24 Hours (Table) 07/30/20 07/30/20 07/31/20 Range/Units 08:11 08:11 03:37 WBC 12.8 H (3.8-10.6) k/uL RBC 3.10 L 3.35 L (3.80-5.40) m/uL Hgb 9.7 L 11.0 L (11.4-16.0) gm/dL Hct 31.9 L 33.8 L (34.0-46.0) % MCV 102.7 H 100.8 H (80.0-100.0) fL MCHC 30.4 L (31.0-37.0) g/dL Lymphocytes # 0.4 L (1.0-4.8) k/uL ABG pO2 (83-108) mmHg ABG Total CO2 (19-24) mmol/L ABG O2 Saturation (94-97) % Sodium 133 L (137-145) mmol/L Carbon Dioxide 21 L (22-30) mmol/L Glucose 122 H (74-99) mg/dL Total Protein 5.2 L (6.3-8.2) g/dL Albumin 2.6 L (3.5-5.0) g/dL 07/31/20 07/31/20 Range/Units 03:37 04:55 WBC (3.8-10.6) k/uL RBC (3.80-5.40) m/uL Hgb (11.4-16.0) gm/dL Hct (34.0-46.0) % MCV (80.0-100.0) fL MCHC (31.0-37.0) g/dL Lymphocytes # (1.0-4.8) k/uL ABG pO2 53 L* (83-108) mmHg ABG Total CO2 25 H (19-24) mmol/L ABG O2 Saturation 90.2 L (94-97) % Sodium 135 L (137-145) mmol/L Carbon Dioxide (22-30) mmol/L Glucose 105 H (74-99) mg/dL Total Protein (6.3-8.2) g/dL Albumin (3.5-5.0) g/dL - Imaging and Cardiology Chest x-ray: image reviewed Assessment and Plan Assessment: 1. Non-small cell lung cancer involving the right lower lobe orifice and extending into the proximal bronchus intermedius, status post fiberoptic bronchoscopy, right thoracotomy, right lower and middle bilobectomy with mediastinal lymph node dissection and cryoablation of intercostal nerves, surgical pathology pending 2. History of tobacco dependence with cessation 5 years ago 3. COPD 4. Hypertension 5. Hyperlipidemia, treated 6. Chronic atrial fibrillation on Eliquis outpatient for anticoagulation 7. Chronic systolic failure 8. Hypothyroid 9. Arthritis with chronic pain and narcotic dependence 10. Depression. 11. Paranoia and agitation Plan: 1. NPO for probable bronchoscopy by Dr. Weber 2. Daily chest x-rays 3. Pain control with current medication regimen. 4. Wean O2 as tolerated. Encourage incentive spirometry. Patient needs aggressive pulmonary toileting which she is refusing. Bronchodilators per pulmonology 5. Eliquis restarted yesterday afternoon. Patient was placed on IV Cardizem last night, will defer to cardiology for discontinuation 6. Increase activity, ambulate as tolerated. PT/OT consulted 7. If patient is eating may hep lock IV 8. Continue home medications 9. Pathology pending, await final results 10. Reorient as necessary, Haldol/Xanax when necessary 11. Patient kept in ICU due to increase oxygen demand, mine safety engineer at bedside 12. More recommendations to follow Time with Patient: Greater than 30
[2020-07-31] MEDS ORDERED: SUCCINYLCHOLINE CHLORIDE 100 MG/5 ML SYR IV ONE (09:22)
[2020-07-31] MEDS ORDERED: PROPOFOL 10 MG/ML 20 ML VIAL IV ONE (09:22)
[2020-07-31] MEDS ORDERED: IV FLUID CONTINUATION 1,000 ML IV ONE ×2 (09:22)
[2020-07-31] MEDS ORDERED: PHENYLEPHRINE 10 MG/ML VIAL ONE (09:22)
--- NOTE | 2020-07-31 10:37 | PCN ---
PROCEDURE NOTE PULMONARY/CRITICAL CARE PROCEDURE NOTE: DATE OF PROCEDURE: July 31, 2020 PROCEDURE: Bronchoscopy airway examination, therapeutic lavage, BAL right lower lobe. PREOPERATIVE DIAGNOSIS: Right lung collapse. POSTOPERATIVE DIAGNOSIS: Right lung collapse. PROJECT MANAGEMENT INSTRUCTOR: Dr. Weber and Dr. rCook. DESCRIPTION OF PROCEDURE: Procedure took place in room #1 endoscopy. There was informed consent and universal timeout. The patient was maintained under general anesthesia as per Anesthesia. After the patient was anesthetized and on the ventilator, the bronchoscope was inserted through the bronchoscope adapter connected to the endotracheal tube. There were thick mucus plugs noted at the distal tip of the endotracheal tube and also completely obstructing the right mainstem. They were suctioned with some difficulty. Saline was used to help to remove the mucus plugging. There was also mucus plugs and thick mucus noted in the in the left lung as well. There were only remnants of the right upper lobe and right middle lobe. She had a previous right upper lobectomy, right middle lobectomy 4 days ago. There was some mucosal friability in the right lower lobe. Thick mucus plugs were suctioned with saline. We did a BAL in the right lower lobe. The patient tolerated the procedure well. Once all the mucus was removed, the bronchoscope was withdrawn. There was no immediate complication. Anesthesia will attempt to extubate the patient. MMODL / IJN: [id number] /
--- NOTE | 2020-07-31 10:38 | XR ---
EXAMINATION TYPE: XR chest 1V portable DATE OF EXAM: 07/31/2020 COMPARISON: Chest x-ray 07/30/2020 HISTORY: Status post chest tube removal, bilobectomy TECHNIQUE: Single frontal view of the chest is obtained. FINDINGS: Volume loss is present in the right hemithorax, there is near complete opacification of th e right hemithorax, right chest tube has been removed. Heart is partially obscured. Interval patchy d ensity present on the left. IMPRESSION: Atelectasis and associated effusion status post chest tube removal, near complete opacif ication, possible associated pneumothorax. A [place] critical message alert has been initiated for Sanjuana Robins via the [employer] [employer] [facility] on 07/31/2020 10:36 AM. This message alert has been sent to Sanjuana Robins via the [facility] rences provided by the clinician for the receipt of Radiology Critical Findings. Message ID [id number].
--- NOTE | 2020-07-31 10:42 | P.PN ---
Subjective Progress Note Date: 07/31/20 Principal diagnosis: Lung cancer Progress note dated 07/31/2020. 75-year-old female well-known to me. She came to me with an abnormal chest x- ray and CAT scan. She ended up with a navigational bronchoscopy and we made a diagnosis of non-small cell lung cancer, squamous cell type. Her PET scan was only positive in the area of the lesions, and she underwent a right thoracotomy, and a right upper and right middle lobectomy by Dr. Worley on July 27. The patient also had a mediastinal lymph node dissection at that time. The patient was seen in the intensive care unit this morning. She was quite agitated and confused. She had a sitter in the room. In addition, her oxygen requirements have gone up recently from 4 L, 7 L, to 10 L/m, high flow. In addition, the [facility] x-ray from today showed complete atelectasis/collapse of the right lung. We took her to the operating room for bronchoscopy and BAL. She has thick mucous plugs throughout the right mainstem and right lower lobe. Also she had thick mucus in the left lung as well. Her arterial blood gases on 7 L high flow showed a PaO2 of 53, a PaCO2 of 36, and a pH of 7.43. The patient may or may not come back to the ICU intubated. She was intubated for the bronchoscopy. She remained on dextrose and half-normal saline at 50 mL an hour, and Cardizem drip at 5 mg an hour. In addition, for her confusion and delirium, we added Haldol and/or Seroquel. In addition, the patient has a history of ICU psych osis, chronic atrial fibrillation, benign essential hypertension, rheumatoid arthritis, hypothyroidism, depression, glaucoma, and, routine postoperative ventilator management. Objective - Vital Signs Vital signs: Vital Signs Temp 98.2 F 07/31/20 08:00 Pulse 98 07/31/20 09:00 Resp 35 H 07/31/20 09:00 BP 140/84 07/31/20 09:00 Pulse Ox 92 L 07/31/20 09:00 Intake & Output 07/30/20 07/31/20 07/31/20 18:59 06:59 18:59 Intake Total 1100 800 360 Output Total 545 445 50 Balance 555 355 310 Weight 53.7 kg Intake: IV 1100 600 350 Dextrose 5%-0.45% NaCl 1, 600 600 150 000 ml @ 50 mls/hr IV . Q20H [facility] Rx#:[id number] Sodium Chloride 0.9% 500 500 ml 1,000 ml @ 999 mls/hr IV .Q1H1M [facility] Rx#: [id number] Intake, IV Titration 10 Amount Diltiazem 125 mg In 10 Sodium Chloride 0.9% 100 ml @ 5 MG/HR 5 mls/hr IV .Q24H [facility] Rx#:[id number] Oral 200 Output: Urine 545 445 50 Other: Voiding Method Indwelling Catheter Indwelling Catheter # Voids 1 1 ABP, PAP, CO, CI - Last Documented Arterial Blood Pressure 124/60 - Exam No acute distress, confused, screaming out. Nasal O2 in place. HEENT examination is grossly unremarkable. Mucous membranes are moist. No oral lesions. Neck supple. Full range of motion. No adenopathy thyromegaly or neck vein distention. Cardiovascular examination reveals regular rhythm rate. S1-S2 normal. No S3 or S4. No discernible murmur noted. Heart rate is 98 bpm. Lungs reveal diminished right-sided breast sounds. Diffuse coarse rhonchi noted. No wheezes. A few scattered crackles are appreciated. The left lung is much more clearer than the right side. Abdomen soft bowel sounds are heard. No masses or tenderness. Extremities are intact. No cyanosis clubbing or edema. Skin is without rash or lesion. Neurologic examination reveals a very agitated and delirious patient. - Labs CBC & Chem 7: 07/31/20 03:37 07/31/20 03:37 Labs: Abnormal Lab Results - Last 24 Hours (Table) 07/31/20 07/31/20 07/31/20 Range/Units 03:37 03:37 04:55 WBC 12.8 H (3.8-10.6) k/uL RBC 3.35 L (3.80-5.40) m/uL Hgb 11.0 L (11.4-16.0) gm/dL Hct 33.8 L (34.0-46.0) % MCV 100.8 H (80.0-100.0) fL ABG pO2 53 L* (83-108) mmHg ABG Total CO2 25 H (19-24) mmol/L ABG O2 Saturation 90.2 L (94-97) % Sodium 135 L (137-145) mmol/L Glucose 105 H (74-99) mg/dL Assessment and Plan Assessment: Postop day #4, status post right thoracotomy, right upper lobectomy and right middle lobectomy, mediastinal lymph node dissection. #2 recent diagnosis of non-small cell lung cancer/squamous cell carcinoma via navigational bronchoscopy. Routine postoperative ventilator management. History of ICU delirium and psychosis. Chronic atrial fibrillation. Benign essential hypertension. Right lung collapse, status post bronchoscopy, 07/31/2020. History of rheumatoid arthritis. History of hypothyroidism. History of depression. History of glaucoma. Plan: Plan dated 07/31/2020. The patient's oxygen requirements have increased from 4 L/m, up to 7 L/m, and now up to 10 L/m, high flow. She remains on dextrose with half-normal saline at 50 mL an hour, and Cardizem drip at 5 mg an hour. We will add either Haldol and Seroquel for delirium. In addition, because of right lung collapse and suspected mucus plugging, with a cutoff sign noted at the right mainstem, the patient underwent bronchoscopy today. There were thick mucous plugs noted throughout particularly on the right side, which are difficult to suction. We did do a BAL of the right lower lobe. The fluid will be sent for analysis. The patient may come back to the ICU on the ventilator although we hope anesthesia can get her extubated in the recovery area. We will continue to follow closely. Prognosis is guarded. Today's white count went up to 12.8, hemoglobin 11, hematocrit 33.8, and platelet count 345,000. In addition, sodium was 135, potassium 4, chlorides 103, CO2 25, anion gap 7, BUN 14, and creatinine 0.68. Time with Patient: Greater than 30
--- NOTE | 2020-07-31 10:52 | XR ---
EXAMINATION TYPE: XR chest 1V portable DATE OF EXAM: 07/31/2020 COMPARISON: Chest x-ray same date earlier time HISTORY: Post bronchoscopy, pneumothorax TECHNIQUE: Single frontal view of the chest is obtained. FINDINGS: Right apical pneumothorax is again noted. There is interval improved aeration within the r ight lung, residual patchy density present at the right mid and lower lung. Patient is rotated. No ot her significant interval change. IMPRESSION: Interval improved aeration, persistent pneumothorax.
[2020-07-31] MEDS: lamoTRIgine 100 MG TAB PO SCH ×2 (11:03→20:43)
[2020-07-31] MEDS: ASPIRIN 81 MG PO SCH (11:03)
[2020-07-31] MEDS: QUEtiapine 50 MG TAB PO SCH ×3 (11:04→20:43)
[2020-07-31] MEDS: METOPROLOL TARTRATE 25 MG TAB PO SCH ×3 (11:04→20:43)
[2020-07-31] MEDS: APIXABAN 2.5 MG TABLET PO SCH ×2 (11:04→20:43)
[2020-07-31] MEDS: PANTOPRAZOLE 40 MG TABLET PO SCH (11:04)
[2020-07-31] MEDS: buPROPion XL 150 MG TAB.ER.24H PO SCH (11:05)
[2020-07-31] MEDS: ARIPiprazole 2 MG TAB PO SCH (11:05)
[2020-07-31 13:54] LABS: Color,BF Red
[2020-07-31 13:55] LABS: Appearance,BF Blood Tinged; Nucleated Cells, Body Fluid 250 /uL; RBC, Body Fluid 21150 /uL
[2020-07-31 13:58] LABS: Mononuclear WBC,Body Fluid 7 %; Polynuclear WBC,Body Fluid 92 %; Total Cells Counted,Body Fluid 100
[2020-07-31] MEDS: ACETYLCYSTEINE 800 MG/4 ML VIAL INHALATION SCH ×2 (15:19→19:39)
[2020-07-31] MEDS: ESTROGENS, CONJUGATED 0.3 MG TAB PO SCH (16:34)
[2020-07-31] MEDS: lisinopriL 5 MG TAB PO SCH (16:34)
[2020-07-31] MEDS: DEXTROSE 5%-0.45% NACL 1,000 ML IV SCH (18:06)
--- NOTE | 2020-07-31 18:15 | PN ---
PROGRESS NOTE Temperature is 98.2 today, pulse is 98, blood pressure 140/84, O2 92 with [address] O2 in place. CARDIOVASCULAR: S1, S2. Lungs are diminished. Abdomen is soft. He is postop day 4 right thoracotomy, right upper bilobectomy squamous cell lung cancer, ICU delirium, psychosis, chronic atrial fibrillation, hypertension, right lung collapse, status post bronchoscopy 07/31/2020, history rheumatoid arthritis, hypothyroidism, depression, glaucoma. She is now on 7 L oxygen, up to 10 high-flow. She remains on dextrose with half-normal saline and Cardizem drip. She is going to get Haldol or Seroquel for delirium. Right lung collapse. Mucous plugging. Cutoff sign with noted by the leasing manager in the right mainstem and she underwent bronchoscopy for which thick mucus plugs were seen. The prognosis is guarded. Please see further orders. MMODL / IJN: [id number] /
[2020-07-31] MEDS: ATORVASTATIN 10 MG TAB PO SCH (20:43)
[2020-07-31] MEDS: SENNOSIDES-DOCUSATE SODIUM 1 EACH TAB PO SCH (20:43)
--- NOTE | 2020-07-31 20:44 | XR ---
EXAMINATION TYPE: XR chest 1V DATE OF EXAM: 07/31/2020 COMPARISON: Today HISTORY: Short of breath. Bronchoscopy. TECHNIQUE: Single view FINDINGS: Heart is enlarged. There is only interstitial and airspace edema. There is moderate right p leural effusion and right lower lobe airspace consolidation. There are chest leads. IMPRESSION: Pulmonary edema unchanged. Right lower lobe pneumonia and right pleural effusion unchange d. Congestive heart failure is possible.
[2020-07-31] MEDS: DILTIAZEM 125 MG in SODIUM CHLORIDE 0.9% 100 ML IV SCH (21:25)
[2020-08-01] MEDS: DEXMEDETOMIDINE/0.9% NACL(PMX) 400 MCG in EMPTY BAG 1 BAG IV SCH ×2 (01:15→23:34)
[2020-08-01] MEDS: HALOPERIDOL LACTATE 5 MG/ML 1 ML VIAL IVP PRN ×5 (02:58→13:49)
[2020-08-01 04:09] LABS: HCT 30.3 % (34.0-46.0); MCH 32.8 pg (25.0-35.0); MCHC 32.9 g/dL (31.0-37.0); MCV 99.7 fL (80.0-100.0); Mean Platelet Volume 7.6; Platelet Count 211 k/uL (150-450); RBC 3.04 m/uL (3.80-5.40); RDW 12.7 % (11.5-15.5); WBC 14.6 k/uL (3.8-10.6)
[2020-08-01 04:33] LABS: African American GFR (CKD) >90 (>60 ml/min/1.73 sqM); Anion Gap 4 mmol/L; Blood Urea Nitrogen 12 mg/dL (7-17); Calcium 8.9 mg/dL (8.4-10.2); Carbon Dioxide 28 mmol/L (22-30); Chloride 102 mmol/L (98-107); Glucose 99 mg/dL (74-99); Non-African American GFR(CKD) >90 (>60 ml/min/1.73 sqM); Potassium 3.6 mmol/L (3.5-5.1); Sodium 134 mmol/L (137-145)
[2020-08-01] MEDS ORDERED: Potassium Replacement Protocol 1 EACH MISC MISCELLANE PRN (06:15)
[2020-08-01] MEDS: POTASSIUM CHLORIDE 10 MEQ in WATER FOR INJECTION 1 100ML.BAG IVPB SCH ×2 (06:37→11:39)
[2020-08-01] MEDS: LEVOTHYROXINE 88 MCG TAB PO SCH (06:40)
[2020-08-01] MEDS: PANTOPRAZOLE 40 MG TABLET PO SCH (07:04)
--- NOTE | 2020-08-01 08:17 | XR ---
EXAMINATION TYPE: XR chest 1V portable DATE OF EXAM: 08/01/2020 COMPARISON: Chest x-ray 07/31/2020 HISTORY: Post bilobectomy, abnormal chest x-ray TECHNIQUE: Single frontal view of the chest is obtained. FINDINGS: There is bilateral prominence of interstitium and there is airspace disease. Heart is like ly enlarged but partially obscured, right hemidiaphragm is not visualized and is blunting of the righ t costophrenic angle. There are overlying leads. Aorta is dense. Apical pleural thickening has develo ped in the interval on the right and is again noted on the left. IMPRESSION: Correlate for pneumonia, edema, postop changes.
[2020-08-01] MEDS: FORMOTEROL FUMARATE 20 MCG/2 ML NEBU INHALATION SCH ×2 (08:33→20:40)
[2020-08-01] MEDS: IPRATROPIUM-ALBUTEROL 3 ML NEB IH SCH ×4 (08:33→20:40)
[2020-08-01] MEDS: ACETYLCYSTEINE 800 MG/4 ML VIAL INHALATION SCH ×4 (08:34→20:40)
--- NOTE | 2020-08-01 08:37 | P.PN ---
Subjective Progress Note Date: 08/01/20 Principal diagnosis: Non-small cell lung cancer involving the right lower lobe orifice and extending into the proximal bronchus intermedius. Previous medical history of tobacco de pendence with cessation 5 years ago, COPD, hypertension, hyperlipidemia, chronic atrial fibrillation on Elirust outpatient for anticoagulation, chronic systolic failure, hypothyroid, arthritis with chronic pain and narcotic dependence, depression. POD #5 fiberoptic bronchoscopy, right thoracotomy, right lower and middle bilobectomy, mediastinal lymph node dissection, cryoablation of the intercostal nerves 3, 4, 5, 6 and 7 Right lung collapse POD #1 bronchoscopy airway examination, therapeutic lavage, BAL right lower lobe with mucous plug removal by Dr. Weber Acute hypoxic respiratory failure requiring initiation of BiPAP The patient's currently laying in bed in the intensive care unit, currently on BiPap, restrained, 1:1 sitter at the bedside. She continues to be confused, agitated, and refusing medications despite administration of IV haldol. When agitated she is hypertensive and tachycardic requiring re-intiation of IV cardizem by cardiology. For the short amount of time she was calm last night she was low to normotensive and in controlled afib. Patient continues to avoid coughing appropriately and refuses to use incentive spirometer. She was placed on bipap and re-initiated on Precedex. This morning chest x-ray was reviewed, appears better than yesterday after removal of mucous plug. Per family patient has periods of confusion, anxiety, and agitation at home as well as previous hospitalizations. Objective - Vital Signs Vital signs: Vital Signs Temp 99.5 F 08/01/20 04:00 Pulse 112 H 08/01/20 07:00 Resp 33 H 08/01/20 07:00 BP 126/74 08/01/20 07:00 Pulse Ox 93 L 08/01/20 07:00 Intake & Output 07/31/20 08/01/20 08/01/20 18:59 06:59 18:59 Intake Total 851.917 646.470 100 Output Total 575 570 50 Balance 276.917 76.470 50 Weight 55.7 kg Intake: IV 750 560 100 Dextrose 5%-0.45% NaCl 1, 550 560 000 ml @ 50 mls/hr IV . Q20H [facility] Rx#:[id number] Potassium Chloride 10 meq 100 In Water For Injection 1 100ml.bag @ 100 mls/hr IVPB Q1H [facility] Rx#: [id number] Intake, IV Titration 41.917 86.470 Amount Dexmedetomidine/0.9% NaCl 46.220 (Pmx) 400 mcg In Empty Bag 1 bag @ Titrate IV . Q0M [facility] Rx#:[id number] Diltiazem 125 mg In 41.917 Sodium Chloride 0.9% 100 ml @ 5 MG/HR 5 mls/hr IV .Q24H [facility] Rx#:[id number] Diltiazem 125 mg In 40.25 Sodium Chloride 0.9% 100 ml @ Per Protocol IV .Q0M [facility] Rx#:[id number] Oral 60 Output: Urine 575 570 50 Other: Voiding Method Bedpan Indwelling Catheter # Voids 1 ABP, PAP, CO, CI - Last Documented Arterial Blood Pressure 124/60 - Constitutional Constitutional Comment(s): uncooperative General appearance: Present: mild distress - Respiratory Details: Lung sounds coarse bilaterally but right greater than left. Respirations tachypneic. Currently on bipap at 50% FiO2 with Ipap/Epap 10/5. Oxygen saturations mid 90s. - Cardiovascular Details: S1/S2 present. Irregular, tachycardic rate, rhythm, uncontrolled a fib with rate in the low 100s. Palpable pulses bilaterally. No edema present. SCDs in place - Gastrointestinal Gastrointestinal Comment(s): Abdomen soft, non-tender, non-distended. Active bowel sounds present x 4 quadrants. Refusing to eat, will occasionally drink water - Genitourinary Genitourinary Comment(s): Muñoz replaced, output 50-60 mL/hr - Integumentary Integumentary Comment(s): Skin is warm and dry. Right thoracotomy incision well approximated without redness or drainage - Neurologic Neurologic: Present: CNII-XII intact - Musculoskeletal Musculoskeletal: Present: strength equal bilaterally - Psychiatric Psychiatric Comment(s): confused, uncooperative, agitated - Allied health notes Allied health notes reviewed: nursing - Labs CBC & Chem 7: 08/01/20 03:55 08/01/20 03:55 Labs: Abnormal Lab Results - Last 24 Hours (Table) 08/01/20 08/01/20 Range/Units 03:55 03:55 WBC 14.6 H (3.8-10.6) k/uL RBC 3.04 L (3.80-5.40) m/uL Hgb 10.0 L (11.4-16.0) gm/dL Hct 30.3 L (34.0-46.0) % Sodium 134 L (137-145) mmol/L Microbiology - Last 24 Hours (Table) 07/31/20 09:59 Acid Fast Bacilli Smear - Final Bronchial Washings - Random Acid Fast Bacilli Culture - Preliminary 07/31/20 09:59 Gram Stain - Preliminary Bronchial Washings - Random Bronchial Washings Culture - Preliminary 07/31/20 09:59 Fungal Culture - Preliminary Bronchial Washings - Random - Imaging and Cardiology Chest x-ray: report reviewed, image reviewed Assessment and Plan Assessment: 1. Non-small cell lung cancer involving the right lower lobe orifice and extending into the proximal bronchus intermedius, status post fiberoptic bronchoscopy, right thoracotomy, right lower and middle bilobectomy with mediastinal lymph node dissection and cryoablation of intercostal nerves, surgical pathology pending 2. History of tobacco dependence with cessation 5 years ago 3. COPD 4. Hypertension 5. Hyperlipidemia, treated 6. Chronic atrial fibrillation on Eliquis outpatient for anticoagulation 7. Chronic systolic failure 8. Hypothyroid 9. Arthritis with chronic pain and narcotic dependence 10. Depression. 11. Paranoia and agitation, confusio 12. Right lung collapse, s/p broncoscopy with mucous plug removal 13. Acute hypoxic respiratory failure requiring bipap Plan: 1. Bipap management per Dr. Weber 2. Daily chest x-rays 3. Pain control with current medication regimen. 4. Patient needs aggressive pulmonary toileting which she is refusing. Bronchodilators per pulmonology 5. Continue Eliquis. Patient was placed back on IV Cardizem last night, will defer to cardiology for management 6. Increase activity as tolerated. PT/OT consulted 7. If patient is eating may hep lock IV 8. Continue home medications 9. Pathology pending, await final results 10. Reorient as necessary, Haldol/Xanax/Precedex when necessary. Keep 1:1 sitter for safety 11. More recommendations to follow Time with Patient: Greater than 30
--- NOTE | 2020-08-01 08:57 | P.PN ---
Subjective Progress Note Date: 08/01/20 Principal diagnosis: Lung cancer Progress note dated 07/31/2020. 75-year-old female well-known to me. She came to me with an abnormal chest x- ray and CAT scan. She ended up with a navigational bronchoscopy and we made a diagnosis of non-small cell lung cancer, squamous cell type. Her PET scan was only positive in the area of the lesions, and she underwent a right thoracotomy, and a right upper and right middle lobectomy by Dr. Worley on July 27. The patient also had a mediastinal lymph node dissection at that time. The patient was seen in the intensive care unit this morning. She was quite agitated and confused. She had a sitter in the room. In addition, her oxygen requirements have gone up recently from 4 L, 7 L, to 10 L/m, high flow. In addition, the [facility] x-ray from today showed complete atelectasis/collapse of the right lung. We took her to the operating room for bronchoscopy and BAL. She has thick mucous plugs throughout the right mainstem and right lower lobe. Also she had thick mucus in the left lung as well. Her arterial blood gases on 7 L high flow showed a PaO2 of 53, a PaCO2 of 36, and a pH of 7.43. The patient may or may not come back to the ICU intubated. She was intubated for the bronchoscopy. She remained on dextrose and half-normal saline at 50 mL an hour, and Cardizem drip at 5 mg an hour. In addition, for her confusion and delirium, we added Haldol and/or Seroquel. In addition, the patient has a history of ICU psych osis, chronic atrial fibrillation, benign essential hypertension, rheumatoid arthritis, hypothyroidism, depression, glaucoma, and, routine postoperative ventilator management. Progress note dated 08/01/2020. This is a 75-year-old female, postop day #5, status post right thoracotomy, with right upper lobectomy and right middle lobectomy, and mediastinal lymph node dissection. The patient has a history of recent diagnosis of non-small cell lung cancer, squamous cell type, diagnosed by electromagnetic navigational bronchoscopy. Unfortunately, the patient had nearly complete right lung collaps e yesterday. She had bronchoscopy yesterday done in the operating room. Her post bronchoscopy chest x-ray was much improved as was her x-ray this morning. The patient's currently on BiPAP with settings of 10/5 and 50%. She's getting a Cardizem drip at 5 mg an hour, as well as dexmedetomidine 0.5 mcg/kg per hour. She is also getting dextrose with half-normal saline at 75 mL an hour. We have a difficult time with her last night.. She was quite anxious and confused, with significant agitation. We attempted a number different medications none of which really worked other than the dexmedetomidine. Today, she will have a midline placed. In addition, because she is not eating, we'll start her on peripheral parenteral nutrition, which is not optimal but better than nothing. Her prognosis is very guarded at this time given all the issues that we had to deal with the last 2 days. In the end, she may end up back on the ventilator. I am hoping that is not the case. Objective - Vital Signs Vital signs: Vital Signs Temp 99.5 F 08/01/20 04:00 Pulse 102 H 08/01/20 08:34 Resp 33 H 08/01/20 07:00 BP 126/74 08/01/20 07:00 Pulse Ox 93 L 08/01/20 07:00 Intake & Output 07/31/20 08/01/20 08/01/20 18:59 06:59 18:59 Intake Total 851.917 646.470 100 Output Total 575 570 50 Balance 276.917 76.470 50 Weight 55.7 kg Intake: IV 750 560 100 Dextrose 5%-0.45% NaCl 1, 550 560 000 ml @ 50 mls/hr IV . Q20H [facility] Rx#:[id number] Potassium Chloride 10 meq 100 In Water For Injection 1 100ml.bag @ 100 mls/hr IVPB Q1H [facility] Rx#: [id number] Intake, IV Titration 41.917 86.470 Amount Dexmedetomidine/0.9% NaCl 46.220 (Pmx) 400 mcg In Empty Bag 1 bag @ Titrate IV . Q0M [facility] Rx#:[id number] Diltiazem 125 mg In 41.917 Sodium Chloride 0.9% 100 ml @ 5 MG/HR 5 mls/hr IV .Q24H [facility] Rx#:[id number] Diltiazem 125 mg In 40.25 Sodium Chloride 0.9% 100 ml @ Per Protocol IV .Q0M [facility] Rx#:[id number] Oral 60 Output: Urine 575 570 50 Other: Voiding Method Bedpan Indwelling Catheter # Voids 1 ABP, PAP, CO, CI - Last Documented Arterial Blood Pressure 124/60 - Exam Still a bit agitated, currently on dexmedetomidine, and on BiPAP, with an IPAP of 10 and EPAP of 5 and 50% FiO2. HEENT examination is grossly unremarkable. Mucous membranes are moist. Neck supple. Full range of motion. No adenopathy thyromegaly or neck vein distention. Cardiovascular examination reveals regular rhythm rate. S1-S2 normal. No S3 or S4. No discernible murmur noted. Heart rate is 102 bpm. Lungs reveal diminished breath sounds bilaterally. Breath sounds on the right side are improved. There is coarse bilateral rhonchi and crackles. No distinct wheezes. Abdomen soft bowel sounds are heard. No masses or tenderness. Extremities are intact. No cyanosis clubbing or edema. Skin is without rash or lesion. Neurologic examination reveals a very agitated and delirious patient. - Labs CBC & Chem 7: 08/01/20 03:55 08/01/20 03:55 Labs: Abnormal Lab Results - Last 24 Hours (Table) 08/01/20 08/01/20 Range/Units 03:55 03:55 WBC 14.6 H (3.8-10.6) k/uL RBC 3.04 L (3.80-5.40) m/uL Hgb 10.0 L (11.4-16.0) gm/dL Hct 30.3 L (34.0-46.0) % Sodium 134 L (137-145) mmol/L Microbiology - Last 24 Hours (Table) 07/31/20 09:59 Acid Fast Bacilli Smear - Final Bronchial Washings - Random Acid Fast Bacilli Culture - Preliminary 07/31/20 09:59 Gram Stain - Preliminary Bronchial Washings - Random Bronchial Washings Culture - Preliminary 07/31/20 09:59 Fungal Culture - Preliminary Bronchial Washings - Random Assessment and Plan Assessment: Postop day #5, status post right thoracotomy, right upper lobectomy and right middle lobectomy, mediastinal lymph node dissection. Recent diagnosis of non-small cell lung cancer/squamous cell carcinoma via navigational bronchoscopy. Routine postoperative ventilator management. History of ICU delirium and psychosis, requiring dexmedetomidine. Chronic atrial fibrillation. Benign essential hypertension. Right lung collapse, status post bronchoscopy, 07/31/2020. History of rheumatoid arthritis. History of hypothyroidism. History of depression. History of glaucoma. Plan: Plan dated 08/01/2020. The patient will remain on BiPAP for the current time. The patient is currently being sedated with dexmedetomidine and 0.5 mcg/kg per hour. She remains on a Cardizem drip at 5 mg an hour for her atrial fibrillation. She underwent bronchoscopy on July 31, yesterday, for right-sided collapse. Currently, the white count is 14.6, hemoglobin 10 hematocrit 30.3 and platelet count 211,000. Her sodium is 134, potassium 3.6, chlorides 102, CO2 28, anion gap 4, BUN 12, and creatinine 0.60. Microbiologic studies from the bronchoscopy yesterday are either pending or negative. Chest x-ray shows improvement compared to yesterday's pre-bronchoscopy x-ray. Her overall prognosis remains guarded given her delirium and agitation. Additional recommendations and suggestions are forthcoming. Time with Patient: Greater than 30
[2020-08-01] MEDS: DEXTROSE 5%-0.45% NACL 1,000 ML IV SCH ×2 (09:10→23:32)
--- NOTE | 2020-08-01 11:31 | P.PN ---
Subjective Patient is resting in bed short of breath at rest minimally arousable Tachypneic respiratory rate 35, heart rate 100 215 beats a minute irregular, a febrile 97.2F Blood pressure 101/58 mmHg She remains a Cardizem drip She is not taking orally Heart sounds are irregular, soft normal S1 normal S2 Reduced breath sounds bilaterally No lower extremity edema Tachypnea White count 14,000, hemoglobin 10, platelet count 211,000 Sodium 134, potassium 3.6 BUN 12 creatinine 0.6 Impression Status post right thoracotomy, right upper lobectomy and right middle lobectomy Small cell carcinoma of the lung Acute respiratory failure Permanent atrial fibrillation History of essential hypertension She is not taking orally. She is in a low dose of IV Cardizem drip at 5 mg an hour to control her atrial fibrillation rates Continue apixaban 2.5 mg twice daily. However the patient is not consuming orally and we may have to switch to Objective - Vital Signs Vital signs: Vital Signs Temp 97.2 F L 08/01/20 09:00 Pulse 112 H 08/01/20 11:15 Resp 32 H 08/01/20 11:15 BP 146/72 08/01/20 11:15 Pulse Ox 76 L 08/01/20 11:15 Intake & Output 07/31/20 08/01/20 08/01/20 18:59 06:59 18:59 Intake Total 851.917 646.470 300 Output Total 575 570 175 Balance 276.917 76.470 125 Weight 55.7 kg 55.7 kg Intake: IV 750 560 300 Dextrose 5%-0.45% NaCl 1, 550 560 200 000 ml @ 50 mls/hr IV . Q20H [facility] Rx#:[id number] Potassium Chloride 10 meq 100 In Water For Injection 1 100ml.bag @ 100 mls/hr IVPB Q1H [facility] Rx#: [id number] Intake, IV Titration 41.917 86.470 Amount Dexmedetomidine/0.9% NaCl 46.220 (Pmx) 400 mcg In Empty Bag 1 bag @ Titrate IV . Q0M [facility] Rx#:[id number] Diltiazem 125 mg In 41.917 Sodium Chloride 0.9% 100 ml @ 5 MG/HR 5 mls/hr IV .Q24H [facility] Rx#:[id number] Diltiazem 125 mg In 40.25 Sodium Chloride 0.9% 100 ml @ Per Protocol IV .Q0M [facility] Rx#:[id number] Oral 60 Output: Urine 575 570 175 Other: Voiding Method Bedpan Indwelling Catheter # Voids 1 ABP, PAP, CO, CI - Last Documented Arterial Blood Pressure 124/60 - Labs CBC & Chem 7: 08/01/20 03:55 08/01/20 03:55 Labs: Abnormal Lab Results - Last 24 Hours (Table) 08/01/20 08/01/20 Range/Units 03:55 03:55 WBC 14.6 H (3.8-10.6) k/uL RBC 3.04 L (3.80-5.40) m/uL Hgb 10.0 L (11.4-16.0) gm/dL Hct 30.3 L (34.0-46.0) % Sodium 134 L (137-145) mmol/L Microbiology - Last 24 Hours (Table) 07/31/20 09:59 Acid Fast Bacilli Smear - Final Bronchial Washings - Random Acid Fast Bacilli Culture - Preliminary 07/31/20 09:59 Gram Stain - Preliminary Bronchial Washings - Random Bronchial Washings Culture - Preliminary 07/31/20 09:59 Fungal Culture - Preliminary Bronchial Washings - Random
[2020-08-01] MEDS: APIXABAN 2.5 MG TABLET PO SCH ×2 (11:46→21:54)
[2020-08-01] MEDS: ARIPiprazole 2 MG TAB PO SCH (11:48)
[2020-08-01] MEDS: ASPIRIN 81 MG PO SCH (11:48)
[2020-08-01] MEDS: buPROPion XL 150 MG TAB.ER.24H PO SCH (11:48)
[2020-08-01] MEDS: ESTROGENS, CONJUGATED 0.3 MG TAB PO SCH (11:51)
[2020-08-01] MEDS: METOPROLOL TARTRATE 25 MG TAB PO SCH ×2 (11:51→21:54)
[2020-08-01] MEDS: lamoTRIgine 100 MG TAB PO SCH ×2 (11:51→21:54)
[2020-08-01] MEDS: QUEtiapine 50 MG TAB PO SCH ×2 (11:52→21:55)
[2020-08-01 12:06] LABS: INR 1.1 (<1.2); Prothrombin Time 11.5 sec (9.0-12.0)
[2020-08-01 12:14] LABS: Magnesium 1.6 mg/dL (1.6-2.3); Phosphorus 1.9 mg/dL (2.5-4.5)
[2020-08-01] MEDS ORDERED: IV FLUID CONTINUATION 1,000 ML IV ONE (12:29)
[2020-08-01] MEDS ORDERED: LIDOCAINE 1% INJ 10MG/ML (20 ML MDV) SQ ONE (12:49)
--- NOTE | 2020-08-01 13:13 | XR ---
EXAMINATION TYPE: XR chest 1V portable DATE OF EXAM: 08/01/2020 COMPARISON: Chest x-ray same dated earlier time HISTORY: PICC line placement TECHNIQUE: Single frontal view of the chest is obtained. FINDINGS: Patient is rotated. There is interval is been interval left-sided PICC line, distal tip ov erlying the superior vena cava. No significant interval change. IMPRESSION: No evident complication status post PICC line placement.
[2020-08-01 13:45] LABS: Amorphous Sediment,Urine Rare /hpf; Appearance,Urine Cloudy (Clear); Bacteria,Urine Occasional /hpf; Bilirubin,Urine Negative (Negative); Blood,Urine Large (Negative); Color,Urine Yellow; Glucose,Urine (UA) Negative (Negative); Ketones,Urine Negative (Negative); Leukocyte Esterase,Urine Moderate (Negative); Mucus,Urine Many /hpf; Nitrite,Urine Negative (Negative); Protein,Urine 1+ (Negative); RBC,Urine >182 /hpf (0-5); Specific Gravity,Urine 1.022 (1.001-1.035); Squamous Epithelial Cell,Urine 1 /hpf (0-4); Urobilinogen,Urine <2.0 mg/dL (<2.0); WBC,Urine 36 /hpf (0-5)
--- NOTE | 2020-08-01 13:56 | IR ---
EXAMINATION TYPE: IR cvc insert >=5 years DATE OF EXAM: 08/01/2020 COMPARISON: NONE HISTORY: Needs long-term intravenous access for therapy, status post bilobectomy FINDINGS: Maximal barrier technique was utilized. Hand hygiene obtained with soap and water and alco hol-based hand rub. The skin overlying the left brachial vein was localized with ultrasound and noted to be compressible and patent by ultrasound. An ultrasound image was obtained and submitted on hue ent's chart. Sterile technique utilized with the ultrasound machine. The skin overlying was prepped a nd draped and Lidocaine used for local anesthesia. A skin yifan was made with a scalpel. Access was gained to the vein under direct ultrasound guidance with a 21-gauge needle and a 0.018 inch wire was advanced. Access site was dilated with a peel-away sheath and the catheter tailored to length. Cath eter advanced centrally and a post procedure chest x-ray verified placement with the tip in the super ior vena cava. Catheter was fixed to the skin and a sterile dressing placed. Hemostasis achieved an d the catheter was aspirated and flushed with sterile saline. The patient remained in stable conditi on. IMPRESSION: STATUS POST ULTRASOUND GUIDED PICC LINE PLACEMENT, READY FOR USE. THIS PROCEDURE WAS PER FORMED BY THE UNDERSIGNED.
[2020-08-01] MEDS ORDERED: MVI, ADULT NO.4 WITH VIT K 10 ML, TRACE (CONC-1ML/DOSE) 1 ML in AMINO ACID 5%-D15W+LYTE... IV SCH ×3 (15:00)
--- NOTE | 2020-08-01 15:15 | CDI ---
Documentation Clarification Form Date: 08/01/2020 02:58:57 PM From: Keri LiuHartMARIAH kahn, CCDS Admit Date: 07/27/2020 05:40:00 AM Patient Name: Swathi Floyd Visit Number: [id number] Discharge Date: ATTENTION: The Clinical Documentation Specialists (CDI) and [facility] Coding Staff appreciate your assistance in clarifying documentation. Please respond to the clarification below the line at the bottom and electronically sign. The CDI & [facility] Coding staff will review the response and follow-up if needed. Please note: Queries are made part of the Legal Health Record. If you have any questions, please contact the author of this message via ITS. Dr. Greg Worley: Basilar atelectasis is found on the 07/27, 07/28 & 07/29 CXRs and acknowledged in the 07/28 through 08/01 Pulmonary and Medical Management Progress Notes. On 07/31 the patient had a Bronchoscopy with BAL of the right lower lung lobe with therapeutic lavage and removal of mucous plug. Patients Admitting Diagnosis 07/27: Non-small cell carcinoma involving the takeoff of the right lower lobe bronchus and distal bronchus intermedius. Post-Operative Diagnosis 07/27: Non-small cell lung cancer involving the right lower lobe orifice and extending into the proximal bronchus intermedius. Procedure performed 07/27: Fiberoptic bronchoscopy, right thoracotomy, right lower and middle bilobectomy, mediastinal lymph node dissection, cryoablation of the intercostal nerves 3, 4, 5, 6 and 7. History/Risk Factors: COPD, Chronic Atrial Fibrillation, Hypothyroidism, Former Nicotine Dependence, quit 2 years ago, Chronic Systolic Congestive Heart Failure, Hypertension, Dyslipidemia. Clinical Indicators: Patient presented for the above elective surgery for RLL Lung Cancer. Bibasilar atelectasis and Right lung collapse is documented followed by RLL bronchoscopy. Treatment 07/27 IV Cefazolin, IV Lactated Ringers, IV Morphine, IV Tylenol, INH Duoneb 07/28: IV Precedex, IV Haldol (agitation), IV Albumin, IV Levophed (hypotension) 07/31 IV Cardizem & IV Cardizem Drip Bolus (Permanent Atrial Fibrillation), BiPAP 08/01: IV Kcl, IV Dextrose/Na Cl, BiPAP continued, Bronchoscopy as above. In order to accurately reflect this patients severity of illness, please clarify if the Atelectasis/Lung Collapse: - is a complication of surgical procedure - is an expected outcome of the surgical procedure - is related to co-morbid condition(s) of (please specify): - Other please specify: - Unable to determine (Last Revision: July 2019) MTDD
--- NOTE | 2020-08-01 15:30 | CDI ---
Documentation Clarification Form Date: 08/01/2020 03:19:00 PM From: Keri Hart CCS, CCDS Admit Date: 07/27/2020 05:40:00 AM Patient Name: Swathi Floyd Visit Number: [id number] Discharge Date: ATTENTION: The Clinical Documentation Specialists (CDI) and [facility] Coding Staff appreciate your assistance in clarifying documentation. Please respond to the clarification below the line at the bottom and electronically sign. The CDI & [facility] Coding staff will review the response and follow-up if needed. Please note: Queries are made part of the Legal Health Record. If you have any questions, please contact the author of this message via ITS. Dr. Greg Worley: Hypotension is documented in the 07/19 Cardiothoracic Progress Note without further specificity: "She did have some hypotension yesterday requiring the initiation of...." Patients Admitting Diagnosis 07/27: Non-small cell carcinoma involving the takeoff of the right lower lobe bronchus and distal bronchus intermedius. Post-Operative Diagnosis 07/27: Non-small cell lung cancer involving the right lower lobe orifice and extending into the proximal bronchus intermedius. Procedure performed 07/27: Fiberoptic bronchoscopy, right thoracotomy, right lower and middle bilobectomy, mediastinal lymph node dissection, cryoablation of the intercostal nerves 3, 4, 5, 6 and 7. Procedure performed 07/31: Bronchoscopy airway examination, therapeutic lavage, BAL right lower lobe. (Atelectasis, Right Lung Collapse.) History/Risk Factors: COPD, Chronic Atrial Fibrillation, Hypothyroidism, Former Nicotine Dependence, quit 2 years ago, Chronic Systolic Congestive Heart Failure, Hypertension, Dyslipidemia. Clinical Indicators: Patient presented for the above elective surgery for RLL Lung Cancer. Bibasilar atelectasis and Right lung collapse is documented followed by RLL bronchoscopy. VS 07/27 Preop: T 98.4 0 96.9*; P 64-69, R 16 - 20, BP 170/84^, PO 98 RA VS 07/27 Postop: T 97.9, P 67 - 79, R 18-22; BP 134/72, PO 100 3Lnc VS 07/28: P 83 - 129^, R 9*, BP 55/30*, PO 86 - 91 4Lnc VS 07/29: P 72 - 82 (irregular, weak), R 154 - 17 (SOB), BP 95/52, PO 100 3Lnc Treatment 07/27 IV Cefazolin, IV Lactated Ringers, IV Morphine, IV Tylenol, INH Duoneb 07/28: IV Precedex, IV Haldol (agitation), IV Albumin, IV Levophed (hypotension) 07/31 IV Cardizem & IV Cardizem Drip Bolus (Permanent Atrial Fibrillation), BiPAP 08/01: IV Kcl, IV Dextrose/Na Cl, BiPAP continued, Bronchoscopy as above. In order to accurately reflect this patients severity of illness, please clarify if the patient's Hypotension is the result of the surgical procedure? Yes No Other, please specify Unable to determine (Last Revision: September 2017) MTDD
[2020-08-01] MEDS ORDERED: SODIUM CHLORIDE 0.9% 1,000 ML IV ONE (16:16)
[2020-08-01] MEDS: MAGNESIUM SULFATE-D5W PMX 1 GM in DEXTROSE/WATER 1 100ML.BAG IVPB SCH ×2 (16:32→19:14)
[2020-08-01] MEDS: lisinopriL 5 MG TAB PO SCH (16:36)
[2020-08-01] MEDS: DILTIAZEM 125 MG in SODIUM CHLORIDE 0.9% 100 ML IV SCH (16:37)
[2020-08-01] MEDS: SODIUM PHOSPHATE 10 MMOL in SODIUM CHLORIDE 0.9% 100 ML IVPB SCH ×2 (17:09→19:53)
[2020-08-01 17:51] LABS: Glucose,Whole Blood 134 mg/dL (75-99)
[2020-08-01] MEDS: INSULIN ASPART (NovoLOG) 100 UNIT/ML VIAL SQ SCH ×2 (18:23→23:36)
--- NOTE | 2020-08-01 19:47 | PN ---
PROGRESS NOTE This is a 75-year-old white female who is resting in bed. Shortness of breath at rest. She is minimally arousable. She is tachypneic with a respiratory rate 35, heart rate 100 to 50 beats per minute, irregular rhythm. Remains on Cardizem drip. Nothing by mouth. Heart: S1, S2. Tachypneic. White count 14, hemoglobin is 10, platelets 211. ASSESSMENT: 1. Status post right thoracotomy, right upper lobectomy, right middle lobectomy. 2. Small-cell lung cancer. 3. Acute respiratory failure. 4. Permanent atrial fibrillation. She is on Cardizem, apixaban. Prognosis extremely guarded. Watch for signs of pneumothorax. Watch electrolytes. Prognosis extremely guarded . MMODL / IJN: [id number] /
[2020-08-01] MEDS: ATORVASTATIN 10 MG TAB PO SCH (21:54)
[2020-08-01] MEDS: SENNOSIDES-DOCUSATE SODIUM 1 EACH TAB PO SCH (21:55)
[2020-08-01] MEDS: NOREPINEPHRINE 8 MG in SODIUM CHLORIDE 0.9% 250 ML IV SCH (21:58)
[2020-08-01 23:36] LABS: Glucose,Whole Blood 129 mg/dL (75-99)
[2020-08-02] MEDS: NOREPINEPHRINE 8 MG in SODIUM CHLORIDE 0.9% 250 ML IV SCH ×4 (02:30→23:28)
[2020-08-02 04:39] LABS: Basophils % (A) 0 %; Eosinophils # (A) 0.1 k/uL (0-0.7); Eosinophils % (A) 0 %; HCT 31.9 % (34.0-46.0); HGB 9.7 gm/dL (11.4-16.0); Hypochromasia Moderate; Lymphocytes # (A) 0.6 k/uL (1.0-4.8); Lymphocytes % (A) 2 %; MCH 31.3 pg (25.0-35.0); MCHC 30.5 g/dL (31.0-37.0); MCV 102.9 fL (80.0-100.0); Macrocytosis Slight; Mean Platelet Volume 7.9; Monocytes # (A) 1.2 k/uL (0-1.0); Monocytes % (A) 5 %; Neutrophils # (A) 20.7 k/uL (1.3-7.7); Neutrophils % (A) 91 %; Platelet Count 208 k/uL (150-450); RDW 13.2 % (11.5-15.5); WBC 22.9 k/uL (3.8-10.6)
[2020-08-02 04:56] LABS: Ionized Calcium 5.7 mg/dL (4.5-5.3)
[2020-08-02 05:12] LABS: Albumin 2.2 g/dL (3.5-5.0); Calcium 8.6 mg/dL (8.4-10.2); Magnesium 2.3 mg/dL (1.6-2.3); Phosphorus 4.2 mg/dL (2.5-4.5); Potassium 4.4 mmol/L (3.5-5.1); Total Bilirubin 0.5 mg/dL (0.2-1.3); Total Protein 4.9 g/dL (6.3-8.2)
[2020-08-02 06:01] LABS: Glucose,Whole Blood 155 mg/dL (75-99)
[2020-08-02] MEDS: INSULIN ASPART (NovoLOG) 100 UNIT/ML VIAL SQ SCH ×4 (06:27→23:56)
[2020-08-02] MEDS: LEVOTHYROXINE 88 MCG TAB PO SCH (06:27)
[2020-08-02] MEDS: PANTOPRAZOLE 40 MG TABLET PO SCH (06:27)
[2020-08-02 06:29] LABS: ABG Base Excess -4.5 mmol/L; ABG HCO3 25 mmol/L (21-25); ABG Oxygen Saturation 94.6 % (94-97); ABG PO2 77 mmHg (83-108); ABG TCO2 27 mmol/L (19-24); Allen Test Performed? Yes
[2020-08-02 06:31] LABS: ABG PCO2 74 mmHg (35-45); ABG PH 7.13 (7.35-7.45)
[2020-08-02] MEDS ORDERED: propofoL 50 ML IV ONE (06:43)
--- NOTE | 2020-08-02 06:53 | P.PN ---
Subjective Progress Note Date: 08/02/20 Principal diagnosis: Lung cancer Progress note dated 07/31/2020. 75-year-old female well-known to me. She came to me with an abnormal chest x- ray and CAT scan. She ended up with a navigational bronchoscopy and we made a diagnosis of non-small cell lung cancer, squamous cell type. Her PET scan was only positive in the area of the lesions, and she underwent a right thoracotomy, and a right upper and right middle lobectomy by Dr. Worley on July 27. The patient also had a mediastinal lymph node dissection at that time. The patient was seen in the intensive care unit this morning. She was quite agitated and confused. She had a sitter in the room. In addition, her oxygen requirements have gone up recently from 4 L, 7 L, to 10 L/m, high flow. In addition, the [facility] x-ray from today showed complete atelectasis/collapse of the right lung. We took her to the operating room for bronchoscopy and BAL. She has thick mucous plugs throughout the right mainstem and right lower lobe. Also she had thick mucus in the left lung as well. Her arterial blood gases on 7 L high flow showed a PaO2 of 53, a PaCO2 of 36, and a pH of 7.43. The patient may or may not come back to the ICU intubated. She was intubated for the bronchoscopy. She remained on dextrose and half-normal saline at 50 mL an hour, and Cardizem drip at 5 mg an hour. In addition, for her confusion and delirium, we added Haldol and/or Seroquel. In addition, the patient has a history of ICU psych osis, chronic atrial fibrillation, benign essential hypertension, rheumatoid arthritis, hypothyroidism, depression, glaucoma, and, routine postoperative ventilator management. Progress note dated 08/01/2020. This is a 75-year-old female, postop day #5, status post right thoracotomy, with right upper lobectomy and right middle lobectomy, and mediastinal lymph node dissection. The patient has a history of recent diagnosis of non-small cell lung cancer, squamous cell type, diagnosed by electromagnetic navigational bronchoscopy. Unfortunately, the patient had nearly complete right lung collaps e yesterday. She had bronchoscopy yesterday done in the operating room. Her post bronchoscopy chest x-ray was much improved as was her x-ray this morning. The patient's currently on BiPAP with settings of 10/5 and 50%. She's getting a Cardizem drip at 5 mg an hour, as well as dexmedetomidine 0.5 mcg/kg per hour. She is also getting dextrose with half-normal saline at 75 mL an hour. We have a difficult time with her last night.. She was quite anxious and confused, with significant agitation. We attempted a number different medications none of which really worked other than the dexmedetomidine. Today, she will have a midline placed. In addition, because she is not eating, we'll start her on peripheral parenteral nutrition, which is not optimal but better than nothing. Her prognosis is very guarded at this time given all the issues that we had to deal with the last 2 days. In the end, she may end up back on the ventilator. I am hoping that is not the case. Progress note dated 08/02/2020. 75-year-old female postop day #6, status post right thoracotomy, with right upper lobectomy and right middle lobectomy, and mediastinal lymph node dissection. The patient was recently diagnosed with non-small cell lung cancer, squamous cell type, diagnosed by electromagnetic navigational bronchoscopy. Overnight, the patient required an increasing dose of Cardizem up to 10 mg an ho ur, with a subsequent drop in blood pressure requiring norepinephrine, which is now with 24 mcg/m. I was not notified of either of these 2 changes. Currently, the patient's on BiPAP with settings of IPAP 10, EPAP 5, and 100%. The patient's getting D5.45 50 mL an hour, and parenteral nutrition at 30 mL an hour. A PICC line was placed yesterday. In addition, the patient is on dexmedetomidine at 0.5 mcg/kg per hour. This morning, when I rounded, I asked the nurse for a stat blood gas. I was concerned because of the acute deterioration in this patient. Sure enough, the blood gas showed a PaO2 of 77, a PaCO2 of 74, and a pH of 7.129. Anesthesia will be called to intubate this patient, and place the patient on the volume assist control mode, rate 26, tidal volume 350, FiO2 100%, and PEEP of 5. We will use all for sedation and I will place an arterial line shortly. A blood gas will be done after 1 hour stable ventilation., Objective - Vital Signs Vital signs: Vital Signs Temp 97.1 F L 08/02/20 04:00 Pulse 80 08/02/20 06:00 Resp 20 08/02/20 06:00 BP 88/50 08/02/20 06:00 Pulse Ox 97 08/02/20 06:00 Intake & Output 08/01/20 08/01/20 08/02/20 06:59 18:59 06:59 Intake Total 142.693 3664.613 1489.477 Output Total 570 350 250 Balance 76.470 0819.425 8075.477 Weight 55.7 kg 55.7 kg 62 kg Intake: IV 560 2205 1160 Dextrose 5%-0.45% NaCl 1, 560 275 000 ml @ 50 mls/hr IV . Q20H [facility] Rx#:[id number] Dextrose 5%-0.45% NaCl 1, 400 600 000 ml @ 50 mls/hr IV . Q20H [facility] Rx#:[id number] Magnesium Sulfate-D5w Pmx 100 100 1 gm In Dextrose/Water 1 100ml.bag @ 100 mls/hr IVPB Q1H [facility] Rx#: [id number] Mvi, Adult No.4 with Vit 60 360 K 10 ml Trace (Conc-1Ml/ Dose) 1 ml In Amino Acid 5%-D15w+Lytes*E* 1,000 ml @ 30 mls/hr IV .Q24H [facility] Rx#:[id number] Potassium Chloride 10 meq 200 In Water For Injection 1 100ml.bag @ 100 mls/hr IVPB Q1H [facility] Rx#: [id number] Sodium Chloride 0.9% 1, 1000 000 ml @ 999 mls/hr IV . Q1H1M [facility] Rx#:[id number] Sodium Phosphate 10 mmol 100 100 In Sodium Chloride 0.9% 100 ml @ 50 mls/hr IVPB Q2H [facility] Rx#:[id number] cefTRIAXone 1 gm In 50 Sodium Chloride 0.9% 50 ml @ 100 mls/hr IVPB Q24HR [facility] Rx#:[id number] Intake, IV Titration 86.470 102.613 329.477 Amount Dexmedetomidine/0.9% NaCl 46.220 53.78 (Pmx) 400 mcg In Empty Bag 1 bag @ Titrate IV . Q0M [facility] Rx#:[id number] Diltiazem 125 mg In 40.25 48.833 66.583 Sodium Chloride 0.9% 100 ml @ Per Protocol IV .Q0M [facility] Rx#:[id number] Norepinephrine 8 mg In 262.894 Sodium Chloride 0.9% 250 ml @ 0.05 MCG/KG/MIN 5. 389 mls/hr IV .Q24H [facility] Rx#:[id number] Output: Urine 570 350 250 Other: Voiding Method Indwelling Catheter Indwelling Catheter Indwelling Catheter ABP, PAP, CO, CI - Last Documented Arterial Blood Pressure 124/60 - Exam Lethargic, and poorly responsive, currently on BiPAP. HEENT examination is grossly unremarkable. Mucous membranes are dry. BiPAP mask in place. Neck supple. Full range of motion. No adenopathy thyromegaly or neck vein distention. Cardiovascular examination reveals regular rhythm rate. S1-S2 normal. No S3 or S4. No discernible murmur noted. Heart rate is 91 bpm. Heart sounds are distant. Lungs reveal diminished breath sounds bilaterally. Bilateral coarse rhonchi are noted. Breath sounds are equal. No wheezes. Abdomen soft bowel sounds are heard. No masses or tenderness. Extremities are intact. No cyanosis clubbing or edema. Skin is without rash or lesion. Neurologic examination reveals a very somnolent patient. - Labs CBC & Chem 7: 08/02/20 03:59 08/02/20 03:59 Labs: Abnormal Lab Results - Last 24 Hours (Table) 08/01/20 08/01/20 08/01/20 Range/Units 03:55 03:55 13:25 WBC (3.8-10.6) k/uL RBC (3.80-5.40) m/uL Hgb (11.4-16.0) gm/dL Hct (34.0-46.0) % MCV (80.0-100.0) fL MCHC (31.0-37.0) g/dL Neutrophils # (1.3-7.7) k/uL Lymphocytes # (1.0-4.8) k/uL Monocytes # (0-1.0) k/uL ABG pH (7.35-7.45) ABG pCO2 (35-45) mmHg ABG pO2 (83-108) mmHg ABG Total CO2 (19-24) mmol/L Sodium (137-145) mmol/L Glucose (74-99) mg/dL POC Glucose (mg/dL) (75-99) mg/dL Ionized Calcium Simeon (4.5-5.3) mg/dL Phosphorus 1.9 L (2.5-4.5) mg/dL Total Protein (6.3-8.2) g/dL Albumin (3.5-5.0) g/dL Procalcitonin 0.39 H (0.02-0.09) ng/mL Urine Appearance Cloudy H (Clear) Urine Protein 1+ H (Negative) Urine Blood Large H (Negative) Ur Leukocyte Esterase Moderate H (Negative) Urine RBC >182 H (0-5) /hpf Urine WBC 36 H (0-5) /hpf Amorphous Sediment Rare H (None) /hpf Urine Bacteria Occasional H (None) /hpf Urine Mucus Many H (None) /hpf 08/01/20 08/01/20 08/02/20 Range/Units 17:50 23:34 03:59 WBC 22.9 H (3.8-10.6) k/uL RBC 3.10 L (3.80-5.40) m/uL Hgb 9.7 L (11.4-16.0) gm/dL Hct 31.9 L (34.0-46.0) % MCV 102.9 H (80.0-100.0) fL MCHC 30.5 L (31.0-37.0) g/dL Neutrophils # 20.7 H (1.3-7.7) k/uL Lymphocytes # 0.6 L (1.0-4.8) k/uL Monocytes # 1.2 H (0-1.0) k/uL ABG pH (7.35-7.45) ABG pCO2 (35-45) mmHg ABG pO2 (83-108) mmHg ABG Total CO2 (19-24) mmol/L Sodium (137-145) mmol/L Glucose (74-99) mg/dL POC Glucose (mg/dL) 134 H 129 H (75-99) mg/dL Ionized Calcium Simeon (4.5-5.3) mg/dL Phosphorus (2.5-4.5) mg/dL Total Protein (6.3-8.2) g/dL Albumin (3.5-5.0) g/dL Procalcitonin (0.02-0.09) ng/mL Urine Appearance (Clear) Urine Protein (Negative) Urine Blood (Negative) Ur Leukocyte Esterase (Negative) Urine RBC (0-5) /hpf Urine WBC (0-5) /hpf Amorphous Sediment (None) /hpf Urine Bacteria (None) /hpf Urine Mucus (None) /hpf 08/02/20 08/02/20 08/02/20 Range/Units 03:59 05:59 06:27 WBC (3.8-10.6) k/uL RBC (3.80-5.40) m/uL Hgb (11.4-16.0) gm/dL Hct (34.0-46.0) % MCV (80.0-100.0) fL MCHC (31.0-37.0) g/dL Neutrophils # (1.3-7.7) k/uL Lymphocytes # (1.0-4.8) k/uL Monocytes # (0-1.0) k/uL ABG pH 7.13 L* (7.35-7.45) ABG pCO2 74 H* (35-45) mmHg ABG pO2 77 L (83-108) mmHg ABG Total CO2 27 H (19-24) mmol/L Sodium 133 L (137-145) mmol/L Glucose 133 H (74-99) mg/dL POC Glucose (mg/dL) 155 H (75-99) mg/dL Ionized Calcium Simeon 5.7 H (4.5-5.3) mg/dL Phosphorus (2.5-4.5) mg/dL Total Protein 4.9 L (6.3-8.2) g/dL Albumin 2.2 L (3.5-5.0) g/dL Procalcitonin (0.02-0.09) ng/mL Urine Appearance (Clear) Urine Protein (Negative) Urine Blood (Negative) Ur Leukocyte Esterase (Negative) Urine RBC (0-5) /hpf Urine WBC (0-5) /hpf Amorphous Sediment (None) /hpf Urine Bacteria (None) /hpf Urine Mucus (None) /hpf Microbiology - Last 24 Hours (Table) 08/01/20 13:25 Urine Culture - Preliminary Urine,Clean Catch 07/31/20 09:59 Gram Stain - Preliminary Bronchial Washings - Random Bronchial Washings Culture - Preliminary 07/31/20 09:59 Acid Fast Bacilli Smear - Final Bronchial Washings - Random Acid Fast Bacilli Culture - Preliminary Assessment and Plan Assessment: Postop day #6, status post right thoracotomy, right upper lobectomy and right middle lobectomy, mediastinal lymph node dissection. Recent deterioration with hypotension, worsening atrial fibrillation, and hypercapnic respiratory failure, requiring reintubation on every 08/02/2020. Recent diagnosis of non-small cell lung cancer/squamous cell carcinoma via navigational bronchoscopy. Routine postoperative ventilator management. History of ICU delirium and psychosis. Chronic atrial fibrillation. Benign essential hypertension. Right lung collapse, status post bronchoscopy, 07/31/2020. History of rheumatoid arthritis. History of hypothyroidism. History of depression. History of glaucoma. Status post PICC line placement, on 08/01/2020. Plan: Plan dated 08/01/2020. The patient will remain on BiPAP for the current time. The patient is currently being sedated with dexmedetomidine and 0.5 mcg/kg per hour. She remains on a Cardizem drip at 5 mg an hour for her atrial fibrillation. She underwent bronchoscopy on July 31, yesterday, for right-sided collapse. Currently, the white count is 14.6, hemoglobin 10 hematocrit 30.3 and platelet count 211,000. Her sodium is 134, potassium 3.6, chlorides 102, CO2 28, anion gap 4, BUN 12, and creatinine 0.60. Microbiologic studies from the bronchoscopy yesterday are either pending or negative. Chest x-ray shows improvement compared to yesterda y's pre-bronchoscopy x-ray. Her overall prognosis remains guarded given her delirium and agitation. Additional recommendations and suggestions are forthcoming. Plan dated 08/02/2020. The patient is obviously taken a turn for the worse. Overnight, the patient required higher doses of Cardizem for atrial fibrillation with RVR. Heart rate was up to 140. Currently, the patient's on Cardizem at 10 mg an hour. In addition, the patient became more hypotensive and required norepinephrine which is currently running at 24 mcg/m. The patient remains on dexmedetomidine at 0.5 mcg/kg per hour. I was not notified of the changes overnight, and I asked for a stat blood gases morning, which showed hypercapnic respiratory failure. The blood gas showed a pO2 of 77, a PaCO2 of 74, and a pH of 7.13. I asked the nurse to call anesthesia to have the patient reintubated, I gave vent settings, and propofol for sedation. The dexmedetomidine can be discontinued. I will place an art line this morning. A repeat blood gas will be done after stable ventilation for one hour. White count is 22.9, hemoglobin 9.7, hematocrit 31.9, and platelet count is 208,000. Sodium is 133, potassium 4.4, chlorides 106, CO2 23, anion gap 4, BUN 17, and creatinine 0.79. Bronchoscopy washings from Friday, currently pending or negative. Prognosis is guarded. We will continue to follow. Additional recommendations and suggestions are forthcoming. Time with Patient: Greater than 30
[2020-08-02] MEDS: BUDESONIDE 1 MG/2 ML NEBU INHALATION SCH ×2 (08:05→21:41)
[2020-08-02] MEDS: IPRATROPIUM-ALBUTEROL 3 ML NEB IH SCH ×5 (08:05→21:40)
[2020-08-02] MEDS: FORMOTEROL FUMARATE 20 MCG/2 ML NEBU INHALATION SCH ×2 (08:05→21:40)
--- NOTE | 2020-08-02 08:05 | XR ---
EXAMINATION TYPE: XR chest 1V portable DATE OF EXAM: 08/02/2020 COMPARISON: Chest x-ray 08/02/2020 HISTORY: Intubated TECHNIQUE: Single frontal view of the chest is obtained. FINDINGS: Endotracheal tube, NG tube him a left-sided PICC line are overlying appropriate positions. Distal tip the NG tube not included on exam. Pleural-parenchymal changes are similar to prior exam. No evident pneumothorax. IMPRESSION: Interval intubation. Correlate for pneumonia, edema, possible effusion.
--- NOTE | 2020-08-02 08:14 | XR ---
EXAMINATION TYPE: XR chest 1V portable DATE OF EXAM: 08/02/2020 COMPARISON: Prior chest x-ray 08-01-20 HISTORY: Post bilobectomy TECHNIQUE: Single frontal view of the chest is obtained. FINDINGS: Left-sided PICC line shows the distal tip over the superior vena cava. Pleural parenchymal changes are similar to prior exam. IMPRESSION: Chronic for pneumonia, edema and congestive heart failure, pleural effusion.
--- NOTE | 2020-08-02 09:22 | P.PN ---
Subjective Progress Note Date: 08/02/20 Principal diagnosis: Non-small cell lung cancer involving the right lower lobe orifice and extending into the proximal bronchus intermedius. Previous medical history of tobacco de pendence with cessation 5 years ago, COPD, hypertension, hyperlipidemia, chronic atrial fibrillation on Eliquis outpatient for anticoagulation, chronic systolic failure, hypothyroid, arthritis with chronic pain and narcotic dependence, depression. POD #6 fiberoptic bronchoscopy, right thoracotomy, right lower and middle bilobectomy, mediastinal lymph node dissection, cryoablation of the intercostal nerves 3, 4, 5, 6 and 7 Right lung collapse, related to patient's inability/refusal to cough and deep breathe POD #2 bronchoscopy airway examination, therapeutic lavage, BAL right lower lobe with mucous plug removal by Dr. Weber Acute hypoxic and hypercapnic respiratory failure requiring initiation of BiPAP, reintubation The patient's currently laying in bed in the intensive care unit, was reintubated this morning due to ABGs demonstrating respiratory acidosis, pH 7.13, pCO2 74, pO2 77. She remains on IV Cardizem for A. fib, propofol for sedation, and levo for hypotension likely caused by medications including previous Precedex, Haldol, IV Cardizem, and now propofol. Procalcitonin was drawn yesterday, 0.39, urine culture was sent, bronchial washing Gram stain preliminary no organisms seen with moderate PMNs, pathology still pending, white blood cell count 22.9 this morning, was 14.6 yesterday. T-max 99.5 yesterday morning. PICC line was placed yesterday, and the patient was started on parenteral nutrition as she has not been eating. The case was discussed with the patient's aunt Nikia by Dr. Weber this morning and all questions were answered. Objective - Vital Signs Vital signs: Vital Signs Temp 97.3 F L 08/02/20 08:00 Pulse 64 08/02/20 08:28 Resp 26 H 08/02/20 08:00 BP 116/55 08/02/20 08:00 Pulse Ox 99 08/02/20 08:00 Intake & Output 08/01/20 08/02/20 08/02/20 18:59 06:59 18:59 Intake Total 2307.613 1489.477 269.769 Output Total 350 250 45 Balance 2284.869 2961.477 224.769 Weight 55.7 kg 62 kg Intake: IV 2205 1160 160 Dextrose 5%-0.45% NaCl 1, 275 000 ml @ 50 mls/hr IV . Q20H [facility] Rx#:[id number] Dextrose 5%-0.45% NaCl 1, 400 600 100 000 ml @ 50 mls/hr IV . Q20H [facility] Rx#:[id number] Magnesium Sulfate-D5w Pmx 100 100 1 gm In Dextrose/Water 1 100ml.bag @ 100 mls/hr IVPB Q1H [facility] Rx#: [id number] Mvi, Adult No.4 with Vit 60 360 60 K 10 ml Trace (Conc-1Ml/ Dose) 1 ml In Amino Acid 5%-D15w+Lytes*E* 1,000 ml @ 30 mls/hr IV .Q24H [facility] Rx#:[id number] Potassium Chloride 10 meq 200 In Water For Injection 1 100ml.bag @ 100 mls/hr IVPB Q1H [facility] Rx#: [id number] Sodium Chloride 0.9% 1, 1000 000 ml @ 999 mls/hr IV . Q1H1M [facility] Rx#:[id number] Sodium Phosphate 10 mmol 100 100 In Sodium Chloride 0.9% 100 ml @ 50 mls/hr IVPB Q2H [facility] Rx#:[id number] cefTRIAXone 1 gm In 50 Sodium Chloride 0.9% 50 ml @ 100 mls/hr IVPB Q24HR [facility] Rx#:[id number] Intake, IV Titration 102.613 329.477 109.769 Amount Dexmedetomidine/0.9% NaCl 53.78 53.383 (Pmx) 400 mcg In Empty Bag 1 bag @ Titrate IV . Q0M [facility] Rx#:[id number] Diltiazem 125 mg In 48.833 66.583 Sodium Chloride 0.9% 100 ml @ Per Protocol IV .Q0M [facility] Rx#:[id number] Norepinephrine 8 mg In 262.894 56.386 Sodium Chloride 0.9% 250 ml @ 0.05 MCG/KG/MIN 5. 389 mls/hr IV .Q24H [facility] Rx#:[id number] Output: Urine 350 250 45 Other: Voiding Method Indwelling Catheter Indwelling Catheter ABP, PAP, CO, CI - Last Documented Arterial Blood Pressure 124/60 - Constitutional Constitutional Comment(s): Currently intubated and sedated - Respiratory Details: Lungs sounds diminished bilaterally with coarse breath sounds in the bases. Respirations even, nonlabored on mechanical ventilation. Current ventilator settings assist control mode, FiO2 100%, tidal volume 350, respiratory rate 26, PEEP 5. 8.0 ET tube present, 22 at the lip. - Cardiovascular Details: S1/S2 present. Irregular rate, rhythm, controlled a fib with rate in the 60s. Palpable pulses bilaterally. No edema present. SCDs in place - Gastrointestinal Gastrointestinal Comment(s): Abdomen soft, nontender, nondistended. Active bowel sounds present 4 quadrants. OG tube present to low intermittent suction - Genitourinary Genitourinary Comment(s): Muñoz present draining clear, yellow urine. Output 15-25 mL per hour overnight, 600 mL last 24 hours - Integumentary Integumentary Comment(s): Skin is warm and dry. Right thoracotomy incision well approximated without redness or drainage - Psychiatric Psychiatric Comment(s): Sedated with propofol - Allied health notes Allied health notes reviewed: nursing - Labs CBC & Chem 7: 08/02/20 03:59 08/02/20 03:59 Labs: Abnormal Lab Results - Last 24 Hours (Table) 08/01/20 08/01/20 08/01/20 Range/Units 03:55 03:55 13:25 WBC (3.8-10.6) k/uL RBC (3.80-5.40) m/uL Hgb (11.4-16.0) gm/dL Hct (34.0-46.0) % MCV (80.0-100.0) fL MCHC (31.0-37.0) g/dL Neutrophils # (1.3-7.7) k/uL Lymphocytes # (1.0-4.8) k/uL Monocytes # (0-1.0) k/uL ABG pH (7.35-7.45) ABG pCO2 (35-45) mmHg ABG pO2 (83-108) mmHg ABG Total CO2 (19-24) mmol/L Sodium (137-145) mmol/L Glucose (74-99) mg/dL POC Glucose (mg/dL) (75-99) mg/dL Ionized Calcium Simeon (4.5-5.3) mg/dL Phosphorus 1.9 L (2.5-4.5) mg/dL Total Protein (6.3-8.2) g/dL Albumin (3.5-5.0) g/dL Procalcitonin 0.39 H (0.02-0.09) ng/mL Urine Appearance Cloudy H (Clear) Urine Protein 1+ H (Negative) Urine Blood Large H (Negative) Ur Leukocyte Esterase Moderate H (Negative) Urine RBC >182 H (0-5) /hpf Urine WBC 36 H (0-5) /hpf Amorphous Sediment Rare H (None) /hpf Urine Bacteria Occasional H (None) /hpf Urine Mucus Many H (None) /hpf 08/01/20 08/01/20 08/02/20 Range/Units 17:50 23:34 03:59 WBC 22.9 H (3.8-10.6) k/uL RBC 3.10 L (3.80-5.40) m/uL Hgb 9.7 L (11.4-16.0) gm/dL Hct 31.9 L (34.0-46.0) % MCV 102.9 H (80.0-100.0) fL MCHC 30.5 L (31.0-37.0) g/dL Neutrophils # 20.7 H (1.3-7.7) k/uL Lymphocytes # 0.6 L (1.0-4.8) k/uL Monocytes # 1.2 H (0-1.0) k/uL ABG pH (7.35-7.45) ABG pCO2 (35-45) mmHg ABG pO2 (83-108) mmHg ABG Total CO2 (19-24) mmol/L Sodium (137-145) mmol/L Glucose (74-99) mg/dL POC Glucose (mg/dL) 134 H 129 H (75-99) mg/dL Ionized Calcium Simeon (4.5-5.3) mg/dL Phosphorus (2.5-4.5) mg/dL Total Protein (6.3-8.2) g/dL Albumin (3.5-5.0) g/dL Procalcitonin (0.02-0.09) ng/mL Urine Appearance (Clear) Urine Protein (Negative) Urine Blood (Negative) Ur Leukocyte Esterase (Negative) Urine RBC (0-5) /hpf Urine WBC (0-5) /hpf Amorphous Sediment (None) /hpf Urine Bacteria (None) /hpf Urine Mucus (None) /hpf 08/02/20 08/02/20 08/02/20 Range/Units 03:59 05:59 06:27 WBC (3.8-10.6) k/uL RBC (3.80-5.40) m/uL Hgb (11.4-16.0) gm/dL Hct (34.0-46.0) % MCV (80.0-100.0) fL MCHC (31.0-37.0) g/dL Neutrophils # (1.3-7.7) k/uL Lymphocytes # (1.0-4.8) k/uL Monocytes # (0-1.0) k/uL ABG pH 7.13 L* (7.35-7.45) ABG pCO2 74 H* (35-45) mmHg ABG pO2 77 L (83-108) mmHg ABG Total CO2 27 H (19-24) mmol/L Sodium 133 L (137-145) mmol/L Glucose 133 H (74-99) mg/dL POC Glucose (mg/dL) 155 H (75-99) mg/dL Ionized Calcium Simeon 5.7 H (4.5-5.3) mg/dL Phosphorus (2.5-4.5) mg/dL Total Protein 4.9 L (6.3-8.2) g/dL Albumin 2.2 L (3.5-5.0) g/dL Procalcitonin (0.02-0.09) ng/mL Urine Appearance (Clear) Urine Protein (Negative) Urine Blood (Negative) Ur Leukocyte Esterase (Negative) Urine RBC (0-5) /hpf Urine WBC (0-5) /hpf Amorphous Sediment (None) /hpf Urine Bacteria (None) /hpf Urine Mucus (None) /hpf Microbiology - Last 24 Hours (Table) 08/01/20 13:25 Urine Culture - Preliminary Urine,Clean Catch 07/31/20 09:59 Gram Stain - Preliminary Bronchial Washings - Random Bronchial Washings Culture - Preliminary - Imaging and Cardiology Chest x-ray: report reviewed, image reviewed Assessment and Plan Assessment: 1. Non-small cell lung cancer involving the right lower lobe orifice and extending into the proximal bronchus intermedius, status post fiberoptic bronchoscopy, right thoracotomy, right lower and middle bilobectomy with mediastinal lymph node dissection and cryoablation of intercostal nerves, surgical pathology pending 2. History of tobacco dependence with cessation 5 years ago 3. COPD 4. Hypertension 5. Hyperlipidemia, treated 6. Chronic atrial fibrillation on Eliquis outpatient for anticoagulation 7. Chronic systolic failure 8. Hypothyroid 9. Arthritis with chronic pain and narcotic dependence 10. Depression. 11. Paranoia and agitation, confusion 12. Right lung collapse, s/p broncoscopy with mucous plug removal 13. Acute hypoxic and hypercapnic respiratory failure requiring bipap, reintubation 14. Leukocytosis, elevated pro-calcitonin Plan: 1. Ventilator management per Dr. Weber, wean as tolerated 2. Daily chest x-rays 3. Pain control with current medication regimen. 4. Bronchodilators per pulmonology 5. Continue Eliquis, Cardizem per cardiology management. May transition back to Lopressor as patient has OG tube present 6. Continue parenteral nutrition 7. Propofol for sedation 8. Continue home medications, may crash and put down OG tube 9. Pathology pending, await final results 10. Wean levo as tolerated. 11. Continue IV antibiotics, monitor for response 12. Prognosis guarded, family updated by Dr. Weber 13. More recommendations to follow Time with Patient: Greater than 30
[2020-08-02 09:55] LABS: ABG Base Excess -3.5 mmol/L; ABG HCO3 23 mmol/L (21-25); ABG Oxygen Saturation 99.5 % (94-97); ABG PCO2 48 mmHg (35-45); ABG PH 7.29 (7.35-7.45); ABG PO2 150 mmHg (83-108); ABG TCO2 25 mmol/L (19-24); Allen Test Performed? Yes
[2020-08-02] MEDS: buPROPion XL 150 MG TAB.ER.24H PO SCH (10:04)
[2020-08-02] MEDS: QUEtiapine 50 MG TAB PO SCH (10:05)
[2020-08-02] MEDS: ARIPiprazole 2 MG TAB PO SCH (10:05)
[2020-08-02] MEDS: APIXABAN 2.5 MG TABLET PO SCH ×2 (10:05→21:00)
[2020-08-02] MEDS: CHLORHEXIDINE GLUCONATE 15 ML CUP MUCOUS MEM SCH ×2 (10:06→23:34)
[2020-08-02] MEDS: PANTOPRAZOLE 40 MG/10 ML VIAL IVP SCH (10:06)
[2020-08-02] MEDS: lamoTRIgine 100 MG TAB PO SCH ×2 (10:07→20:59)
[2020-08-02] MEDS: LEVOTHYROXINE IVP 100 MCG/5 ML VIAL IV SCH (10:10)
[2020-08-02] MEDS: SODIUM CHLORIDE 0.9% 1,000 ML IV SCH (10:12)
--- NOTE | 2020-08-02 10:28 | PCN ---
PROCEDURE NOTE PROCEDURE: Left radial arterial line placement. PREOPERATIVE DIAGNOSIS: Acute hypoxic respiratory failure, pneumonia. POSTOPERATIVE DIAGNOSIS: Acute hypoxic respiratory failure, pneumonia. ARTERIAL LINE PLACEMENT: Indications: Hemodynamic monitoring. A time-out was completed verifying correct patient, procedure, site, positioning, and implant(s) or special equipment if applicable. Tristian's test was performed to ensure adequate perfusion. The patient's left wrist was prepped and draped in sterile fashion. 1% Lidocaine was used to anesthetize the area. An 18G Arrow arterial line was introduced into the left radial artery. The catheter was threaded over the guide wire and the needle was removed with appropriate pulsatile blood return. Blood loss was minimal. The catheter was then sutured in place to the skin and a sterile dressing applied. Perfusion to the extremity distal to the point of catheter insertion was checked and found to be adequate. The patient tolerated the procedure well and there were no immediate complications. The line was flushed, sutured in place. Sterile dressing was applied. MMODL / IJN: [id number] /
[2020-08-02] MEDS: ESTROGENS, CONJUGATED 0.3 MG TAB PO SCH (11:05)
[2020-08-02 11:49] LABS: Glucose,Whole Blood 132 mg/dL (75-99)
[2020-08-02] MEDS ORDERED: SODIUM CHLORIDE 0.9% 1,000 ML IV ONE (13:16)
[2020-08-02] MEDS ORDERED: 1: MVI, ADULT NO.4 WITH VIT K 10 ML, TRACE (CONC-1ML/DOSE) 1 ML in AMINO ACID 5%-D15W+LY IV SCH ×3 (15:00)
--- NOTE | 2020-08-02 17:17 | PN ---
PROGRESS NOTE The patient had an arterial line placed by Dr. Weber for IV access. Apparently she was intubated due to ABGs, worsening respiratory acidosis with a pH 7.13, pCO2 74, PO2 77. IV Cardizem for atrial fibrillation, propofol for sedation, Levophed for hypotension. Procalcitonin was a little bit high at 0.39. Urine culture was sent. White count 22.9. Started on broad-spectrum antibiotics. T-max 99.5. Parental nutrition. Blood pressure 116/55, oxygen saturation 99%, respiratory rate 18 to 26, temperature 97.3, pulse 64. CARDIOVASCULAR: S1, S2. LUNGS: Diminished bilaterally. INTEGUMENT: Skin is warm and dry. PSYCH: Sedated with propofol. Prognosis guarded. Continue current treatments. Broad-spectrum antibiotics have been started. Prognosis extremely guarded. Status post [id number] lung cancer, bilobectomy, status post bronchoscopy, right thoracotomy, right lower middle lobe bilobectomy, COPD, dementia bipolar with anxiety and behavioral problems, hypothyroidism, osteoarthritis, delirium postoperatively, possibly from anesthesia. Prognosis extremely guarded. Continue treatment as mentioned above. Please see further orders in ICU. MMODL / IJN: [id number] /
[2020-08-02 17:35] LABS: Glucose,Whole Blood 203 mg/dL (75-99)
[2020-08-02] MEDS ORDERED: FAT EMULSION 20% 250 ML in EMPTY BAG 1 BAG IV SCH (18:00)
[2020-08-02] MEDS: SENNOSIDES-DOCUSATE SODIUM 1 EACH TAB PO SCH (21:00)
[2020-08-02] MEDS: ATORVASTATIN 10 MG TAB PO SCH (21:00)
[2020-08-02 23:56] LABS: Glucose,Whole Blood 113 mg/dL (75-99)
[2020-08-03] MEDS: IPRATROPIUM-ALBUTEROL 3 ML NEB IH SCH ×6 (01:30→21:49)
[2020-08-03 04:47] LABS: Basophils % (A) 0 %; Eosinophils # (A) 0.1 k/uL (0-0.7); Eosinophils % (A) 0 %; HCT 31.6 % (34.0-46.0); HGB 9.7 gm/dL (11.4-16.0); Hypochromasia Slight; Lymphocytes # (A) 0.5 k/uL (1.0-4.8); Lymphocytes % (A) 2 %; MCH 31.2 pg (25.0-35.0); MCHC 30.6 g/dL (31.0-37.0); MCV 101.8 fL (80.0-100.0); Macrocytosis Slight; Mean Platelet Volume 8.4; Monocytes # (A) 1.1 k/uL (0-1.0); Monocytes % (A) 5 %; Neutrophils # (A) 20.8 k/uL (1.3-7.7); Neutrophils % (A) 91 %; Platelet Count 241 k/uL (150-450); RDW 13.5 % (11.5-15.5); WBC 22.8 k/uL (3.8-10.6)
[2020-08-03 05:04] LABS: Albumin 1.9 g/dL (3.5-5.0); Calcium 8.7 mg/dL (8.4-10.2); Phosphorus 2.6 mg/dL (2.5-4.5); Potassium 3.4 mmol/L (3.5-5.1); Total Bilirubin 0.6 mg/dL (0.2-1.3); Total Protein 4.3 g/dL (6.3-8.2)
[2020-08-03 05:24] LABS: ABG Base Excess -6.8 mmol/L; ABG HCO3 20 mmol/L (21-25); ABG PCO2 42 mmHg (35-45); ABG PH 7.28 (7.35-7.45); ABG PO2 121 mmHg (83-108); ABG TCO2 21 mmol/L (19-24)
[2020-08-03] MEDS: NOREPINEPHRINE 8 MG in SODIUM CHLORIDE 0.9% 250 ML IV SCH ×4 (06:48→21:17)
[2020-08-03] MEDS: SODIUM CHLORIDE 0.9% 1,000 ML IV SCH (06:52)
[2020-08-03 06:54] LABS: Glucose,Whole Blood 136 mg/dL (75-99)
[2020-08-03] MEDS: INSULIN ASPART (NovoLOG) 100 UNIT/ML VIAL SQ SCH ×3 (06:54→17:25)
[2020-08-03] MEDS ORDERED: METOCLOPRAMIDE 5 MG/ML 2 ML VIAL IVP STA (07:42)
[2020-08-03] MEDS: PANTOPRAZOLE 40 MG/10 ML VIAL IVP SCH (08:08)
[2020-08-03] MEDS: CHLORHEXIDINE GLUCONATE 15 ML CUP MUCOUS MEM SCH ×2 (08:08→21:01)
[2020-08-03] MEDS: POTASSIUM CHLORIDE 10 MEQ in WATER FOR INJECTION 1 100ML.BAG IVPB SCH ×4 (08:09→12:17)
[2020-08-03] MEDS: APIXABAN 2.5 MG TABLET PO SCH ×2 (08:19→21:01)
[2020-08-03] MEDS: ARIPiprazole 2 MG TAB PO SCH (08:19)
[2020-08-03] MEDS: lamoTRIgine 100 MG TAB PO SCH ×2 (08:19→21:01)
[2020-08-03] MEDS: ESTROGENS, CONJUGATED 0.3 MG TAB PO SCH (08:19)
[2020-08-03] MEDS: LEVOTHYROXINE IVP 100 MCG/5 ML VIAL IV SCH (08:20)
[2020-08-03] MEDS: buPROPion XL 150 MG TAB.ER.24H PO SCH (08:20)
[2020-08-03] MEDS: FORMOTEROL FUMARATE 20 MCG/2 ML NEBU INHALATION SCH ×2 (08:25→21:49)
[2020-08-03] MEDS: BUDESONIDE 1 MG/2 ML NEBU INHALATION SCH ×2 (08:25→21:49)
--- NOTE | 2020-08-03 09:18 | P.PN ---
Subjective Progress Note Date: 08/03/20 Principal diagnosis: Lung cancer Progress note dated 07/31/2020. 75-year-old female well-known to me. She came to me with an abnormal chest x- ray and CAT scan. She ended up with a navigational bronchoscopy and we made a diagnosis of non-small cell lung cancer, squamous cell type. Her PET scan was only positive in the area of the lesions, and she underwent a right thoracotomy, and a right upper and right middle lobectomy by Dr. Worley on July 27. The patient also had a mediastinal lymph node dissection at that time. The patient was seen in the intensive care unit this morning. She was quite agitated and confused. She had a sitter in the room. In addition, her oxygen requirements have gone up recently from 4 L, 7 L, to 10 L/m, high flow. In addition, the [facility] x-ray from today showed complete atelectasis/collapse of the right lung. We took her to the operating room for bronchoscopy and BAL. She has thick mucous plugs throughout the right mainstem and right lower lobe. Also she had thick mucus in the left lung as well. Her arterial blood gases on 7 L high flow showed a PaO2 of 53, a PaCO2 of 36, and a pH of 7.43. The patient may or may not come back to the ICU intubated. She was intubated for the bronchoscopy. She remained on dextrose and half-normal saline at 50 mL an hour, and Cardizem drip at 5 mg an hour. In addition, for her confusion and delirium, we added Haldol and/or Seroquel. In addition, the patient has a history of ICU psych osis, chronic atrial fibrillation, benign essential hypertension, rheumatoid arthritis, hypothyroidism, depression, glaucoma, and, routine postoperative ventilator management. Progress note dated 08/01/2020. This is a 75-year-old female, postop day #5, status post right thoracotomy, with right upper lobectomy and right middle lobectomy, and mediastinal lymph node dissection. The patient has a history of recent diagnosis of non-small cell lung cancer, squamous cell type, diagnosed by electromagnetic navigational bronchoscopy. Unfortunately, the patient had nearly complete right lung collaps e yesterday. She had bronchoscopy yesterday done in the operating room. Her post bronchoscopy chest x-ray was much improved as was her x-ray this morning. The patient's currently on BiPAP with settings of 10/5 and 50%. She's getting a Cardizem drip at 5 mg an hour, as well as dexmedetomidine 0.5 mcg/kg per hour. She is also getting dextrose with half-normal saline at 75 mL an hour. We have a difficult time with her last night.. She was quite anxious and confused, with significant agitation. We attempted a number different medications none of which really worked other than the dexmedetomidine. Today, she will have a midline placed. In addition, because she is not eating, we'll start her on peripheral parenteral nutrition, which is not optimal but better than nothing. Her prognosis is very guarded at this time given all the issues that we had to deal with the last 2 days. In the end, she may end up back on the ventilator. I am hoping that is not the case. Progress note dated 08/02/2020. 75-year-old female postop day #6, status post right thoracotomy, with right upper lobectomy and right middle lobectomy, and mediastinal lymph node dissection. The patient was recently diagnosed with non-small cell lung cancer, squamous cell type, diagnosed by electromagnetic navigational bronchoscopy. Overnight, the patient required an increasing dose of Cardizem up to 10 mg an ho ur, with a subsequent drop in blood pressure requiring norepinephrine, which is now with 24 mcg/m. I was not notified of either of these 2 changes. Currently, the patient's on BiPAP with settings of IPAP 10, EPAP 5, and 100%. The patient's getting D5.45 50 mL an hour, and parenteral nutrition at 30 mL an hour. A PICC line was placed yesterday. In addition, the patient is on dexmedetomidine at 0.5 mcg/kg per hour. This morning, when I rounded, I asked the nurse for a stat blood gas. I was concerned because of the acute deterioration in this patient. Sure enough, the blood gas showed a PaO2 of 77, a PaCO2 of 74, and a pH of 7.129. Anesthesia will be called to intubate this patient, and place the patient on the volume assist control mode, rate 26, tidal volume 350, FiO2 100%, and PEEP of 5. We will use all for sedation and I will place an arterial line shortly. A blood gas will be done after 1 hour stable ventilation., Progress note dated 08/03/2020. 75-year-old female, postop day #7, status post right thoracotomy, right upper lobectomy, right middle lobectomy, and mediastinal lymph node dissection. The patient was recently diagnosed with non-small cell lung cancer, squamous cell type, by navigational bronchoscopy. Yesterday, the patient was intubated for hypercapnic respiratory failure. The patient prior, was on BiPAP, and was doing poorly, both in terms of her atrial fibrillation with RVR, and hypotension. I had a long talk with her sister Leatha yesterday and she agreed to continue life support through the end of the week in early part of the weekend but, if the patient wasn't doing well, they would agree to comfort measures. Currently, she remains on the volume assist control mode, rate 30, tidal volume 350, FiO2 50%, and PEEP of 8. Blood gases showed a PaO2 of 121, PaCO2 42, and a pH is 7.28, on 60% FiO2. The patient is actually a synchronous with the ventilator, and we switch the modality to pressure regulated volume control or VC+. In addition, Reglan was added because of high residuals, and the patient remains on norepinephrine at 36 mcg/m, propofol 50 mcg/kg/m, and saline at 50 mL now her. Her tube feeds should be vital high protein, and the goal rate is 38 mL per hour. The patient's overall prognosis remains poor. Her norepinephrine dose was only 24 mcg/min yesterday and obviously has increased. In addition, her chest x-ray shows an infiltrate in the left lung. Objective - Vital Signs Vital signs: Vital Signs Temp 97.7 F 08/03/20 08:00 Pulse 101 H 08/03/20 08:52 Resp 30 H 08/03/20 08:00 BP 91/40 08/02/20 19:00 Pulse Ox 99 08/03/20 08:00 Intake & Output 08/02/20 08/03/20 08/03/20 18:59 06:59 18:59 Intake Total 3492.195 1713.349 165.274 Output Total 325 620 30 Balance 3167.195 1093.349 135.274 Weight 62 kg 62.7 kg Intake: IV 2240 836 53 0.9 NS flush 30 56 3 Dextrose 5%-0.45% NaCl 1, 150 000 ml @ 50 mls/hr IV . Q20H [facility] Rx#:[id number] Mvi, Adult No.4 with Vit 60 180 K 10 ml Trace (Conc-1Ml/ Dose) 1 ml In Amino Acid 5%-D15w+Lytes*E* 1,000 ml @ 30 mls/hr IV .Q24H [facility] Rx#:[id number] Sodium Chloride 0.9% 1, 600 50 000 ml @ 50 mls/hr IV . Q20H [facility] Rx#:[id number] Sodium Chloride 0.9% 1, 2000 000 ml @ 999 mls/hr IV . Q1H1M ONE Rx#:[id number] Intake, IV Titration 1122.195 637.349 112.274 Amount Dexmedetomidine/0.9% NaCl 53.383 (Pmx) 400 mcg In Empty Bag 1 bag @ Titrate IV . Q0M [facility]UEL Rx#:[id number] Diltiazem 125 mg In 17.334 Sodium Chloride 0.9% 100 ml @ Per Protocol IV .Q0M [facility] Rx#:[id number] Norepinephrine 8 mg In 401.478 410.717 84.498 Sodium Chloride 0.9% 250 ml @ 0.05 MCG/KG/MIN 5. 389 mls/hr IV .Q24H [facility]UEL Rx#:[id number] Sodium Chloride 0.9% 1, 450 50 000 ml @ 50 mls/hr IV . Q20H [facility]UEL Rx#:[id number] cefTRIAXone 1 gm In 100 Sodium Chloride 0.9% 50 ml @ 100 mls/hr IVPB Q24HR [facility] Rx#:[id number] propofoL 500 mg In Empty 100.000 176.632 27.776 Bag 1 bag @ Titrate IV . Q0M [facility]UEL Rx#:[id number] Tube Feeding 70 180 Other 60 60 Output: Gastric Drainage 310 Urine 325 310 30 Other: Voiding Method Indwelling Catheter Indwelling Catheter ABP, PAP, CO, CI - Last Documented Arterial Blood Pressure 119/47 - Exam Sedated, and mechanically ventilated, with an orally placed endotracheal tube, and NG tube. HEENT examination is grossly unremarkable. Mucous membranes are dry. Oral endotracheal tube noted. Neck supple. Full range of motion. No adenopathy thyromegaly or neck vein distention. Cardiovascular examination reveals regular rhythm rate. S1-S2 normal. No S3 or S4. No discernible murmur noted. Heart rate is 101 bpm. Heart sounds are distant. Lungs reveal diminished breath sounds bilaterally. Bilateral coarse rhonchi are noted. Breath sounds are equal. No wheezes. Abdomen soft bowel sounds are heard. No masses or tenderness. Extremities are intact. No cyanosis clubbing or edema. Skin is without rash or lesion. Neurologic examination reveals a sedated patient. - Labs CBC & Chem 7: 08/03/20 04:30 08/03/20 04:30 Labs: Abnormal Lab Results - Last 24 Hours (Table) 08/02/20 08/02/20 08/02/20 Range/Units 09:50 11:48 17:34 WBC (3.8-10.6) k/uL RBC (3.80-5.40) m/uL Hgb (11.4-16.0) gm/dL Hct (34.0-46.0) % MCV (80.0-100.0) fL MCHC (31.0-37.0) g/dL Neutrophils # (1.3-7.7) k/uL Lymphocytes # (1.0-4.8) k/uL Monocytes # (0-1.0) k/uL ABG pH 7.29 L (7.35-7.45) ABG pCO2 48 H (35-45) mmHg ABG pO2 150 H (83-108) mmHg ABG HCO3 (21-25) mmol/L ABG Total CO2 25 H (19-24) mmol/L ABG O2 Saturation 99.5 H (94-97) % Sodium (137-145) mmol/L Potassium (3.5-5.1) mmol/L Chloride (98-107) mmol/L Carbon Dioxide (22-30) mmol/L BUN (7-17) mg/dL Creatinine (0.52-1.04) mg/dL Glucose (74-99) mg/dL POC Glucose (mg/dL) 132 H 203 H (75-99) mg/dL Total Protein (6.3-8.2) g/dL Albumin (3.5-5.0) g/dL 08/02/20 08/03/20 08/03/20 Range/Units 23:55 04:30 04:30 WBC 22.8 H (3.8-10.6) k/uL RBC 3.10 L (3.80-5.40) m/uL Hgb 9.7 L (11.4-16.0) gm/dL Hct 31.6 L (34.0-46.0) % MCV 101.8 H (80.0-100.0) fL MCHC 30.6 L (31.0-37.0) g/dL Neutrophils # 20.8 H (1.3-7.7) k/uL Lymphocytes # 0.5 L (1.0-4.8) k/uL Monocytes # 1.1 H (0-1.0) k/uL ABG pH (7.35-7.45) ABG pCO2 (35-45) mmHg ABG pO2 (83-108) mmHg ABG HCO3 (21-25) mmol/L ABG Total CO2 (19-24) mmol/L ABG O2 Saturation (94-97) % Sodium 135 L (137-145) mmol/L Potassium 3.4 L (3.5-5.1) mmol/L Chloride 110 H (98-107) mmol/L Carbon Dioxide 20 L (22-30) mmol/L BUN 23 H (7-17) mg/dL Creatinine 1.23 H (0.52-1.04) mg/dL Glucose 114 H (74-99) mg/dL POC Glucose (mg/dL) 113 H (75-99) mg/dL Total Protein 4.3 L (6.3-8.2) g/dL Albumin 1.9 L (3.5-5.0) g/dL 08/03/20 08/03/20 Range/Units 05:20 06:53 WBC (3.8-10.6) k/uL RBC (3.80-5.40) m/uL Hgb (11.4-16.0) gm/dL Hct (34.0-46.0) % MCV (80.0-100.0) fL MCHC (31.0-37.0) g/dL Neutrophils # (1.3-7.7) k/uL Lymphocytes # (1.0-4.8) k/uL Monocytes # (0-1.0) k/uL ABG pH 7.28 L (7.35-7.45) ABG pCO2 (35-45) mmHg ABG pO2 121 H (83-108) mmHg ABG HCO3 20 L (21-25) mmol/L ABG Total CO2 (19-24) mmol/L ABG O2 Saturation 99.0 H (94-97) % Sodium (137-145) mmol/L Potassium (3.5-5.1) mmol/L Chloride (98-107) mmol/L Carbon Dioxide (22-30) mmol/L BUN (7-17) mg/dL Creatinine (0.52-1.04) mg/dL Glucose (74-99) mg/dL POC Glucose (mg/dL) 136 H (75-99) mg/dL Total Protein (6.3-8.2) g/dL Albumin (3.5-5.0) g/dL Microbiology - Last 24 Hours (Table) 08/01/20 13:25 Urine Culture - Final Urine,Clean Catch 07/31/20 09:59 Gram Stain - Final Bronchial Washings - Random Bronchial Washings Culture - Final Assessment and Plan Assessment: Postop day #7, status post right thoracotomy, right upper lobectomy and right middle lobectomy, mediastinal lymph node dissection. Recent deterioration with hypotension, worsening atrial fibrillation, and hypercapnic respiratory failure, requiring reintubation on every 08/02/2020. Recent diagnosis of non-small cell lung cancer/squamous cell carcinoma via navigational bronchoscopy. Routine postoperative ventilator management. History of ICU delirium and psychosis. Chronic atrial fibrillation. Benign essential hypertension. Right lung collapse, status post bronchoscopy, 07/31/2020. History of rheumatoid arthritis. History of hypothyroidism. History of depression. History of glaucoma. Status post PICC line placement, on 08/01/2020. Plan: Plan dated 08/03/2020. Because the patient was a synchronous with the ventilator, on the volume assist control mode, the patient was switched to pressure regulated volume control, with a targeted tidal volume of 320, and a inspiratory time 0.8 seconds. The rate, FiO2, and PEEP level all remain the same. The patient remains on propofol at 50 mics per kilogram per minute as well as norepinephrine at 36 mcg/m. She is going to get tube feeds with vital high protein, at goal, which is 38 mL per hour. Reglan was added because of high residuals. The patient's chest x-ray was reviewed. She has an infiltrate throughout the left lung. White count is 22.8, hemoglobin 9.7, hematocrit 31.6, and platelet count 241,000. Sodium is 135, potassium 3.4, chloride 110, CO2 20, anion gap 5, BUN 23, creatinine 1.23, and glucose 114. Albumin is only 1.9. Culture data, and bronchial washings from July 31, are still negative or pending. Prognosis is very poor, and I don't believe, the patient will survive this illness. Time with Patient: Greater than 30
--- NOTE | 2020-08-03 10:12 | XR ---
EXAMINATION TYPE: XR chest 1V portable DATE OF EXAM: 08/03/2020 COMPARISON: Prior chest x-ray 08/02/2020 HISTORY: Intubated TECHNIQUE: Single frontal view of the chest is obtained. FINDINGS: Endotracheal tube, NG tube, left-sided PICC line are all noted, there is some interval imp roved aeration at the right lung base, patient shows post lobectomy changes. Apical pleural thickenin g is again noted right greater than left. Extensive airspace disease is present on the left. Cardiac mediastinal silhouette is likely stable, aorta is dense. IMPRESSION: Suspect some improved aeration in the right lung. Correlate for pneumonia in the left jennifer ng. Postop changes.
[2020-08-03 11:12] LABS: Glucose,Whole Blood 104 mg/dL (75-99)
--- NOTE | 2020-08-03 11:23 | P.PN ---
Subjective Progress Note Date: 08/03/20 Principal diagnosis: Non-small cell lung cancer involving the right lower lobe orifice and extending into the proximal bronchus intermedius. Past medical history significant for t obacco dependence with cessation 5 years ago, chronic obstructive pulmonary disease, hypertension, hyperlipidemia, chronic atrial fibrillation on Eliquis outpatient for anticoagulation, chronic systolic heart failure, hypothyroid, arthritis with chronic pain and narcotic dependence, depression. POD #7 fiberoptic bronchoscopy, right thoracotomy, right lower and middle bilobectomy, mediastinal lymph node dissection, cryoablation of the intercostal nerves 3, 4, 5, 6 and 7 Right lung collapse, related to patient's inability/refusal to cough and deep breathe. POD #3 bronchoscopy airway examination, therapeutic lavage, BAL right lower lobe with mucous plug removal by Dr. Weber. Acute hypoxic and hypercapnic respiratory failure requiring initiation of BiPAP, and reintubation. The patient was seen in follow-up today 08/03/2020 at her bedside in the intensive care unit. She remained sedated on propofol drip at 50 mcg/kg/m, remains intubated with mechanical ventilator support. Current mechanical ventilator settings are assist control 30, TV 350, FiO2 50% and PEEP of 8 with oxygen saturations 99%. Arterial blood gases showed a pH of 7.28, pCO2 42, pO2 121, HCO3 20, oxygen saturation 99% and base excess -6.8. Bedside telemetry showing atrial fibrillation heart rate 102 BPM, Cardizem drip was discontinued yesterday 08/02/2020 and she is on liquids 2.5 mg twice a day per NG tube for anticoagulation. Norepinephrine drip remains at 26 mcg/m for blood pressure support. Laboratory results this morning show a WBC count 22.8, hemoglobin 9.7, hematocrit 31.6, sodium 135, potassium 3.4, BUN 23, creatinine 1.23 and albumin 1.9. Tube feeding is currently on hold as the patient had 310 mL of residual this morning at 3 AM. Abdomen is soft and nondistended. Urine culture results show no growth after 18 hours and bronchial washing cultures show no growth after 48 hours. The patient has been afebrile the last 24 hours and is on Rocephin for empiric antibiotic coverage. PICC line is intact to her right antecubital, with normal saline infusing at 50 mL per hour and the parenteral nutrition was discontinued yesterday. Objective - Vital Signs Vital signs: Vital Signs Temp 97.7 F 08/03/20 08:00 Pulse 101 H 08/03/20 08:26 Resp 30 H 08/03/20 08:00 BP 91/40 08/02/20 19:00 Pulse Ox 99 08/03/20 08:00 Intake & Output 08/02/20 08/03/20 08/03/20 18:59 06:59 18:59 Intake Total 3492.195 1713.349 80.776 Output Total 325 620 30 Balance 3167.195 1093.349 50.776 Weight 62 kg 62.7 kg Intake: IV 2240 836 53 0.9 NS flush 30 56 3 Dextrose 5%-0.45% NaCl 1, 150 000 ml @ 50 mls/hr IV . Q20H [facility] Rx#:[id number] Mvi, Adult No.4 with Vit 60 180 K 10 ml Trace (Conc-1Ml/ Dose) 1 ml In Amino Acid 5%-D15w+Lytes*E* 1,000 ml @ 30 mls/hr IV .Q24H [facility] Rx#:[id number] Sodium Chloride 0.9% 1, 600 50 000 ml @ 50 mls/hr IV . Q20H [facility] Rx#:[id number] Sodium Chloride 0.9% 1, 2000 000 ml @ 999 mls/hr IV . Q1H1M [facility] Rx#:[id number] Intake, IV Titration 1122.195 637.349 27.776 Amount Dexmedetomidine/0.9% NaCl 53.383 (Pmx) 400 mcg In Empty Bag 1 bag @ Titrate IV . Q0M [facility] Rx#:[id number] Diltiazem 125 mg In 17.334 Sodium Chloride 0.9% 100 ml @ Per Protocol IV .Q0M [facility] Rx#:[id number] Norepinephrine 8 mg In 401.478 410.717 Sodium Chloride 0.9% 250 ml @ 0.05 MCG/KG/MIN 5. 389 mls/hr IV .Q24H [facility] Rx#:[id number] Sodium Chloride 0.9% 1, 450 50 000 ml @ 50 mls/hr IV . Q20H [facility] Rx#:[id number] cefTRIAXone 1 gm In 100 Sodium Chloride 0.9% 50 ml @ 100 mls/hr IVPB Q24HR [facility] Rx#:[id number] propofoL 500 mg In Empty 100.000 176.632 27.776 Bag 1 bag @ Titrate IV . Q0M [facility] Rx#:[id number] Tube Feeding 70 180 Other 60 60 Output: Gastric Drainage 310 Urine 325 310 30 Other: Voiding Method Indwelling Catheter Indwelling Catheter ABP, PAP, CO, CI - Last Documented Arterial Blood Pressure 119/47 - Exam The patient remains intubated with mechanical ventilator support. She also remains sedated with propofol drip currently at 50 mcg/m. - Constitutional General appearance: Present: average body habitus - EENT Eyes: Present: normal appearance. Absent: scleral icterus - Neck Details: Neck is supple, no JVD. - Respiratory Details: Lung sounds with coarse rhonchi throughout and scattered expiratory wheezes. Diminished bilateral bases. Respirations are symmetrical and nonlabored with mechanical ventilator support. Current mechanical ventilator settings are as follows: Assist control 30, TV 350, FiO2 50% and PEEP of 8. Oxygen saturations with mechanical ventilator settings are 99%. - Cardiovascular Details: Irregular rhythm with tachycardic rate. S1 and S2 present, negative for S3, gallop or murmur. Bedside telemetry showing atrial fibrillation heart rate 102 BPM. +1 edema to her bilateral lower extremities. Sequential compression devices in place to her bilateral lower extremities. - Gastrointestinal Gastrointestinal Comment(s): Abdomen is soft and nondistended. Active bowel sounds present in all 4 abdominal quadrants. OG tube in place with vital high-protein infusing at 20 mL per hour. She did have 310 mL of residuals around 3 AM this morning from the OG tube. Small bowel movement yesterday 08/02/2020. - Genitourinary Genitourinary Comment(s): Muñoz catheter for accurate I&O. Draining clear yellow urine. 235 mL of urine output in the last 8 hours. - Neurologic Neurologic Comment(s): Unable to accurately assess at this time as the patient is sedated on propofol drip. - Musculoskeletal Musculoskeletal Comment(s): Unable to accurately assess at this time as the patient is sedated on propofol drip. - Psychiatric Psychiatric Comment(s): Unable to accurately assess at this time as the patient is sedated on propofol drip. - Allied health notes Allied health notes reviewed: nursing - Labs CBC & Chem 7: 08/03/20 04:30 08/03/20 04:30 Labs: Abnormal Lab Results - Last 24 Hours (Table) 08/02/20 08/02/20 08/02/20 Range/Units 09:50 11:48 17:34 WBC (3.8-10.6) k/uL RBC (3.80-5.40) m/uL Hgb (11.4-16.0) gm/dL Hct (34.0-46.0) % MCV (80.0-100.0) fL MCHC (31.0-37.0) g/dL Neutrophils # (1.3-7.7) k/uL Lymphocytes # (1.0-4.8) k/uL Monocytes # (0-1.0) k/uL ABG pH 7.29 L (7.35-7.45) ABG pCO2 48 H (35-45) mmHg ABG pO2 150 H (83-108) mmHg ABG HCO3 (21-25) mmol/L ABG Total CO2 25 H (19-24) mmol/L ABG O2 Saturation 99.5 H (94-97) % Sodium (137-145) mmol/L Potassium (3.5-5.1) mmol/L Chloride (98-107) mmol/L Carbon Dioxide (22-30) mmol/L BUN (7-17) mg/dL Creatinine (0.52-1.04) mg/dL Glucose (74-99) mg/dL POC Glucose (mg/dL) 132 H 203 H (75-99) mg/dL Total Protein (6.3-8.2) g/dL Albumin (3.5-5.0) g/dL 08/02/20 08/03/20 08/03/20 Range/Units 23:55 04:30 04:30 WBC 22.8 H (3.8-10.6) k/uL RBC 3.10 L (3.80-5.40) m/uL Hgb 9.7 L (11.4-16.0) gm/dL Hct 31.6 L (34.0-46.0) % MCV 101.8 H (80.0-100.0) fL MCHC 30.6 L (31.0-37.0) g/dL Neutrophils # 20.8 H (1.3-7.7) k/uL Lymphocytes # 0.5 L (1.0-4.8) k/uL Monocytes # 1.1 H (0-1.0) k/uL ABG pH (7.35-7.45) ABG pCO2 (35-45) mmHg ABG pO2 (83-108) mmHg ABG HCO3 (21-25) mmol/L ABG Total CO2 (19-24) mmol/L ABG O2 Saturation (94-97) % Sodium 135 L (137-145) mmol/L Potassium 3.4 L (3.5-5.1) mmol/L Chloride 110 H (98-107) mmol/L Carbon Dioxide 20 L (22-30) mmol/L BUN 23 H (7-17) mg/dL Creatinine 1.23 H (0.52-1.04) mg/dL Glucose 114 H (74-99) mg/dL POC Glucose (mg/dL) 113 H (75-99) mg/dL Total Protein 4.3 L (6.3-8.2) g/dL Albumin 1.9 L (3.5-5.0) g/dL 08/03/20 08/03/20 Range/Units 05:20 06:53 WBC (3.8-10.6) k/uL RBC (3.80-5.40) m/uL Hgb (11.4-16.0) gm/dL Hct (34.0-46.0) % MCV (80.0-100.0) fL MCHC (31.0-37.0) g/dL Neutrophils # (1.3-7.7) k/uL Lymphocytes # (1.0-4.8) k/uL Monocytes # (0-1.0) k/uL ABG pH 7.28 L (7.35-7.45) ABG pCO2 (35-45) mmHg ABG pO2 121 H (83-108) mmHg ABG HCO3 20 L (21-25) mmol/L ABG Total CO2 (19-24) mmol/L ABG O2 Saturation 99.0 H (94-97) % Sodium (137-145) mmol/L Potassium (3.5-5.1) mmol/L Chloride (98-107) mmol/L Carbon Dioxide (22-30) mmol/L BUN (7-17) mg/dL Creatinine (0.52-1.04) mg/dL Glucose (74-99) mg/dL POC Glucose (mg/dL) 136 H (75-99) mg/dL Total Protein (6.3-8.2) g/dL Albumin (3.5-5.0) g/dL Microbiology - Last 24 Hours (Table) 08/01/20 13:25 Urine Culture - Final Urine,Clean Catch 07/31/20 09:59 Gram Stain - Final Bronchial Washings - Random Bronchial Washings Culture - Final - Imaging and Cardiology Chest x-ray: report reviewed, image reviewed Assessment and Plan Assessment: 1. Non-small cell lung cancer involving the right lower lobe orifice and extending into the proximal bronchus intermedius, status post fiberoptic bronchoscopy, right thoracotomy, right lower and middle bilobectomy with mediastinal lymph node dissection and cryoablation of intercostal nerves, surgical pathology pending 2. History of tobacco dependence with cessation 5 years ago 3. Chronic obstructive pulmonary disease 4. Hypertension 5. Hyperlipidemia, treated 6. Chronic atrial fibrillation on Eliquis outpatient for anticoagulation 7. Chronic systolic heart failure 8. Hypothyroid 9. Arthritis with chronic pain and narcotic dependence 10. Depression 11. Paranoia, agitation and confusion 12. Right lung collapse, s/p broncoscopy with mucous plug removal 13. Acute hypoxic and hypercapnic respiratory failure requiring bipap, reintubation 14. Leukocytosis, elevated pro-calcitonin Plan: 1. Mechanical ventilator management per Dr. Weber, wean as tolerated. 2. Continue to monitor daily chest x-rays. 3. Pain control with current when necessary orders. 4. Bronchodilators per pulmonology/critical care medicine management. 5. Continue Eliquis for anticoagulation. May transition back to Lopressor as patient has OG tube present 6. Reglan 5 mg IV 1 now. Continue tube feedings with a goal rate of 38 mL/h. 7. Continue propofol drip for sedation. 8. Wean norepinephrine drip as tolerated to keep her systolic blood pressure gr eater than or equal to 100 mmHg or a map of 70 mmHg. 9. Pathology results show lung, right middle and lower lobes moderately differentiated invasive squamous cell carcinoma, tumor measuring 5.4 cm in greatest dimension, on margins negative for carcinoma, negative for pleural invasion and lymph nodes negative for carcinoma. 10. IV antibiotic management per pulmonary critical care service. 11. Prognosis guarded, family updated by Dr. Weber yesterday 08/02/2020. 12. More recommendations to follow based on patient's clinical course. Time with Patient: Greater than 30
--- NOTE | 2020-08-03 12:36 | CDI ---
Documentation Clarification Form Date: 08/03/2020 12:17:10 PM From: Keri Hart CCS, CCDS Admit Date: 07/27/2020 05:40:00 AM Patient Name: Swathi Floyd Visit Number: [id number] Discharge Date: ATTENTION: The Clinical Documentation Specialists (CDI) and [facility] Coding Staff appreciate your assistance in clarifying documentation. Please respond to the clarification below the line at the bottom and electronically sign. The CDI & [facility] Coding staff will review the response and follow-up if needed. Please note: Queries are made part of the Legal Health Record. If you have any questions, please contact the author of this message via ITS. Dr. Morro Weber: The patient was admitted on 07/27 after a Bilobectomy of the right mid & right lower lobes with mediastinal lymph node dissection for known Non-small Cell Lung Cancer. On 08/02, the patient's condition worsened with Acute Hypoxic and Hypercapnic Respiratory Failure requiring transfer to ICU and subsequent Re-Intubation and Ventilation. History/Risk Factors: Former Smoker, COPD, Hypertension, Hyperlipidemia, Chronic Atrial Fibrillation on Chronic Anticoagulation, Hypothyroidism, Arthritis with Chronic Pain and Depression. Clinical Indicators: Admit on 07/27 for surgery as above. Now in ICU, re- intubated on vent and receiving Vasopressors, on IV Propofol for sedation. VS 07/27: T 97.9,, P 67, R 15 - 22; BP 134/72, PO 94 RA VS 08/02: T 96.2*, P 70 (irregular, weak), R 26 (vent), BP 89/41, PO 100 on 100% vent 07/28 LAB: WBC (8.2), Hgb 9.7*, Hct 31.9*, Lymph 0.4*, Na 135*, BUN 18^, Glucose 110^ 08/02 LAB: WBC 22.9^, Hgb 9.7*, Hct 31.9*, Neut 20.7^, Lymph 0.6*, Na 133*, Glucose 133^, ICM 5.7^, Total Protein 4.9*, Albumin 2.2*. 08/01 UA: Cloudy, 1+ protein, Large blood, Moderate Esterase, RBC >182^, WBC 36^ 08/02 ABG: pH 7.13, pCO2 74^^, pO2 77*, Total CO2 27^ 07/27 CXR: Right-sided chest tube. No appreciable pneumothorax. Patchy opacity right mid lung and left base could represent atelectasis. Follow-up to exclude early infiltrates. 08/02 CXR: Chronic for pneumonia, edema and congestive heart failure, pleural effusion. Treatment 23: Transfer to ICU, intubated on vent. IV fluid 1,000 mls @ 999 mls/hr q1, INH Duoneb, IV fluid rate 1,000 mls @ 50 mls/hr q20H, IV Propofol, IV Protonix, IV Synthroid, Peridex, INH Pulmicort, IV Diprivan, IV Levophed, IV Rocephin, In your professional opinion, please clarify if these findings signify one of the following conditions, whether the condition is POA, and cause, if known: Sepsis o With Severe Sepsis o With Septic Shock o With Other Shock, please specify: Other, please specify: Unable to determine Present on Admission o Yes o No Identify the (suspected) organism Link or clarify if there is associated (due to/with): o Organ failure o Shock (Last Revision: September 2017) Unable to determine. May relate to aspiration pneumonia. MTDD
[2020-08-03] MEDS ORDERED: CISATRACURIUM 2 MG/ML 5 ML VIAL IV ONE (16:00)
[2020-08-03] MEDS ORDERED: FUROSEMIDE 10 MG/ML 2 ML VIAL IV ONE (16:00)
[2020-08-03] MEDS ORDERED: HYDROmorphone 1 MG/ML 1 ML SYRINGE IVP SCH (16:00)
[2020-08-03] MEDS: fentaNYL (PF) 1,000 MCG in SODIUM CHLORIDE 0.9% 80 ML IV SCH (16:19)
[2020-08-03 17:26] LABS: Glucose,Whole Blood 75 mg/dL (75-99)
[2020-08-03 18:07] LABS: Glucose,Whole Blood 85 mg/dL (75-99)
[2020-08-03] MEDS ORDERED: SODIUM CHLORIDE 0.9% 1,000 ML IV ONE (18:20)
[2020-08-03] MEDS: SENNOSIDES-DOCUSATE SODIUM 1 EACH TAB PO SCH (21:00)
[2020-08-03] MEDS: ATORVASTATIN 10 MG TAB PO SCH (21:01)
[2020-08-04] MEDS: NOREPINEPHRINE 8 MG in SODIUM CHLORIDE 0.9% 250 ML IV SCH (01:04)
[2020-08-04 01:10] LABS: Glucose,Whole Blood 78 mg/dL (75-99)
[2020-08-04] MEDS: IPRATROPIUM-ALBUTEROL 3 ML NEB IH SCH ×6 (01:11→20:29)
[2020-08-04] MEDS: INSULIN ASPART (NovoLOG) 100 UNIT/ML VIAL SQ SCH ×4 (01:19→19:06)
[2020-08-04] MEDS: SODIUM CHLORIDE 0.9% 1,000 ML IV SCH ×2 (02:43→22:15)
[2020-08-04] MEDS: NOREPINEPHRINE 32 MG in SODIUM CHLORIDE 0.9% 218 ML IV SCH ×2 (03:46→14:58)
[2020-08-04 05:16] LABS: HCT 33.4 % (34.0-46.0); HGB 10.6 gm/dL (11.4-16.0); Hypochromasia Marked; MCH 32.7 pg (25.0-35.0); MCHC 31.7 g/dL (31.0-37.0); MCV 103.2 fL (80.0-100.0); Macrocytosis Slight; Mean Platelet Volume 8.2; Platelet Count 260 k/uL (150-450); RBC 3.24 m/uL (3.80-5.40); RDW 13.4 % (11.5-15.5); WBC 25.2 k/uL (3.8-10.6)
[2020-08-04 05:32] LABS: Calcium 8.8 mg/dL (8.4-10.2); Phosphorus 4.2 mg/dL (2.5-4.5); Potassium 4.4 mmol/L (3.5-5.1)
[2020-08-04 05:41] LABS: ABG Base Excess -12.4 mmol/L; ABG HCO3 17 mmol/L (21-25); ABG Oxygen Saturation 97.8 % (94-97); ABG PCO2 49 mmHg (35-45); ABG PO2 100 mmHg (83-108); ABG TCO2 18 mmol/L (19-24); Allen Test Performed? Yes
[2020-08-04 05:48] LABS: ABG PH 7.14 (7.35-7.45)
[2020-08-04 06:29] LABS: Anisocytosis (M) Present; Band Neutrophils % 39 %; Eosinophils # (M) 0.25 k/uL (0-0.7); Lymphocytes # (M) 1.01 k/uL (1.0-4.8); Metamyelocytes # (M) 0.25 k/uL (0); Metamyelocytes % 1 %; Myelocytes # (M) 0.25 k/uL (0); Myelocytes % 1 %; Neutrophils % (M) 54 %; Nucleated Red Blood Cells 0 /100 WBC (0-0); Total Cells Counted 200
[2020-08-04 06:33] LABS: Large Platelets Present
[2020-08-04 06:37] LABS: Glucose,Whole Blood 77 mg/dL (75-99)
[2020-08-04] MEDS: BUDESONIDE 1 MG/2 ML NEBU INHALATION SCH ×2 (07:38→20:29)
[2020-08-04] MEDS: FORMOTEROL FUMARATE 20 MCG/2 ML NEBU INHALATION SCH ×2 (07:38→20:29)
--- NOTE | 2020-08-04 08:16 | XR ---
EXAMINATION TYPE: XR chest 1V portable DATE OF EXAM: 08/04/2020 COMPARISON: Chest x-ray 08/04/2020 HISTORY: Intubated TECHNIQUE: Single frontal view of the chest is obtained. FINDINGS: Endotracheal tube and NG tube are overlying appropriate position, left-sided PICC line is stable. There is bilateral airspace disease. Hemidiaphragms are obscured. Heart size is likely unchan ged, no evident pneumothorax. IMPRESSION: Correlate for pneumonia, edema. Postop changes.
[2020-08-04] MEDS: ARIPiprazole 2 MG TAB PO SCH (08:31)
[2020-08-04] MEDS: lamoTRIgine 100 MG TAB PO SCH ×2 (08:31→20:36)
[2020-08-04] MEDS: LEVOTHYROXINE IVP 100 MCG/5 ML VIAL IV SCH (08:31)
[2020-08-04] MEDS: ESTROGENS, CONJUGATED 0.3 MG TAB PO SCH (08:31)
[2020-08-04] MEDS: buPROPion XL 150 MG TAB.ER.24H PO SCH (08:31)
[2020-08-04] MEDS: CHLORHEXIDINE GLUCONATE 15 ML CUP MUCOUS MEM SCH ×2 (08:31→20:35)
[2020-08-04] MEDS: APIXABAN 2.5 MG TABLET PO SCH ×2 (08:31→20:36)
[2020-08-04] MEDS: PANTOPRAZOLE 40 MG/10 ML VIAL IVP SCH (08:32)
[2020-08-04] MEDS: PIPERACILLIN-TAZOBACTAM 3.375 GM in SODIUM CHLORIDE 0.9% 100 ML IVPB SCH ×2 (08:32→20:36)
--- NOTE | 2020-08-04 09:44 | XR ---
Abdomen HISTORY: Ileus Frontal abdomen submitted and correlated prior exam 03/03/2010 There is been interval placement of an NG tube which is showing the distal tip of the left hemiabdome n. There is a dextroscoliosis, degenerative disc change in the visualized spine. There are overlying artifacts. Postop change noted to the right proximal femur. Metallic density in the pelvis is indeter minate. There are vascular calcifications in the pelvis. No evident obstruction or pneumoperitoneum. IMPRESSION: NG tube placement as described. Nonspecific bowel gas pattern.
--- NOTE | 2020-08-04 09:49 | P.PN ---
Subjective Progress Note Date: 08/04/20 Principal diagnosis: Non-small cell lung cancer involving the right lower lobe orifice and extending into the proximal bronchus intermedius. Past medical history significant for t obacco dependence with cessation 5 years ago, chronic obstructive pulmonary disease, hypertension, hyperlipidemia, chronic atrial fibrillation on Eliquis outpatient for anticoagulation, chronic systolic heart failure, hypothyroid, arthritis with chronic pain and narcotic dependence, depression. POD #8 fiberoptic bronchoscopy, right thoracotomy, right lower and middle bilobectomy, mediastinal lymph node dissection, cryoablation of the intercostal nerves 3, 4, 5, 6 and 7 Right lung collapse, related to patient's inability/refusal to cough and deep breathe. POD #4 bronchoscopy airway examination, therapeutic lavage, BAL right lower lobe with mucous plug removal by Dr. Weber. Acute hypoxic and hypercapnic respiratory failure requiring initiation of BiPAP, and reintubation. The patient was seen in follow-up today 08/04/2020 at her bedside in the intensive care unit. She remains sedated on propofol drip at 30 mcg/kg/m and fentanyl drip at 0.5 mcg/kg per hour. She remains intubated with mechanical ventilator support with current mechanical ventilator settings assist control 30, TV 320, FiO2 50% and a PEEP of 8. Oxygen saturations are 91% on current ventilator settings. The patient remains on norepinephrine drip at 0.58 micrograms per kilogram per minute for blood pressure support. 0.9% normal saline infusing at 50 mL per hour. OG tube remains in place with vital high-protein to feeding infusing at goal rate of 38 mL/h with automatic water flushes. Laboratory results this morning show a WBC count of 25.2, hemoglobin 10.6, hematocrit 33.4, platelets 260, band count of 39%, sodium 135, BUN 27, creatinine 1.74 and lactic acid level of 1.3. ABG results this morning show a pH of 7.14, pCO2 49, pO2 100, HCO3 17, oxygen saturation 97.8 base excess of - 12.4. Sputum culture and urine cultures show no growth, awaiting final culture result on the sputum. She remains on Rocephin for antibiotic coverage which is managed by pulmonary critical care medicine and she remains afebrile last 24 hours. Objective - Vital Signs Vital signs: Vital Signs Temp 96.9 F L 08/04/20 00:00 Pulse 115 H 02/05/21 07:38 Resp 26 H 08/04/20 07:00 BP 108/45 08/04/20 07:00 Pulse Ox 91 L 08/04/20 07:00 Intake & Output 08/03/20 08/04/20 08/04/20 18:59 06:59 18:59 Intake Total 8127.300 3048.596 110.75 Output Total 300 65 10 Balance 0963.356 2963.596 100.75 Weight 62.7 kg 65.8 kg Intake: IV 633 636 53 0.9 NS flush 33 36 3 Sodium Chloride 0.9% 1, 550 600 50 000 ml @ 50 mls/hr IV . Q20H [facility] Rx#:[id number] cefTRIAXone 1 gm In 50 Sodium Chloride 0.9% 50 ml @ 100 mls/hr IVPB Q24HR [facility] Rx#:[id number] Intake, IV Titration 987.210 515.596 19.75 Amount Norepinephrine 32 mg In 54.665 19.75 Sodium Chloride 0.9% 218 ml @ 0.6 MCG/KG/MIN 17. 634 mls/hr IV .[id number] [facility] Rx#:[id number] Norepinephrine 8 mg In 428.172 354.327 Sodium Chloride 0.9% 250 ml @ 0.05 MCG/KG/MIN 5. 389 mls/hr IV .Q24H [facility] Rx#:[id number] Potassium Chloride 10 meq 400 In Water For Injection 1 100ml.bag @ 100 mls/hr IVPB Q1HR [facility] Rx#: [id number] fentaNYL (PF) 1,000 mcg 11.078 In Sodium Chloride 0.9% 80 ml @ Per Protocol IV . Q0M [facility] Rx#:[id number] propofoL 500 mg In Empty 147.960 106.604 Bag 1 bag @ Titrate IV . Q0M [facility] Rx#:[id number] Tube Feeding 200 390 38 Other 60 90 Output: Urine 300 65 10 Other: Voiding Method Indwelling Catheter Indwelling Catheter ABP, PAP, CO, CI - Last Documented Arterial Blood Pressure 84/45 - Exam The patient remains intubated with mechanical ventilator support. She also remains sedated with propofol drip currently at 30 mcg/m and fentanyl drip at 0.5 mcg/kg per hour. - Constitutional General appearance: Present: average body habitus - EENT Eyes: Present: normal appearance. Absent: scleral icterus - Neck Details: Neck is supple, no JVD. Neck: Absent: lymphadenopathy - Respiratory Details: Lung sounds with coarse rhonchi throughout, diminished bilateral bases. Respirations are symmetrical and nonlabored with mechanical ventilator support. Current mechanical ventilator settings are assist control 30, TV 320, FiO2 50% and a PEEP of 8. Oxygen saturations on current mechanical ventilator settings are 91%. - Cardiovascular Details: Irregular rhythm and tachycardic rate. S1 and S2 present, negative for S3, gallop or murmur. Bedside telemetry showing atrial fibrillation heart rate 114 BPM. Trace edema to her bilateral lower extremities. Knee-high sequential compression devices in place to bilateral lower extremities. - Gastrointestinal Gastrointestinal Comment(s): Abdomen soft and nondistended distended. Hypoactive bowel sounds present in all 4 abdominal quadrants. OG tube in place with vital high-protein to feeding infusing at goal rate of 38 mL per hour with automatic water flushes. - Genitourinary Genitourinary Comment(s): Muñoz catheter for accurate I&O. Draining clear yellow urine. Marginal urine output in the last 8 hours. - Integumentary Integumentary Comment(s): Skin is warm and dry. No clubbing or cyanosis present. Right thoracotomy incision clean, dry and approximated. No drainage or redness is present. - Neurologic Neurologic Comment(s): Currently sedated on propofol drip and fentanyl drip. - Musculoskeletal Musculoskeletal Comment(s): Currently sedated on propofol drip and fentanyl drip. - Psychiatric Psychiatric Comment(s): Currently sedated on propofol drip and fentanyl drip. - Allied health notes Allied health notes reviewed: nursing - Labs CBC & Chem 7: 08/04/20 05:00 08/04/20 05:00 Labs: Abnormal Lab Results - Last 24 Hours (Table) 08/03/20 08/04/20 08/04/20 Range/Units 11:11 05:00 05:00 WBC 25.2 H (3.8-10.6) k/uL RBC 3.24 L (3.80-5.40) m/uL Hgb 10.6 L (11.4-16.0) gm/dL Hct 33.4 L (34.0-46.0) % MCV 103.2 H (80.0-100.0) fL Neutrophils # (Manual) 23.40 H (1.3-7.7) k/uL Metamyelocytes # (Man) 0.25 H (0) k/uL Myelocytes # (Manual) 0.25 H (0) k/uL ABG pH (7.35-7.45) ABG pCO2 (35-45) mmHg ABG HCO3 (21-25) mmol/L ABG Total CO2 (19-24) mmol/L ABG O2 Saturation (94-97) % Sodium 135 L (137-145) mmol/L Chloride 114 H (98-107) mmol/L Carbon Dioxide 18 L (22-30) mmol/L BUN 27 H (7-17) mg/dL Creatinine 1.74 H (0.52-1.04) mg/dL POC Glucose (mg/dL) 104 H (75-99) mg/dL 08/04/20 Range/Units 05:36 WBC (3.8-10.6) k/uL RBC (3.80-5.40) m/uL Hgb (11.4-16.0) gm/dL Hct (34.0-46.0) % MCV (80.0-100.0) fL Neutrophils # (Manual) (1.3-7.7) k/uL Metamyelocytes # (Man) (0) k/uL Myelocytes # (Manual) (0) k/uL ABG pH 7.14 L* (7.35-7.45) ABG pCO2 49 H (35-45) mmHg ABG HCO3 17 L (21-25) mmol/L ABG Total CO2 18 L (19-24) mmol/L ABG O2 Saturation 97.8 H (94-97) % Sodium (137-145) mmol/L Chloride (98-107) mmol/L Carbon Dioxide (22-30) mmol/L BUN (7-17) mg/dL Creatinine (0.52-1.04) mg/dL POC Glucose (mg/dL) (75-99) mg/dL Microbiology - Last 24 Hours (Table) 08/03/20 01:53 Gram Stain - Preliminary Sputum Sputum Culture - Preliminary - Imaging and Cardiology Chest x-ray: report reviewed, image reviewed Assessment and Plan Assessment: 1. Non-small cell lung cancer involving the right lower lobe orifice and extending into the proximal bronchus intermedius, status post fiberoptic bronchoscopy, right thoracotomy, right lower and middle bilobectomy with mediastinal lymph node dissection and cryoablation of intercostal nerves, surgical pathology pending 2. History of tobacco dependence with cessation 5 years ago 3. Chronic obstructive pulmonary disease 4. Hypertension 5. Hyperlipidemia, treated 6. Chronic atrial fibrillation on Eliquis outpatient for anticoagulation 7. Chronic systolic heart failure 8. Hypothyroid 9. Arthritis with chronic pain and narcotic dependence 10. Depression 11. Paranoia, agitation and confusion 12. Right lung collapse, s/p broncoscopy with mucous plug removal 13. Acute hypoxic and hypercapnic respiratory failure requiring bipap, reintubation 14. Leukocytosis, elevated pro-calcitonin Plan: 1. Mechanical ventilator management per Dr. Weber, wean as tolerated. 2. Continue to monitor daily chest x-rays. 3. Pain control with current when necessary orders. Currently on fentanyl drip at 0.5 mcg/kg per hour. 4. Bronchodilators per pulmonology/critical care medicine management. 5. Continue Eliquis for anticoagulation. 6. Continue tube feedings at goal rate of 38 mL/h. 7. Continue propofol drip for sedation. 8. Wean norepinephrine drip as tolerated to keep her systolic blood pressure greater than or equal to 100 mmHg or a map of equal to or greater than 70 mmHg. 9. Pathology results show lung, right middle and lower lobes moderately differentiated invasive squamous cell carcinoma, tumor measuring 5.4 cm in greatest dimension, on margins negative for carcinoma, negative for pleural invasion and lymph nodes negative for carcinoma. 10. IV antibiotic management per pulmonary critical care service. Antibiotic coverage changed to Zosyn per Dr. Weber's recommendations today. 11. Prognosis remains guarded. 12. Dr. Weber changed the IV fluids from 0.9% normal saline at 50 mL per hour to D5W with 2 A of sodium bicarbonate at 75 mL per hour. 13. More recommendations to follow based on patient's clinical course. Time with Patient: Greater than 30
[2020-08-04] MEDS: DEXTROSE 5% IN WATER 1,000 ML with SODIUM BICARB (1 MEQ/ML) 100 ML IV SCH ×2 (09:50→23:14)
[2020-08-04] MEDS ORDERED: SODIUM BICARB 8.4% 50 ML SYR (1 MEQ/ML) IV STA (10:11)
[2020-08-04] MEDS ORDERED: CALCIUM GLUCONATE 1 GM in SODIUM CHLORIDE 0.9% 100 ML IVPB ONE (10:15)
--- NOTE | 2020-08-04 11:01 | P.PN ---
Subjective Progress Note Date: 08/04/20 Principal diagnosis: Lung cancer Progress note dated 07/31/2020. 75-year-old female well-known to me. She came to me with an abnormal chest x- ray and CAT scan. She ended up with a navigational bronchoscopy and we made a diagnosis of non-small cell lung cancer, squamous cell type. Her PET scan was only positive in the area of the lesions, and she underwent a right thoracotomy, and a right upper and right middle lobectomy by Dr. Worley on July 27. The patient also had a mediastinal lymph node dissection at that time. The patient was seen in the intensive care unit this morning. She was quite agitated and confused. She had a sitter in the room. In addition, her oxygen requirements have gone up recently from 4 L, 7 L, to 10 L/m, high flow. In addition, the [facility] x-ray from today showed complete atelectasis/collapse of the right lung. We took her to the operating room for bronchoscopy and BAL. She has thick mucous plugs throughout the right mainstem and right lower lobe. Also she had thick mucus in the left lung as well. Her arterial blood gases on 7 L high flow showed a PaO2 of 53, a PaCO2 of 36, and a pH of 7.43. The patient may or may not come back to the ICU intubated. She was intubated for the bronchoscopy. She remained on dextrose and half-normal saline at 50 mL an hour, and Cardizem drip at 5 mg an hour. In addition, for her confusion and delirium, we added Haldol and/or Seroquel. In addition, the patient has a history of ICU psych osis, chronic atrial fibrillation, benign essential hypertension, rheumatoid arthritis, hypothyroidism, depression, glaucoma, and, routine postoperative ventilator management. Progress note dated 08/01/2020. This is a 75-year-old female, postop day #5, status post right thoracotomy, with right upper lobectomy and right middle lobectomy, and mediastinal lymph node dissection. The patient has a history of recent diagnosis of non-small cell lung cancer, squamous cell type, diagnosed by electromagnetic navigational bronchoscopy. Unfortunately, the patient had nearly complete right lung collaps e yesterday. She had bronchoscopy yesterday done in the operating room. Her post bronchoscopy chest x-ray was much improved as was her x-ray this morning. The patient's currently on BiPAP with settings of 10/5 and 50%. She's getting a Cardizem drip at 5 mg an hour, as well as dexmedetomidine 0.5 mcg/kg per hour. She is also getting dextrose with half-normal saline at 75 mL an hour. We have a difficult time with her last night.. She was quite anxious and confused, with significant agitation. We attempted a number different medications none of which really worked other than the dexmedetomidine. Today, she will have a midline placed. In addition, because she is not eating, we'll start her on peripheral parenteral nutrition, which is not optimal but better than nothing. Her prognosis is very guarded at this time given all the issues that we had to deal with the last 2 days. In the end, she may end up back on the ventilator. I am hoping that is not the case. Progress note dated 08/02/2020. 75-year-old female postop day #6, status post right thoracotomy, with right upper lobectomy and right middle lobectomy, and mediastinal lymph node dissection. The patient was recently diagnosed with non-small cell lung cancer, squamous cell type, diagnosed by electromagnetic navigational bronchoscopy. Overnight, the patient required an increasing dose of Cardizem up to 10 mg an ho ur, with a subsequent drop in blood pressure requiring norepinephrine, which is now with 24 mcg/m. I was not notified of either of these 2 changes. Currently, the patient's on BiPAP with settings of IPAP 10, EPAP 5, and 100%. The patient's getting D5.45 50 mL an hour, and parenteral nutrition at 30 mL an hour. A PICC line was placed yesterday. In addition, the patient is on dexmedetomidine at 0.5 mcg/kg per hour. This morning, when I rounded, I asked the nurse for a stat blood gas. I was concerned because of the acute deterioration in this patient. Sure enough, the blood gas showed a PaO2 of 77, a PaCO2 of 74, and a pH of 7.129. Anesthesia will be called to intubate this patient, and place the patient on the volume assist control mode, rate 26, tidal volume 350, FiO2 100%, and PEEP of 5. We will use all for sedation and I will place an arterial line shortly. A blood gas will be done after 1 hour stable ventilation., Progress note dated 08/03/2020. 75-year-old female, postop day #7, status post right thoracotomy, right upper lobectomy, right middle lobectomy, and mediastinal lymph node dissection. The patient was recently diagnosed with non-small cell lung cancer, squamous cell type, by navigational bronchoscopy. Yesterday, the patient was intubated for hypercapnic respiratory failure. The patient prior, was on BiPAP, and was doing poorly, both in terms of her atrial fibrillation with RVR, and hypotension. I had a long talk with her sister Leatha yesterday and she agreed to continue life support through the end of the week in early part of the weekend but, if the patient wasn't doing well, they would agree to comfort measures. Currently, she remains on the volume assist control mode, rate 30, tidal volume 350, FiO2 50%, and PEEP of 8. Blood gases showed a PaO2 of 121, PaCO2 42, and a pH is 7.28, on 60% FiO2. The patient is actually a synchronous with the ventilator, and we switch the modality to pressure regulated volume control or VC+. In addition, Reglan was added because of high residuals, and the patient remains on norepinephrine at 36 mcg/m, propofol 50 mcg/kg/m, and saline at 50 mL now her. Her tube feeds should be vital high protein, and the goal rate is 38 mL per hour. The patient's overall prognosis remains poor. Her norepinephrine dose was only 24 mcg/min yesterday and obviously has increased. In addition, her chest x-ray shows an infiltrate in the left lung. Progress note dated 08/04/2020. 75-year-old female, postop day #8, that is post right thoracotomy, right upper lobectomy, right middle lobectomy, and mediastinal lymph node dissection. The patient was recently diagnosed with non-small cell lung cancer/squamous cell, by navigational bronchoscopy. 2 days ago, the patient was found to have acute on chronic hypoxemic and hypercapnic respiratory failure, and was intubated. The patient's doing poorly. Currently, she is on the pressure regulated volume control modality of ventilation or VC plus. Her rate is 30, inspiratory time is 0.8 seconds, targeted tidal volume of 320 mL, FiO2 is 50%, and PEEP of 8. Her arterial blood gases show a PaO2 of 100, PaCO2 of 49, and a pH of 7.14. The patient will be started on a bicarbonate drip, with 2 ampules of bicarbonate and D5W at 75 mL an hour. The patient's receiving vital high protein at goal, which is 38 mL per hour. In addition, the patient's getting norepinephrine at 40 mcg/m, saline at 50 mL an hour, fentanyl at 0.5 mcg/kg/h, and propofol at 30 mcg/kg/m. White count is 25.2, hemoglobin 10.6, hematocrit 33.4, and platelet count 260,000. Sodium is 135, potassium 4.4, chloride 114, CO2 18, anion gap 3, BUN of 27 with a creatinine of 1.74. Objective - Vital Signs Vital signs: Vital Signs Temp 97.5 F L 08/04/20 08:00 Pulse 109 H 08/04/20 09:00 Resp 30 H 08/04/20 09:00 BP 82/45 08/04/20 09:00 Pulse Ox 95 08/04/20 09:00 Intake & Output 08/03/20 08/04/20 08/04/20 18:59 06:59 18:59 Intake Total 0443.858 8333.596 372.899 Output Total 300 65 10 Balance 8594.856 0896.596 362.899 Weight 62.7 kg 65.8 kg Intake: IV 633 636 159 0.9 NS flush 33 36 9 Sodium Chloride 0.9% 1, 550 600 150 000 ml @ 50 mls/hr IV . Q20H [facility] Rx#:[id number] cefTRIAXone 1 gm In 50 Sodium Chloride 0.9% 50 ml @ 100 mls/hr IVPB Q24HR [facility] Rx#:[id number] Intake, IV Titration 987.210 515.596 107.899 Amount Norepinephrine 32 mg In 54.665 57.899 Sodium Chloride 0.9% 218 ml @ 0.6 MCG/KG/MIN 17. 634 mls/hr IV .[id number] [facility] Rx#:[id number] Norepinephrine 8 mg In 428.172 354.327 Sodium Chloride 0.9% 250 ml @ 0.05 MCG/KG/MIN 5. 389 mls/hr IV .Q24H [facility] Rx#:[id number] Potassium Chloride 10 meq 400 In Water For Injection 1 100ml.bag @ 100 mls/hr IVPB Q1HR [facility] Rx#: [id number] fentaNYL (PF) 1,000 mcg 11.078 In Sodium Chloride 0.9% 80 ml @ Per Protocol IV . Q0M [facility] Rx#:[id number] propofoL 500 mg In Empty 147.960 106.604 50 Bag 1 bag @ Titrate IV . Q0M [facility] Rx#:[id number] Tube Feeding 200 390 76 Other 60 90 30 Output: Urine 300 65 10 Other: Voiding Method Indwelling Catheter Indwelling Catheter ABP, PAP, CO, CI - Last Documented Arterial Blood Pressure 84/45 - Exam Sedated, and mechanically ventilated, with an orally placed endotracheal tube, and NG tube. HEENT examination is grossly unremarkable. Mucous membranes are dry. Oral endotracheal tube noted. Neck supple. Full range of motion. No adenopathy thyromegaly or neck vein distention. Cardiovascular examination reveals regular rhythm rate. S1-S2 normal. No S3 or S4. No discernible murmur noted. Heart rate is 109 bpm. Heart sounds are distant. Lungs reveal diminished breath sounds bilaterally. Bilateral coarse rhonchi are noted. Breath sounds are equal. No wheezes. Abdomen soft bowel sounds are heard. No masses or tenderness. Extremities are intact. No cyanosis clubbing or edema. Skin is without rash or lesion. Neurologic examination reveals a sedated patient. - Labs CBC & Chem 7: 08/04/20 05:00 08/04/20 05:00 Labs: Abnormal Lab Results - Last 24 Hours (Table) 08/03/20 08/04/20 08/04/20 Range/Units 11:11 05:00 05:00 WBC 25.2 H (3.8-10.6) k/uL RBC 3.24 L (3.80-5.40) m/uL Hgb 10.6 L (11.4-16.0) gm/dL Hct 33.4 L (34.0-46.0) % MCV 103.2 H (80.0-100.0) fL Neutrophils # (Manual) 23.40 H (1.3-7.7) k/uL Metamyelocytes # (Man) 0.25 H (0) k/uL Myelocytes # (Manual) 0.25 H (0) k/uL ABG pH (7.35-7.45) ABG pCO2 (35-45) mmHg ABG HCO3 (21-25) mmol/L ABG Total CO2 (19-24) mmol/L ABG O2 Saturation (94-97) % Sodium 135 L (137-145) mmol/L Chloride 114 H (98-107) mmol/L Carbon Dioxide 18 L (22-30) mmol/L BUN 27 H (7-17) mg/dL Creatinine 1.74 H (0.52-1.04) mg/dL POC Glucose (mg/dL) 104 H (75-99) mg/dL 08/04/20 Range/Units 05:36 WBC (3.8-10.6) k/uL RBC (3.80-5.40) m/uL Hgb (11.4-16.0) gm/dL Hct (34.0-46.0) % MCV (80.0-100.0) fL Neutrophils # (Manual) (1.3-7.7) k/uL Metamyelocytes # (Man) (0) k/uL Myelocytes # (Manual) (0) k/uL ABG pH 7.14 L* (7.35-7.45) ABG pCO2 49 H (35-45) mmHg ABG HCO3 17 L (21-25) mmol/L ABG Total CO2 18 L (19-24) mmol/L ABG O2 Saturation 97.8 H (94-97) % Sodium (137-145) mmol/L Chloride (98-107) mmol/L Carbon Dioxide (22-30) mmol/L BUN (7-17) mg/dL Creatinine (0.52-1.04) mg/dL POC Glucose (mg/dL) (75-99) mg/dL Microbiology - Last 24 Hours (Table) 08/03/20 01:53 Gram Stain - Preliminary Sputum Sputum Culture - Preliminary Assessment and Plan Assessment: Postop day #8, status post right thoracotomy, right upper lobectomy and right middle lobectomy, mediastinal lymph node dissection. Recent deterioration with hypotension, worsening atrial fibrillation, and hypercapnic respiratory failure, requiring reintubation on every 08/02/2020. Recent diagnosis of non-small cell lung cancer/squamous cell carcinoma via navigational bronchoscopy. Routine postoperative ventilator management. History of ICU delirium and psychosis. Chronic atrial fibrillation. Benign essential hypertension. Right lung collapse, status post bronchoscopy, 07/31/2020. History of rheumatoid arthritis. History of hypothyroidism. History of depression. History of glaucoma. Status post PICC line placement, on 08/01/2020. Plan: Plan dated 08/04/2020. The patient will be started on a sodium bicarbonate drip. She'll get 2 ampules of sodium bicarbonate and D5W, at 75 mL an hour. The patient remains on norepinephrine at 80 mcg/m, and fentanyl 0.5 mcg/kg per hour. The patient's also on propofol at 30 mcg/kg/m. Overall prognosis is very poor. I had a long conversation with her sister Leatha. I suspect that they'll want to withdraw life support probably this weekend. The patient has not made significant improvement. Her antibiotic was changed from Rocephin to Zosyn. Additional recommendations and suggestions are forthcoming. I did talk in detail about this patient yesterday to the surgeon, Dr. Worley. Prognosis is poor. We will continue to follow. Time with Patient: Greater than 30
[2020-08-04] MEDS: fentaNYL (PF) 1,000 MCG in SODIUM CHLORIDE 0.9% 80 ML IV SCH (11:22)
[2020-08-04 12:16] LABS: Glucose,Whole Blood 84 mg/dL (75-99)
[2020-08-04 12:51] VITALS: BMI 26.5
[2020-08-04] MEDS: HYDROCORTISONE SUCCINATE 100 MG/2 ML VIAL IV SCH ×2 (15:11→23:18)
--- NOTE | 2020-08-04 16:21 | PN ---
PROGRESS NOTE DATE OF SERVICE: 08/03/2020 This is a 75-year-old white female resting comfortably on the ventilator today. She is day 7, status post right thoracotomy, right upper lobectomy, right middle lobectomy, mediastinal node dissection. Cancer margins are negative. She has squamous cell lung cancer. Apparently Dr. Weber talked to the patient's sister, who said life support to the end of the week, part of the weekend if patient is doing well. Reglan was given due to tube feeding residuals. Remains on norepinephrine. Prognosis is poor. Blood pressure is low normal at 90s to 100 systolic, respiratory rate 25-30, pulse is low 100s to 90s, temperature 97.7. EXTREMITIES: No cyanosis, clubbing or edema, SKIN: No rashes, excoriation. NEURO: Cranial nerves are intact. HEENT: Normocephalic, atraumatic. Resting comfortably on the vent. White count 22.8, hemoglobin is 9.7 sodium 135, potassium 3.4, BUN is 23, creatinine 1.23. ASSESSMENT: 1. Worsening deterioration. 2. Hypertension. 3. Status post pneumothorax. 4. Status post pulmonary bilobectomy. 5. Hypercapnic respiratory failure. 6. Chronic atrial fibrillation. 7. Hypertension. 8. Right lung collapse. 9. History of rheumatoid arthritis. 10.Hypothyroidism. 11.Depression. 12.Glaucoma. Will continue to try to wean the vent. Tube feeds. Broad-spectrum antibiotics. Prognosis guarded. See if she improves over the weekend. MMODL / IJN: [id number] /
--- NOTE | 2020-08-04 16:51 | PN ---
PROGRESS NOTE This is a 75-year-old female who had a normal chest x-ray and CT scan. Her x-ray shows possible pneumonia, possibly aspiration. X-ray of the abdomen was okay. Remains on the ventilator, Cardizem for atrial fibrillation. She is day 8, status post right thoracotomy, bilobectomy, negative margins, squamous cell cancer. She will be started on bicarbonate drip, 38 mL/hour tube feeding, norepinephrine 40 mcg/minute, . White count is a little higher today at 25.2. Hemoglobin is 10.6, platelets 260. Sodium 135, potassium 4.4, BUN is 27, creatinine 1.74. Blood pressures in low 80s over 40s, respiratory rate 25-30, pulse is 109, temperature 97.5. She is sedated on the vent. NG tube. ET tube. CARDIOVASCULAR: S1, S2. LUNGS: Diminished. Coarse rhonchi and wheeze. ABDOMEN: Soft. No mass. EXTREMITIES: No edema. BUN is 27, creatinine 1.74. 1. Postoperative day 8, thoracotomy, bilobectomy. 2. Hypertension. 3. Atrial fibrillation. 4. Hypercapnic respiratory failure. 5. Re-intubation. 6. ICU delirium. 7. Psychosis. 8. Status post pneumothorax. 9. Rheumatoid arthritis. 10.Hypothyroidism. 11.Depression. 12.Glaucoma. Sodium bicarbonate to be given. Might consult Infectious Disease for elevated white count. Remains on propofol, higher dose norepinephrine, fentanyl. Prognosis is very poor at this point. Prognosis extremely guarded. MMODL / IJN: [id number] /
[2020-08-04 18:35] LABS: Glucose,Whole Blood 90 mg/dL (75-99)
[2020-08-04] MEDS: SENNOSIDES-DOCUSATE SODIUM 1 EACH TAB PO SCH (20:35)
[2020-08-04 23:44] LABS: Glucose,Whole Blood 101 mg/dL (75-99)
[2020-08-05] MEDS: INSULIN ASPART (NovoLOG) 100 UNIT/ML VIAL SQ SCH ×3 (00:02→12:31)
[2020-08-05] MEDS: IPRATROPIUM-ALBUTEROL 3 ML NEB IH SCH ×4 (00:20→11:18)
[2020-08-05] MEDS: NOREPINEPHRINE 32 MG in SODIUM CHLORIDE 0.9% 218 ML IV SCH (01:42)
[2020-08-05 05:02] LABS: Basophils % (A) 0 %; Eosinophils % (A) 0 %; HCT 32.1 % (34.0-46.0); HGB 10.3 gm/dL (11.4-16.0); Hypochromasia Slight; Lymphocytes # (A) 0.4 k/uL (1.0-4.8); Lymphocytes % (A) 1 %; MCH 32.2 pg (25.0-35.0); MCHC 32.1 g/dL (31.0-37.0); MCV 100.6 fL (80.0-100.0); Mean Platelet Volume 7.9; Monocytes # (A) 1.2 k/uL (0-1.0); Monocytes % (A) 4 %; Neutrophils # (A) 25.8 k/uL (1.3-7.7); Neutrophils % (A) 94 %; Platelet Count 228 k/uL (150-450); RBC 3.19 m/uL (3.80-5.40); RDW 13.5 % (11.5-15.5); WBC 27.6 k/uL (3.8-10.6)
[2020-08-05 05:10] LABS: ABG HCO3 21 mmol/L (21-25); ABG Oxygen Saturation 95.3 % (94-97); ABG PCO2 51 mmHg (35-45); ABG PH 7.22 (7.35-7.45); ABG PO2 76 mmHg (83-108); ABG TCO2 22 mmol/L (19-24); Allen Test Performed? Yes
[2020-08-05 05:52] LABS: Potassium 4.7 mmol/L (3.5-5.1)
--- NOTE | 2020-08-05 07:25 | XR ---
EXAMINATION TYPE: XR chest 1V portable DATE OF EXAM: 08/05/2020 COMPARISON: 08/04/2020 HISTORY: SOB, Follow Up FINDINGS: Indwelling tubes and catheters are unchanged. Scattered airspace infiltrates are seen bilaterally as well as a right-sided pleural effusion. No si gnificant change is appreciated. Stable appearance of the cardio-mediastinal structures at this time. Pleural effusion unchanged. IMPRESSION: 1. Stable portable chest. Clinical correlation and follow up until resolution is recommended.
[2020-08-05] MEDS: FORMOTEROL FUMARATE 20 MCG/2 ML NEBU INHALATION SCH (07:27)
[2020-08-05] MEDS: BUDESONIDE 1 MG/2 ML NEBU INHALATION SCH (07:27)
[2020-08-05 08:07] LABS: Glucose,Whole Blood 71 mg/dL (75-99)
[2020-08-05 08:13] LABS: Glucose,Whole Blood 113 mg/dL (75-99)
[2020-08-05 08:17] VITALS: TEMP 97.4
[2020-08-05] MEDS: ERGOCALCIFEROL 1,250 MCG (50,000 IU) CAPSULE PO SCH (08:43)
[2020-08-05] MEDS: APIXABAN 2.5 MG TABLET PO SCH (08:43)
[2020-08-05] MEDS: buPROPion XL 150 MG TAB.ER.24H PO SCH (08:43)
[2020-08-05] MEDS: lamoTRIgine 100 MG TAB PO SCH (08:43)
[2020-08-05] MEDS: ARIPiprazole 2 MG TAB PO SCH (08:43)
[2020-08-05] MEDS: LEVOTHYROXINE IVP 100 MCG/5 ML VIAL IV SCH (08:44)
[2020-08-05] MEDS: CHLORHEXIDINE GLUCONATE 15 ML CUP MUCOUS MEM SCH (08:44)
[2020-08-05] MEDS: PANTOPRAZOLE 40 MG/10 ML VIAL IVP SCH (08:44)
[2020-08-05] MEDS: PIPERACILLIN-TAZOBACTAM 3.375 GM in SODIUM CHLORIDE 0.9% 100 ML IVPB SCH (08:44)
[2020-08-05] MEDS: HYDROCORTISONE SUCCINATE 100 MG/2 ML VIAL IV SCH (08:44)
[2020-08-05] MEDS: ESTROGENS, CONJUGATED 0.3 MG TAB PO SCH (08:53)
--- NOTE | 2020-08-05 09:27 | P.PN ---
Subjective Progress Note Date: 08/05/20 Principal diagnosis: Non-small cell lung cancer involving the right lower lobe orifice and extending into the proximal bronchus intermedius. Past medical history significant for t obacco dependence with cessation 5 years ago, chronic obstructive pulmonary disease, hypertension, hyperlipidemia, chronic atrial fibrillation on Eliquis outpatient for anticoagulation, chronic systolic heart failure, hypothyroid, arthritis with chronic pain and narcotic dependence, depression. POD #9 fiberoptic bronchoscopy, right thoracotomy, right lower and middle bilobectomy, mediastinal lymph node dissection, cryoablation of the intercostal nerves 3, 4, 5, 6 and 7 Right lung collapse, related to patient's inability/refusal to cough and deep breathe. POD #5 bronchoscopy airway examination, therapeutic lavage, BAL right lower lobe with mucous plug removal by Dr. Weber. Acute hypoxic and hypercapnic respiratory failure requiring initiation of BiPAP, and reintubation. The patient was seen in follow-up today 08/05/2020 at her bedside in the intensive care unit. She remains sedated on propofol drip at 25 mcg/kg/m and fentanyl drip at 0.5 mcg/kg per hour. She remains intubated with mechanical ventilator support with current mechanical ventilator settings assist control 30, TV 320, FiO2 60% and a PEEP of 8. Oxygen saturations are 91% on current ventilator settings. ABG results this morning show a pH of 7.2 to, pCO2 51, pO2 76, HCO3 21, oxygen saturation 95.3 and base excess of -7.0. The patient remains on norepinephrine drip at 0.6 micrograms per kilogram per minute for blood pressure support. 0.9% normal saline infusing at KVO and D5W with 2 A of sodium bicarbonate infusing at 75 mL per hour. OG tube remains is in place with connected to low intermittent wall suction with scant bilious drainage. Laboratory results this morning show a WBC count of 27.6, hemoglobin 10. 3, hematocrit 32.1, platelets 228, sodium 135, BUN 39, and creatinine 2.17. Cultures remain showing no growth and she continues on Zosyn for antibiotic coverage. She has been afebrile the last 24 hours. Muñoz catheter remains in place with scant urine output of 20 mL in the last 8 hours. Objective - Vital Signs Vital signs: Vital Signs Temp 97.4 F L 08/05/20 08:00 Pulse 105 H 08/05/20 08:00 Resp 30 H 08/05/20 08:00 BP 100/50 08/05/20 08:00 Pulse Ox 91 L 08/05/20 08:00 Intake & Output 08/04/20 08/05/20 08/05/20 18:59 06:59 18:59 Intake Total 7346.580 9783.719 78 Output Total 10 15 5 Balance 2474.995 4454.719 73 Weight 65.8 kg 68 kg Intake: IV 1061 1014 78 0.9 NS flush 36 39 3 Calcium Gluconate 1 gm In 100 Sodium Chloride 0.9% 100 ml @ 100 mls/hr IVPB ONCE ONE Rx#:[id number] Dextrose 5% in Water 1, 675 975 75 000 ml @ 75 mls/hr IV . [id number] [facility] with Sodium Bicarb (1 Meq/ml) 100 ml Rx#:[id number] Piperacillin-Tazobactam 3 100 .375 gm In Sodium Chloride 0.9% 100 ml @ 25 mls/hr IVPB Q12HR [facility] Rx #:[id number] Sodium Chloride 0.9% 1, 150 000 ml @ 50 mls/hr IV . Q20H [facility] Rx#:[id number] Intake, IV Titration 362.857 329.719 Amount Norepinephrine 32 mg In 211.025 229.719 Sodium Chloride 0.9% 218 ml @ 0.6 MCG/KG/MIN 17. 634 mls/hr IV .[id number] [facility] Rx#:[id number] fentaNYL (PF) 1,000 mcg 51.832 In Sodium Chloride 0.9% 80 ml @ Per Protocol IV . Q0M [facility] Rx#:[id number] propofoL 500 mg In Empty 100 100 Bag 1 bag @ Titrate IV . Q0M [facility] Rx#:[id number] Tube Feeding 76 Other 30 Output: Urine 10 15 5 Other: Voiding Method Indwelling Catheter Indwelling Catheter ABP, PAP, CO, CI - Last Documented Arterial Blood Pressure 103/49 - Exam The patient remains intubated with mechanical ventilator support. She also remains sedated with propofol drip currently at 25 mcg/m and fentanyl drip at 0.5 mcg/kg per hour. - Constitutional General appearance: Present: average body habitus - EENT Eyes: Present: normal appearance. Absent: scleral icterus - Neck Details: Neck is supple, no JVD. - Respiratory Details: Lung sounds with scattered rhonchi throughout, diminished bilateral bases. Respirations are symmetrical and nonlabored with mechanical ventilator support. Oxygen saturations on current mechanical ventilator settings are 91%. - Cardiovascular Details: Irregular rhythm with tachycardic rate. S1 and S2 present, negative for S3, gallop or murmur. Bedside telemetry showing atrial fibrillation heart rate 106 BPM. Knee-high sequential compression devices in place to bilateral lower extremities. Generalized trace +1 edema. - Gastrointestinal Gastrointestinal Comment(s): Abdomen is soft and slightly distended. Hypoactive bowel sounds present. OG tube in place to low intermittent wall suction evacuating scant bilious drainage. Tube feedings currently on hold due to high residuals. - Genitourinary Genitourinary Comment(s): Muñoz catheter in place for accurate I&O. 20 mL of output of urine in the last 8 hours. - Integumentary Integumentary Comment(s): Skin is warm and dry. No clubbing or cyanosis is present. Right thoracotomy incision clean dry and approximated. Dressing is clean, dry and in place. No drainage or redness is present. - Neurologic Neurologic Comment(s): Currently sedated on propofol drip and fentanyl drip, unable to accurately assess at this time. - Musculoskeletal Musculoskeletal Comment(s): Currently sedated on propofol drip and fentanyl drip, unable to accurately assess at this time. - Psychiatric Psychiatric Comment(s): Currently sedated on propofol drip and fentanyl drip, unable to accurately assess at this time. - Allied health notes Allied health notes reviewed: nursing - Labs CBC & Chem 7: 08/05/20 04:35 08/05/20 04:35 Labs: Abnormal Lab Results - Last 24 Hours (Table) 08/04/20 08/05/20 08/05/20 Range/Units 23:43 04:35 04:35 WBC 27.6 H (3.8-10.6) k/uL RBC 3.19 L (3.80-5.40) m/uL Hgb 10.3 L (11.4-16.0) gm/dL Hct 32.1 L (34.0-46.0) % MCV 100.6 H (80.0-100.0) fL Neutrophils # 25.8 H (1.3-7.7) k/uL Lymphocytes # 0.4 L (1.0-4.8) k/uL Monocytes # 1.2 H (0-1.0) k/uL ABG pH (7.35-7.45) ABG pCO2 (35-45) mmHg ABG pO2 (83-108) mmHg Sodium 135 L (137-145) mmol/L Chloride 108 H (98-107) mmol/L Carbon Dioxide 19 L (22-30) mmol/L BUN 39 H (7-17) mg/dL Creatinine 2.17 H (0.52-1.04) mg/dL Glucose 116 H (74-99) mg/dL POC Glucose (mg/dL) 101 H (75-99) mg/dL Phosphorus 6.0 H (2.5-4.5) mg/dL 08/05/20 08/05/20 08/05/20 Range/Units 05:05 08:06 08:11 WBC (3.8-10.6) k/uL RBC (3.80-5.40) m/uL Hgb (11.4-16.0) gm/dL Hct (34.0-46.0) % MCV (80.0-100.0) fL Neutrophils # (1.3-7.7) k/uL Lymphocytes # (1.0-4.8) k/uL Monocytes # (0-1.0) k/uL ABG pH 7.22 L (7.35-7.45) ABG pCO2 51 H (35-45) mmHg ABG pO2 76 L (83-108) mmHg Sodium (137-145) mmol/L Chloride (98-107) mmol/L Carbon Dioxide (22-30) mmol/L BUN (7-17) mg/dL Creatinine (0.52-1.04) mg/dL Glucose (74-99) mg/dL POC Glucose (mg/dL) 71 L 113 H (75-99) mg/dL Phosphorus (2.5-4.5) mg/dL - Imaging and Cardiology Chest x-ray: report reviewed, image reviewed Assessment and Plan Assessment: 1. Non-small cell lung cancer involving the right lower lobe orifice and extending into the proximal bronchus intermedius, status post fiberoptic bronchoscopy, right thoracotomy, right lower and middle bilobectomy with mediastinal lymph node dissection and cryoablation of intercostal nerves, surgical pathology pending 2. History of tobacco dependence with cessation 5 years ago 3. Chronic obstructive pulmonary disease 4. Hypertension 5. Hyperlipidemia, treated 6. Chronic atrial fibrillation on Eliquis outpatient for anticoagulation 7. Chronic systolic heart failure 8. Hypothyroid 9. Arthritis with chronic pain and narcotic dependence 10. Depression 11. Paranoia, agitation and confusion 12. Right lung collapse, s/p broncoscopy with mucous plug removal 13. Acute hypoxic and hypercapnic respiratory failure requiring bipap, reintubation 14. Leukocytosis, elevated pro-calcitonin Plan: 1. Mechanical ventilator management per Dr. Weber, wean as tolerated. 2. Continue to monitor daily chest x-rays. 3. Pain control with current when necessary orders. Currently on fentanyl drip at 0.5 mcg/kg per hour. 4. Bronchodilators per pulmonology/critical care medicine management. 5. Continue Eliquis for anticoagulation. 6. Restart tube feedings when okay with pulmonary critical care medicine. 7. Continue propofol drip for sedation. 8. Wean norepinephrine drip as tolerated to keep her systolic blood pressure greater than or equal to 100 mmHg or a map of equal to or greater than 70 mmHg. 9. Pathology results show lung, right middle and lower lobes moderately differentiated invasive squamous cell carcinoma, tumor measuring 5.4 cm in greatest dimension, on margins negative for carcinoma, negative for pleural invasion and lymph nodes negative for carcinoma. 10. IV antibiotic management per pulmonary critical care service. Infectious disease consulted for further recommendations regarding antibiotics as her WBC count is trending up. 11. Prognosis is poor. 12. Continue D5W with 2 A of sodium bicarbonate at 75 mL per hour. 13. The patient's family member Nikia was updated on her care yesterday per phone. 14. More recommendations to follow based on patient's clinical course. Time with Patient: Greater than 30
--- NOTE | 2020-08-05 10:24 | P.PN ---
Subjective Progress Note Date: 08/05/20 Principal diagnosis: Lung cancer Progress note dated 07/31/2020. 75-year-old female well-known to me. She came to me with an abnormal chest x- ray and CAT scan. She ended up with a navigational bronchoscopy and we made a diagnosis of non-small cell lung cancer, squamous cell type. Her PET scan was only positive in the area of the lesions, and she underwent a right thoracotomy, and a right upper and right middle lobectomy by Dr. Worley on July 27. The patient also had a mediastinal lymph node dissection at that time. The patient was seen in the intensive care unit this morning. She was quite agitated and confused. She had a sitter in the room. In addition, her oxygen requirements have gone up recently from 4 L, 7 L, to 10 L/m, high flow. In addition, the [facility] x-ray from today showed complete atelectasis/collapse of the right lung. We took her to the operating room for bronchoscopy and BAL. She has thick mucous plugs throughout the right mainstem and right lower lobe. Also she had thick mucus in the left lung as well. Her arterial blood gases on 7 L high flow showed a PaO2 of 53, a PaCO2 of 36, and a pH of 7.43. The patient may or may not come back to the ICU intubated. She was intubated for the bronchoscopy. She remained on dextrose and half-normal saline at 50 mL an hour, and Cardizem drip at 5 mg an hour. In addition, for her confusion and delirium, we added Haldol and/or Seroquel. In addition, the patient has a history of ICU psych osis, chronic atrial fibrillation, benign essential hypertension, rheumatoid arthritis, hypothyroidism, depression, glaucoma, and, routine postoperative ventilator management. Progress note dated 08/01/2020. This is a 75-year-old female, postop day #5, status post right thoracotomy, with right upper lobectomy and right middle lobectomy, and mediastinal lymph node dissection. The patient has a history of recent diagnosis of non-small cell lung cancer, squamous cell type, diagnosed by electromagnetic navigational bronchoscopy. Unfortunately, the patient had nearly complete right lung collaps e yesterday. She had bronchoscopy yesterday done in the operating room. Her post bronchoscopy chest x-ray was much improved as was her x-ray this morning. The patient's currently on BiPAP with settings of 10/5 and 50%. She's getting a Cardizem drip at 5 mg an hour, as well as dexmedetomidine 0.5 mcg/kg per hour. She is also getting dextrose with half-normal saline at 75 mL an hour. We have a difficult time with her last night.. She was quite anxious and confused, with significant agitation. We attempted a number different medications none of which really worked other than the dexmedetomidine. Today, she will have a midline placed. In addition, because she is not eating, we'll start her on peripheral parenteral nutrition, which is not optimal but better than nothing. Her prognosis is very guarded at this time given all the issues that we had to deal with the last 2 days. In the end, she may end up back on the ventilator. I am hoping that is not the case. Progress note dated 08/02/2020. 75-year-old female postop day #6, status post right thoracotomy, with right upper lobectomy and right middle lobectomy, and mediastinal lymph node dissection. The patient was recently diagnosed with non-small cell lung cancer, squamous cell type, diagnosed by electromagnetic navigational bronchoscopy. Overnight, the patient required an increasing dose of Cardizem up to 10 mg an ho ur, with a subsequent drop in blood pressure requiring norepinephrine, which is now with 24 mcg/m. I was not notified of either of these 2 changes. Currently, the patient's on BiPAP with settings of IPAP 10, EPAP 5, and 100%. The patient's getting D5.45 50 mL an hour, and parenteral nutrition at 30 mL an hour. A PICC line was placed yesterday. In addition, the patient is on dexmedetomidine at 0.5 mcg/kg per hour. This morning, when I rounded, I asked the nurse for a stat blood gas. I was concerned because of the acute deterioration in this patient. Sure enough, the blood gas showed a PaO2 of 77, a PaCO2 of 74, and a pH of 7.129. Anesthesia will be called to intubate this patient, and place the patient on the volume assist control mode, rate 26, tidal volume 350, FiO2 100%, and PEEP of 5. We will use all for sedation and I will place an arterial line shortly. A blood gas will be done after 1 hour stable ventilation., Progress note dated 08/03/2020. 75-year-old female, postop day #7, status post right thoracotomy, right upper lobectomy, right middle lobectomy, and mediastinal lymph node dissection. The patient was recently diagnosed with non-small cell lung cancer, squamous cell type, by navigational bronchoscopy. Yesterday, the patient was intubated for hypercapnic respiratory failure. The patient prior, was on BiPAP, and was doing poorly, both in terms of her atrial fibrillation with RVR, and hypotension. I had a long talk with her sister Leatha yesterday and she agreed to continue life support through the end of the week in early part of the weekend but, if the patient wasn't doing well, they would agree to comfort measures. Currently, she remains on the volume assist control mode, rate 30, tidal volume 350, FiO2 50%, and PEEP of 8. Blood gases showed a PaO2 of 121, PaCO2 42, and a pH is 7.28, on 60% FiO2. The patient is actually a synchronous with the ventilator, and we switch the modality to pressure regulated volume control or VC+. In addition, Reglan was added because of high residuals, and the patient remains on norepinephrine at 36 mcg/m, propofol 50 mcg/kg/m, and saline at 50 mL now her. Her tube feeds should be vital high protein, and the goal rate is 38 mL per hour. The patient's overall prognosis remains poor. Her norepinephrine dose was only 24 mcg/min yesterday and obviously has increased. In addition, her chest x-ray shows an infiltrate in the left lung. Progress note dated 08/04/2020. 75-year-old female, postop day #8, that is post right thoracotomy, right upper lobectomy, right middle lobectomy, and mediastinal lymph node dissection. The patient was recently diagnosed with non-small cell lung cancer/squamous cell, by navigational bronchoscopy. 2 days ago, the patient was found to have acute on chronic hypoxemic and hypercapnic respiratory failure, and was intubated. The patient's doing poorly. Currently, she is on the pressure regulated volume control modality of ventilation or VC plus. Her rate is 30, inspiratory time is 0.8 seconds, targeted tidal volume of 320 mL, FiO2 is 50%, and PEEP of 8. Her arterial blood gases show a PaO2 of 100, PaCO2 of 49, and a pH of 7.14. The patient will be started on a bicarbonate drip, with 2 ampules of bicarbonate and D5W at 75 mL an hour. The patient's receiving vital high protein at goal, which is 38 mL per hour. In addition, the patient's getting norepinephrine at 40 mcg/m, saline at 50 mL an hour, fentanyl at 0.5 mcg/kg/h, and propofol at 30 mcg/kg/m. White count is 25.2, hemoglobin 10.6, hematocrit 33.4, and platelet count 260,000. Sodium is 135, potassium 4.4, chloride 114, CO2 18, anion gap 3, BUN of 27 with a creatinine of 1.74. Progress note dated 08/05/2020. 75-year-old female, postop day #9, status post right thoracotomy, right upper lobectomy, right middle lobectomy, and mediastinal lymph node dissection. The patient was recently diagnosed with squamous cell carcinoma, by navigational bronchoscopy. More recently, the patient was intubated for hypoxemic respiratory failure. Since that time, she's done very poorly. The patient's currently on the pressure regulated volume control mode, also known as VC plus, with a targeted tidal volume at 320 and inspiratory time of 0.8 seconds. Her FiO2 is 60%, he is a calm rate is 30, to be turned up to 36. Arterial blood gases today show a PaO2 of 76, a PaCO2 of 51, and a pH of 7.22. Unfortunately, the patient's required more and more norepinephrine. Currently, she is at 42 mcg/m. She is also getting propofol at 25 mcg/kg/m, 2 ampules of sodium bicarbonate and D5W at 75 mL an hour, and fentanyl at 25 mcg/kg per hour. Chest x-ray shows volume loss in the right lower lobe with a right-sided pleural effusion and diffuse infiltrate in the left lung. I did talk to the sister today, Leatha, and spoke to her about what should happen next. A couple days ago when I spoke to Leatha, she really did not want the patient on a ventilator at all, and insisted that she be taken off ventilator comfort measures. I had to argue with her to get her to agree to give the patient couple days on life support to see if she would make or show any improvement. Unfortunately, that did not happen. Also yesterday, she had very high residuals of nearly a liter and tube feeds had to be stopped. Her sister, Leatha, wants to come in and see the patient today and then hopes to be able to make the patient comfort measures afterwards. She says that her nephew and the patient's son Jose Miguel, both agree with comfort measures. Objective - Vital Signs Vital signs: Vital Signs Temp 97.4 F L 08/05/20 08:00 Pulse 112 H 08/05/20 10:00 Resp 30 H 08/05/20 10:00 BP 103/46 08/05/20 10:00 Pulse Ox 90 L 08/05/20 10:00 Intake & Output 08/04/20 08/05/20 08/05/20 18:59 06:59 18:59 Intake Total 7239.530 1809.719 272.198 Output Total 10 15 20 Balance 7040.644 7949.719 252.198 Weight 65.8 kg 68 kg Intake: IV 1061 1014 234 0.9 NS flush 36 39 9 Calcium Gluconate 1 gm In 100 Sodium Chloride 0.9% 100 ml @ 100 mls/hr IVPB ONCE ONE Rx#:[id number] Dextrose 5% in Water 1, 675 975 225 000 ml @ 75 mls/hr IV . [id number] [facility] with Sodium Bicarb (1 Meq/ml) 100 ml Rx#:[id number] Piperacillin-Tazobactam 3 100 .375 gm In Sodium Chloride 0.9% 100 ml @ 25 mls/hr IVPB Q12HR [facility] Rx #:[id number] Sodium Chloride 0.9% 1, 150 000 ml @ 50 mls/hr IV . Q20H [facility] Rx#:[id number] Intake, IV Titration 362.857 329.719 38.198 Amount Norepinephrine 32 mg In 211.025 229.719 38.198 Sodium Chloride 0.9% 218 ml @ 0.6 MCG/KG/MIN 17. 634 mls/hr IV .[id number] [facility] Rx#:[id number] fentaNYL (PF) 1,000 mcg 51.832 In Sodium Chloride 0.9% 80 ml @ Per Protocol IV . Q0M [facility] Rx#:[id number] propofoL 500 mg In Empty 100 100 Bag 1 bag @ Titrate IV . Q0M [facility] Rx#:[id number] Tube Feeding 76 Other 30 Output: Urine 10 15 20 Other: Voiding Method Indwelling Catheter Indwelling Catheter ABP, PAP, CO, CI - Last Documented Arterial Blood Pressure 107/50 - Exam Sedated, and mechanically ventilated, with an orally placed endotracheal tube, and NG tube. HEENT examination is grossly unremarkable. Mucous membranes are dry. Oral endotracheal tube noted. Neck supple. Full range of motion. No adenopathy thyromegaly or neck vein distention. Cardiovascular examination reveals regular rhythm and rate. S1-S2 normal. No S3 or S4. No discernible murmur noted. Heart rate is 112 bpm. Heart sounds are distant. Lungs reveal diminished breath sounds bilaterally. Bilateral coarse rhonchi are noted. Breath sounds are equal. No wheezes. Abdomen firm. No bowel sounds. Extremities are intact. No cyanosis clubbing or edema. Extremities cool. Skin is without rash or lesion. Neurologic examination reveals a sedated patient. More thorough neurologic examination cannot be performed. - Labs CBC & Chem 7: 08/05/20 04:35 08/05/20 04:35 Labs: Abnormal Lab Results - Last 24 Hours (Table) 08/04/20 08/05/20 08/05/20 Range/Units 23:43 04:35 04:35 WBC 27.6 H (3.8-10.6) k/uL RBC 3.19 L (3.80-5.40) m/uL Hgb 10.3 L (11.4-16.0) gm/dL Hct 32.1 L (34.0-46.0) % MCV 100.6 H (80.0-100.0) fL Neutrophils # 25.8 H (1.3-7.7) k/uL Lymphocytes # 0.4 L (1.0-4.8) k/uL Monocytes # 1.2 H (0-1.0) k/uL ABG pH (7.35-7.45) ABG pCO2 (35-45) mmHg ABG pO2 (83-108) mmHg Sodium 135 L (137-145) mmol/L Chloride 108 H (98-107) mmol/L Carbon Dioxide 19 L (22-30) mmol/L BUN 39 H (7-17) mg/dL Creatinine 2.17 H (0.52-1.04) mg/dL Glucose 116 H (74-99) mg/dL POC Glucose (mg/dL) 101 H (75-99) mg/dL Phosphorus 6.0 H (2.5-4.5) mg/dL 08/05/20 08/05/20 08/05/20 Range/Units 05:05 08:06 08:11 WBC (3.8-10.6) k/uL RBC (3.80-5.40) m/uL Hgb (11.4-16.0) gm/dL Hct (34.0-46.0) % MCV (80.0-100.0) fL Neutrophils # (1.3-7.7) k/uL Lymphocytes # (1.0-4.8) k/uL Monocytes # (0-1.0) k/uL ABG pH 7.22 L (7.35-7.45) ABG pCO2 51 H (35-45) mmHg ABG pO2 76 L (83-108) mmHg Sodium (137-145) mmol/L Chloride (98-107) mmol/L Carbon Dioxide (22-30) mmol/L BUN (7-17) mg/dL Creatinine (0.52-1.04) mg/dL Glucose (74-99) mg/dL POC Glucose (mg/dL) 71 L 113 H (75-99) mg/dL Phosphorus (2.5-4.5) mg/dL Microbiology - Last 24 Hours (Table) 08/03/20 01:53 Gram Stain - Preliminary Sputum Sputum Culture - Preliminary Yeast species Assessment and Plan Assessment: Postop day #9, status post right thoracotomy, right upper lobectomy and right middle lobectomy, mediastinal lymph node dissection. Recent deterioration with hypotension, worsening atrial fibrillation, and hypercapnic respiratory failure, requiring reintubation on every 08/02/2020. Recent diagnosis of non-small cell lung cancer/squamous cell carcinoma via navigational bronchoscopy. Routine postoperative ventilator management. History of ICU delirium and psychosis. Chronic atrial fibrillation. Benign essential hypertension. Right lung collapse, status post bronchoscopy, 07/31/2020. History of rheumatoid arthritis. History of hypothyroidism. History of depression. History of glaucoma. Status post PICC line placement, on 08/01/2020. Plan: Plan dated 08/05/2020. I spoke to the sister Leatha, who was adamant about making the patient comfort measures. She felt this way 3 or 4 days ago right after the patient was intubated. The patient herself is really not shown much or any improvement at all with excellent supportive care including mechanical ventilation, sedation, and norepinephrine for blood pressure support. In fact, her norepinephrine dose has increased up to 42 mcg/m. She also remains on propofol and fentanyl. She is also getting sodium bicarbonate drip for metabolic acidosis. Arterial blood gases today show a PaO2 of 76, PaCO2 51, pH is 7.22. White count is 27.6, hemoglobin 10.3, hematocrit 32.1, platelet count 228,000, sodium 135, potassium 4.7, chlorides 108, CO2 19, anion gap 8, and a BUN of 39 with a creatinine of 2.17. Urine output currently, is very poor, and renal function continues to worsen. Chest x-rays reviewed and shows infiltrate in the left lung, with some right lung collapse and volume loss, and a right-sided pleural effusion. Microbiology is only positive for yeast species in the sputum. The rest of the culture data is negative for pending. She remains on antibiotics in the form of Zosyn. We will continue to follow. Prognosis is very poor. Time with Patient: Greater than 30
[2020-08-05 11:38] VITALS: PULSE 92
[2020-08-05 11:44] VITALS: BP 119/57; RESP 36
[2020-08-05 11:51] LABS: Glucose,Whole Blood 120 mg/dL (75-99)
[2020-08-05] MEDS ORDERED: ATROPINE OPHTH SOLN 1% 5ML BTL SUBLINGUAL PRN (12:06)
[2020-08-05] MEDS ORDERED: MORPHINE SULFATE (100 MG/2 ML) 100 MG in SODIUM CHLORIDE 0.9% 100 ML IV SCH (12:15)
--- NOTE | 2020-08-05 16:22 | PN ---
PROGRESS NOTE A 75-year-old white female remains in ICU. She has been made comfort care per family and pulmonology, status post bilobectomy, right lung collapse. Status post bronchoscopy. Temperature 97.4, pulse 105, respiratory 25 to 30, blood pressure 100/50, O2 91 intubated, ventilator support. Muñoz catheter is in. Cardiovascular S1-S2. Lungs scattered wheeze and rhonchi. Hematology: Negative Homans' ASSESSMENT: 1. Non-small cell lung cancer involving the right lower lobe, status post fiberoptic bronchoscopy, right thoracotomy right lower middle lobe bilobectomy. 2. Chronic obstructive pulmonary disease. 3. Hypertension. 4. Dyslipidemia. 5. Chronic atrial fibrillation. 6. Hypothyroid. 7. Chronic systolic heart failure. 8. Paranoia. 9. Depression. Apparently her family made her COMFORT CARE due to poor prognosis. Family is at bedside. Patient will probably pass away today. MMODL / IJN: [id number] /
--- NOTE | 2020-09-18 10:19 | DS ---
DISCHARGE SUMMARY The patient was admitted for chest surgery. She remained in ICU. She was status post bilobectomy. She had right lung collapse. She was made comfort care by her family [id number] and Pulmonology who discussed. She was status post bronchoscopy in ICU. She of complications of bilobectomy. MMODL / IJN: [id number] /
--- NOTE | 2020-10-13 09:37 | CDI ---
Documentation Clarification Form Date: 10/13/2020 From: Rosetta PARMAR,CCDS,RN Phone: [phone] Admit Date: 07/27/2020 05:40:00 AM Patient Name: Swathi Floyd Visit Number: [id number] Discharge Date: 08/05/2020 04:50:00 PM ATTENTION: The Clinical Documentation Specialists (CDI) and [facility] Coding Staff appreciate your assistance in clarifying documentation. Please respond to the clarification below the line at the bottom and electronically sign. The CDI & [facility] Coding staff will review the response and follow-up if needed. Please note: Queries are made part of the Legal Health Record. If you have any questions, please contact the author of this message via ITS. Dr. Tia Jimenez was reviewed at Clinical Validation committee and clarification is requested regarding 2/3 CTS Progress notes hypotension likely caused by medications. History/Risk Factors: COPD, Chronic Atrial Fibrillation, Hypothyroidism, Former Nicotine Dependence, quit 2 years ago, Chronic Systolic Congestive Heart Failure, Hypertension, Clinical Indicators: Patient presented for the above elective surgery for RLL Lung Cancer. Bibasilar atelectasis and Right lung collapse is documented followed by RLL bronchoscopy. Chronic pain with Narcotic dependence per CTS PNS. 07/30 CTS reorient as necessary, Haldol/Xanax prn, d/c Precede/ CTS a-fib w/ RVR and hypertensive when anxious and agitated, normotensive w/ controlled a-fib when calm, R-sided mucus plug, increased O2 requirements overnight 07/31 ICU Haldol/Seroquel for delirium, Cardizem gtt for a-fib w/ RVR, hypotensive requiring norepinephrine gtt @ 24 mcg, D/C precedex, hypercapnia respiratory failure pt reintubated, started on propofol 23: She remains on IV Cardizem for A. fib, propofol for sedation, and Levophed for hypotension likely caused by medications including previous Precedex, Haldol, IV Cardizem, and now propofol. Procalcitonin was drawn yesterday, 0.39. 08/05:Pulm: Recent deterioration with hypotension, worsening atrial fibrillation, and hypercapnic respiratory failure, requiring reintubation on every 08/02/2020. / CDI Query has response of possible aspiration. 08/03 ICU recent deterioration w/ hypotension, worsening a-fib, hypercapnic resp failure reintubated, propofol @ 50, levophed @ 36, reglan for high residuals 08/05 CTS levophed @ 42, Propofol @ 25, fentanyl @ 25 08/06 CTS pt transitioned to comfort care VS 07/27 Preop: T 98.4 0 96.9; P 64-69, R 16 - 20, BP 170/84, PO 98 RA VS 07/27 Postop: T 97.9, P 67 - 79, R 18-22; BP 134/72, PO 100 3Lnc VS 07/28: P 83 - 129, R 9, BP 55/30*, PO 86 - 91 4Lnc VS 07/29: P 72 - 82 (irregular, weak), R 154 - 17 (SOB), BP 95/52, PO 100 3Lnc VS 08/02: T 96.2*, P 70 (irregular, weak), R 26 (vent), BP 89/41, PO 100 on 100% vent 07/28 LAB: WBC 8.2 08/02 LAB: WBC 22.9 Treatment: IV Fluid Bolus IV Zosyn, Precedex, Haldol/Xanax prn Cardizem drip for afib, Levophed gtt titrated. Propfol gtt titrated, transitioned to comfort measures. Can the hypotension be further specified? [ ] Drug Induced Hypotension expected [ ] Drug Induced Hypotension unexpected [ ] Hypotension due to Shock (please specify type if known) [ ] Iatrogenic Hypotension [ ] Hypotension due to comorbid conditions please specify [ ] Other Condition, please specify [ ] Unable to determine (Template Last Revised: August 2020) MTDD
--- NOTE | 2020-10-16 09:36 | CDI ---
Date: 10/13/2020 From: Rosetta PARMAR,CCDS,RN Phone: [phone] Admit Date: 07/27/2020 05:40:00 AM Patient Name: Swathi Floyd Visit Number: [id number] Discharge Date: 08/05/2020 04:50:00 PM ATTENTION: The Clinical Documentation Specialists (CDI) and [facility] Coding Staff appreciate your assistance in clarifying documentation. Please respond to the clarification below the line at the bottom and electronically sign. The CDI & [facility] Coding staff will review the response and follow-up if needed. Please note: Queries are made part of the Legal Health Record. If you have any questions, please contact the author of this message via ITS. Dr. Tia Jimenez was reviewed at Clinical Validation committee and clarification is requested regarding 2/3 CTS Progress notes hypotension likely caused by medications. History/Risk Factors: COPD, Chronic Atrial Fibrillation, Hypothyroidism, Former Nicotine Dependence, quit 2 years ago, Chronic Systolic Congestive Heart Failure, Hypertension, Clinical Indicators: Patient presented for the above elective surgery for RLL Lung Cancer. Bibasilar atelectasis and Right lung collapse is documented followed by RLL bronchoscopy. Chronic pain with Narcotic dependence per CTS PNS. 07/30 CTS reorient as necessary, Haldol/Xanax prn, d/c Precede/ CTS a-fib w/ RVR and hypertensive when anxious and agitated, normotensive w/ controlled a- fib when calm, R-sided mucus plug, increased O2 requirements overnight 07/31 ICU Haldol/Seroquel for delirium, Cardizem gtt for a-fib w/ RVR, hypotensive requiring norepinephrine gtt @ 24 mcg, D/C precedex, hypercapnia respiratory failure pt reintubated, started on propofol 23: She remains on IV Cardizem for A. fib, propofol for sedation, and Levophed for hypotension likely caused by medications including previous Precedex, Haldol, IV Cardizem, and now propofol. Procalcitonin was drawn yesterday, 0.39. 08/05:Pulm: Recent deterioration with hypotension, worsening atrial fibrillation, and hypercapnic respiratory failure, requiring reintubation on every 08/02/2020. / CDI Query has response of possible aspiration. 08/03 ICU recent deterioration w/ hypotension, worsening a-fib, hypercapnic resp failure reintubated, propofol @ 50, levophed @ 36, reglan for high residuals 08/05 CTS levophed @ 42, Propofol @ 25, fentanyl @ 25 08/06 CTS pt transitioned to comfort care VS 07/27 Preop: T 98.4 0 96.9; P 64-69, R 16 - 20, BP 170/84, PO 98 RA VS 07/27 Postop: T 97.9, P 67 - 79, R 18-22; BP 134/72, PO 100 3Lnc VS 07/28: P 83 - 129, R 9, BP 55/30*, PO 86 - 91 4Lnc VS 07/29: P 72 - 82 (irregular, weak), R 154 - 17 (SOB), BP 95/52, PO 100 3Lnc VS 08/02: T 96.2*, P 70 (irregular, weak), R 26 (vent), BP 89/41, PO 100 on 100% vent 07/28 LAB: WBC 8.2 08/02 LAB: WBC 22.9 Treatment: IV Zosyn, Precedex, Haldol/Xanax prn Cardizem drip for afib, Levophed gtt titrated. Propfol gtt titrated Can the hypotension be further specified? [ ] Drug Induced Hypotension expected [ ] Drug Induced Hypotension unexpected [ ] Hypotension due to Shock (please specify type if known) [ ] Iatrogenic Hypotension [ ] Hypotension due to comorbid conditions please specify [ ] Other Condition, please specify [ ] Unable to determine (Template Last Revised: August 2020) MTDD
--- NOTE | 2020-10-18 05:53 | CDI ---
Date: 10/13/2020 From: Rosetta PARMAR,CCDS,RN Phone: [phone] Admit Date: 07/27/2020 05:40:00 AM Patient Name: Swathi Floyd Visit Number: [id number] Discharge Date: 08/05/2020 04:50:00 PM ATTENTION: The Clinical Documentation Specialists (CDI) and [facility] Coding Staff appreciate your assistance in clarifying documentation. Please respond to the clarification below the line at the bottom and electronically sign. The CDI & [facility] Coding staff will review the response and follow-up if needed. Please note: Queries are made part of the Legal Health Record. If you have any questions, please contact the author of this message via ITS. Dr. Tia Jimenez was reviewed at Clinical Validation committee and clarification is requested regarding 2/3 CTS Progress notes hypotension likely caused by medications. History/Risk Factors: COPD, Chronic Atrial Fibrillation, Hypothyroidism, Former Nicotine Dependence, quit 2 years ago, Chronic Systolic Congestive Heart Failure, Hypertension, Clinical Indicators: Patient presented for the above elective surgery for RLL Lung Cancer. Bibasilar atelectasis and Right lung collapse is documented followed by RLL bronchoscopy. Chronic pain with Narcotic dependence per CTS PNS. 07/30 CTS reorient as necessary, Haldol/Xanax prn, d/c Precede/ CTS a-fib w/ RVR and hypertensive when anxious and agitated, normotensive w/ controlled a- fib when calm, R-sided mucus plug, increased O2 requirements overnight 07/31 ICU Haldol/Seroquel for delirium, Cardizem gtt for a-fib w/ RVR, hypotensive requiring norepinephrine gtt @ 24 mcg, D/C precedex, hypercapnia respiratory failure pt reintubated, started on propofol 23: She remains on IV Cardizem for A. fib, propofol for sedation, and Levophed for hypotension likely caused by medications including previous Precedex, Haldol, IV Cardizem, and now propofol. Procalcitonin was drawn yesterday, 0.39. 08/05:Pulm: Recent deterioration with hypotension, worsening atrial fibrillation, and hypercapnic respiratory failure, requiring reintubation on every 08/02/2020. / CDI Query has response of possible aspiration. 08/03 ICU recent deterioration w/ hypotension, worsening a-fib, hypercapnic resp failure reintubated, propofol @ 50, levophed @ 36, reglan for high residuals 08/05 CTS levophed @ 42, Propofol @ 25, fentanyl @ 25 08/06 CTS pt transitioned to comfort care VS 07/27 Preop: T 98.4 0 96.9; P 64-69, R 16 - 20, BP 170/84, PO 98 RA VS 07/27 Postop: T 97.9, P 67 - 79, R 18-22; BP 134/72, PO 100 3Lnc VS 07/28: P 83 - 129, R 9, BP 55/30*, PO 86 - 91 4Lnc VS 07/29: P 72 - 82 (irregular, weak), R 154 - 17 (SOB), BP 95/52, PO 100 3Lnc VS 08/02: T 96.2*, P 70 (irregular, weak), R 26 (vent), BP 89/41, PO 100 on 100% vent 07/28 LAB: WBC 8.2 08/02 LAB: WBC 22.9 Treatment: IV Zosyn, Precedex, Haldol/Xanax prn Cardizem drip for afib, Levophed gtt titrated. Propfol gtt titrated Can the hypotension be further specified? [ ] Drug Induced Hypotension expected [ ] Drug Induced Hypotension unexpected [ ] Hypotension due to Shock (please specify type if known) [ ] Iatrogenic Hypotension [ ] Hypotension due to comorbid conditions please specify [ ] Other Condition, please specify [ x] Unable to determine (Template Last Revised: August 2020) MTDD
== END 2020-08-05 16:50 | disposition expired | DRG 163 ==
LOC: 2ORMAIN 07-27 05:40 → 2SICU 07-27 13:44
PROVIDERS: ADMIT Thoracic Surgery (Cardiothoracic Vascular Surgery); ATTEND Thoracic Surgery (Cardiothoracic Vascular Surgery)
PROC: 0BTD0ZZ Resection of Right Middle Lung Lobe, Open Approach (ICD-10-PCS; principal; 2020-07-27 07:30)
PROC: 0BTF0ZZ Resection of Right Lower Lung Lobe, Open Approach (ICD-10-PCS; principal; 2020-07-27 07:30)
PROC: 01580ZZ Destruction of Thoracic Nerve, Open Approach (ICD-10-PCS; principal; 2020-07-27 07:30)
PROC: 07B70ZX Excision of Thorax Lymphatic, Open Approach, Diagnostic (ICD-10-PCS; principal; 2020-07-27 07:30)
PROC: 0BJ08ZZ Inspection of Tracheobronchial Tree, Via Natural or Artificial Opening Endoscopic (ICD-10-PCS; principal; 2020-07-27 07:30)
PROC: 0WCQ8ZZ Extirpation of Matter from Respiratory Tract, Via Natural or Artificial Opening Endoscopic (ICD-10-PCS; 2020-07-31)
PROC: 0B9F8ZZ Drainage of Right Lower Lung Lobe, Via Natural or Artificial Opening Endoscopic (ICD-10-PCS; 2020-07-31)
PROC: 5A0935A Assistance with Respiratory Ventilation, Less than 24 Consecutive Hours, High Flow/Velocity Cannula (ICD-10-PCS; 2020-07-31)
PROC: 3E0G76Z Introduction of Nutritional Substance into Upper GI, Via Natural or Artificial Opening (ICD-10-PCS; 2020-07-31)
PROC: 4A133J1 Monitoring of Arterial Pulse, Peripheral, Percutaneous Approach (ICD-10-PCS; 2020-07-31)
PROC: 4A133B1 Monitoring of Arterial Pressure, Peripheral, Percutaneous Approach (ICD-10-PCS; 2020-07-31)
PROC: 03HY32Z Insertion of Monitoring Device into Upper Artery, Percutaneous Approach (ICD-10-PCS; 2020-07-31)
PROC: 3E033XZ Introduction of Vasopressor into Peripheral Vein, Percutaneous Approach (ICD-10-PCS; 2020-08-02)
PROC: 0BH17EZ Insertion of Endotracheal Airway into Trachea, Via Natural or Artificial Opening (ICD-10-PCS; 2020-08-02)
PROC: 5A1945Z Respiratory Ventilation, 24-96 Consecutive Hours (ICD-10-PCS; 2020-08-02)
PROC: 5A09357 Assistance with Respiratory Ventilation, Less than 24 Consecutive Hours, Continuous Positive Airway Pressure (ICD-10-PCS; 2020-08-02)
PROC: 02HV33Z Insertion of Infusion Device into Superior Vena Cava, Percutaneous Approach (ICD-10-PCS; 2020-08-02)
PROC: 0D9670Z Drainage of Stomach with Drainage Device, Via Natural or Artificial Opening (ICD-10-PCS; 2020-08-02)
DX: C34.2 Malignant neoplasm of middle lobe, bronchus or lung (principal); J69.0 Pneumonitis due to inhalation of food and vomit; J96.21 Acute and chronic respiratory failure with hypoxia; J96.22 Acute and chronic respiratory failure with hypercapnia; C34.31 Malignant neoplasm of lower lobe, right bronchus or lung; E87.2 Acidosis; F03.91 Unspecified dementia, unspecified severity, with behavioral disturbance; F05 Delirium due to known physiological condition; F11.20 Opioid dependence, uncomplicated; I48.21 Permanent atrial fibrillation; I50.22 Chronic systolic (congestive) heart failure; J44.0 Chronic obstructive pulmonary disease with (acute) lower respiratory infection; J93.82 Other air leak; J93.83 Other pneumothorax; J98.11 Atelectasis; T17.590A Other foreign object in bronchus causing asphyxiation, initial encounter; T17.890A Other foreign object in other parts of respiratory tract causing asphyxiation, initial encounter; Z51.5 Encounter for palliative care; I11.0 Hypertensive heart disease with heart failure; E03.9 Hypothyroidism, unspecified; E78.5 Hyperlipidemia, unspecified; Z87.891 Personal history of nicotine dependence; Z66 Do not resuscitate; F22 Delusional disorders; D72.829 Elevated white blood cell count, unspecified; F32.9 Major depressive disorder, single episode, unspecified; I95.9 Hypotension, unspecified; F41.9 Anxiety disorder, unspecified; R45.1 Restlessness and agitation; G62.9 Polyneuropathy, unspecified; G89.29 Other chronic pain; H40.9 Unspecified glaucoma; H35.30 Unspecified macular degeneration; G43.909 Migraine, unspecified, not intractable, without status migrainosus; I34.1 Nonrheumatic mitral (valve) prolapse; Z87.01 Personal history of pneumonia (recurrent); Z78.1 Physical restraint status; M06.9 Rheumatoid arthritis, unspecified; M19.90 Unspecified osteoarthritis, unspecified site; M54.9 Dorsalgia, unspecified; Z79.01 Long term (current) use of anticoagulants; Z79.890 Hormone replacement therapy; Z79.899 Other long term (current) drug therapy; Z82.3 Family history of stroke; Z90.710 Acquired absence of both cervix and uterus; Z90.49 Acquired absence of other specified parts of digestive tract; Z90.89 Acquired absence of other organs; Z84.89 Family history of other specified conditions
CPT/HCPCS: 31645; 36415; 36573; 36600; 71045; 74018; 80048; 80051; 80053; 81001; 82330; 82533; 82565; 82805; 82947; 83605; 83735; 84100; 84132; 84145; 84443; 84478; 84520; 85025; 85027; 85610; 85730; 86850; 86900; 86901; 87070; 87086; 87102; 87116; 87205; 87206; 87252; 87496; 87498; 87502; 87529; 87634; 87798; 88305; 88309; 88313; 88331; 89050; 94002; 94003; 94640; 94660

== ENCOUNTER → 2020-07-24 | Outpatient (CLI) | payer MEDICARE, OTHER ==
[2020-07-24 15:36] LABS: Appearance,Urine Cloudy (Clear); Bacteria,Urine Rare /hpf; Bilirubin,Urine Negative (Negative); Blood,Urine Negative (Negative); Color,Urine Yellow; Glucose,Urine (UA) Negative (Negative); Hyaline Casts,Urine 15 /lpf (0-2); Ketones,Urine Negative (Negative); Leukocyte Esterase,Urine Negative (Negative); Mucus,Urine Many /hpf; Nitrite,Urine Negative (Negative); PH, Urine 6.5 (5.0-8.0); Protein,Urine Trace (Negative); RBC,Urine 1 /hpf (0-5); Specific Gravity,Urine 1.022 (1.001-1.035); Squamous Epithelial Cell,Urine 4 /hpf (0-4); Urobilinogen,Urine <2.0 mg/dL (<2.0); WBC,Urine 1 /hpf (0-5)
[2020-07-24 15:38] LABS: Basophils % (A) 1 %; Eosinophils # (A) 0.1 k/uL (0-0.7); Eosinophils % (A) 2 %; HGB 11.2 gm/dL (11.4-16.0); Lymphocytes # (A) 1.4 k/uL (1.0-4.8); Lymphocytes % (A) 25 %; MCH 31.8 pg (25.0-35.0); MCHC 31.9 g/dL (31.0-37.0); MCV 99.7 fL (80.0-100.0); Mean Platelet Volume 7.8; Monocytes # (A) 0.4 k/uL (0-1.0); Monocytes % (A) 7 %; Neutrophils # (A) 3.3 k/uL (1.3-7.7); Neutrophils % (A) 61 %; Platelet Count 230 k/uL (150-450); RBC 3.51 m/uL (3.80-5.40); RDW 12.8 % (11.5-15.5); WBC 5.4 k/uL (3.8-10.6)
[2020-07-24 15:46] LABS: Potassium 4.7 mmol/L (3.5-5.1)
[2020-07-24 15:48] LABS: Partial Thromboplastin Time 24.7 sec (22.0-30.0); Prothrombin Time 10.8 sec (9.0-12.0)
== END | disposition home or self-care (01) ==
LOC: LABPAT 14:21
PROVIDERS: ATTEND Thoracic Surgery (Cardiothoracic Vascular Surgery)
DX: Z01.818 Encounter for other preprocedural examination (principal); U07.1 COVID-19
CPT/HCPCS: 80051; 82565; 82947; 84520; 85025; 85610; 85730; 81001; 87086; 36415; U0003; C9803; U0005